=== PATIENT | male | born 1935 | race Caucasian/White ===

== ENCOUNTER 2016-04-14 21:35 | Emergency (ER) | payer OTHER ==
[~2016-04-14 21:35] MED LIST: /TIOT18INH; ACET65TA; ALBU17IN INH; ALFU10TA2 PO; ASPI1TAB PO; ASPI81TA45; B-12; COLA100C2; DOCU100C PO; FLUC10TA; FURO40TA2; FURO40TA2 PO; GAS80CHW PO; HYDR-3713 PO; INCR1INH INH; LASI40TA; LEVA1.25 INH; METO-209 PO; MIRA3350 PO; MULTIVIT; NITR4TASL SL; OMEP20CA3 PO; PRIL40CA; SIMV40TA2 PO; SLOWTAB; STOOL SOFTENER; SYMB80AE; TIZA2TA PO; TOPR100T; UROXATROL; VENTAER; VITA10002 PO; VITA200015 PO; VITMTA PO; VYTO10TA5; XOPE1.252; ZETI10TA2 PO
[2016-04-14] MEDS ORDERED: dexameTHASONE 20 MG/5 ML VIAL (J1100) As Ordered ONE (22:24)
[2016-04-14] MEDS ORDERED: KETOROLAC 30 MG/ML VIAL (J1885) As Ordered ONE (23:15)
[2016-04-15] MEDS ORDERED: guaiFENesin DM LIQ 10ML UD As Ordered ONE (00:32)
--- NOTE | 2016-04-15 00:43 | EDDOCDS ---
Nurse's Notes [facility] Name: Yemi Clark Age: 80 yrs Sex: Male : 1935 Arrival Date: 04/14/2016 Time: 21:35 Bed 10 Private MD: Jason Garcia Diagnosis: Chronic obstructive pulmonary disease with (acute) exacerbation;Acute upper respiratory infection, unspecified-viral Presentation: 04/14 21:41 Presenting complaint: Patient states: cough, cold and difficulty breathing for 3 days. rs3 not improved with neb treatment and inhalers. Adult Sepsis Screening: The patient does not have new or worsening altered mentation. Patient has a respiratory rate of greater than or equal to 22 (1 point). Systolic blood pressure is greater than 100. Patient has a qSOFA score of 0- Negative Sepsis Screen. Suicide/Homicide risk assessment- the patient denies having any suicidal and/or homicidal ideations and does not present with any other emotional, behavioral or mental health complaints. Status: Patient is not a diesel service apprentice or dependent. Transition of care: patient was not received from another setting of care. 21:41 Acuity: LYNN Level 3 rs3 21:41 Method Of Arrival: Wheelchair rs3 Triage Assessment: 21:45 General: Appears in no apparent distress. Pain: Location: chest. Respiratory: Onset: rs3 The symptoms/episode began/occurred gradually. Historical: - Allergies: no known allergies; - Home Meds: 1. alfuzosin 10 mg oral Tb24 once daily 2. docq lace 100 mg daily 3. furosemide Oral 40 mg daily 4. incruse ellipta 62.5 mcg 5. metoprolol succinate oral 100 mg daily 6. Miralax 17 gram/dose Oral powd once daily 7. Nitrostat 0.4 mg SL subl as needed 8. [place] 5-325 mg Oral tab as needed 9. omeprazole 40 mg Oral cpDR once daily 10. proair hfa 90 mcg inhaler as needed 11. simvastatin 40 mg Oral tab once daily 12. tizanidine 2 mg oral tab as needed 13. Vitamin B-12 1,000 mcg/mL Oral drop daily 14. Vitamin D Oral 2000 unit daily 15. Zetia 10 mg Oral tab once daily - PMHx: Hypercholesterolemia; Hypertension; COPD; - PSHx: Hernia repair; - Social history: Smoking status: Patient states former smoker of tobacco. No barriers to communication noted, The patient speaks fluent Arabic. - Family history: Not pertinent. - : The pt / caregiver states he / she is not on anticoagulants. Home medication list is obtained from the patient. - Exposure Risk Screening:: None identified. Screenin/21 00:41 Screening information is obtained from the patient. Fall risk: No risks identified. ko2 Assistance ADL's: requires no assistance with activities of daily living. Abuse/DV Screen: The patient / caregiver reports he/she is: not in a situation that causes fear, pain or injury. Nutritional screening: No deficits noted. Advance Directives: Currently, there is no health care proxy. home support is adequate. Assessment: 04/14 21:40 General: Appears distressed, Behavior is appropriate for age, cooperative. ko2 Neurological: Level of Consciousness is awake, alert. Cardiovascular: Heart tones S1 S2 present. Respiratory: Airway is patent Respiratory effort is even, labored, Breath sounds are clear bilaterally. 22:30 General: Appears in no apparent distress, comfortable, Behavior is appropriate for age, ko2 cooperative. Neurological: Level of Consciousness is awake, alert. Respiratory: Airway is patent Respiratory effort is even, unlabored. Derm: Skin is normal. 23:41 General: Appears in no apparent distress, comfortable, Behavior is appropriate for age, ko2 cooperative. Neurological: Level of Consciousness is awake, alert. Respiratory: Airway is patent Respiratory effort is even, unlabored. Derm: Skin is normal. 04/15 00:40 General: Appears in no apparent distress, comfortable, Behavior is appropriate for age, ko2 cooperative. Pain: Denies pain. Neurological: Level of Consciousness is awake, alert. Respiratory: Airway is patent Respiratory effort is even, unlabored. Derm: Skin is normal. Vital Signs: 04/14 21:37 BP 163 / 71; Pulse 92; Resp 26 S; Temp 99.4(T); Pulse Ox 95% on R/A; Weight 66.22 kg dd6 (R); Height 4 ft. 10 in. (147.32 cm) (R); 04/15 00:28 BP 132 / 62 LA Sitting (auto/reg); Pulse 82 MON; Resp 20 S; Temp 97.8(O); Pulse Ox 94% cln on R/A; Pain 0/10; 04/14 21:37 Body Mass Index 30.51 (66.22 kg, 147.32 cm) dd6 Vitals: 04/14 21:37 Log In Time: April 14, 2016 at 21:35. RN notified that patient meets Red Flag dd6 criteria. ED Course: 21:36 Patient visited by Gentry Vaughan PCA. dd6 21:36 Patient moved to Waiting dd6 21:37 Jason Garcia MD is Private Physician. dd6 21:38 Maddie Barrios RN is Primary Nurse. dd6 21:38 Ashanti Dennis RN is Primary Nurse. dd6 21:38 Patient moved to 10 dd6 21:42 Eb Franklin DO is Attending Physician. cs11 21:42 Patient visited by Eb Franklin DO. cs11 21:42 Triage Initiated rs3 21:46 Pt greeted and oriented to ED. Patient advised of names of staff involved in care, cln location of call betancur, wait times and NPO status. Patient has correct armband on for positive identification. Placed in gown. Bed in low position. Call light in reach. Side rails up X 1. 22:21 Inserted saline lock: 20 gauge in left antecubital area. ko2 22:30 Patient visited by Bozena Payne RN. mar 23:13 Primary Nurse role handed off by Maddie Barrios RN cz 23:20 Patient visited by Ashanti Dennis RN. ko2 04/15 00:15 Patient visited by Ashanti Dennis RN. ko2 00:20 Jason Garcia MD is Referral Physician. cs11 00:28 Patient visited by Heavenly Yung PCA. cln 00:41 The patient / caregiver is instructed regarding the plan of care and ED course. ko2 00:41 Discontinued lock intact, bleeding controlled, pressure dressing applied, No ko2 redness/swelling at site. No procedures done that require assistance. Administered Medications: 04/14 22:23 Drug: Albuterol-Ipratropium 3 ml [ipratropium-albuterol 0.5 mg-3 mg(2.5 mg base)/3 mL rs5 nebulization soln (3 mL)] Route: Inhalation; 22:40 Follow up: clear in anterior upper lobes, RLL rales. Pt has strong NPC during neb tx. bb3 Denies SOB past baseline at rest at this time. 22:30 Drug: Dexamethasone 12 mg [dexamethasone 4 mg/mL injection solution] Route: IV; Rate: aleksandar bolus; Site: left antecubital; 23:20 Drug: ketorolac 15 mg [ketorolac 30 mg/mL (1 mL) injection solution (0.5 mL)] Route: ko2 IVP; Site: left antecubital; 04/15 00:40 Drug: Dextromethorphan-Guaifenesin 5 ml [dextromethorphan-guaifenesin 10 mg-100 mg/5 mL ko2 oral liquid (5 mL)] Route: PO; Intake: RT: 04/14 22:23 Initial Med Neb Given as ordered Patient was instructed and evaluated on procedure rs5 Patient tolerated procedure well without adverse effect. 22:39 Respiratory: clear in anterior upper lobes, RLL rales. Pt has strong NPC during neb tx. bb3 Denies SOB past baseline at rest at this time. Order Results: There are currently no results for this order. Outcome: 04/15 00:20 Discharge ordered by Provider. cs11 00:41 Discharge Assessment: Patient awake, alert and oriented x 3. No cognitive and/or ko2 functional deficits noted. Patient verbalized understanding of disposition instructions. patient administered narcotics - no. The following High Risk Discharge criteria are identified: None. Discharged to home ambulatory, with significant other. Condition: stable. Discharge instructions given to patient, Instructed on discharge instructions, follow up and referral plans. medication usage, Demonstrated understanding of instructions, medications, Pt was receptive of discharge instructions/ teaching. Prescriptions given X 1. No special radiology studies were completed. Property sent home with patient. 00:42 Patient left the ED. ko2 Signatures: Bozena Payne RN RN jan Zecher, Calvin, RN RN cz Desormeau, Daniell, DIRECTOR OF LOSS PREVENTION DIRECTOR OF LOSS PREVENTION dd6 Maddie Barrios RN RN rs3 Elieser Olmedo bb3 Matt Villavicencio,RT RT rs5 Eb Franklin, DO cs11 Ashanti Dennis RN RN ko2 Heavenly Yung, DIRECTOR OF LOSS PREVENTION DIRECTOR OF LOSS PREVENTION cln MTDD
--- NOTE | 2016-04-15 00:43 | EDDOCDS ---
Physician Documentation [facility] Name: Yemi Clark Age: 80 yrs Sex: Male : 1935 Arrival Date: 04/14/2016 Time: 21:35 Bed 10 Private MD: Jason Garcia Disposition: 04/15/16 00:20 Discharged to Home/Self Care. Impression: Chronic obstructive pulmonary disease with (acute) exacerbation, Acute upper respiratory infection, unspecified - viral. - Condition is Stable. - Prescriptions for Prednisone 20 mg Oral Tablet - take 3 tablets by ORAL route once daily for 4 days; 12 tablet. - Medication Reconciliation, Local Pharmacy Hours form. - Follow up: Jason Garcia MD; When: Call to arrange an appointment; Reason: Recheck today's complaints. - Problem is an ongoing problem. - Symptoms have improved. Historical: - Allergies: no known allergies; - Home Meds: 1. alfuzosin 10 mg oral Tb24 once daily 2. docq lace 100 mg daily 3. furosemide Oral 40 mg daily 4. incruse ellipta 62.5 mcg 5. metoprolol succinate oral 100 mg daily 6. Miralax 17 gram/dose Oral powd once daily 7. Nitrostat 0.4 mg SL subl as needed 8. [place] 5-325 mg Oral tab as needed 9. omeprazole 40 mg Oral cpDR once daily 10. proair hfa 90 mcg inhaler as needed 11. simvastatin 40 mg Oral tab once daily 12. tizanidine 2 mg oral tab as needed 13. Vitamin B-12 1,000 mcg/mL Oral drop daily 14. Vitamin D Oral 2000 unit daily 15. Zetia 10 mg Oral tab once daily - PMHx: Hypercholesterolemia; Hypertension; COPD; - PSHx: Hernia repair; - Social history: Smoking status: Patient states former smoker of tobacco. No barriers to communication noted, The patient speaks fluent Rwandan. - Family history: Not pertinent. - : The pt / caregiver states he / she is not on anticoagulants. Home medication list is obtained from the patient. - Exposure Risk Screening:: None identified. Vital Signs: 04/14 21:37 BP 163 / 71; Pulse 92; Resp 26 S; Temp 99.4(T); Pulse Ox 95% on R/A; Weight 66.22 kg / dd6 145.99 lbs (R); Height 4 ft. 10 in. (147.32 cm) (R); 04/15 00:28 BP 132 / 62 LA Sitting (auto/reg); Pulse 82 MON; Resp 20 S; Temp 97.8(O); Pulse Ox 94% cln on R/A; Pain 0/10; 04/14 21:37 Body Mass Index 30.51 (66.22 kg, 147.32 cm) dd6 MDM: 04/14 21:48 Chest, 2 View (pa\E\lat) Ordered. EDMS 22:12 IV Saline Lock ordered. cs11 22:12 Dexamethasone 12 mg IV at bolus once ordered. cs11 22:12 Albuterol-Ipratropium 3 ml Inhalation once ordered. cs11 22:12 Call Respiratory ordered. cs11 22:15 Call Respiratory complete. cln 23:07 ketorolac 15 mg IVP once ordered. cs11 23:08 Chest, 1 View Ordered. EDMS 23:41 Financial registration complete. [facility] 04/15 00:18 Dextromethorphan-Guaifenesin Liquid 10 mg-100 mg/5 mL 5 ml PO once ordered. cs11 Administered Medications: 04/14 22:23 Drug: Albuterol-Ipratropium 3 ml [ipratropium-albuterol 0.5 mg-3 mg(2.5 mg base)/3 mL rs5 nebulization soln (3 mL)] Route: Inhalation; 22:40 Follow up: clear in anterior upper lobes, RLL rales. Pt has strong NPC during neb tx. bb3 Denies SOB past baseline at rest at this time. 22:30 Drug: Dexamethasone 12 mg [dexamethasone 4 mg/mL injection solution] Route: IV; Rate: aleksandar bolus; Site: left antecubital; 23:20 Drug: ketorolac 15 mg [ketorolac 30 mg/mL (1 mL) injection solution (0.5 mL)] Route: ko2 IVP; Site: left antecubital; 04/15 00:40 Drug: Dextromethorphan-Guaifenesin 5 ml [dextromethorphan-guaifenesin 10 mg-100 mg/5 mL ko2 oral liquid (5 mL)] Route: PO; Signatures: Dispatcher [employer] EDMS Maddie Barrios RN RN rs3 Eb Franklin, DO cs11 Ashanti Dennis,RN RN jazmin2 Maria A Wallace, Heavenly, WEIGH AND CHARGE WORKER WEIGH AND CHARGE WORKER cln Elmer, Elieser Malin RN bb3 Matt Villavicencio RT rs5 MTDD
--- NOTE | 2016-04-15 10:47 | REP ---
Chest x-ray: Two views. History: Cough. Comparison chest x-ray January 06, 2016. Findings: There are patchy areas of calcific pleural plaquing again noted bilaterally, unchanged. The patient is status post prior median sternotomy. The heart is mildly enlarged, unchanged. Pleural angles are sharp. No acute infiltrate is seen. Pulmonary vasculature appears to be slightly cephalized, but unchanged. Impression: Mild cardiomegaly, prior sternotomy. Calcific pleural plaquing. No acute abnormality. Signed by Franklyn Dutton MD 04/15/2016 11:06 A
--- NOTE | 2016-04-15 11:01 | REP ---
Chest x-ray: Portable exam. Single view. History: Right-sided chest pain. Comparison study is from 1 hour and 20 minutes earlier on this same date. Findings: Mild cardiomegaly, prior sternotomy wires, multifocal calcific pleural plaquing again seen, unchanged. No new infiltrate. There is no evidence of pneumothorax or hydrothorax. Impression: No change from the study done earlier this evening. Signed by Franklyn Dutton MD 04/15/2016 11:06 A
--- NOTE | 2016-04-17 01:42 | EDDOCDS ---
Nurse's Notes [facility] Name: Ymei Clark Age: 80 yrs Sex: Male : 1935 Arrival Date: 04/14/2016 Time: 21:35 Bed 10 Private MD: Jason Garcia Diagnosis: Chronic obstructive pulmonary disease with (acute) exacerbation;Acute upper respiratory infection, unspecified-viral Presentation: 04/14 21:41 Presenting complaint: Patient states: cough, cold and difficulty breathing for 3 days. rs3 not improved with neb treatment and inhalers. Adult Sepsis Screening: The patient does not have new or worsening altered mentation. Patient has a respiratory rate of greater than or equal to 22 (1 point). Systolic blood pressure is greater than 100. Patient has a qSOFA score of 0- Negative Sepsis Screen. Suicide/Homicide risk assessment- the patient denies having any suicidal and/or homicidal ideations and does not present with any other emotional, behavioral or mental health complaints. Status: Patient is not a auto specialty services manager or dependent. Transition of care: patient was not received from another setting of care. 21:41 Acuity: LYNN Level 3 rs3 21:41 Method Of Arrival: Wheelchair rs3 Triage Assessment: 21:45 General: Appears in no apparent distress. Pain: Location: chest. Respiratory: Onset: rs3 The symptoms/episode began/occurred gradually. Historical: - Allergies: no known allergies; - Home Meds: 1. alfuzosin 10 mg oral Tb24 once daily 2. docq lace 100 mg daily 3. furosemide Oral 40 mg daily 4. incruse ellipta 62.5 mcg 5. metoprolol succinate oral 100 mg daily 6. Miralax 17 gram/dose Oral powd once daily 7. Nitrostat 0.4 mg SL subl as needed 8. [place] 5-325 mg Oral tab as needed 9. omeprazole 40 mg Oral cpDR once daily 10. proair hfa 90 mcg inhaler as needed 11. simvastatin 40 mg Oral tab once daily 12. tizanidine 2 mg oral tab as needed 13. Vitamin B-12 1,000 mcg/mL Oral drop daily 14. Vitamin D Oral 2000 unit daily 15. Zetia 10 mg Oral tab once daily - PMHx: Hypercholesterolemia; Hypertension; COPD; - PSHx: Hernia repair; - Social history: Smoking status: Patient states former smoker of tobacco. No barriers to communication noted, The patient speaks fluent Mohawk. - Family history: Not pertinent. - : The pt / caregiver states he / she is not on anticoagulants. Home medication list is obtained from the patient. - Exposure Risk Screening:: None identified. Screenin/21 00:41 Screening information is obtained from the patient. Fall risk: No risks identified. ko2 Assistance ADL's: requires no assistance with activities of daily living. Abuse/DV Screen: The patient / caregiver reports he/she is: not in a situation that causes fear, pain or injury. Nutritional screening: No deficits noted. Advance Directives: Currently, there is no health care proxy. home support is adequate. Assessment: 04/14 21:40 General: Appears distressed, Behavior is appropriate for age, cooperative. ko2 Neurological: Level of Consciousness is awake, alert. Cardiovascular: Heart tones S1 S2 present. Respiratory: Airway is patent Respiratory effort is even, labored, Breath sounds are clear bilaterally. 22:30 General: Appears in no apparent distress, comfortable, Behavior is appropriate for age, ko2 cooperative. Neurological: Level of Consciousness is awake, alert. Respiratory: Airway is patent Respiratory effort is even, unlabored. Derm: Skin is normal. 23:41 General: Appears in no apparent distress, comfortable, Behavior is appropriate for age, ko2 cooperative. Neurological: Level of Consciousness is awake, alert. Respiratory: Airway is patent Respiratory effort is even, unlabored. Derm: Skin is normal. 04/15 00:40 General: Appears in no apparent distress, comfortable, Behavior is appropriate for age, ko2 cooperative. Pain: Denies pain. Neurological: Level of Consciousness is awake, alert. Respiratory: Airway is patent Respiratory effort is even, unlabored. Derm: Skin is normal. Vital Signs: 04/14 21:37 BP 163 / 71; Pulse 92; Resp 26 S; Temp 99.4(T); Pulse Ox 95% on R/A; Weight 66.22 kg dd6 (R); Height 4 ft. 10 in. (147.32 cm) (R); 04/15 00:28 BP 132 / 62 LA Sitting (auto/reg); Pulse 82 MON; Resp 20 S; Temp 97.8(O); Pulse Ox 94% cln on R/A; Pain 0/10; 04/14 21:37 Body Mass Index 30.51 (66.22 kg, 147.32 cm) dd6 Vitals: 04/14 21:37 Log In Time: April 14, 2016 at 21:35. RN notified that patient meets Red Flag dd6 criteria. ED Course: 21:36 Patient visited by Gentry Vaughan PCA. dd6 21:36 Patient moved to Waiting dd6 21:37 Jason Garcia MD is Private Physician. dd6 21:38 Maddie Barrios RN is Primary Nurse. dd6 21:38 Ashanti Dennis RN is Primary Nurse. dd6 21:38 Patient moved to 10 dd6 21:42 Eb Franklin DO is Attending Physician. cs11 21:42 Patient visited by Eb Franklin DO. cs11 21:42 Triage Initiated rs3 21:46 Pt greeted and oriented to ED. Patient advised of names of staff involved in care, cln location of call betancur, wait times and NPO status. Patient has correct armband on for positive identification. Placed in gown. Bed in low position. Call light in reach. Side rails up X 1. 22:21 Inserted saline lock: 20 gauge in left antecubital area. ko2 22:30 Patient visited by Bozena Payne RN. mar 23:13 Primary Nurse role handed off by Maddie Barrios RN cz 23:20 Patient visited by Ashanti Dennis RN. ko2 04/15 00:15 Patient visited by Ashanti Dennis RN. ko2 00:20 Jason Garcia MD is Referral Physician. cs11 00:28 Patient visited by Heavenly Yung PCA. cln 00:41 The patient / caregiver is instructed regarding the plan of care and ED course. ko2 00:41 Discontinued lock intact, bleeding controlled, pressure dressing applied, No ko2 redness/swelling at site. No procedures done that require assistance. 01:04 [facility] Payment Agreement was scanned into [employer] - Parking Tickets and attached to record. h 10:51 Chest, 2 View (pa\E\lat) Returned. EDMS 11:06 T-Sheet-- Draft Copy was scanned into [employer] - Parking Tickets and attached to record. gb 11:34 Chest, 1 View Returned. EDMS Administered Medications: 01/20 22:23 Drug: Albuterol-Ipratropium 3 ml [ipratropium-albuterol 0.5 mg-3 mg(2.5 mg base)/3 mL rs5 nebulization soln (3 mL)] Route: Inhalation; 22:40 Follow up: clear in anterior upper lobes, RLL rales. Pt has strong NPC during neb tx. bb3 Denies SOB past baseline at rest at this time. 22:30 Drug: Dexamethasone 12 mg [dexamethasone 4 mg/mL injection solution] Route: IV; Rate: aleksandar bolus; Site: left antecubital; 23:20 Drug: ketorolac 15 mg [ketorolac 30 mg/mL (1 mL) injection solution (0.5 mL)] Route: ko2 IVP; Site: left antecubital; 04/15 00:40 Drug: Dextromethorphan-Guaifenesin 5 ml [dextromethorphan-guaifenesin 10 mg-100 mg/5 mL ko2 oral liquid (5 mL)] Route: PO; Intake: RT: 04/14 22:23 Initial Med Neb Given as ordered Patient was instructed and evaluated on procedure rs5 Patient tolerated procedure well without adverse effect. 22:39 Respiratory: clear in anterior upper lobes, RLL rales. Pt has strong NPC during neb tx. bb3 Denies SOB past baseline at rest at this time. Order Results: Radiology Order: Chest, 2 View (pa\E\lat) Test: Chest, 2 View (pa\E\lat) REASON FOR EXAMINATION: Cough; Chest x-ray: Two views.; ; History: Cough.; ; Comparison chest x-ray January 06, 2016.; ; Findings: There are patchy areas of calcific pleural plaquing again noted; bilaterally, unchanged. The patient is status post prior median sternotomy. The; heart is mildly enlarged, unchanged. Pleural angles are sharp. No acute; infiltrate is seen. Pulmonary vasculature appears to be slightly cephalized, but; unchanged.; ; Impression:; ; Mild cardiomegaly, prior sternotomy. Calcific pleural plaquing. No acute; abnormality.; ; ; Signed by; Franklyn Dutton MD 04/15/2016 11:06 A; Radiology Order: Chest, 1 View Test: Chest, 1 View REASON FOR EXAMINATION: R chest pain; Chest x-ray: Portable exam. Single view.; ; History: Right-sided chest pain.; ; Comparison study is from 1 hour and 20 minutes earlier on this same date.; ; Findings: Mild cardiomegaly, prior sternotomy wires, multifocal calcific pleural; plaquing again seen, unchanged. No new infiltrate. There is no evidence of; pneumothorax or hydrothorax.; ; Impression:; ; No change from the study done earlier this evening.; ; ; Signed by; Franklyn Dutton MD 04/15/2016 11:06 A; Outcome: 04/15 00:20 Discharge ordered by Provider. cs11 00:41 Discharge Assessment: Patient awake, alert and oriented x 3. No cognitive and/or ko2 functional deficits noted. Patient verbalized understanding of disposition instructions. patient administered narcotics - no. The following High Risk Discharge criteria are identified: None. Discharged to home ambulatory, with significant other. Condition: stable. Discharge instructions given to patient, Instructed on discharge instructions, follow up and referral plans. medication usage, Demonstrated understanding of instructions, medications, Pt was receptive of discharge instructions/ teaching. Prescriptions given X 1. No special radiology studies were completed. Property sent home with patient. 00:42 Patient left the ED. ko2 Signatures: Dispatcher [employer] EDMS Bozena Payne RN RN jan Zecher, Calvin, RN RN Helga Virk, Reg Reg gb Gentry Vaughan, MANAGER SOCIAL MANAGER SOCIAL dd6 Maddie Barrios,RN RN rs3 Elieser Olmedo bb3 Matt Villavicencio,RT RT rs5 Eb Franklin, DO cs11 Ashanti Dennis RN RN ko2 Maria A Wallace Crystal, MANAGER SOCIAL MANAGER SOCIAL cln Chart Complete MTDD
--- NOTE | 2016-04-17 01:42 | EDDOCDS ---
Physician Documentation [facility] Name: Yemi Clark Age: 80 yrs Sex: Male : 1935 Arrival Date: 04/14/2016 Time: 21:35 Bed 10 Private MD: Jason Garcia Disposition: 04/15/16 00:20 Discharged to Home/Self Care. Impression: Chronic obstructive pulmonary disease with (acute) exacerbation, Acute upper respiratory infection, unspecified - viral. - Condition is Stable. - Prescriptions for Prednisone 20 mg Oral Tablet - take 3 tablets by ORAL route once daily for 4 days; 12 tablet. - Medication Reconciliation, Local Pharmacy Hours form. - Follow up: Jason Garcia MD; When: Call to arrange an appointment; Reason: Recheck today's complaints. - Problem is an ongoing problem. - Symptoms have improved. Historical: - Allergies: no known allergies; - Home Meds: 1. alfuzosin 10 mg oral Tb24 once daily 2. docq lace 100 mg daily 3. furosemide Oral 40 mg daily 4. incruse ellipta 62.5 mcg 5. metoprolol succinate oral 100 mg daily 6. Miralax 17 gram/dose Oral powd once daily 7. Nitrostat 0.4 mg SL subl as needed 8. [place] 5-325 mg Oral tab as needed 9. omeprazole 40 mg Oral cpDR once daily 10. proair hfa 90 mcg inhaler as needed 11. simvastatin 40 mg Oral tab once daily 12. tizanidine 2 mg oral tab as needed 13. Vitamin B-12 1,000 mcg/mL Oral drop daily 14. Vitamin D Oral 2000 unit daily 15. Zetia 10 mg Oral tab once daily - PMHx: Hypercholesterolemia; Hypertension; COPD; - PSHx: Hernia repair; - Social history: Smoking status: Patient states former smoker of tobacco. No barriers to communication noted, The patient speaks fluent Irish. - Family history: Not pertinent. - : The pt / caregiver states he / she is not on anticoagulants. Home medication list is obtained from the patient. - Exposure Risk Screening:: None identified. Vital Signs: 04/14 21:37 BP 163 / 71; Pulse 92; Resp 26 S; Temp 99.4(T); Pulse Ox 95% on R/A; Weight 66.22 kg / dd6 145.99 lbs (R); Height 4 ft. 10 in. (147.32 cm) (R); 04/15 00:28 BP 132 / 62 LA Sitting (auto/reg); Pulse 82 MON; Resp 20 S; Temp 97.8(O); Pulse Ox 94% cln on R/A; Pain 0/10; 04/14 21:37 Body Mass Index 30.51 (66.22 kg, 147.32 cm) dd6 MDM: 04/14 21:48 Chest, 2 View (pa\E\lat) Ordered. EDMS 22:12 IV Saline Lock ordered. cs11 22:12 Dexamethasone 12 mg IV at bolus once ordered. cs11 22:12 Albuterol-Ipratropium 3 ml Inhalation once ordered. cs11 22:12 Call Respiratory ordered. cs11 22:15 Call Respiratory complete. cln 23:07 ketorolac 15 mg IVP once ordered. cs11 23:08 Chest, 1 View Ordered. EDMS 23:41 Financial registration complete. [facility] 04/15 00:18 Dextromethorphan-Guaifenesin Liquid 10 mg-100 mg/5 mL 5 ml PO once ordered. [facility] 01:04 [facility] Payment Agreement was scanned into [employer] and attached to record. [facility] 11:06 T-Sheet-- Draft Copy was scanned into [employer] and attached to record. gb Administered Medications: 04/14 22:23 Drug: Albuterol-Ipratropium 3 ml [ipratropium-albuterol 0.5 mg-3 mg(2.5 mg base)/3 mL rs5 nebulization soln (3 mL)] Route: Inhalation; 22:40 Follow up: clear in anterior upper lobes, RLL rales. Pt has strong NPC during neb tx. bb3 Denies SOB past baseline at rest at this time. 22:30 Drug: Dexamethasone 12 mg [dexamethasone 4 mg/mL injection solution] Route: IV; Rate: aleksandar bolus; Site: left antecubital; 23:20 Drug: ketorolac 15 mg [ketorolac 30 mg/mL (1 mL) injection solution (0.5 mL)] Route: ko2 IVP; Site: left antecubital; 04/15 00:40 Drug: Dextromethorphan-Guaifenesin 5 ml [dextromethorphan-guaifenesin 10 mg-100 mg/5 mL ko2 oral liquid (5 mL)] Route: PO; Signatures: Dispatcher [employer] EDHelga Zamarripa, Reg Reg gb Maddie Barrios,RN RN rs3 Eb Franklin, DO cs11 Ashanti Dennis RN RN ko2 Maria A Wallace sl Aga, Heavenly, DIMPLING MACHINE OPERATOR DIMPLING MACHINE OPERATOR cln Bozena Payne RN, Brad bb3 Matt Villavicencio RT rs5 The chart was reviewed and I authenticate all verbal orders and agree with the evaluation and treatment provided.Attachments: 01:04 [facility] Payment Agreement [facility] 11:06 T-Sheet-- Draft Copy gb Chart Complete MTDD
--- NOTE | 2016-04-17 01:42 | EDDOCDS ---
Physician Documentation [facility] Name: Yemi Clark Age: 80 yrs Sex: Male : 1935 Arrival Date: 04/14/2016 Time: 21:35 Bed 10 Private MD: Jason Garcia Disposition: 04/15/16 00:20 Discharged to Home/Self Care. Impression: Chronic obstructive pulmonary disease with (acute) exacerbation, Acute upper respiratory infection, unspecified - viral. - Condition is Stable. - Prescriptions for Prednisone 20 mg Oral Tablet - take 3 tablets by ORAL route once daily for 4 days; 12 tablet. - Medication Reconciliation, Local Pharmacy Hours form. - Follow up: Jason Garcia MD; When: Call to arrange an appointment; Reason: Recheck today's complaints. - Problem is an ongoing problem. - Symptoms have improved. Historical: - Allergies: no known allergies; - Home Meds: 1. alfuzosin 10 mg oral Tb24 once daily 2. docq lace 100 mg daily 3. furosemide Oral 40 mg daily 4. incruse ellipta 62.5 mcg 5. metoprolol succinate oral 100 mg daily 6. Miralax 17 gram/dose Oral powd once daily 7. Nitrostat 0.4 mg SL subl as needed 8. [place] 5-325 mg Oral tab as needed 9. omeprazole 40 mg Oral cpDR once daily 10. proair hfa 90 mcg inhaler as needed 11. simvastatin 40 mg Oral tab once daily 12. tizanidine 2 mg oral tab as needed 13. Vitamin B-12 1,000 mcg/mL Oral drop daily 14. Vitamin D Oral 2000 unit daily 15. Zetia 10 mg Oral tab once daily - PMHx: Hypercholesterolemia; Hypertension; COPD; - PSHx: Hernia repair; - Social history: Smoking status: Patient states former smoker of tobacco. No barriers to communication noted, The patient speaks fluent Chinese. - Family history: Not pertinent. - : The pt / caregiver states he / she is not on anticoagulants. Home medication list is obtained from the patient. - Exposure Risk Screening:: None identified. Vital Signs: 04/14 21:37 BP 163 / 71; Pulse 92; Resp 26 S; Temp 99.4(T); Pulse Ox 95% on R/A; Weight 66.22 kg / dd6 145.99 lbs (R); Height 4 ft. 10 in. (147.32 cm) (R); 04/15 00:28 BP 132 / 62 LA Sitting (auto/reg); Pulse 82 MON; Resp 20 S; Temp 97.8(O); Pulse Ox 94% cln on R/A; Pain 0/10; 04/14 21:37 Body Mass Index 30.51 (66.22 kg, 147.32 cm) dd6 MDM: 04/14 21:48 Chest, 2 View (pa\E\lat) Ordered. EDMS 22:12 IV Saline Lock ordered. cs11 22:12 Dexamethasone 12 mg IV at bolus once ordered. cs11 22:12 Albuterol-Ipratropium 3 ml Inhalation once ordered. cs11 22:12 Call Respiratory ordered. cs11 22:15 Call Respiratory complete. cln 23:07 ketorolac 15 mg IVP once ordered. cs11 23:08 Chest, 1 View Ordered. EDMS 23:41 Financial registration complete. [facility] 04/15 00:18 Dextromethorphan-Guaifenesin Liquid 10 mg-100 mg/5 mL 5 ml PO once ordered. [facility] 01:04 [facility] Payment Agreement was scanned into [employer] and attached to record. [facility] 11:06 T-Sheet-- Draft Copy was scanned into [employer] and attached to record. gb Administered Medications: 04/14 22:23 Drug: Albuterol-Ipratropium 3 ml [ipratropium-albuterol 0.5 mg-3 mg(2.5 mg base)/3 mL rs5 nebulization soln (3 mL)] Route: Inhalation; 22:40 Follow up: clear in anterior upper lobes, RLL rales. Pt has strong NPC during neb tx. bb3 Denies SOB past baseline at rest at this time. 22:30 Drug: Dexamethasone 12 mg [dexamethasone 4 mg/mL injection solution] Route: IV; Rate: aleksandar bolus; Site: left antecubital; 23:20 Drug: ketorolac 15 mg [ketorolac 30 mg/mL (1 mL) injection solution (0.5 mL)] Route: ko2 IVP; Site: left antecubital; 04/15 00:40 Drug: Dextromethorphan-Guaifenesin 5 ml [dextromethorphan-guaifenesin 10 mg-100 mg/5 mL ko2 oral liquid (5 mL)] Route: PO; Signatures: Dispatcher [employer] EDHelga Zamarripa, Reg Reg gb Maddie Barrios,RN RN rs3 Eb Franklin, DO cs11 Ashanti Dennis RN RN ko2 Maria A Wallace sl Aga, Heavenly, SENIOR PRIVATE CLIENT ADVISOR SENIOR PRIVATE CLIENT ADVISOR cln Bozena Payne RN, Brad bb3 Matt Villavicencio RT rs5 The chart was reviewed and I authenticate all verbal orders and agree with the evaluation and treatment provided.Attachments: 01:04 [facility] Payment Agreement [facility] 11:06 T-Sheet-- Draft Copy gb Chart Complete MTDD
== END 2016-04-15 00:42 | disposition home or self-care (01) ==
LOC: M ED 21:35
DX: J44.1 Chronic obstructive pulmonary disease with (acute) exacerbation (principal); N39.0 Urinary tract infection, site not specified; I10 Essential (primary) hypertension; E78.00 Pure hypercholesterolemia, unspecified; K21.9 Gastro-esophageal reflux disease without esophagitis; E78.5 Hyperlipidemia, unspecified; Z87.891 Personal history of nicotine dependence; Z79.899 Other long term (current) drug therapy
CPT/HCPCS: 71010; 71020; 94640; 96374; 96375; 99284; J1100; J1885

== ENCOUNTER → 2016-05-09 | Outpatient (REF) | payer OTHER ==
[2016-05-09 12:10] LABS: BASO % 0.4 % (0.0-1.0); EOS # 0.3 K/mm3 (0.0-0.50); EOS % 3.5 % (0.0-3.0); LARGE UNSTAINED CELL # 0.1 K/mm3 (0.0-0.4); LARGE UNSTAINED CELL % 1.4 % (0.0-4.0); LYMPH # 2.4 K/mm3 (1.5-4.5); LYMPH % 24.9 % (24.0-44.0); MEAN CORPUSCULAR HEMOGLOBIN 29.7 pg (27.0-33.0); MEAN CORPUSCULAR HGB CONC 32.2 g/dl (32.0-36.5); MEAN CORPUSCULAR VOLUME 92.1 fl (80.0-96.0); MONO # 0.5 K/mm3 (0.0-0.8); MONO % 5.5 % (0.0-5.0); NEUTROPHILS # 5.8 K/mm3 (1.8-7.7); NEUTROPHILS % 64.3 % (36.0-66.0); PLATELET COUNT, AUTOMATED 330 k/mm3 (150-450); RED CELL DISTRIBUTION WIDTH 12.8 % (11.5-14.5)
[2016-05-09 13:04] LABS: ALBUMIN 3.5 GM/DL (3.2-5.2); ALBUMIN/GLOBULIN RATIO 0.92 (1.00-1.93); ALKALINE PHOSPHATASE 110 U/L (45-117); ALT/SGPT 27 U/L (12-78); ANION GAP 11 MEQ/L (8-16); AST/SGOT 18 U/L (15-37); BILIRUBIN,TOTAL 0.4 MG/DL (0.2-1.0); BLOOD UREA NITROGEN 18 MG/DL (7-18); CALCIUM LEVEL 8.8 MG/DL (8.8-10.2); CARBON DIOXIDE LEVEL 26 MEQ/L (21-32); CHLORIDE LEVEL 105 MEQ/L (98-107); CHOLESTEROL LEVEL 149 MG/DL (<200); CREATININE FOR GFR 1.23 MG/DL (0.70-1.30); FERRITIN 137 NG/ML (26-388); GLOMERULAR FILTRATION RATE > 60.0 (>35); GLUCOSE, FASTING 96 MG/DL (83-110); PERCENT SATURATION 12.5 % (19.7-37.4); POTASSIUM SERUM 4.3 MEQ/L (3.5-5.1); SODIUM LEVEL 142 MEQ/L (136-145); TOTAL IRON BINDING CAPACITY 311 UG/DL (250-450); TOTAL PROTEIN 7.3 GM/DL (6.4-8.2); TRIGLYCERIDES LEVEL 84 MG/DL (<150)
== END ==
LOC: M SFHCPLAZ 09:10
PROVIDERS: ATTEND Family Medicine
DX: D50.9 Iron deficiency anemia, unspecified (principal); E78.5 Hyperlipidemia, unspecified; N40.1 Benign prostatic hyperplasia with lower urinary tract symptoms; Z79.82 Long term (current) use of aspirin; Z79.891 Long term (current) use of opiate analgesic; Z79.899 Other long term (current) drug therapy
CPT/HCPCS: 36415; 80053; 80061; 82728; 83036; 83550; 85025; G0103; G0463

== ENCOUNTER → 2016-10-02 | Outpatient (REF) | payer OTHER ==
[~2016-10-02] MED LIST changes: -DOCU100C PO; +DOCU100C16 PO; +GAS1CHW PO; -GAS80CHW PO; -METO-209 PO; +METO1TAB33 PO; -ZETI10TA2 PO; +ZETI10TA30 PO
[2016-10-02 11:55] LABS: BASO % 0.5 % (0.0-1.0); EOS # 0.2 K/mm3 (0.0-0.50); EOS % 2.4 % (0.0-3.0); LARGE UNSTAINED CELL # 0.1 K/mm3 (0.0-0.4); LARGE UNSTAINED CELL % 1.6 % (0.0-4.0); LYMPH # 2.5 K/mm3 (1.5-4.5); LYMPH % 26.5 % (24.0-44.0); MEAN CORPUSCULAR HEMOGLOBIN 30.3 pg (27.0-33.0); MEAN CORPUSCULAR VOLUME 89.3 fl (80.0-96.0); MONO # 0.6 K/mm3 (0.0-0.8); MONO % 6.5 % (0.0-5.0); NEUTROPHILS # 5.7 K/mm3 (1.8-7.7); NEUTROPHILS % 62.5 % (36.0-66.0); PLATELET COUNT, AUTOMATED 308 k/mm3 (150-450); RED CELL DISTRIBUTION WIDTH 13.1 % (11.5-14.5); RETIC HEMOGLOBIN CONTENT CHr 30.1 PG (24-36); RETICULOCYTE ABSOLUTE ADVIA212 86 x10(9)/L (17-77); WHITE BLOOD COUNT 9.1 K/mm3 (4.0-10.0)
[2016-10-02 12:44] LABS: ALBUMIN 3.7 GM/DL (3.2-5.2); ALBUMIN/GLOBULIN RATIO 0.88 (1.00-1.93); ALKALINE PHOSPHATASE 115 U/L (45-117); ALT/SGPT 32 U/L (12-78); ANION GAP 8 MEQ/L (8-16); AST/SGOT 25 U/L (15-37); BILIRUBIN,TOTAL 0.5 MG/DL (0.2-1.0); BLOOD UREA NITROGEN 18 MG/DL (7-18); CALCIUM LEVEL 9.2 MG/DL (8.8-10.2); CARBON DIOXIDE LEVEL 29 MEQ/L (21-32); CHLORIDE LEVEL 105 MEQ/L (98-107); CREATININE FOR GFR 1.18 MG/DL (0.70-1.30); FERRITIN 76 NG/ML (26-388); FREE T4 1.03 NG/DL (0.76-1.46); GLOMERULAR FILTRATION RATE > 60.0 (>35); GLUCOSE, FASTING 101 MG/DL (83-110); PERCENT SATURATION 13.6 % (19.7-37.4); POTASSIUM SERUM 4.3 MEQ/L (3.5-5.1); SODIUM LEVEL 142 MEQ/L (136-145); TOTAL IRON BINDING CAPACITY 368 UG/DL (250-450); TOTAL PROTEIN 7.9 GM/DL (6.4-8.2)
== END ==
LOC: M SFHCPLAZ 09:04
PROVIDERS: ATTEND Family Medicine
DX: D50.9 Iron deficiency anemia, unspecified (principal); N18.3 Chronic kidney disease, stage 3 (moderate); E78.5 Hyperlipidemia, unspecified; R73.01 Impaired fasting glucose
CPT/HCPCS: 36415; 80053; 82728; 83036; 83550; 84439; 84443; 85025; 85046; G0463

== ENCOUNTER → 2017-02-02 | Outpatient (REF) | payer OTHER ==
[2017-02-02 17:39] LABS: BASO % 0.5 % (0.0-1.0); EOS % 2.7 % (0.0-3.0); IMMATURE GRANULOCYTE % 0.5 % (0-0); LYMPH # 3.2 10^3/uL (1.5-4.5); LYMPH % 33.1 % (24.0-44.0); MEAN CORPUSCULAR HGB CONC 32.5 g/dl (32.0-36.5); MEAN CORPUSCULAR VOLUME 89.2 fl (80.0-96.0); MONO # 0.8 10^3/uL (0.0-0.8); MONO % 8.6 % (0.0-5.0); NEUTROPHILS # 5.3 10^3/uL (1.8-7.7); NEUTROPHILS % 54.6 % (36.0-66.0); PLATELET COUNT, AUTOMATED 315 10^3/uL (150-450); RED CELL DISTRIBUTION WIDTH 12.8 % (11.5-14.5); WHITE BLOOD COUNT 9.7 10^3/uL (4.0-10.0)
[2017-02-02 17:40] LABS: BASO # 0.1 10^3/uL (0.0-0.2); EOS # 0.3 10^3/uL (0.0-0.50)
[2017-02-02 18:33] LABS: ALKALINE PHOSPHATASE 109 U/L (45-117); ALT/SGPT 36 U/L (12-78); ANION GAP 10 MEQ/L (8-16); AST/SGOT 25 U/L (7-37); BILIRUBIN,TOTAL 0.5 MG/DL (0.2-1.0); BLOOD UREA NITROGEN 18 MG/DL (7-18); CALCIUM LEVEL 9.5 MG/DL (8.8-10.2); CARBON DIOXIDE LEVEL 30 MEQ/L (21-32); CHLORIDE LEVEL 101 MEQ/L (98-107); CREATININE FOR GFR 1.21 MG/DL (0.70-1.30); GLOMERULAR FILTRATION RATE > 60.0 (>35); GLUCOSE, FASTING 93 MG/DL (83-110); MAGNESIUM LEVEL 2.1 MG/DL (1.8-2.4); POTASSIUM SERUM 4.5 MEQ/L (3.5-5.1); SODIUM LEVEL 141 MEQ/L (136-145)
== END ==
LOC: M SFHCPLAZ 14:43
PROVIDERS: ATTEND Family Medicine
DX: N18.3 Chronic kidney disease, stage 3 (moderate) (principal); R73.01 Impaired fasting glucose
CPT/HCPCS: 36415; 80053; 83036; 83735; 85025; G0463

== ENCOUNTER → 2017-05-31 | Outpatient (CLI) | payer OTHER | LOC: M SMT 10:37 | DX: J61 Pneumoconiosis due to asbestos and other mineral fibers (principal) | CPT/HCPCS: 71046 ==

== ENCOUNTER → 2017-10-01 | Outpatient (REF) | payer OTHER ==
[2017-10-01 12:28] LABS: RETIC HEMOGLOBIN EQUIVALENT 32.9 pg (24-36); RETICULOCYTE # 95.8 10^9/L (17-77); RETICULOCYTE % 2.1 % (0.5-1.5)
[2017-10-01 12:50] LABS: VITAMIN B12 LEVEL 1628 PG/ML (247-911)
[2017-10-01 12:56] LABS: ALBUMIN/GLOBULIN RATIO 0.95 (1.00-1.93); ALKALINE PHOSPHATASE 111 U/L (45-117); ALT/SGPT 30 U/L (12-78); ANION GAP 8 MEQ/L (8-16); AST/SGOT 25 U/L (7-37); BILIRUBIN,TOTAL 0.5 MG/DL (0.2-1.0); BLOOD UREA NITROGEN 17 MG/DL (7-18); CALCIUM LEVEL 9.3 MG/DL (8.8-10.2); CARBON DIOXIDE LEVEL 30 MEQ/L (21-32); CHLORIDE LEVEL 104 MEQ/L (98-107); CHOLESTEROL LEVEL 153 MG/DL (<200); CHOLESTEROL RISK RATIO 3.731 (<5); CREATININE FOR GFR 1.18 MG/DL (0.70-1.30); FREE T4 0.97 NG/DL (0.76-1.46); GLOMERULAR FILTRATION RATE > 60.0 (>35); GLUCOSE, FASTING 113 MG/DL (70-100); HDL CHOLESTEROL 41 MG/DL (>40); LDL CHOLESTEROL 88.2 MG/DL (<100); NON-HDL-C 112 MG/DL; POTASSIUM SERUM 4.6 MEQ/L (3.5-5.1); SODIUM LEVEL 142 MEQ/L (136-145); TOTAL PROTEIN 8.2 GM/DL (6.4-8.2); TRIGLYCERIDES LEVEL 119 MG/DL (<150)
[2017-10-01 13:13] LABS: ESTIMATED AVERAGE GLUCOSE 134 MG/DL (60-110); HEMOGLOBIN A1c 6.3 %
== END ==
LOC: M SFHCPLAZ 09:06
DX: E53.8 Deficiency of other specified B group vitamins (principal); R73.01 Impaired fasting glucose; E78.5 Hyperlipidemia, unspecified; I50.30 Unspecified diastolic (congestive) heart failure
CPT/HCPCS: 84443

== ENCOUNTER 2018-01-16 16:08 | Emergency (ER) | payer OTHER ==
[2018-01-16] MEDS: PERCOCET 5MG/325MG TAB PO (20:00)
== END 2018-01-16 20:44 | disposition home or self-care (01) ==
LOC: M ED 16:08
DX: S40.011A Contusion of right shoulder, initial encounter (principal); W19.XXXA Unspecified fall, initial encounter; Y92.099 Unspecified place in other non-institutional residence as the place of occurrence of the external cause; Y93.9 Activity, unspecified; Y99.9 Unspecified external cause status; I10 Essential (primary) hypertension; Z95.1 Presence of aortocoronary bypass graft; Z87.891 Personal history of nicotine dependence; Z79.82 Long term (current) use of aspirin; Z79.899 Other long term (current) drug therapy
CPT/HCPCS: 73030

== ENCOUNTER → 2018-03-01 | Outpatient (REF) | payer OTHER ==
[~2018-03-01] MED LIST changes: +NAPR-49 PO
[2018-03-01 13:19] LABS: BASO # 0.1 10^3/uL (0.0-0.2); BASO % 0.6 % (0.0-1.0); EOS # 0.2 10^3/uL (0.0-0.50); EOS % 1.7 % (0.0-3.0); HEMOGLOBIN 13.8 g/dl (13.5-17.5); LYMPH # 2.9 10^3/uL (1.5-4.5); LYMPH % 32.8 % (24.0-44.0); MEAN CORPUSCULAR HEMOGLOBIN 29.1 pg (27.0-33.0); MEAN CORPUSCULAR HGB CONC 33.7 g/dl (32.0-36.5); MEAN CORPUSCULAR VOLUME 86.5 fl (80.0-96.0); MONO # 0.8 10^3/uL (0.0-0.8); MONO % 8.6 % (0.0-5.0); NEUTROPHILS # 4.9 10^3/uL (1.8-7.7); NEUTROPHILS % 55.5 % (36.0-66.0); PLATELET COUNT, AUTOMATED 279 10^3/uL (150-450); RED BLOOD COUNT 4.74 10^6/uL (4.30-6.10); WHITE BLOOD COUNT 8.8 10^3/uL (4.0-10.0)
[2018-03-01 14:02] LABS: ALBUMIN 4.1 GM/DL (3.2-5.2); BILIRUBIN,TOTAL 0.6 MG/DL (0.2-1.0); CALCIUM LEVEL 9.4 MG/DL (8.8-10.2); CREATININE FOR GFR 1.35 MG/DL (0.70-1.30); FREE T4 0.96 NG/DL (0.76-1.46); GLOMERULAR FILTRATION RATE 53.7 (>35); POTASSIUM SERUM 4.3 MEQ/L (3.5-5.1); THYROID STIMULATING HORMONE 3.47 uIU/ML (0.358-3.740); TOTAL PROTEIN 7.9 GM/DL (6.4-8.2)
== END ==
LOC: M SFHCPLAZ 11:37
PROVIDERS: ATTEND Family Medicine
DX: E78.5 Hyperlipidemia, unspecified (principal); I50.30 Unspecified diastolic (congestive) heart failure; D50.9 Iron deficiency anemia, unspecified
CPT/HCPCS: 36415; 80053; 83735; 83880; 84439; 84443; 85025; 85046; 90682; G0008; G0463

== ENCOUNTER → 2018-08-13 | Outpatient (REF) | payer MEDICARE ==
[~2018-08-13] MED LIST changes: -/TIOT18INH; -ASPI1TAB PO; +ASPI81TA26 PO; +METO-745; -NAPR-49 PO; +NAPR-837 PO; +SPIR1CAP; -TOPR100T
[2018-08-13 16:13] LABS: ALBUMIN 4.2 GM/DL (3.2-5.2); BILIRUBIN,TOTAL 0.7 MG/DL (0.2-1.0); C REACTIVE PROTEIN QUANTITATIV 1.12 MG/DL (0.00-0.30); CALCIUM LEVEL 9.4 MG/DL (8.8-10.2); CHOLESTEROL RISK RATIO 3.636 (<5); CREATININE FOR GFR 1.24 MG/DL (0.70-1.30); GLOMERULAR FILTRATION RATE 59.3 (>35); MAGNESIUM LEVEL 2.1 MG/DL (1.8-2.4); POTASSIUM SERUM 4.3 MEQ/L (3.5-5.1); TOTAL PROTEIN 7.8 GM/DL (6.4-8.2)
[2018-08-13 16:20] LABS: TOTAL 25(OH) VITAMIN D 50.3 NG/ML (30.0-100.0)
== END ==
LOC: M SFHCPLAZ 12:04
PROVIDERS: ATTEND Family Medicine
DX: E78.5 Hyperlipidemia, unspecified (principal); I50.30 Unspecified diastolic (congestive) heart failure; N18.3 Chronic kidney disease, stage 3 (moderate)
CPT/HCPCS: 80053; 80061; 82306; 82550; 83735; 83880; 83970; 86140; G0463

== ENCOUNTER → 2019-01-16 | Outpatient (REF) | payer MEDICARE ==
[~2019-01-16] MED LIST changes: +CYAN100049 PO; -GAS1CHW PO; -OMEP20CA3 PO; +OMEP20CA4 PO; +SIME80TA5 PO; -VITA10002 PO; +ZETI10TA16 PO; -ZETI10TA30 PO
[2019-01-16 18:10] LABS: BASO # 0.1 10^3/uL (0.0-0.2); BASO % 0.5 % (0.0-1.0); EOS # 0.2 10^3/uL (0.0-0.5); HEMATOCRIT 42.3 % (42.0-52.0); HEMOGLOBIN 13.6 g/dl (13.5-17.5); LYMPH # 3.2 10^3/uL (1.5-5.0); LYMPH % 31.9 % (24.0-44.0); MEAN CORPUSCULAR HGB CONC 32.2 g/dl (32.0-36.5); MEAN CORPUSCULAR VOLUME 90.2 fl (80.0-96.0); MONO # 0.8 10^3/uL (0.0-0.8); MONO % 8.2 % (0.0-5.0); NEUTROPHILS # 5.7 10^3/uL (1.5-8.5); NEUTROPHILS % 57.1 % (36.0-66.0); PLATELET COUNT, AUTOMATED 339 10^3/uL (150-450); RED BLOOD COUNT 4.69 10^6/uL (4.30-6.10)
[2019-01-16 18:41] LABS: ALBUMIN 4.1 GM/DL (3.2-5.2); BILIRUBIN,TOTAL 0.7 MG/DL (0.2-1.0); C REACTIVE PROTEIN QUANTITATIV 0.42 MG/DL (0.00-0.30); CALCIUM LEVEL 9.3 MG/DL (8.8-10.2); CREATININE FOR GFR 1.27 MG/DL (0.70-1.30); FREE T4 0.95 NG/DL (0.76-1.46); GLOMERULAR FILTRATION RATE 57.5 (>35); POTASSIUM SERUM 4.3 MEQ/L (3.5-5.1); PROSTATIC SPECIFIC AG MONITOR 2.77 NG/ML (< 4.00); THYROID STIMULATING HORMONE 4.14 uIU/ML (0.358-3.740)
== END ==
LOC: M SFHCPLAZ 15:05
PROVIDERS: ATTEND Family Medicine
DX: I50.30 Unspecified diastolic (congestive) heart failure (principal); N18.3 Chronic kidney disease, stage 3 (moderate); N40.1 Benign prostatic hyperplasia with lower urinary tract symptoms; D50.9 Iron deficiency anemia, unspecified; E78.5 Hyperlipidemia, unspecified; Z23 Encounter for immunization
CPT/HCPCS: 36415; 80053; 82607; 83880; 84153; 84439; 84443; 85025; 85046; 86140; 90682; G0008; G0463

== ENCOUNTER → 2019-06-17 | Outpatient (REF) | payer MEDICARE ==
[~2019-06-17] MED LIST changes: -ALFU10TA2 PO; +ALFU10TA3 PO; +OMEP1CAP73 PO; -OMEP20CA4 PO; -SIMV40TA2 PO; +SIMV40TA20 PO
[2019-06-17 13:35] LABS: HEMATOCRIT 40.7 % (42.0-52.0)
[2019-06-17 13:44] LABS: BASO # 0.1 10^3/uL (0.0-0.2); BASO % 0.6 % (0.0-1.0); EOS # 0.1 10^3/uL (0.0-0.5); EOS % 1.4 % (0.0-3.0); HEMATOCRIT 40.7 % (42.0-52.0); HEMOGLOBIN 13.3 g/dl (13.5-17.5); LYMPH # 2.7 10^3/uL (1.5-5.0); LYMPH % 30.1 % (24.0-44.0); MEAN CORPUSCULAR HEMOGLOBIN 29.3 pg (27.0-33.0); MEAN CORPUSCULAR HGB CONC 32.7 g/dl (32.0-36.5); MEAN CORPUSCULAR VOLUME 89.6 fl (80.0-96.0); MONO # 0.6 10^3/uL (0.0-0.8); NEUTROPHILS # 5.5 10^3/uL (1.5-8.5); NEUTROPHILS % 60.6 % (36.0-66.0); PLATELET COUNT, AUTOMATED 307 10^3/uL (150-450); RED BLOOD COUNT 4.54 10^6/uL (4.30-6.10); WHITE BLOOD COUNT 9.1 10^3/uL (4.0-10.0)
[2019-06-17 14:17] LABS: ALBUMIN 4.1 GM/DL (3.2-5.2); BILIRUBIN,TOTAL 0.6 MG/DL (0.2-1.0); CALCIUM LEVEL 9.6 MG/DL (8.8-10.2); CHOLESTEROL RISK RATIO 3.437 (<5); CREATININE FOR GFR 1.43 MG/DL (0.70-1.30); FREE T4 0.98 NG/DL (0.76-1.46); GLOMERULAR FILTRATION RATE 50.2 (>35); MAGNESIUM LEVEL 2.2 MG/DL (1.8-2.4); POTASSIUM SERUM 4.1 MEQ/L (3.5-5.1); THYROID STIMULATING HORMONE 3.17 uIU/ML (0.358-3.740)
[2019-06-17 15:26] LABS: HEMOGLOBIN A1c 6.7 %
[2019-06-21 10:06] LABS: INSULIN LEVEL 11.6 uIU/mL (2.6-24.9); VITAMIN B1 LEVEL WHOLE BLOOD 171.3 nmol/L (66.5-200.0)
== END ==
LOC: M SFHCPLAZ 12:07
PROVIDERS: ATTEND Family Medicine
DX: R73.01 Impaired fasting glucose (principal); I50.30 Unspecified diastolic (congestive) heart failure; M50.30 Other cervical disc degeneration, unspecified cervical region; Z79.899 Other long term (current) drug therapy
CPT/HCPCS: 36415; 80053; 80061; 80307; 82747; 83036; 83525; 83735; 83880; 84425; 84439; 84443; 85025; 85046; G0463

== ENCOUNTER 2020-05-02 10:50 | Emergency (ER) | payer MEDICARE ==
[~2020-05-02] VITALS: Ht 132.1 cm; Wt 62.3 kg
[~2020-05-02 10:50] MED LIST changes: +SIME80TA12 PO; -SIME80TA5 PO
[2020-05-02] MEDS ORDERED: ONDANSETRON 4MG/2ML VIAL IV ONE (11:30)
[2020-05-02] MEDS: fentaNYL 100 MCG/2 ML INJECTION (J3010) IV PRN ×2 (11:32→12:08)
--- NOTE | 2020-05-02 12:08 | REP ---
INDICATION: fall. COMPARISON: 05/31/2017. TECHNIQUE: SINGLE PORTABLE AP VIEW OF THE CHEST WAS PERFORMED. FINDINGS: Diffuse bilateral interstitial fibrotic changes are stable. Calcified pleural plaques bilaterally are compatible with prior asbestos exposure and are unchanged. There is cardiomegaly. The mediastinal silhouette is unchanged. There are multiple sternal wires present as well as scattered surgical clips. There is anterior dislocation of the right humeral head. IMPRESSION: NO ACUTE PULMONARY DISEASE.Stable chronic changes. Cardiomegaly. Dislocation right humeral head. <Electronically signed by Berhane Blake > 05/02/20 [id number]
--- NOTE | 2020-05-02 12:09 | REP ---
INDICATION: fall COMPARISON: 01/16/2018. TECHNIQUE: Three views right shoulder. FINDINGS: There is anterior dislocation of the humeral head from the glenoid fossa. No fracture is visualized. IMPRESSION: Anterior dislocation of humeral head. <Electronically signed by Berhane Blake > 05/02/20 [id number]
--- NOTE | 2020-05-02 12:11 | REP ---
INDICATION: FALL INJURY COMPARISON: 01/16/2018. TECHNIQUE: Two views right humerus. FINDINGS: There is anterior dislocation of the humeral head from the glenoid fossa. No fracture is seen of the visualized osseous structures. IMPRESSION: Anterior dislocation of right humeral head. <Electronically signed by Berhane Blake > 05/02/20 [id number]
--- NOTE | 2020-05-02 12:13 | REP ---
INDICATION: fall COMPARISON: None. TECHNIQUE: Two views right forearm. FINDINGS: There is no evidence of acute fracture, dislocation, or intrinsic bone disease.There is moderate spurring of the olecranon, with calcification of the distal triceps tendon. IMPRESSION: No fracture or dislocation. <Electronically signed by Berhane Blake > 05/02/20 [id number]
[2020-05-02] MEDS ORDERED: NS 1,000 ML IV SCH (12:15)
[2020-05-02] MEDS ORDERED: fentaNYL 100 MCG/2 ML INJECTION (J3010) IV ONE (12:15)
[2020-05-02] MEDS ORDERED: propofoL 200 MG/20 ML VIAL As Ordered ONE (12:16)
--- NOTE | 2020-05-02 12:16 | REP ---
INDICATION: fall COMPARISON: None. TECHNIQUE: Four views right knee. FINDINGS: There is no evidence of acute fracture, dislocation, or intrinsic bone disease.There is diffuse chondrocalcinosis. There is mild medial joint space narrowing with subchondral sclerosis. Vascular calcifications are seen in the posterior soft tissues. There is no radiographic evidence of a joint effusion. IMPRESSION: No fracture or dislocation. Arthritic changes as above. <Electronically signed by Berhane Blake > 05/02/20 [id number]
[2020-05-02] MEDS ORDERED: fentaNYL 100 MCG/2 ML INJECTION (J3010) As Ordered ONE (12:17)
[2020-05-02] MEDS: propofoL 200 MG/20 ML VIAL IV PRN ×2 (12:33→12:35)
--- NOTE | 2020-05-02 13:28 | REP ---
INDICATION: fall. COMPARISON: 06/08/2011. TECHNIQUE: CT BRAIN PERFORMED IN THE AXIAL PLANE. CORONAL RECONSTRUCTION IMAGES ARE PERFORMED. FINDINGS: There is moderate atrophy. Once again there are patchy ill-defined hypodensities in the periventricular white matter bilaterally compatible with chronic small vessel ischemic changes. Basal ganglia calcifications are again noted bilaterally. There is no acute intracranial hemorrhage or extra-axial fluid collection. There are vascular calcifications in the carotid siphons. The visualized mastoid air cells and paranasal sinuses are clear. IMPRESSION: Stable chronic findings. No acute intracranial hemorrhage, midline shift or mass effect. <Electronically signed by Berhane Blake > 05/02/20 [id number]
--- NOTE | 2020-05-02 13:33 | REP ---
INDICATION: right shoulder relocation COMPARISON: 05/02/2020, 11:39 a.m.. TECHNIQUE: Two views right shoulder. FINDINGS: The right humeral head has been relocated within the glenoid fossa, with successful reduction of the previously noted anterior dislocation. No fracture is visualized. IMPRESSION: Successful reduction of right humeral head. <Electronically signed by Berhane Blake > 05/02/20 [id number]
[2020-05-02 14:21] VITALS: BP 148/84
== END 2020-05-02 14:55 | disposition home or self-care (01) ==
LOC: M ED 10:50
DX: S09.90XA Unspecified injury of head, initial encounter (principal); S43.004A Unspecified dislocation of right shoulder joint, initial encounter; S80.01XA Contusion of right knee, initial encounter; W00.9XXA Unspecified fall due to ice and snow, initial encounter; Y92.099 Unspecified place in other non-institutional residence as the place of occurrence of the external cause; Y93.H1 Activity, digging, shoveling and raking; Y99.9 Unspecified external cause status; I51.7 Cardiomegaly; M17.11 Unilateral primary osteoarthritis, right knee; I10 Essential (primary) hypertension; K21.9 Gastro-esophageal reflux disease without esophagitis; Z79.82 Long term (current) use of aspirin; Z79.899 Other long term (current) drug therapy
CPT/HCPCS: 70450; 71045; 73030; 73060; 73090; 73564; 93041; 94760; 96374; 99152; 99153; 99285; J2405; J3010

== ENCOUNTER 2020-05-18 10:45 | Inpatient (IN) | payer MEDICARE ==
[~2020-05-18] VITALS: Ht 144.8 cm; Wt 53.3 kg
--- OUTSIDE RECORDS SUMMARY | 2020-05-18 10:56 | CCD ---
Author Author [facility] Organization [facility] Address Unknown Phone Unavailable Care Team Providers Care Rattlesnake Farmer Name Role Phone DRAZEK, I ELZBIETA PA Unavailable Unavailable DRAZEK, I ELZBIETA PA Unavailable Unavailable DRAZEK, I ELZBIETA PA Unavailable Unavailable DRAZEK, I ELZBIETA PA Unavailable Unavailable DRAZEK, I ELZBIETA PA Unavailable Unavailable DRAZEK, I ELZBIETA PA Unavailable Unavailable DRAZEK, I ELZBIETA PA Unavailable Unavailable DRAZEK, I ELZBIETA PA Unavailable Unavailable DRAZEK, I ELZBIETA PA Unavailable Unavailable DRAZEK, I ELZBIETA PA Unavailable Unavailable DRAZEK, I ELZBIETA PA Unavailable Unavailable DRAZEK, I ELZBIETA PA Unavailable Unavailable DRAZEK, I ELZBIETA PA Unavailable Unavailable DRAZEK, I ELZBIETA PA Unavailable Unavailable DRAZEK, I ELZBIETA PA Unavailable Unavailable DRAZEK, I ELZBIETA PA Unavailable Unavailable DRAZEK, I ELZBIETA PA Unavailable Unavailable DRAZEK, I ELZBIETA PA Unavailable Unavailable DRAZEK, I ELZBIETA PA Unavailable Unavailable DRAZEK, I ELZBIETA PA Unavailable Unavailable DRAZEK, I ELZBIETA PA Unavailable Unavailable DRAZEK, I ELZBIETA PA Unavailable Unavailable DRAZEK, I ELZBIETA PA Unavailable Unavailable DRAZEK, I ELZBIETA PA Unavailable Unavailable DRAZEK, I ELZBIETA PA Unavailable Unavailable DRAZEK, I ELZBIETA PA Unavailable Unavailable DRAZEK, I ELZBIETA PA Unavailable Unavailable DRAZEK, I ELZBIETA PA Unavailable Unavailable DRAZEK, I ELZBIETA PA Unavailable Unavailable DRAZEK, I ELZBIETA PA Unavailable Unavailable Re-disclosure Warning The records that you are about to access may contain information from federally-assisted alcohol or drug abuse programs. If such information is present, then the following federally mandated warning applies: This information has been disclosed to you from records protected by federal confidentiality rules (42 CFR part 2). The federal rules prohibit you from making any further disclosure of this information unless further disclosure is expressly permitted by the written consent of the person to whom it pertains or as otherwise permitted by 42 CFR part 2. A general authorization for the release of medical or other information is NOT sufficient for this purpose. The Federal rules restrict any use of the information to criminally investigate or prosecute any alcohol or drug abuse patient.The records that you are about to access may contain highly sensitive health information, the redisclosure of which is protected by Article 27-F of the [facility] Public Health law. If you continue you may have access to information: Regarding HIV / AIDS; Provided by facilities licensed or operated by the [facility] Office of Mental Health; or Provided by the [facility] Office for People With Developmental Disabilities. If such information is present, then the following [facility] mandated warning applies: This information has been disclosed to you from confidential records which are protected by state law. State law prohibits you from making any further disclosure of this information without the specific written consent of the person to whom it pertains, or as otherwise permitted by law. Any unauthorized further disclosure in violation of state law may result in a fine or retirement sentence or both. A general authorization for the release of medical or other information is NOT sufficient authorization for further disc losure. Family History Family Member Name Family Member Gender Family Member Status Date o f Status Description Data Source(s) Unknown Male Problem [facility] ([facility] () Unknown Female Problem [facility]ENT ([facility]) Encounters Encounter Providers Location Date Indications Data Source(s ) Outpatient Attender: ELZBIETA MAHAN Physical Therapy 05/05/2020 1 0:15:00 AM EST MEDENT ([facility]) Unknown [address] [facility] [place] [address] 04/29/2020 12:00:00 AM EST eCW1 (On license of [facility]) Unknown [address] [facility] [place] [address] 03/16/2020 12:00:00 AM EST eCW1 (On license of [facility]) [facility] [address] [place] [address] [place] [address] 06/17/2019 12:00:00 AM EDT eCW1 (On license of [facility]) [facility] [address] [place] [address] Y [address] 06/10/2019 12:00:00 AM EDT eCW1 (On license of [facility]) [address] [place] [address] 06/09/2019 12:00:00 AM EDT eCW1 (On license of [facility]) [facility] [address] [place] [address] Y [address] 05/20/2019 12:00:00 AM EST eCW1 (On license of [facility]) [address] [place] [address] 05/20/2019 12:00:00 AM EST eCW1 (On license of [facility]) Medications Medication Brand Name Start Date Product Form Dose Route Admi nistrative Instructions Pharmacy Instructions Status Indications Reaction Description Data Source(s) tramadol hydrochloride 50 MG Oral Tablet Tramadol HCL 05/05/2020 12:00:00 AM EST active [facility] ([facility] ) Acetaminophen 325 MG / Hydrocodone Devendra trate 5 MG Oral Tablet Hydrocodone- Acetaminophen 5-325 MG Hydrocodone-Acetaminophen 5-325 MG 03/16/2020 12:00:00 AM EST 1.0 {tablet} active Hydrocodone -Acetaminophen 5-325 MG [facility] Acetaminophen 325 MG / Hydrocodone Devendra trate 5 MG Oral Tablet Hydrocodone- Acetaminophen 5-325 MG Hydrocodone-Acetaminophen 5-325 MG 03/16/2020 12:00:00 AM EST 1.0 {tablet} active Hydrocodone -Acetaminophen 5-325 MG eCW1 [facility]) Insurance Providers Payer name Policy type / Coverage type Policy ID Covered republican ID Covered republican's relationship to sahu Policy Sahu Plan Information [facility] [id number] SP [id number] WELLCARE O [id number] S [id number] ANSI-Medicare Part B [id number] ANSI-Health Maintenance Organization ( O) [id number] ANSI-Medicare Part B [id number] ANSI-Medicare Part B [id number] TODAYS OPTIONS [id number] SP [id number] ANSI-Medicare Part B [id number] ANSI-Medicare Part B [id number] ANSI-Medicare Part B [id number] ANSI-Medicare Part B [id number] ANSI-Medicare Part B [id number] [place] Options Of [place] Commercial [id number] Self [id number] Advantra Simon Commercial [id number] Self [id number] TODAYS OPTIONS/[place] O [id number] S [id number] MEDICARE [id number] SP [id number] A TODAYS OPTIONS [id number] SP [id number] TODAYS OPTIONS [id number] SP [id number] Todays Options Medigap Part B Self Blue Shield MCR Advantage Medigap Part B Self Cigna Medigap Part B Self Todays Options/[employer] Progress Medigap Part B Self Advantra Simon Medigap Part B Self Secure [employer] Commercial Self TODAYS OPTIONS/[place] O [id number] S [id number] MEDICAID M [id number] S [id number] A MEDICARE [id number] SP [id number] TODAYS OPTIONS [id number] SP [id number] MEDICARE BLUE PPO 306 [id number] SP [id number] EXCELLUS BCBS P [id number] S [id number] SECURE HORIZONS P [id number] S [id number] MEDICARE BLUE PPO 306 [id number] SP [id number] Surgeries/Procedures Procedure Description Date Indications Data Source(s) Office Visit, Est Pt., Level 4 PC 06/17/2019 12:00:00 AM EDT [facility] Office Visit, Est Pt., Level 3 FC 06/17/2019 12:00:00 AM EDT eCW1 ([facility]) Results ID Date Data Source MAGNESIUM LEVEL 06/17/2019 12:00:00 AM EDT eCW1 (Counts include 234 beds at the [facility]) Name Value Range Interpretation Code Description Data Tonya rce(s) Supporting Document(s) 2.2 1.8-2.4 MAGNESIUM LEVEL eCW1 ([facility]) ID Date Data Source RBC FOLATE PROFILE 06/17/2019 12:00:00 AM EDT eCW1 (Counts include 234 beds at the [facility]) Name Value Range Interpretation Code Description Data Tonya rce(s) Supporting Document(s) 40.7 42.0-52.0 HEMATOCRIT eCW1 ([facility]) ID Date Data Source LIPID PANEL (CARDIAC RISK) 06/17/2019 12:00:00 AM EDT eCW1 ( [facility]) Name Value Range Interpretation Code Description Data Tonya rce(s) Supporting Document(s) Cholesterol [Moles/volume] in Serum or Plasma 165 <200 CHOLESTEROL LEVEL eCW1 ([facility]) CHOLESTEROL LEVEL Triglyceride [Mass/volume] in Serum or Plasma by calculation 117 <150 TRIGLYCERIDES LEVEL eCW1 ([facility]) TRIGLYCERIDES LEVEL 3.437 <5 CHOLESTEROL RISK RATIO eCW1 ([facility]) CHOLESTEROL RISK RATIO Cholesterol in LDL [Mass/volume] in Serum or Plasma by calculation 94 <100 LDL CHOLESTEROL eCW1 ([facility]) LDL CHOLESTEROL 117 NON-HDL-C eCW1 (On license of [facility]) NON-HDL-C Cholesterol in HDL [Moles/volume] in Serum or Plasma 48 >40 HDL CHOLESTEROL eCW1 ([facility]) HDL CHOLESTEROL ID Date Data Source [id number] 06/17/2019 12:00:00 AM EDT eCW1 (Counts include 234 beds at the [facility]) Name Value Range Interpretation Code Description Data Tonya rce(s) Supporting Document(s) Hemoglobin A1c/Hemoglobin.total in Blood 6.7 HEMOGLOBIN A1c eCW1 ([facility]) HEMOGLOBIN A1c ID Date Data Source Reticulocyte Count Sysmex 06/17/2019 12:00:00 AM EDT eCW1 ([facility]) Name Value Range Interpretation Code Description Data Tonya rce(s) Supporting Document(s) 1.6 0.5-1.5 RETICULOCYTE % eCW1 ([facility]) ID Date Data Source FREE T4 & TSH PANEL 06/17/2019 12:00:00 AM EDT eCW1 (Counts include 234 beds at the [facility]) Name Value Range Interpretation Code Description Data Tonya rce(s) Supporting Document(s) 3.170 0.358-3.740 THYROID STIMULATING HORM ONE eCW1 ([facility]) 0.98 0.76-1.46 FREE T4 eCW1 (On license of [facility]) ID Date Data Source Comprehensive Metabolic Profile (CMP) 06/17/2019 12:00:00 AM EDT eCW1 ([facility]) Name Value Range Interpretation Code Description Data Toyna rce(s) Supporting Document(s) 1.43 0.70-1.30 CREATININE FOR GFR eCW1 ([facility]) 106 70-100 GLUCOSE, FASTING eCW1 (Counts include 234 beds at the [facility]) 16 7-18 BLOOD UREA NITROGEN eCW1 ([facility]) 103 98-107 CHLORIDE LEVEL eCW1 ([facility]) 4.1 3.5-5.1 POTASSIUM SERUM eCW1 ([facility]) 140 136-145 SODIUM LEVEL eCW1 ([facility]) 50.2 >35 GLOMERULAR FILTRATION RATE eCW 1 ([facility]) 20 7-37 AST/SGOT eCW1 (On license of [facility]) 23 12-78 ALT/SGPT eCW1 (On license of [facility]) 9.6 8.8-10.2 CALCIUM LEVEL eCW1 ([facility]) 31 21-32 CARBON DIOXIDE LEVEL eCW1 ([facility]) 4.1 3.2-5.2 ALBUMIN eCW1 (On license of [facility]) 84 45-117 ALKALINE PHOSPHATASE eCW1 ([facility]) 0.6 0.2-1.0 BILIRUBIN,TOTAL eCW1 ([facility]) 8.0 6.4-8.2 TOTAL PROTEIN eCW1 ([facility]) 1.05 1.00-1.93 ALBUMIN/GLOBULIN RATIO eCW1 ([facility]) ID Date Data Source CBC with Differential 06/17/2019 12:00:00 AM EDT eCW1 ([facility]) Name Value Range Interpretation Code Description Data Tonya rce(s) Supporting Document(s) 13.3 13.5-17.5 HEMOGLOBIN eCW1 ([facility]) 40.7 42.0-52.0 HEMATOCRIT eCW1 ([facility]) 4.54 4.30-6.10 RED BLOOD COUNT eCW1 ([facility]) 9.1 4.0-10.0 WHITE BLOOD COUNT eCW1 ([facility]) 32.7 32.0-36.5 MEAN CORPUSCULAR HGB CONC eCW1 ([facility]) 29.3 27.0-33.0 MEAN CORPUSCULAR HEMOGLOB IN eCW1 ([facility]) 89.6 80.0-96.0 MEAN CORPUSCULAR VOLUME e CW1 ([facility]) 13.2 11.5-14.5 RED CELL DISTRIBUTION WID TH eCW1 ([facility]) 307 150-450 PLATELET COUNT, AUTOMATED eCW1 ([facility]) 30.1 24.0-44.0 LYMPH % eCW1 (On [facility] of [facility]) 7.0 0.0-5.0 MONO % eCW1 (On license of [facility]) 60.6 36.0-66.0 NEUTROPHILS % eCW1 ([facility]) 1.4 0.0-3.0 EOS % eCW1 (On [facility] of [facility]) 5.5 1.5-8.5 NEUTROPHILS # eCW1 ([facility]) 0.6 0.0-1.0 BASO % eCW1 (On [facility] of [facility]) 0.6 0.0-0.8 MONO # eCW1 (On license of [facility]) 2.7 1.5-5.0 LYMPH # eCW1 (On [facility] of [facility]) 0.1 0.0-0.5 EOS # eCW1 (On license of [facility]) 0.1 0.0-0.2 BASO # eCW1 (On license of [facility]) ID Date Data Source NT-PRO BNP 06/17/2019 12:00:00 AM EDT eCW1 (Counts include 234 beds at the [facility]) Name Value Range Interpretation Code Description Data Tonya rce(s) Supporting Document(s) 1342 <450 NT-PRO BNP eCW1 ([facility]) Procedure Social History Code Duration Value Status Description Data Source(s ) Smoking 06/17/2019 12:00:00 AM EDT Never Smoker completed Never S moker eCW1 ([facility]) Smoking 06/17/2019 12:00:00 AM EDT Never Smoker completed Never S moker eCW1 ([facility]) Vital Signs ID Date Data Source UNK Name Value Range Interpretation Code Description Data Source(s) Body mass index (BMI) [Ratio] 28.4 kg/m2 28.4 k g/m2 MEDENT ([facility] ) Body weight 131.12 [lb_av] 131.12 [lb_av] MEDEN T ([facility] ) Body height 57 [in_i] 57 [in_i] MEDENT ([facility]) 4'9" Body temperature 97.8 [degF] 97.8 [degF] MEDENT ([facility]) Diastolic blood pressure 62 mm[Hg] 62 mm[Hg] eCW1 [facility]) Systolic blood pressure 130 mm[Hg] 130 mm[Hg] e CW1 ([facility]) Body temperature 98.3 [degF] 98.3 [degF] eCW1 ( [facility]) Respiratory rate 20 /min 20 /min eCW1 ([facility]) Heart rate 63 /min 63 /min eCW1 ([facility]) Body mass index (BMI) [Ratio] 27.51 kg/m2 27.51 kg/m2 eCW1 ([facility]) Body height 59 [in_us] 59 [in_us] eCW1 (Counts include 234 beds at the [facility]) Body weight Measured 136.2 [lb_av] 136.2 [lb_av ] eCW1 [facility] Patient Treatment Plan of Care Planned Activity Planned Date Details Description Data Source (s) Acetaminophen 325 MG / Hydrocodone Bitartrate 5 MG Ora l Tablet 03/16/2020 12:00:00 AM EST eCW1 (On license of [facility])
--- OUTSIDE RECORDS SUMMARY | 2020-05-18 10:56 | CCD ---
Author Author [facility] Organization [facility] Address Unknown Phone Unavailable Care Team Providers Care Railroad Switchman Name Role Phone Jason Garcia Unavailable PROBLEMS Type Condition ICD9-CM Code [id number] Code Onset Dates Condition S tatus SNOMED Code Notes Problem Constipation K59.00 Active 92331200 Problem DJD (degenerative joint disease), cervical M50.30 Active 77515403 Problem GERD (gastroesophageal reflux disease) K21.9 A ctive 122437918 Problem Chronic obstructive pulmonary disease, unspecified J44.9 Active 03116689 Problem Hyperlipidemia E78.5 Active 44265960 Problem Diastolic CHF I50.30 Active 939480115 Problem CAD (coronary artery disease) I25.10 Active 53 880844 Problem Benign prostatic hypertrophy with lower urinary tract symptoms (LUTS) N40.1 Active 603629588 Problem Colonic polyp K63.5 Active 85548845 Problem B12 deficiency E53.8 Active 978579253 Problem Iron deficiency anemia, unspecified iron deficiency an emia type D50.9 Active 52510851 Problem Alcohol abuse F10.10 Active 43802102 Problem CKD (chronic kidney disease) stage 3, GFR 30-59 ml/min N18.3 Active 816118789 Problem Vitamin D deficiency E55.9 Active 70329945 Problem IFG (impaired fasting glucose) R73.01 Active 3 15747629 Problem Impingement syndrome, shoulder, right M75.41 Ac tive 421917366 Problem Asbestosis J61 Active 67603401 Problem Essential 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 I10 Active 24112740 Problem First degree atrioventricular block I44.0 Acti ve 671030820 ALLERGIES No Known Allergies ENCOUNTERS from 1935 to 2020-03-17 Encounter Location Date Provider Diagnosis [facility] Leandra [facility] [place] [address] Feb, 020 Jason Garcia JEANIED (degenerative joint disease), cervical M50.30 IMMUNIZATIONS Vaccine Route Administration Date Status Influenza (High Dose 65 & up) IM Intramuscular Jan 02, 2017 A dministered Pneumococcal 0.5mL (Prevnar 13) IM Intramuscular May 15, 2016 Administered Influenza (High Dose 65 & up) IM Intramuscular Dec 20, 2015 A dministered Influenza (High Dose 65 & up) IM Intramuscular Feb 05, 2015 A dministered Influenza (6mo & up) Fluzone IM Intramuscular Jan 26, 2014 Ad ministered Influenza (6mo & up) Fluzone IM Intramuscular Jan 03, 2013 Ad ministered Influenza (18 yrs & older) Flublok IM Intramuscular Mar 01, 2018 Administered Influenza (6mo & up) Fluzone IM Intramuscular Jan 15, 2012 Ad ministered Influenza (18 yrs & older) Flublok IM Intramuscular Jan 16, 2019 Administered Influenza (6mo & up) Fluzone IM Intramuscular Feb 02, 2011 Ad ministered Influenza (6mo & up) Fluzone IM Intramuscular Jan 24, 2010 Ad ministered SOCIAL HISTORY Tobacco Use: Social History Observation Description Date Details (start date - stop date) Never Smoker Sex Assigned At : Social History Observation Description Sex Assigned At Unknown Language: Question Answer Notes Languages spoken: Romansh Anabaptism: Question Answer Notes Anabaptism 21 [employer] Sexual Hx: Question Answer Notes Had sex in the last 12 months (vaginal, oral, or anal)? No Have you ever had an STD? No Alcohol Screening: Question Answer Notes Did you have a drink containing alcohol in the past year? Ye s Points 1 Interpretation Negative How often did you have six or more drinks on one occas ion in the past year? Never (0 points) How many drinks did you have on a typica l day when you were drinking in the past year? 1 or 2 (0 points) How often did you have a drink containing alcohol in t he past year? Monthly or less (1 point) Tobacco Use: Question Answer Notes Are you a: never smoker REASON FOR REFERRAL No Information VITAL SIGNS No information MEDICATIONS Medication SIG (Take, Route, Frequency, Duration) Notes Start Da te End Date Status Incruse Ellipta 62.5 MCG/INH 1 puff Inhalation Once a day for 90 Active MiraLax . 17 grams with 8oz of water Orally Once a day for 90 day(s) Active Breo Ellipta 200-25 MCG/INH 1 puff Inhalation Once a day for 90 Active Simvastatin 40 MG TAKE 1 TABLET BY MOUTH EVERY DAY for 90 Active Metoprolol Succinate 100 mg 1 tablet Orally Once a day for 90 day(s) Active Vitamin D (Cholecalciferol) 2000 UNIT 1 tablet Orally Once a day Active Nitroglycerin 0.4 MG as directed Sublingual every 5 minutes x 3 prn chest pain for 30 day(s) Active Gas-X 80 mg 1 tablet after meals and at bedtime as needed Orally Twice a day for 90 day(s) Active Tizanidine HCl 2 TAKE 1 TABLET BY MOUTH EVERY 8 HOURS NEEDED FOR CERVICAL SPASMS for 30 Days Active Albuterol Sulfate (5 MG/ML) 0.5% 0.5 ml Inhalation Thr ee times a day for 90 day(s) Active Alfuzosin HCl ER 10 MG 1 tablet immediately after t he same meal Orally Once a day for 90 day(s) Active Tizanidine HCl 2 MG TAKE ONE TABLET BY MOUTH BERNIE RY 8 HOURS NEEDED FOR CERVICAL SPASMS for 30 Active Ventolin HFA 120 MCG/ACT 2 puffs as needed Inhalation every 4 hrs as needed for shortness of breath for 90 day(s) Active Omeprazole 40 1 capsule Orally BID for 90 day(s) Active Zetia 10 MG 1 tablet Orally Once a day for 90 day(s) Active Simvastatin 40 MG 1 tablet Orally Once a day for 90 day(s) Active Cyanocobalamin 500 MCG 1 tablet Orally bid for 90 day(s) Active Furosemide 40 MG 1.5 tablets orally Twice a day for 90 day(s) Active Mucinex 600 MG 1 tablet as needed Orally every 12 hrs for 90 day(s) Active Aspir-81 81 MG 1 tablet Orally Once a day for 90 day(s) Active Voltaren 1 % as directed Transdermal four times daily to R shoulder for 90 day(s) Active Metoprolol Succinate ER 100 mg TAKE 1 TABLET BY MOUTH EVERY DAY for 9 0 Active Breo Ellipta 200-25 MCG/INH 1 puff Inhalation Once a day for 90 Active Hydrocodone-Acetaminophen 5-325 MG 1 tablet Orally Bernie ry 6 hours as needed MDD: 4 for 7 day(s) Feb, Active Incruse Ellipta 62.5 MCG/INH 1 puff Inhalation Once a day for 90 day( s) Active Colace 100 mg 1 capsule as needed Orally Once a day for 90 day(s) Active PROCEDURES No Information RESULTS No Results REASON FOR VISIT Hydrocodone-Acetaminophen 5-325 MG Tablet MEDICAL (GENERAL) HISTORY Type Description Date Medical History CAD status post CABG times 26 Jul 2004, August 2006 RCA SEA otherwise by catheterization other stents patent/January [address] Tomlin showing inferior lateral ischemia-February 04, 2010 cardiac c atheterization with Dr. Hagan showing no real change compared with 2006-he felt abnormal stress test related to an occluded distal marginal branch supplied by RCA collateral Medical History 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/hypertensive he art disease/CHF secondary to diastolic dysfunction Medical History COPD/asthma mild persistent/ asbestosis-on oxygen 2 L nasal cannula when necessary-07/2016 FEV1 1.2L (59%)/ratio 94% PFTs mild restrictive, very favorable bronchodilator response, significant diffusion impairment Medical History obesity Medical History anemia secondary to B12 deficiency and c hronic disease Medical History hyperlipidemia 2B Medical History impaired fasting glucose Medical History allergic rhinitis Medical History chronic constipation Medical History GERD Medical History probable obstructive sleep apnea-patient refuses NPSG Medical History BPH with LUTS Medical History adenomatous polyp, diverticu losis, hemorrhoids by 05/2010 colonoscopy-[facility] Medical History cervical DJD, multilevel May CT with 4 mm C4-C5 subluxation and 3 mm on C5/C6 and C6/C7 Medical History history of positive H. pylori treated Ju 2010 with Prevpac Medical History 1 AVB Medical History lumbar spondylosis Surgical History repair of incarcerated incisional hernia s-[facility] September 2009 Surgical History AD cateract repair-[facility] 07/2013 Surgical History Left cataract repair-[facility] 01/17/17 Hospitalization History as above Hospitalization History [facility]-admitted by bradley [facility] NPO/NGT, CT c blockage at mid illeal loop 07/22/15-07/26/15 Goals Section No Information Health Concerns No Information MEDICAL EQUIPMENT No Information MENTAL STATUS No Information FUNCTIONAL STATUS No Information ASSESSMENTS Encounter Date Diagnosis Assessment Notes Treatment Notes Treatm ent Clinical Notes Feb, DJD (degenerative joint disease), cervical (ICD- 10 - M50.30) PLAN OF TREATMENT Medication Medication Name Sig Start Date Stop Date Incruse Ellipta 62.5 MCG/INH 1 puff Inhalation Once a day for 90 day(s) Colace 100 mg 1 capsule as needed Orally Once a day for 90 day (s) Hydrocodone-Acetaminophen 5-325 MG 1 tablet Orally Bernie ry 6 hours as needed MDD: 4 for 7 day(s) Feb, Breo Ellipta 200-25 MCG/INH 1 puff Inhalation Once a day for 90 Alfuzosin HCl ER 10 MG 1 tablet immediately after t he same meal Orally Once a day for 90 day(s) Cyanocobalamin 500 MCG 1 tablet Orally bid for 90 day(s) Voltaren 1 % as directed Transdermal four times daily to R shoulder for 90 day(s) Metoprolol Succinate 100 mg 1 tablet Orally Once a day for 90 da y(s) Furosemide 40 MG 1.5 tablets orally Twice a day for 90 day(s) Omeprazole 40 1 capsule Orally BID for 90 day(s) Tizanidine HCl 2 MG TAKE ONE TABLET BY MOUTH BERNIE RY 8 HOURS NEEDED FOR CERVICAL SPASMS for 30 Metoprolol Succinate ER 100 mg TAKE 1 TABLET BY MOUTH EVERY DAY for 90 Simvastatin 40 MG TAKE 1 TABLET BY MOUTH EVERY DAY for 90 Zetia 10 MG 1 tablet Orally Once a day for 90 day(s) Mucinex 600 MG 1 tablet as needed Orally every 12 hrs for 90 da y(s) Albuterol Sulfate (5 MG/ML) 0.5% 0.5 ml Inhalation Thr ee times a day for 90 day(s) Gas-X 80 mg 1 tablet after meals and at bedtime as needed Orally Twice a day for 90 day(s) MiraLax . 17 grams with 8oz of water Orally Once a day for 90 day(s) Ventolin HFA 120 MCG/ACT 2 puffs as needed Inhalation every 4 hrs as needed for shortness of breath for 90 day(s) Simvastatin 40 MG 1 tablet Orally Once a day for 90 day(s) Vitamin D (Cholecalciferol) 2000 UNIT 1 tablet Orally Once a day Nitroglycerin 0.4 MG as directed Sublingual every 5 minutes x 3 prn chest pain for 30 day(s) Aspir-81 81 MG 1 tablet Orally Once a day for 90 day(s) Next Appt Details Provider Name:Jason Garcia, 2020-04-29 0 2:45:00 PM, [address] [place], [address], Insurance Providers Payer Name Payer Address Payer Phone Insured Name Patient Relati onship to Insured Coverage Start Date Coverage End Date [facility] [address] [address] [facility] [address] PATRICIA BALLARD self
--- OUTSIDE RECORDS SUMMARY | 2020-05-18 10:56 | CCD ---
Author Author [facility] Organization [facility] Address Unknown Phone Unavailable Care Team Providers Care Apparatus Lineman Name Role Phone Jason Garcia Unavailable PROBLEMS Type Condition ICD9-CM Code [id number] Code Onset Dates Condition S tatus W/U Status Risk SNOMED Code Notes Problem Constipation K59.00 Active confirmed 7671295 8 Problem DJD (degenerative joint disease), cervical M50.30 Active confirmed 56507910 Problem GERD (gastroesophageal reflux disease) K21.9 A ctive confirmed 705182791 Problem Chronic obstructive pulmonary disease, unspecified J44.9 Active confirmed 07431834 Problem Hyperlipidemia E78.5 Active confirmed 23120 004 Problem Diastolic CHF I50.30 Active confirmed 816616 008 Problem CAD (coronary artery disease) I25.10 Active confirm ed 04863755 Problem Benign prostatic hypertrophy with lower urinary tract symptoms (LUTS) N40.1 Active confirmed 960632735 Problem Colonic polyp K63.5 Active confirmed 319003 03 Problem B12 deficiency E53.8 Active confirmed 08139 4004 Problem Iron deficiency anemia, unspecified iron deficiency an emia type D50.9 Active confirmed 07406779 Problem Alcohol abuse F10.10 Active confirmed 618542 05 Problem CKD (chronic kidney disease) stage 3, GFR 30-59 ml/min N18.3 Active confirmed 771393688 Problem Vitamin D deficiency E55.9 Active confirmed 15410476 Problem IFG (impaired fasting glucose) R73.01 Active confir med 150695191 Problem Impingement syndrome, shoulder, right M75.41 Ac tive confirmed 068251760 Problem Asbestosis J61 Active confirmed 12224606 Problem Essential 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 I10 Active confirmed 56790122 Problem First degree atrioventricular block I44.0 Acti ve confirmed 338040938 ALLERGIES No Known Allergies ENCOUNTERS from 1935 to 2020-05-06 Encounter Location Date Provider Diagnosis [facility] Leandra [facility] [place] [address] Apr, 021 Jason Garcia IMMUNIZATIONS Vaccine Route Administration Date Status Influenza (High Dose 65 & up) IM Intramuscular Jan 02, 2017 A dministered Influenza (High Dose 65 & up) IM Intramuscular Dec 20, 2015 A dministered Influenza (High Dose 65 & up) IM Intramuscular Feb 05, 2015 A dministered Pneumococcal 0.5mL (Prevnar 13) IM Intramuscular May 15, 2016 Administered Influenza (6mo & up) Fluzone IM [...] Unknown Language: Question Answer Notes Languages spoken: Ugandan Advent: Question Answer Notes [employer] 21 [employer] Sexual Hx: Question Answer Notes Had sex [...] Notes Start Da te End Date Status Cyanocobalamin 500 MCG 1 tablet Orally bid for 90 day(s) Active Metoprolol Succinate ER 100 mg TAKE 1 TABLET BY MOUTH EVERY DAY for 9 0 Active Zetia 10 MG 1 tablet Orally Once a day for 90 day(s) Active Colace 100 mg 1 capsule as needed Orally Once a day for 90 day(s) Active Metoprolol Succinate 100 mg 1 tablet Orally Once a day for 90 day(s) Active Simvastatin 40 MG TAKE 1 TABLET BY MOUTH EVERY DAY for 90 Active Ventolin HFA 120 MCG/ACT 2 puffs as needed Inhalation every 4 hrs as needed for shortness of breath for 90 day(s) Active Gas-X 80 mg 1 tablet after meals and at bedtime as needed Orally Twice a day for 90 day(s) Active Aspir-81 81 MG 1 tablet Orally Once a day for 90 day(s) Active Simvastatin 40 MG 1 tablet Orally Once a day for 90 day(s) Active Tizanidine HCl 2 TAKE 1 TABLET BY MOUTH EVERY 8 HOURS NEEDED FOR CERVICAL SPASMS for 30 Days Active Furosemide 40 MG 1.5 tablets orally Twice a day for 90 day(s) Active Hydrocodone-Acetaminophen 5-325 MG 1 tablet Orally Bernie ry 6 hours as needed MDD: 4 for 7 day(s) Feb, Active Tizanidine HCl 2 MG TAKE ONE TABLET BY MOUTH BERNIE RY 8 HOURS NEEDED FOR CERVICAL SPASMS for 30 Active Breo Ellipta 200-25 MCG/INH 1 puff Inhalation Once a day for 90 Active Alfuzosin HCl ER 10 MG 1 tablet immediately after t he same meal Orally Once a day for 90 day(s) Active MiraLax . 17 grams with 8oz of water Orally Once a day for 90 day(s) Active Nitroglycerin 0.4 MG as directed Sublingual every 5 minutes x 3 prn chest pain for 30 day(s) Active Incruse Ellipta 62.5 MCG/INH 1 puff Inhalation Once a day for 90 Active Voltaren 1 % as directed Transdermal four times daily to R shoulder for 90 day(s) Active Omeprazole 40 1 capsule Orally BID for 90 day(s) Active Vitamin D (Cholecalciferol) 2000 UNIT 1 tablet Orally Once a day Active Albuterol Sulfate (5 MG/ML) 0.5% 0.5 ml Inhalation Thr ee times a day for 90 day(s) Active Mucinex 600 MG 1 tablet as needed Orally every 12 hrs for 90 day(s) Active Incruse Ellipta 62.5 MCG/INH 1 puff Inhalation Once a day for 90 day( s) Active Breo Ellipta 200-25 MCG/INH 1 puff Inhalation Once a day for 90 Active PROCEDURES No Information RESULTS No Results REASON FOR VISIT No Information MEDICAL (GENERAL) HISTORY Type Description Date Medical [...] nasal cannula when necessary-07/2016 FEV1 1.2L (59%)/ratio 94%/ PFTs mild restrictive, very favorable bronchodilator response, [...] adenomatous polyp, diverticu losis, hemorrhoids by 05/2010 colonoscopy-[facility] Medical History cervical DJD, multilevel May CT with 4 mm C4-C5 subluxation and 3 mm on C5/C6 and C6/C7 Medical History history of positive H. pylori treated Ju 2010 with Prevpac Medical History 1 AVB Medical History lumbar spondylosis Surgical History repair of incarcerated incisional hernia s-[facility] September 2009 Surgical History AD cateract repair-[facility] 07/2013 Surgical History Left cataract repair-[facility] 01/17/17 Hospitalization History as above Hospitalization History [facility]-admitted by bradley [facility] NPO/NGT, CT c blockage at mid illeal loop 07/22/15-07/26/15 Goals Section No Information Health Concerns No Information MEDICAL EQUIPMENT No Information MENTAL STATUS No Information FUNCTIONAL STATUS No Information ASSESSMENTS No Information PLAN OF TREATMENT No Information Insurance Providers Payer Name Payer Address Payer Phone Insured Name Patient Relati onship to Insured Coverage Start Date Coverage End Date [employer] [facility] [address] [address] [facility] [phone] PATRICIA BALLARD self
--- OUTSIDE RECORDS SUMMARY | 2020-05-18 10:56 | CCD | Continuity of Care Document ---
Author Author Yemi GALVIN Organization Unknown Address [address] [place] [address], [facility] [address] [place] [address] Phone [phone] Care Team Providers Care Preparation Supervisor Name Role Phone Leroy Garcia MD AUTM Problems Description No Information Available Social History Type Date Description Comments Sex Unknown Allergies, Adverse Reactions, Alerts Description No Information Available Medications Active Medications SIG Qnty Indications Ordering Provide r Date Tramadol HCL 50mg Tablets 1 every 6 hours as needed pain 30tabs S43.004A Nolan Stallings MD 05/05/2020 Immunizations Description No Information Available Vital Signs Date Vital Result Comment 05/05/2020 11:38am Body Temperature 97.8 F Height 57 inches 4'9" Weight 131.12 lb BMI (Body Mass Index) 28.4 kg/m2 Results Description No Information Available Procedures Description No Information Available Medical Devices Description No Information Available Encounters Type Date Location Provider Dx Diagnosis Office Visit 05/05/2020 11:15a [facility] KALLI Brooke S43.004A Unspecified dislocation of right shoulder joint, init encntr Assessments Date Code Description Provider 05/05/2020 S43.004A Unspecified dislocat ion of right shoulder joint, initial encounter KALLI Brooke Plan of Treatment Future Appointment(s):* 05/19/2020 6:30 pm - KALLI Brooke at [facility] 05/05/2020 - KALLI Brooke* S43.004A Unspecified dislocation of right shoulder joint, initial encounter* New Medication:* Tramadol HCL 50 mg - 1 every 6 hours as needed pain * New Orders:* Shure Shoulder Immobilizer - Right, Ordered: 05/05/20 * Follow up:* 2 weeks rt shoulder antonella with xrays with IID Functional Status Description No Information Available Mental Status Description No Information Available Referrals Refer to Reason for Referral Status Appt Date Mike Galvin I, Pac DME NO AUTH REQUIRED FOR CALLY ULDER IMMOBILIZER([id number]) TO [facility] NT Created [address] [place] [address] [address] [place] [address] [phone]
[2020-05-18] MEDS ORDERED: NS 1,000 ML IV SCH (11:05)
[2020-05-18] MEDS ORDERED: ONDANSETRON 4MG/2ML VIAL IV ONE (11:15)
--- NOTE | 2020-05-18 11:27 | REP ---
INDICATION: CHEST PAIN. COMPARISON: Comparison chest x-ray May 02, 2020. TECHNIQUE: Portable upright AP chest radiograph. FINDINGS: There is calcific pleural plaquing of the diaphragms bilaterally and along the left chest as before. Median sternotomy wires are again noted. Cardiomegaly is observed unchanged. There is fissural thickening in the minor fissure today. Pulmonary vasculature is cephalized. There is slight blunting of the right lateral pleural angle. No definite infiltrate.. No acute bony abnormality. The IMPRESSION: Mild cardiomegaly. Small amount of right pleural fluid. Vascular cephalization. Mild CHF pattern. Calcific pleural plaquing consistent with previous asbestos exposure.. <Electronically signed by Matias Dutton > 05/18/20 1120
[2020-05-18] MEDS: MORPHINE 2 MG/ML 1ML VIAL (J2270) IV PRN ×2 (11:33→20:26)
[2020-05-18 11:44] LABS: BASO % 0.5 % (0.0-1.0); EOS # 0.1 10^3/uL (0.0-0.5); EOS % 0.7 % (0.0-3.0); HEMATOCRIT 35.8 % (42.0-52.0); HEMOGLOBIN 11.6 g/dl (13.5-17.5); LYMPH # 1.3 10^3/uL (1.5-5.0); LYMPH % 15.9 % (24.0-44.0); MEAN CORPUSCULAR HEMOGLOBIN 28.6 pg (27.0-33.0); MEAN CORPUSCULAR HGB CONC 32.4 g/dl (32.0-36.5); MEAN CORPUSCULAR VOLUME 88.4 fl (80.0-96.0); MONO # 0.7 10^3/uL (0.0-0.8); MONO % 7.9 % (2.0-8.0); NEUTROPHILS # 6.3 10^3/uL (1.5-8.5); NEUTROPHILS % 74.6 % (36.0-66.0); PLATELET COUNT, AUTOMATED 427 10^3/uL (150-450); RED BLOOD COUNT 4.05 10^6/uL (4.30-6.10); WHITE BLOOD COUNT 8.4 10^3/uL (4.0-10.0)
--- OUTSIDE RECORDS SUMMARY | 2020-05-18 12:12 | CCD ---
Author Author [facility] Organization [facility] Address Unknown Phone Unavailable Care Team Providers Care Electrostatic Painter Name Role Phone DRAZEK, I ELZBIETA PA [...] is protected by Article 27-F of the [facility] Public Health law. If you continue you may have access to information: Regarding HIV / AIDS; Provided by facilities licensed or operated by the [facility] Office of Mental Health; or Provided by the [facility] Office for People With Developmental Disabilities. If such information is present, then the following [facility] mandated warning applies: This information has [...] law may result in a fine or fdc sentence or both. A general authorization for the release of medical or other information is NOT sufficient authorization for further disc losure. Family History Family Member Name Family Member Gender Family Member Status Date o f Status Description Data Source(s) Unknown Male Problem [facility] ([facility] () Unknown Female Problem [facility] ([facility]) Encounters Encounter Providers Location Date Indications Data Source(s ) Outpatient Attender: ELZBIETA MAHAN Physical Therapy 05/05/2020 1 0:15:00 AM EST MED[facility] ([facility]) [place] [address] [facility] [address] 04/29/2020 12:00:00 AM EST eCW1 ([facility] hospital[facility] [place] [address] [facility] [address] 03/16/2020 12:00:00 AM EST eCW1 [facility] hospital[facility] [address] [place] [address] [place] [phone] 06/17/2019 12:00:00 AM EDT eCW1 (Psychiatric hospital[facility] [address] [place] [address] [place] [address] 06/10/2019 12:00:00 AM EDT eCW1 (Psychiatric hospital) [address] [place] [address] 06/09/2019 12:00:00 AM EDT eCW1 ([facility] hospital[facility] [address] [place] [address] Y [address] 05/20/2019 12:00:00 AM EST eCW1 (Psychiatric hospital) [address] [place] [address] 05/20/2019 12:00:00 AM EST eCW1 (Psychiatric hospital) Medications Medication Brand Name Start Date Product [...] {tablet} active Hydrocodone -Acetaminophen 5-325 MG eCW1 ([facility]) Acetaminophen 325 MG / Hydrocodone Devendra trate 5 MG Oral Tablet Hydrocodone- Acetaminophen 5-325 MG Hydrocodone-Acetaminophen 5-325 MG 03/16/2020 12:00:00 AM EST 1.0 {tablet} active Hydrocodone -Acetaminophen 5-325 MG eCW1 ([facility]) Insurance Providers Payer name Policy type / Coverage type Policy ID Covered green party ID Covered green party's relationship to sahu Policy Sahu Plan Information [facility] [id number] SP [id number] WELLCARE O [id number] S [id number] ANSI-Medicare Part B [id number] ANSI-Health Maintenance Organization ( O) [id number] ANSI-Medicare Part B [id number] ANSI-Medicare Part B [id number] TODAYS OPTIONS [id number] [place] [id number] ANSI-Medicare Part B [id number] ANSI-Medicare Part B [id number] ANSI-Medicare Part B [id number] ANSI-Medicare Part B [id number] ANSI-Medicare Part B [id number] [place] Options Of [place] Commercial [id number] Self [id number] Advantra Drum[employer] Commercial [id number] Self [id number] TODAYS OPTIONS/GABONESE O [id number] S [id number] MEDICARE [id number] SP [id number] A TODAYS OPTIONS [id number] SP [id number] TODAYS OPTIONS [id number] [place] [id number] Todays Options Medigap Part B Self Blue Shield MCR Advantage Medigap Part B Self Cigna Medigap Part B Self Todays Options/A[employer] Progress Medigap Part B Self Advantra Drumright Medigap Part B Self Secure [employer] Commercial Self TODAYS OPTIONS/GABONESE O [id number] S [id number] MEDICAID M [id number] S [id number] A MEDICARE [id number] SP [id number] TOD[place] [id number] [place] [id number] MEDICARE BLUE PPO 306 [id number] SP [id number] EXCELLUS BCBS P [id number] S [id number] SECURE HORIZONS P [id number] S [id number] MEDICARE BLUE PPO 306 [id number] SP [id number] Surgeries/Procedures Procedure Description Date Indications Data Source(s) Office Visit, Est Pt., Level 4 PC 06/17/2019 12:00:00 AM EDT eCW1 ([facility]) Office Visit, Est Pt., Level 3 FC 06/17/2019 12:00:00 AM EDT eCW1 ([facility]) Results ID Date Data Source MAGNESIUM LEVEL 06/17/2019 12:00:00 AM EDT eCW1 ([facility]) Name Value Range Interpretation Code Description Data Tonya rce(s) Supporting Document(s) 2.2 1.8-2.4 MAGNESIUM LEVEL eCW1 (Formerly [facility]) ID Date Data Source RBC FOLATE PROFILE 06/17/2019 12:00:00 AM EDT eCW1 ([facility]) Name Value Range Interpretation Code Description Data Tonya rce(s) Supporting Document(s) 40.7 42.0-52.0 HEMATOCRIT eCW1 (formerly [facility]) ID Date Data Source LIPID PANEL (CARDIAC RISK) 06/17/2019 12:00:00 AM EDT eCW1 ( [facility]) Name Value Range Interpretation Code Description Data Tonya rce(s) Supporting Document(s) Cholesterol [Moles/volume] in Serum or Plasma 165 <200 CHOLESTEROL LEVEL eCW1 ([facility]) CHOLESTEROL LEVEL Triglyceride [Mass/volume] in Serum or Plasma by calculation 117 <150 TRIGLYCERIDES LEVEL eCW1 ([facility]) TRIGLYCERIDES LEVEL 3.437 <5 CHOLESTEROL RISK RATIO eCW1 ([facility]) CHOLESTEROL RISK RATIO Cholesterol in LDL [Mass/volume] in Serum or Plasma by calculation 94 <100 LDL CHOLESTEROL eCW1 ([facility]) LDL CHOLESTEROL 117 NON-HDL-C eCW1 ([facility]) NON-HDL-C Cholesterol in HDL [Moles/volume] in Serum or Plasma 48 >40 HDL CHOLESTEROL eCW1 ([facility]) HDL CHOLESTEROL ID Date Data Source [id number] 06/17/2019 12:00:00 AM EDT eCW1 ([facility]) Name Value Range Interpretation Code Description Data Tonya rce(s) Supporting Document(s) Hemoglobin A1c/Hemoglobin.total in Blood 6.7 HEMOGLOBIN A1c eCW1 ([facility]) HEMOGLOBIN A1c ID Date Data Source Reticulocyte Count Sysmex 06/17/2019 12:00:00 AM EDT eCW1 ([facility]) Name Value Range Interpretation Code Description Data Tonya rce(s) Supporting Document(s) 1.6 0.5-1.5 RETICULOCYTE % eCW1 ([facility]) ID Date Data Source FREE T4 & TSH PANEL 06/17/2019 12:00:00 AM EDT eCW1 ([facility]) Name Value Range Interpretation Code Description Data Tonya rce(s) Supporting Document(s) 3.170 0.358-3.740 THYROID STIMULATING HORM ONE eCW1 ([facility]) 0.98 0.76-1.46 FREE T4 eCW1 ([facility]) ID Date Data Source Comprehensive Metabolic Profile (CMP) 06/17/2019 12:00:00 AM EDT eCW1 ([facility]) Name Value Range Interpretation Code Description Data Tonya rce(s) Supporting Document(s) 1.43 0.70-1.30 CREATININE FOR GFR eCW1 ([facility]) 106 70-100 GLUCOSE, FASTING eCW1 ([facility]) 16 7-18 BLOOD UREA NITROGEN eCW1 (Counts include 234 beds at the [facility]) 103 98-107 CHLORIDE LEVEL eCW1 ([facility]) 4.1 3.5-5.1 POTASSIUM SERUM eCW1 ([facility]ly [facility]) 140 136-145 SODIUM LEVEL eCW1 ([facility]) 50.2 >35 GLOMERULAR FILTRATION RATE eCW 1 ([facility]) 20 7-37 AST/SGOT eCW1 ([facility]) 23 12-78 ALT/SGPT eCW1 ([facility]) 9.6 8.8-10.2 CALCIUM LEVEL eCW1 ([facility]) 31 21-32 CARBON DIOXIDE LEVEL eCW1 ([facility]) 4.1 3.2-5.2 ALBUMIN eCW1 ([facility]) 84 45-117 ALKALINE PHOSPHATASE eCW1 ([facility]) 0.6 0.2-1.0 BILIRUBIN,TOTAL eCW1 ([facility]) 8.0 6.4-8.2 TOTAL PROTEIN eCW1 ([facility]) 1.05 1.00-1.93 ALBUMIN/GLOBULIN RATIO eCW1 ([facility]) ID Date Data Source CBC with Differential 06/17/2019 12:00:00 AM EDT eCW1 ([facility]) Name Value Range Interpretation Code Description Data Tonya rce(s) Supporting Document(s) 13.3 13.5-17.5 HEMOGLOBIN eCW1 (formerly [facility]) 40.7 42.0-52.0 HEMATOCRIT eCW1 (formerly [facility]) 4.54 4.30-6.10 RED BLOOD COUNT eCW1 ([facility]) 9.1 4.0-10.0 WHITE BLOOD COUNT eCW1 ([facility]) 32.7 32.0-36.5 MEAN CORPUSCULAR HGB CONC eCW1 ([facility]) 29.3 27.0-33.0 MEAN CORPUSCULAR HEMOGLOB IN eCW1 ([facility]) 89.6 80.0-96.0 MEAN CORPUSCULAR VOLUME e CW1 ([facility]) 13.2 11.5-14.5 RED CELL DISTRIBUTION WID TH eCW1 ([facility]) 307 150-450 PLATELET COUNT, AUTOMATED eCW1 ([facility]) 30.1 24.0-44.0 LYMPH % eCW1 ([facility]) 7.0 0.0-5.0 MONO % eCW1 ([facility]) 60.6 36.0-66.0 NEUTROPHILS % eCW1 ([facility]) 1.4 0.0-3.0 EOS % eCW1 ([facility]) 5.5 1.5-8.5 NEUTROPHILS # eCW1 ([facility]) 0.6 0.0-1.0 BASO % eCW1 ([facility]) 0.6 0.0-0.8 MONO # eCW1 ([facility]) 2.7 1.5-5.0 LYMPH # eCW1 ([facility]) 0.1 0.0-0.5 EOS # eCW1 ([facility]) 0.1 0.0-0.2 BASO # eCW1 ([facility]) ID Date Data Source NT-PRO BNP 06/17/2019 12:00:00 AM EDT eCW1 ([facility]) Name Value Range Interpretation Code Description Data Tonya rce(s) Supporting Document(s) 1342 <450 NT-PRO BNP eCW1 (formerly [facility]) Procedure Social History Code Duration Value Status Description Data Source(s ) Smoking 06/17/2019 12:00:00 AM EDT Never Smoker completed Never S moker eCW1 ([facility]) Smoking 06/17/2019 12:00:00 AM EDT Never Smoker completed Never S moker eCW1 ([facility]) Vital Signs ID Date Data Source UNK Name Value Range Interpretation Code Description Data Source(s) Body mass index (BMI) [Ratio] 28.4 kg/m2 28.4 k g/m2 MED[facility] ([facility] ) Body weight 131.12 [lb_av] 131.12 [lb_av] MEDEN T ([facility] ) Body height 57 [in_i] 57 [in_i] MEDENT ([facility]) 4'9" Body temperature 97.8 [degF] 97.8 [degF] MEDENT ([facility]) Diastolic blood pressure 62 mm[Hg] 62 mm[Hg] eCW1 ([facility]) Systolic blood pressure 130 mm[Hg] 130 mm[Hg] e CW1 ([facility]) Body temperature 98.3 [degF] 98.3 [degF] eCW1 ( [facility]) Respiratory rate 20 /min 20 /min eCW1 ([facility]) Heart rate 63 /min 63 /min eCW1 ([facility]ly [facility]) Body mass index (BMI) [Ratio] 27.51 kg/m2 27.51 kg/m2 eCW1 ([facility]) Body height 59 [in_us] 59 [in_us] eCW1 ([facility]) Body weight Measured 136.2 [lb_av] 136.2 [lb_av ] eCW1 ([facility]) Patient Treatment Plan of Care Planned Activity Planned Date Details Description Data Source (s) Acetaminophen 325 MG / Hydrocodone Bitartrate 5 MG Ora l Tablet 03/16/2020 12:00:00 AM EST eCW1 ([facility])
[2020-05-18 12:15] LABS: ALBUMIN 3.4 GM/DL (3.2-5.2); BILIRUBIN,DIRECT 0.2 MG/DL (0.0-0.2); BILIRUBIN,TOTAL 0.5 MG/DL (0.2-1.0); FREE T4 1.01 NG/DL (0.76-1.46); THYROID STIMULATING HORMONE 3.28 uIU/ML (0.358-3.740); TOTAL PROTEIN 7.2 GM/DL (6.4-8.2)
[2020-05-18] MEDS ORDERED: FUROSEMIDE 40MG/4ML VIAL (J1940) IV ONE (12:45)
[2020-05-18 13:12] LABS: RSV AMPLIFICATION NEGATIVE (NEGATIVE)
[2020-05-18] MEDS ORDERED: ISOVUE-370 76% 100ML VIAL As Ordered ONE (13:25)
[2020-05-18] MEDS ORDERED: ASPIRIN 81 MG CHEW TABLET PO STA (13:55)
[2020-05-18] MEDS ORDERED: ASPIRIN 81 MG CHEW TABLET As Ordered ONE (13:55)
--- NOTE | 2020-05-18 13:57 | REP ---
INDICATION: SOB / Hypoxia. COMPARISON: Comparison contrast enhanced chest CT study 20 January 2016.. TECHNIQUE: Contrast dose: 75 ML of Isovue [address] technique: Helical scanning is acquired and overlapping 1.5 mm and contiguous 3 mm axial images are reformatted. In addition, maximum intensity projection and multiplanar re-formation images are generated in sagittal and coronal imaging projections. FINDINGS: There is good opacification in the pulmonary arterial tree. There is no evidence of vessel cut off or filling defect to suggest pulmonary embolus. Homogeneous opacity is seen in the thoracic aorta. There is no evidence of aneurysm or dissection. Lung window settings demonstrate small bilateral pleural effusions. There is bilateral calcific pleural plaquing consistent with previous asbestos exposure as previously noted. No infiltrate is seen in the lung holland. There is mild mediastinal lymphadenopathy. Lymph nodes are a little more numerous and several are larger than the lymph nodes seen in the mediastinum on January 20, 2016. There is a right paratracheal lymph node in the superior mediastinum which measures 16 mm in short axis dimension today, previously 10 mm. The largest lymph node in the AP window region of the mediastinum on today's scan measures 13 mm in short axis dimension, previously 9 mm. In the upper abdomen, normal adrenal glands are seen. There is capsular calcification along the border of the spleen unchanged. Today's study shows reflux of contrast opacified blood into the hepatic veins which may be a manifestation of right heart failure. IMPRESSION: No CT evidence of pulmonary embolus. CHF pattern with small bilateral pleural effusions, four-chamber cardiomegaly, and reflux of contrast opacified blood into the hepatic veins which can be a manifestation of right heart failure. <Electronically signed by Matias Dutton > 05/18/20 [id number]
--- NOTE | 2020-05-18 14:11 | REP ---
INDICATION: Epigastric pain. COMPARISON: 07/22/2015 TECHNIQUE: Bolus of 75 mL Isovue 370 scanning through the abdomen and pelvis with coronal and sagittal reconstructions. FINDINGS: CT abdomen: Please see comments on the lung bases in the CT angio chest the same date. There are heavy calcified pleural plaques on the diaphragmatic surfaces and small pleural effusions. No hiatal hernia stomach without gross mass. The liver is without hepatomegaly, focal hepatic mass or biliary dilatation. Gallbladder has a transverse mucosal fold but no calcified stone or mass. No adjacent ascites. There is subcapsular calcification along the superior and lateral aspect of the spleen unchanged from the previous study. No focal splenic mass this may reflect a prior splenic hematoma in the subcapsular region. Pancreas shows no mass, ductal dilatation or inflammatory change. There is fatty replacement in the pancreatic head region but this is unchanged. The aorta has atherosclerotic calcification without aneurysm or dissection. No periaortic, retroperitoneal or mesenteric pathologic sized lymphadenopathy. No adrenal masses are seen. The kidneys show some lobation peripheral scar at the interpolar lower pole junction laterally on the right. No gross hepatic solid mass or definite cyst. There are some vascular calcifications the renal arteries but no nephrolithiasis. Small bowel loops grossly unremarkable. Lung window review of all CT slices abdomen pelvis shows no perforation or free air. Abdominal portions of the colon grossly intact. No appendix is visible. No ventral abdominal wall hernia. There are degenerative changes of multiple endplates in the lumbar and lower thoracic spine without compression fracture. There is no spondylolysis or spondylolisthesis. Visualized ribs were grossly intact. CT pelvis: The bony sacrum, SI joints, pelvis and hips show some degenerative changes but no destructive lesion or fracture no hydronephrosis or hydroureter on the right. No left-sided hydronephrosis but there is mild hydroureter mid to distal ureter and the previously noted distal ureteral nonobstructing stone is moved to the UVJ. It measures about 10 mm. It is partly within the bladder. There is indentation of bladder base by enlarged prostate. Prostate calcifications from prior inflammatory process noted. No bladder wall mass. No layered debris. In the deep pelvis there is diverticulosis distal left colon and sigmoid without diverticulitis or colitis. Small bowel loops grossly unremarkable. Appendix absent. There is no ventral or inguinal hernia in the pelvis and no inguinal or pelvic pathologic sized adenopathy. IMPRESSION: 1. 10 mm stone at the left UVJ which is moved from its previous location on the 07/12/2015 CT study in the distal ureter into the UVJ at the left bladder wall. Previous stone location just above the left UVJ was nonobstructing. There is mild hydroureter mid to distal left ureter but no left hydronephrosis or nephrolithiasis. The right kidney and ureter were unremarkable. 2. No ventral or inguinal hernia. Anastomotic suture line periumbilical region unchanged there is diverticulosis distal left colon and sigmoid in the pelvis without diverticulitis. 3. Solid organs, gallbladder adrenal glands spleen intact in the upper abdomen pancreas shows some fatty at atrophy of its head region. No adenopathy. No other significant finding. <Electronically signed by Patrice Horn > 05/18/20 [id number]
[2020-05-18] MEDS ORDERED: METOPROLOL 5 MG/5 ML VIAL IV STA (14:52)
--- OUTSIDE RECORDS SUMMARY | 2020-05-18 15:04 | CCD ---
Author Author [facility] Organization [facility] Address Unknown Phone Unavailable Care Team Providers Care Coal Hiker Name Role Phone DRAZEK, I ELZBIETA PA [...] is protected by Article 27-F of the [facility] Public Health law. If you continue you may have access to information: Regarding HIV / AIDS; Provided by facilities licensed or operated by the [facility] Office of Mental Health; or Provided by the [facility] Office for People With Developmental Disabilities. If such information is present, then the following [facility] mandated warning applies: This information has been [...] law may result in a fine or group home sentence or both. A general authorization for the release of medical or other information is NOT sufficient authorization for further disc losure. Family History Family Member Name Family Member Gender Family Member Status Date o f Status Description Data Source(s) Unknown Male Problem [facility] ([facility] () Unknown Female Problem MEDENT ([facility]) Encounters Encounter Providers Location Date Indications Data Source(s ) Outpatient Attender: ELZBIETA MAHAN Physical Therapy 05/05/2020 1 0:15:00 AM EST MEDENT ([facility]) [place] [address] [address] 04/29/2020 12:00:00 AM EST eCW1 ([facility]) [place] [address] [place] [address] 03/16/2020 12:00:00 AM EST eCW1 ([facility]) [facility] [address] [place] [address] [place] [address] 06/17/2019 12:00:00 AM EDT eCW1 ([facility]) [facility] [address] [place] [address] [place] [address] 06/10/2019 12:00:00 AM EDT eCW1 ([facility]) [address] [place] [address] 06/09/2019 12:00:00 AM EDT eCW1 ([facility]) [facility] [address] [place] [address] Y [address] 05/20/2019 12:00:00 AM EST eCW1 ([facility]) [address] [place] [address] 05/20/2019 12:00:00 AM EST eCW1 ([facility]) Medications Medication Brand Name Start Date Product [...] {tablet} active Hydrocodone -Acetaminophen 5-325 MG eCW1 ([facility]) Acetaminophen 325 MG / Hydrocodone Devendra trate 5 MG Oral Tablet Hydrocodone- Acetaminophen 5-325 MG Hydrocodone-Acetaminophen 5-325 MG 03/16/2020 12:00:00 AM EST 1.0 {tablet} active Hydrocodone -Acetaminophen 5-325 MG eCW1 ([facility]) Insurance Providers Payer name Policy type / Coverage type Policy ID Covered green party ID Covered green party's relationship to sahu Policy Sahu Plan Information [facility] [id number] SP [id number] WELLCARE O [id number] S [id number] ANSI-Medicare Part B [id number] ANSI-Health Maintenance Organization ( O) [id number] ANSI-Medicare Part B [id number] ANSI-Medicare Part B [id number] TODAYS OPTIONS [id number] SP [id number] ANSI-Medicare Part B [id number] ANSI-Medicare Part B [id number] ANSI-Medicare Part B [id number] ANSI-Medicare Part B [id number] ANSI-Medicare Part B [id number] [employer] Options Of [place] Commercial [id number] Self [id number] Advantra Bearden Commercial [id number] Self [id number] TODAYS OPTIONS/LIBERIAN O [id number] S [id number] MEDICARE [id number] SP [id number] A TODAYS OPTIONS [id number] SP [id number] TODAYS OPTIONS [id number] [place] [id number] Todays Options Medigap Part B Self Blue Shield MCR Advantage Medigap Part B Self Cigna Medigap Part B Self Todays Options/Amer Progress Medigap Part B Self Advantra Bearden Medigap Part B Self Secure [employer] Commercial Self TODAYS OPTIONS/LIBERIAN O [id number] S [id number] MEDICAID M [id number] S [id number] MEDICARE [id number] SP [id number] TODAYS OPTIONS [id number] SP [id number] MEDICARE BLUE PPO 306 [id number] SP [id number] EXCELLUS BCBS P [id number] S [id number] SECURE HORIZONS P [id number] S [id number] MEDICARE BLUE PPO 306 [id number] SP [id number] Surgeries/Procedures Procedure Description Date Indications Data Source(s) Office Visit, Est Pt., Level 4 PC 06/17/2019 12:00:00 AM EDT eCW1 ([facility]) Office Visit, Est Pt., Level 3 FC 06/17/2019 12:00:00 AM EDT eCW1 ([facility]) Results ID Date Data Source MAGNESIUM LEVEL 06/17/2019 12:00:00 AM EDT [facility] Name Value Range Interpretation Code Description Data Tonya rce(s) Supporting Document(s) 2.2 1.8-2.4 MAGNESIUM LEVEL eCW1 ([facility]) ID Date Data Source RBC FOLATE PROFILE 06/17/2019 12:00:00 AM EDT eCW1 ([facility]) Name Value Range Interpretation Code Description Data Tonya rce(s) Supporting Document(s) 40.7 42.0-52.0 HEMATOCRIT eCW1 ([facility]) ID Date Data Source LIPID PANEL (CARDIAC RISK) 06/17/2019 12:00:00 AM EDT eCW1 ( [facility]) Name Value Range Interpretation Code Description Data Tonya rce(s) Supporting Document(s) Cholesterol [Moles/volume] in Serum or Plasma 165 <200 CHOLESTEROL LEVEL eCW1 ([facility]) CHOLESTEROL LEVEL Triglyceride [Mass/volume] in Serum or Plasma by calculation 117 <150 TRIGLYCERIDES LEVEL eCW1 ([facility]) TRIGLYCERIDES LEVEL 3.437 <5 CHOLESTEROL RISK RATIO eCW1 ([facility]) CHOLESTEROL RISK RATIO Cholesterol in LDL [Mass/volume] in Serum or Plasma by calculation 94 <100 LDL CHOLESTEROL eCW1 ([facility]) LDL CHOLESTEROL 117 NON-HDL-C eCW1 ([facility]) NON-HDL-C Cholesterol in HDL [Moles/volume] in Serum or Plasma 48 >40 HDL CHOLESTEROL eCW1 ([facility]) HDL CHOLESTEROL ID Date Data Source [id number] 06/17/2019 12:00:00 AM EDT eCW1 [facility]) Name Value Range Interpretation Code Description Data Tonya rce(s) Supporting Document(s) Hemoglobin A1c/Hemoglobin.total in Blood 6.7 HEMOGLOBIN A1c eCW1 ([facility]) HEMOGLOBIN A1c ID Date Data Source Reticulocyte Count Sysmex 06/17/2019 12:00:00 AM EDT eCW1 ([facility]) Name Value Range Interpretation Code Description Data Tonya rce(s) Supporting Document(s) 1.6 0.5-1.5 RETICULOCYTE % eCW1 ([facility]) ID Date Data Source FREE T4 & TSH PANEL 06/17/2019 12:00:00 AM EDT eCW1 [facility]) Name Value Range Interpretation Code Description Data Tonya rce(s) Supporting Document(s) 3.170 0.358-3.740 THYROID STIMULATING HORM ONE eCW1 ([facility]) 0.98 0.76-1.46 FREE T4 eCW1 ([facility]) ID Date Data Source Comprehensive Metabolic Profile (CMP) 06/17/2019 12:00:00 AM EDT eCW1 ([facility]) Name Value Range Interpretation Code Description Data Tonya rce(s) Supporting Document(s) 1.43 0.70-1.30 CREATININE FOR GFR eCW1 ([facility]) 106 70-100 GLUCOSE, FASTING eCW1 ([facility]) 16 7-18 BLOOD UREA NITROGEN eCW1 ([facility]) 103 98-107 CHLORIDE LEVEL eCW1 ([facility]) 4.1 3.5-5.1 POTASSIUM SERUM eCW1 ([facility]) 140 136-145 SODIUM LEVEL eCW1 ([facility]) 50.2 >35 GLOMERULAR FILTRATION RATE eCW 1 ([facility]) 20 7-37 AST/SGOT eCW1 ([facility]) 23 12-78 ALT/SGPT eCW1 ([facility]) 9.6 8.8-10.2 CALCIUM LEVEL eCW1 ([facility]) 31 21-32 CARBON DIOXIDE LEVEL eCW1 ([facility]) 4.1 3.2-5.2 ALBUMIN eCW1 ([facility]) 84 45-117 ALKALINE PHOSPHATASE eCW1 ([facility]) 0.6 0.2-1.0 BILIRUBIN,TOTAL eCW1 ([facility]) 8.0 6.4-8.2 TOTAL PROTEIN eCW1 ([facility]) 1.05 1.00-1.93 ALBUMIN/GLOBULIN RATIO eCW1 ([facility]) ID Date Data Source CBC with Differential 06/17/2019 12:00:00 AM EDT eCW1 ([facility]) Name Value Range Interpretation Code Description Data Tonya rce(s) Supporting Document(s) 13.3 13.5-17.5 HEMOGLOBIN eCW1 ([facility]) 40.7 42.0-52.0 HEMATOCRIT eCW1 ([facility]) 4.54 4.30-6.10 RED BLOOD COUNT eCW1 ([facility]) 9.1 4.0-10.0 WHITE BLOOD COUNT eCW1 ([facility]) 32.7 32.0-36.5 MEAN CORPUSCULAR HGB CONC eCW1 ([facility]) 29.3 27.0-33.0 MEAN CORPUSCULAR HEMOGLOB IN eCW1 ([facility]) 89.6 80.0-96.0 MEAN CORPUSCULAR VOLUME e CW1 ([facility]) 13.2 11.5-14.5 RED CELL DISTRIBUTION WID TH eCW1 ([facility]) 307 150-450 PLATELET COUNT, AUTOMATED eCW1 ([facility]) 30.1 24.0-44.0 LYMPH % eCW1 ([facility]) 7.0 0.0-5.0 MONO % eCW1 ([facility]) 60.6 36.0-66.0 NEUTROPHILS % eCW1 ([facility]) 1.4 0.0-3.0 EOS % eCW1 ([facility]) 5.5 1.5-8.5 NEUTROPHILS # eCW1 ([facility]) 0.6 0.0-1.0 BASO % eCW1 ([facility]) 0.6 0.0-0.8 MONO # eCW1 ([facility]) 2.7 1.5-5.0 LYMPH # eCW1 ([facility]) 0.1 0.0-0.5 EOS # eCW1 ([facility]) 0.1 0.0-0.2 BASO # eCW1 ([facility]) ID Date Data Source NT-PRO BNP 06/17/2019 12:00:00 AM EDT eCW1 [facility] Name Value Range Interpretation Code Description Data Tonya rce(s) Supporting Document(s) 1342 <450 NT-PRO BNP eCW1 ([facility]) Procedure Social History Code Duration Value Status Description Data Source(s ) Smoking 06/17/2019 12:00:00 AM EDT Never Smoker completed Never S moker eCW1 ([facility]) Smoking 06/17/2019 12:00:00 AM EDT Never Smoker completed Never S moker eCW1 ([facility]) Vital Signs ID Date Data Source UNK Name Value Range Interpretation Code Description Data Source(s) Body mass index (BMI) [Ratio] 28.4 kg/m2 28.4 k g/m2 MEDENT ([facility] ) Body weight 131.12 [lb_av] 131.12 [lb_av] MEDEN T ([facility] ) Body height 57 [in_i] 57 [in_i] MEDENT ([facility]) 4'9" Body temperature 97.8 [degF] 97.8 [degF] MEDENT ([facility]) Diastolic blood pressure 62 mm[Hg] 62 mm[Hg] eCW1 ([facility]) Systolic blood pressure 130 mm[Hg] 130 mm[Hg] e CW1 ([facility]) Body temperature 98.3 [degF] 98.3 [degF] eCW1 ( [facility]) Respiratory rate 20 /min 20 /min eCW1 ([facility]) Heart rate 63 /min 63 /min eCW1 ([facility]) Body mass index (BMI) [Ratio] 27.51 kg/m2 27.51 kg/m2 eCW1 ([facility]) Body height 59 [in_us] 59 [in_us] eCW1 ([facility]) Body weight Measured 136.2 [lb_av] 136.2 [lb_av ] eCW1 ([facility]) Patient Treatment Plan of Care Planned Activity Planned Date Details Description Data Source (s) Acetaminophen 325 MG / Hydrocodone Bitartrate 5 MG Ora l Tablet 03/16/2020 12:00:00 AM EST eCW1 ([facility])
[2020-05-18 15:06] LABS: CK-MB VALUE MASS 2.6 NG/ML (<3.6); MB/CK RELATIVE INDEX 2.52 (< OR =4); TROPONIN I 0.03 NG/ML (< 0.10)
[2020-05-18] MEDS ORDERED: HEPARIN DRIP 25,000 UNITS in IV 1 EA IV SCH (15:08)
[2020-05-18] MEDS ORDERED: HEPARIN SOD (PORCINE) 5000UNITS/ML 1ML VIAL/SYRINGE IV PRN (15:15)
[2020-05-18] MEDS ORDERED: HEPARIN SOD (PORCINE) 5000UNITS/ML 1ML VIAL/SYRINGE IV ONE ×2 (15:15→17:00)
[2020-05-18] MEDS ORDERED: VENTAER INH (15:18)
[2020-05-18] MEDS ORDERED: TRAM50TA2 PO (15:18)
[2020-05-18] MEDS ORDERED: ASPI-161 PO (15:18)
[2020-05-18 15:57] LABS: HEMATOCRIT 36.9 % (42.0-52.0); HEMOGLOBIN 11.7 g/dl (13.5-17.5); MEAN CORPUSCULAR HEMOGLOBIN 28.7 pg (27.0-33.0); MEAN CORPUSCULAR HGB CONC 31.7 g/dl (32.0-36.5); MEAN CORPUSCULAR VOLUME 90.7 fl (80.0-96.0); PLATELET COUNT, AUTOMATED 429 10^3/uL (150-450); RED BLOOD COUNT 4.07 10^6/uL (4.30-6.10); WHITE BLOOD COUNT 8.3 10^3/uL (4.0-10.0)
[2020-05-18] MEDS ORDERED: MOM 30ML SUSPENSION UDC PO PRN (16:00)
[2020-05-18] MEDS ORDERED: ACETAMINOPHEN TAB 650MG DOSE (2X325MG) PO PRN (16:15)
[2020-05-18] MEDS ORDERED: NITROGLYCERIN 0.4 MG SUBL TABLET SL PRN (16:30)
[2020-05-18] MEDS ORDERED: LEVALBUTEROL 1.25 MG/0.5 ML CONCENTRATE NEB INH PRN (16:30)
[2020-05-18] MEDS: HEPARIN DRIP 25,000 UNITS in IV 1 EA IV SCH (16:38)
--- NOTE | 2020-05-18 16:51 | ECGEPIP ---
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
[2020-05-18] MEDS ORDERED: FUROSEMIDE 40MG/4ML VIAL (J1940) IV SCH (17:00)
[2020-05-18 17:03] LABS: AMPHETAMINES LEVEL URINE NEGATIVE (NEGATIVE); BARBITURATES URINE NEGATIVE (NEGATIVE); BENZODIAZEPINES URINE NEGATIVE (NEGATIVE); CANNABINOIDS URINE NEGATIVE (NEGATIVE); COCAINE METABOLITE URINE NEGATIVE (NEGATIVE); METHADONE URINE NEGATIVE (NEGATIVE); OPIATES URINE POSITIVE (NEGATIVE); PHENCYCLIDINE URINE NEGATIVE (NEGATIVE)
[2020-05-18] MEDS ORDERED: LORazepam 2 MG TAB PO PRN (17:15)
[2020-05-18 17:30] VITALS: BP 145/78
--- NOTE | 2020-05-18 17:33 | REP ---
INDICATION: right shoulder pain, h/o trauma. COMPARISON: Comparison radiographs of the right shoulder are from May 02, 2020.. TECHNIQUE: Three views. FINDINGS: The right glenohumeral and acromioclavicular joints are normally aligned. There is mild narrowing of the subacromial space suggesting degeneration of the rotator cuff. 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 Subcortical cyst formation is seen in the humeral head unchanged from a prior study January 16, 2018. IMPRESSION: No acute bony abnormality is seen. Degenerative changes and diffuse osteopenia. Subcortical cyst formation in the humeral head unchanged. <Electronically signed by Matias Dutton > 05/18/20 1745
[2020-05-18] MEDS: METOPROLOL TART 25 MG TABLET PO SCH (17:40)
[2020-05-18] MEDS: THIAMINE 100 MG TAB PO SCH (17:44)
--- NOTE | 2020-05-18 18:17 | HPEPDOC ---
General Date of Admission May 18, 2020 at 14:53 Date of Service: May 18, 2020 Primary Care Physician: Jason Garcia M.D. Attending Physician: JOSE THEODORE MD Chief Complaint The patient is a 84-year-old male who presented with SOB Source: Patient, Family, Old records Exam Limitations: Mild cognitive slowing, Garbled speech Timing/Duration: Day(s) Severity: Moderate Associated Symptoms: Chest Pain, Cough History of Present Illness Mr. Clark is a 84YO male with a history of CABG, diastolic CHF (without echo readings available), CKD stage 3, asbestosis, COPD (elicited from eCW, primary care physician notes since pt was not able to supply complete history) presents with chest pain, cough, and shortness of breath. This history was pieced together from pt's daughter, and PCP, Dr. Jason Garcia. Pt's daughter states that he has had a productive cough for the past 2-3 days with yellow sputum. She also reports that he woke up at 2 AM due to chest pain and couldn't breathe, but didn't tell the daughter until 8 AM at which point she presented to the ER at [address] Garcia was also contacted and he states that the patient has not seen him for the past year. Pt was scheduled to see Dr. Garcia a couple weeks ago but did not want to come into the office. Dr. Garcia suspects the beginning of a cognitive disorder due to patient's history of heavy alcohol use. He states that the patient drinks 25-50 ounces of natty daddy every night. Dr. Garcia also reports that the patient had a stress test done 10 years ago that did not require any intervention. He also reports that the patient's baseline BNP is around 200. Dr. Garcia. He states that the patient is on triple therapy for COPD, however, does not require chronic steroid use at this time. He also reports that the patient requires O2 with ambulation. The patient's daughter reports that the patient has not been taking any medication except for tramadol, aspirin 81 mg and an albuterol inhaler. The patient's daughter reports that the patient has not had a bowel movement for the last couple days. He says that he has been eating well, although the patient reports poor appetite and states that he has not been eating well for the last couple days. The patient denies fevers, chills, night sweats, nausea, or vomiting confirmed by the patient's daughter. The patient also complains of right shoulder pain. He is not able to give the entire history, but reports that he fell on it 1-2 weeks ago. The daughter verifies that the patient was shoveling snow and slipped and fell on his right shoulder. Home Medications Scheduled Aspirin (Aspirin EC) 81 Mg Tablet.dr, 81 MG PO DAILY, (Reported) Scheduled PRN Albuterol Sulfate (Ventolin Hfa) 18 Gm Hfa.aer.ad, 2 PUFFS INH QID PRN for SHORTNESS OF BREATH, (Reported) Tramadol HCl (Tramadol HCl) 50 Mg Tablet, 50 MG PO Q6H PRN for PAIN, (Reported) Allergies Coded Allergies: No Known Allergies (Verified , 05/18/20) Past Medical History Medical History Diastolic heart failure. COPD Asbestosis Coronary artery disease Hyperlipidemia Alcohol use disorder Hypertension (?) Surgical History CABG, 2003. Abdominal surgery, unspecified Family History Significant Family History: Unable to assess Reviewed and noncontributory Social History * Smoker: former Smoker (quit 10 years ago) Alcohol: heavy (Patient denies alcohol history. Reports that he rarely drinks alcohol, however, PCP states that he drinks 25-50 ounces of beer every night.) Recent Travel/Sick Contacts: Denies: Recent travel (per daughter), Recent sick contacts (Per daughter) A-FIB/CHADSVASC A-FIB History Current/History of A-Fib/PAF?: No Current PO Anticoag Therapy: No Age/Risk Factor Scoring CHADSVASC: CHADSVASC Response (Comments) Value Age Risk Factor Age >/= 75 years old 2 Gender Risk Factor Male 0 Hx of CHF Yes 1 Hx of HTN Yes 1 Hx of Stroke/TIA/or VTE No 0 Hx of Diabetes No 0 Hx of Vascular Disease Yes 1 Total 5 Treatment Treatment ordered: Heparin IV bridge Therapy Review of Systems Constitutional: Denies: Chills, Fever, Night Sweats Pulmonary: Reports: Dyspnea, Cough, Pleuritic Chest Pain Cardiovascular: Reports: Chest Pain, Palpitations, Orthopnea Gastrointestinal: Denies: Nausea, Vomiting, Abdominal Pain, Diarrhea, Melena, Hematochezia Genitourinary: Denies: Dysuria, Frequency Physical Examination General Exam: Positive: Alert, Cooperative (patient is cooperative, however, his mentation seems to elicit some form of mild cognitive impairment, baseline is unknown), Moderate Distress (shallow respirations) Eye Exam: Positive: Conjunctiva & lids normal; Negative: Sclera icteric Chest Exam: Positive: Other (tachypneic, bibasalar crackles); Negative: Wheezing Heart Exam: Positive: Tachycardic Telemetry: Positive: Atrial fibrillation (with RVR, heart rate in 150s) Abdomen Exam: Positive: Normal bowel sounds, Soft, Tenderness (epigastric tenderness appreciated, all other quadrants elicited no tenderness on palpation) Extremity Exam: Positive: Edema (Bilateral lower extremities +2 pitting edema feet to the knees) Psych Exam: Positive: Other (patient's mentation is difficult to appreciate at this time, he is cooperative during exam and does answer some questions appropriately, however, at times his answers start to digress from the topic.) Vital Signs Vital Signs Date Time Temp Pulse Resp B/P (MAP) Pulse Ox O2 Delivery O2 Flow Rate FiO2 05/18/20 15:54 96.6 103 22 170/75 (106) 99 Nasal Cannula 2.0 Laboratory Data Labs 24H Laboratory Tests 2 05/18/20 11:09: Immature Granulocyte % (Auto) 0.4, Neutrophils (%) (Auto) 74.6H, Lymphocytes (%) (Auto) 15.9L, Monocytes (%) (Auto) 7.9, Eosinophils (%) (Auto) 0.7, Basophils (%) (Auto) 0.5, Neutrophils # (Auto) 6.3, Lymphocytes # (Auto) 1.3L, Monocytes # (Auto) 0.7, Eosinophils # (Auto) 0.1, Basophils # (Auto) 0.0, Nucleated Red Blood Cells % (auto) 0.0, Total Bilirubin 0.5, Direct Bilirubin 0.2, Aspartate Amino Transf (AST/SGOT) 14, Alanine Aminotransferase (ALT/SGPT) 20, Alkaline Phosphatase 113, HH-Mql-G-Type Natriuretic Peptide 6917H, Total Protein 7.2, Albumin 3.4, Albumin/Globulin Ratio 0.9, Lipase 93, Thyroid Stimulating Hormone (TSH) 3.280, Free Thyroxine 1.01 05/18/20 11:14: POC Glucose (Misc Panel) 128H, POC Sodium (Misc Panel) 140, POC Potassium (Misc Panel) 3.7, POC Chloride (Misc Panel) 105, POC Total CO2 (Misc Panel) 26.0, POC Blood Urea Nitrogen (Misc Panel 13, POC Ionized Calcium (Misc Panel) 5.0, POC Creatinine (Misc Panel) 1.0, POC Hematocrit (Misc Panel) 37.0L 05/18/20 11:16: POC Troponin I (Misc) 0.03 05/18/20 12:16: Coronavirus (COVID-19)(PCR) NEGATIVE, Influenza Type A (RT-PCR) NEGATIVE, Influenza Type B (RT-PCR) NEGATIVE, Respiratory Syncytial Virus (PCR) NEGATIVE 05/18/20 14:11: Nucleated Red Blood Cells % (auto) 0.0 05/18/20 14:12: POC Troponin I (Misc) 0.04, Magnesium Level 2.0, Total Creatine Kinase 103, Creatine Kinase MB 2.6, Creatine Kinase MB Relative Index 2.52, Troponin I 0.03, Methicillin-Resist S.aureus DNA PCR NOT DETECTED 05/18/20 15:26: Activated Partial Thromboplast Time 26.9 CBC/BMP Laboratory Tests 05/18/20 11:09 05/18/20 14:11 Microbiology Microbiology 05/18/20 Blood Culture, Received Pending Assessment/Plan #Shortness of breath with chest pain likely 2/2 to CHF exacerbation Chest x-ray shows signs of fluid overload. CT angiogram of the chest rules out PE and Pneumonia at this time. CT abdomen with contrast does not show any acute process at this time BNP is 6917. CBC does not show leukocytosis at this time. Procalcitonin ordered, pending at this time. Infectious etiology not probable, like pneumonia EKG, unchanged from prior History of COPD and asbestosis. Nursing order placed to maintain oxygen saturation between 88-92% due to patient's history of COPD. Administer Levalbuterol as ordered. Nitroglycerin ordered when necessary per chest pain. Started furosemide 40 mg twice a day IV, with holding parameters SBP less than 110. - Will check ECHO / continue strict ins and outs / fluid restriction of 1700cc #Atrial fibrillation with RVR Transferred patient to PCU with telemetry. - Thyroid function noted Resume metoprolol, metoprolol tartrate 25 mg every 6 hours by mouth, with holding parameters, HR < 60, SBP < 110 Started heparin drip Echocardiogram ordered, pending report. #Right shoulder pain with history of trauma Right shoulder x-ray ordered, pending results. #Alcohol use disorder - started thiamine / folate / MVI CIWA protocol placed Chronic COPD / Asbestosis - Does not appear to have any evidence of exacerbation - Continue with inhaled therapy as ordered HTN - BP mildly elevated in ER - Will start Furosemide / Metoprolol Coronary artery disease - c/w ASA and Simvastatin Hyperlipidemia - c/w Simvastatin GI prophylaxis: - Patient states that he has not had a bowel movement in the past 2-3 days. Therefore, Colace has been scheduled 100 mg by mouth daily. milk of magnesium has also been ordered, 30 mg by mouth when necessary daily. DVT prophylaxis: - Patient is on heparin drip for atrial fibrillation. Plan / VTE VTE Prophylaxis Ordered?: Yes (heparin drip for atrial fibrillation already) GME ATTESTATION My faculty preceptor for this patient encounter was physically present during the encounter and was fully available. All aspects of the patient interview, examination, medical decision making process, and medical care plan development were reviewed and approved by the faculty preceptor. The faculty preceptor is aware and concurs with the plan as stated in the body of this note and will attest to such by his/her cosignature. Jovani Lewis DO May 18, 2020 18:16 JOSE THEODORE MD May 18, 2020 18:46
[2020-05-18 19:46] LABS: MB/CK RELATIVE INDEX 2.06 (< OR =4); TROPONIN I 0.03 NG/ML (< 0.10)
[2020-05-18 20:00] VITALS: BP 113/52
[2020-05-18] MEDS ORDERED: LEVALBUTEROL 1.25 MG/0.5 ML CONCENTRATE NEB INH SCH (20:00)
[2020-05-18] MEDS: LEVALBUTEROL 1.25 MG/0.5 ML CONCENTRATE NEB INH SCH (20:07)
[2020-05-18] MEDS: SIMVASTATIN 40 MG TAB PO SCH (20:25)
[2020-05-19] VITALS (7 sets, daily range): BP systolic 112–148; BP diastolic 54–83
[2020-05-19 05:21] LABS: BILIRUBIN,TOTAL 0.3 MG/DL (0.2-1.0); CREATININE FOR GFR 1.36 MG/DL (0.70-1.30); POTASSIUM SERUM 4.1 MEQ/L (3.5-5.1); TOTAL PROTEIN 6.8 GM/DL (6.4-8.2)
[2020-05-19] MEDS: METOPROLOL TART 25 MG TABLET PO SCH ×4 (06:35→17:41)
[2020-05-19] MEDS: LEVALBUTEROL 1.25 MG/0.5 ML CONCENTRATE NEB INH SCH ×4 (08:00→20:31)
[2020-05-19] MEDS ORDERED: ALBUTEROL 90 MCG/ACT 8GM HFA INHALER INH PRN (08:30)
[2020-05-19] MEDS ORDERED: MIRALAX *UNIT DOSE* 17GM PACKET PO PRN (08:30)
[2020-05-19] MEDS: DOCUSATE SODIUM 100MG CAPSULE PO SCH ×2 (08:51→22:27)
[2020-05-19] MEDS: FUROSEMIDE 100MG/10ML VIAL (J1940) IV SCH (08:51)
[2020-05-19] MEDS: ASPIRIN 81 MG ENTERIC TAB PO SCH (08:51)
[2020-05-19] MEDS: traMADol 50 MG TAB PO PRN ×2 (08:52→15:56)
[2020-05-19] MEDS: FOLIC ACID 1 MG TAB PO SCH (08:52)
[2020-05-19] MEDS: MULTIVITAMINS/MINERALS THERAP 1 TAB PO SCH (08:52)
[2020-05-19] MEDS: THIAMINE 100 MG TAB PO SCH ×2 (08:52→22:28)
[2020-05-19] MEDS ORDERED: DOCUSATE SODIUM 100MG CAPSULE PO SCH (09:00)
--- NOTE | 2020-05-19 12:31 | REP ---
INDICATION: PAIN RIGHT FOREARM S/P FALL, R/O FX COMPARISON: None. TECHNIQUE: Two views right humerus. FINDINGS: There is no evidence of acute fracture, dislocation, or intrinsic bone disease.Tendinous calcification is seen along the lateral humeral epicondyle. IMPRESSION: No fracture or dislocation. <Electronically signed by Berhane Blake > 05/19/20 [id number]
--- NOTE | 2020-05-19 12:32 | REP ---
INDICATION: PAIN RIGHT UPPER ARM S/P FALL, R/O FX COMPARISON: None. TECHNIQUE: Two views right forearm. FINDINGS: There is no evidence of acute fracture, dislocation, or intrinsic bone disease. IMPRESSION: No fracture or dislocation. <Electronically signed by Berhane Blake > 05/19/20 [id number]
--- NOTE | 2020-05-19 12:34 | REP ---
INDICATION: PAIN RIGHT HAND S/P FALL, R/O FX COMPARISON: None. TECHNIQUE: Four views right hand. FINDINGS: There is no evidence of acute fracture, dislocation, or intrinsic bone disease. IMPRESSION: No fracture or dislocation. <Electronically signed by Berhane Blake > 05/19/20 [id number]
[2020-05-19] MEDS: methylPREDNISolone 40MG 1ML VIAL IV SCH (13:29)
[2020-05-19] MEDS: HEPARIN DRIP 25,000 UNITS in IV 1 EA IV SCH (14:36)
--- NOTE | 2020-05-19 16:11 | IPNPDOC ---
Date Seen The patient was seen on 05/19/20. Progress Note SUBJECTIVE: Neg 1.1 L/24H, Cr bumped slightly. Remains on RA. Incr wheezing, added methylprednisolone with history of smoking. On heparin gtt for atrial fib, switched to eliquis BID, no prior history. Echo pending to be done. Complained of RUE pain from hand to shoulder s/p fall several weeks ago, XR ordered to r/o fx. Denies chest pain, shortness of breath that has worsened, lightheadedness. OBJECTIVE: PHYSICAL EXAMINATION: VS: Please see below CONSTITUTIONAL: No acute distress, resting comfortably, AAO x 3 but very hard of hearing. EYES: PERRLA, EOM intact HENT, MOUTH: Normocephalic, atraumatic, moist mucous membranes NECK: SUPPLE, no JVD, no lymphadenopathy, no carotid bruit CV: irregularly irregular rhythm, S1S2 normal, no murmurs/rubs/gallops RESPIRATORY: crackles in b/l post lung holland. no rales/rhonchi/wheezes GI: BS positive in 4 quadrants, soft, nontender, nondistended, no rebound or guarding, no organomegaly : Deferred MUSCULOSKELETAL: Normal ROM. No cyanosis, clubbing, swelling, joint deformity, extremity edema INTEGUMENTARY: Intact, no rashes, no lesions, no erythema NEUROLOGIC: Cranial Nerves II-XII are intact, no focal deficits PSYCHIATRIC: Mood and affect are normal CURRENT MEDICATIONS: Please see below LABORATORY DATA: Please see below IMAGING: R hand XR: No fx or dislocation R ulnar/radius XR: No fx or dislocation R humerus XR: No fx or dislocation CTA chest: No CT evidence of pulmonary embolus. CHF pattern with small bilateral pleural effusions, four-chamber cardiomegaly, and reflux of contrast opacified blood into the hepatic veins which can be a manifestation of right heart failure. ASSESSMENT: 84 y/o M with PMH of CAD s/p CABG, HLD, HTN admitted for increased SOB likely 2/2 to HFpEF with exacerbation and COPD exacerbation, bilateral pleural effusions. PLAN: #Shortness of breath likely multifactorial 2/2 to HFpEF with exacerbation, COPD with exacerbation, bilateral pleural effusions. -Currently saturating 91-98% on RA -CTA chest above -Please see treatment of individual issues below HFpEF with exacerbation poss 2/2 to afib with RVR -Cardiac catheterization 2006 showed EF 45-50% -Neg fluid balance with incr in Cr -F/u new echocardiogram -BNP 6917, chronically elevated but only in 8547-4207 when trended -Trop neg -C/w decreased dose lasix, BB, tele COPD with exacerbation -Incr wheezing, Hx of COPD/asbestosis -Added methylprednisolone to levalbuterol ATC and PRN Atrial fibrillation with resolved RVR -TSH wnl, no noted infection, r/o valvular cause on echo -Currently rate controlled -Stopped heparin gtt, started on eliquis BID -used to follow with Dr. Murillo, discussed history with him today- this was not listed in history. -Requesting PCP notes -Tele Right shoulder pain with history of trauma Shoulder XR and all other XR above, neg for dislocation or fracture. Only showed degenerative changes and subcortical cyst formation in the humeral head unchanged from 2018. -Heating pad, tylenol PRN Alcohol use disorder -No s/s of withdrawl -C/w thiamine / folate / MVI, CIWA protocol placed Unsteadiness on feet, recent fall -PT: "Pt on RA t/o session spo2 de-sat to 89% during ambulation however recovers to 91%, ambulating with RW and CGA no LOB noted t/o session; will assess stairs next visit. Pt will benefit from skilled PT intervention during acute hospitalization to improve funtional mobility tolerance and independence. " HTN -Stable -C/w current meds Coronary artery disease s/p CABG 2004 -Trop neg -c/w ASA and Simvastatin, BB Hyperlipidemia -c/w Simvastatin Constipation -C/w colace BID, sennokot HS and PRN med DVT prophylaxis: -D/c heparin gtt, started on eliquis BID DISPOSITION: PT/OT, inpatient status. Plan is to return home at discharge. VS, I&O, 24H, Fishbone Vital Signs/I&O Vital Signs Date Time Temp Pulse Resp B/P (MAP) Pulse Ox O2 Delivery O2 Flow Rate FiO2 05/19/20 11:57 97.0 85 18 141/64 (89) 90 05/19/20 07:32 Room Air 05/19/20 04:00 2.0 I&O- Last 24 Hours up to 6 AM 05/19/20 06:00 Intake Total 934 ml Output Total 2150 ml Balance -1216 ml Laboratory Data 24H LABS Laboratory Tests 2 05/18/20 19:11: Total Creatine Kinase 97, Creatine Kinase MB 2.0, Creatine Kinase MB Relative Index 2.06, Troponin I 0.03 05/18/20 21:10: Activated Partial Thromboplast Time 112.0H 05/19/20 04:44: Activated Partial Thromboplast Time 129.7*H, Anion Gap 5L, Glomerular Filtration Rate 53.0, Calcium Level 9.0, Total Bilirubin 0.3, Aspartate Amino Transf (AST/SGOT) 18, Alanine Aminotransferase (ALT/SGPT) 19, Alkaline Phosphatase 94, Total Protein 6.8, Albumin 3.0L, Albumin/Globulin Ratio 0.8 05/19/20 12:56: Activated Partial Thromboplast Time 51.7H CBC/BMP Laboratory Tests 05/19/20 04:44 Microbiology Microbiology 05/18/20 Blood Culture - Preliminary, Resulted No growth after 24 hours . All specim... Current Medications Current Medications Medications (Trade) Dose Ordered Sig/Glenny Route PRN Reason Start Time Stop Time Status Last Admin Dose Admin Acetaminophen (Tylenol Tab) 650 mg Q4H PRN PO PAIN OR FEVER 05/18/20 16:15 Albuterol Sulfate (Proventil, Ventolin Hfa) 2 puff QID PRN INH SHORTNESS OF BREATH 05/19/20 08:30 Aspirin (Aspirin Chewable) 324 mg STAT STAT PO 05/18/20 13:55 05/18/20 13:57 DC 05/18/20 14:03 Aspirin (Ecotrin) 81 mg DAILY PO 05/19/20 09:00 05/19/20 08:51 Docusate Sodium (Colace) 100 mg BID PO 05/19/20 09:00 05/19/20 08:51 Docusate Sodium (Colace) 100 mg DAILY PO 05/19/20 09:00 05/19/20 08:23 DC Folic Acid (Folic Acid) 1 mg DAILY PO 05/19/20 09:00 05/19/20 08:52 Furosemide (LASIX injection) 40 mg BID@09,17 IV 05/18/20 17:00 05/19/20 08:23 DC 05/18/20 17:42 Furosemide (LASIX injection) 60 mg DAILY IV 05/19/20 09:00 05/19/20 08:51 Heparin Sodium (Porcine) (Heparin) ASDIRECTED PRN IV SEE LABEL COMMENTS 05/18/20 15:15 05/19/20 14:37 Heparin Sodium (Porcine) 09921 units/IV Miscellaneous Supplies 250 ml @ 0 mls/hr Q0M IV 05/18/20 15:08 05/18/20 16:07 DC Heparin Sodium (Porcine) 84014 units/IV Miscellaneous Supplies 250 ml @ 0 mls/hr Q0M IV 05/18/20 16:15 05/19/20 14:36 Home Med (Med Rec Complete!) ASDIRECTED XX 05/18/20 15:30 05/18/20 15:26 DC Levalbuterol HCl (Xopenex Neb) 0.63 mg Q2HP PRN INH SOB/WHEEZING 05/18/20 16:30 Levalbuterol HCl (Xopenex Neb) 0.63 mg RQ6H INH 05/18/20 20:00 Cancel Levalbuterol HCl (Xopenex Neb) 0.63 mg RQID INH 05/18/20 20:00 05/19/20 15:23 Lorazepam (Ativan) 2 mg ASDIRECTED PRN PO SEE PROTOCOL 05/18/20 17:15 05/19/20 07:47 DC Magnesium Hydroxide (Milk Of Magnesia) 30 ml DAILYPRN PRN PO CONSTIPATION 05/18/20 16:00 Methylprednisolone (SOLU medrol) 40 mg Q12H IV 05/19/20 12:00 05/19/20 13:29 Metoprolol Tartrate (Lopressor) 5 mg STAT STAT IV 05/18/20 14:52 05/18/20 14:53 Cancel Metoprolol Tartrate (Lopressor) 25 mg Q6H PO 05/18/20 18:00 05/19/20 13:29 Morphine Sulfate (Morphine Sulfate Inj) 2 mg Q30M PRN IV MODERATE PAIN (PS 5-7) 05/18/20 11:15 05/18/20 20:26 DC 05/18/20 20:26 Multivitamins (Theragram-M) 1 tab DAILY PO 05/19/20 09:00 05/19/20 08:52 Nitroglycerin (Nitrostat (1/ 150)) 0.4 mg Q5MP PRN SL CHEST PAIN 05/18/20 16:30 Non-Formulary Medication (Heparin Iv Rate Change Documentation ml/ Hr) ASDIRECTED XX 05/18/20 15:15 05/23/20 15:14 05/19/20 14:37 Polyethylene Glycol (Miralax) 1 pkt DAILYPRN PRN PO CONSTIPATION 05/19/20 08:30 05/19/20 08:53 Senna (Senokot) 2 tab QHS PO 05/19/20 21:00 Simvastatin (Zocor) 40 mg DAILY@2100 PO 05/18/20 21:00 05/18/20 20:25 Sodium Chloride 1,000 ml @ 100 mls/hr Q10H IV 05/18/20 11:05 05/18/20 16:28 DC 05/18/20 11:32 Thiamine HCl (Thiamine HCl) 100 mg BID PO 05/18/20 17:00 05/21/20 09:01 05/19/20 08:52 Tramadol HCl (Ultram) 50 mg Q6H PRN PO PAIN 05/19/20 08:30 05/19/20 08:52 Allergies Coded Allergies: No Known Allergies (Verified , 05/18/20) Yuni Cunningham MD May 19, 2020 16:11
[2020-05-19] MEDS: APIXABAN 5 MG TAB (ELIQUIS) PO SCH (22:28)
[2020-05-19] MEDS: SENNA 8.6 MG TAB (SENOKOT) PO SCH (22:28)
[2020-05-19] MEDS: SIMVASTATIN 40 MG TAB PO SCH (22:28)
[2020-05-20] VITALS (8 sets, daily range): BP systolic 128–178; BP diastolic 58–81
[2020-05-20] MEDS: METOPROLOL TART 25 MG TABLET PO SCH ×2 (01:22→05:40)
[2020-05-20] MEDS: methylPREDNISolone 40MG 1ML VIAL IV SCH ×2 (01:22→13:16)
[2020-05-20 06:25] LABS: ALBUMIN 3.2 GM/DL (3.2-5.2); BILIRUBIN,TOTAL 0.6 MG/DL (0.2-1.0); CALCIUM LEVEL 9.4 MG/DL (8.8-10.2); CREATININE FOR GFR 1.47 MG/DL (0.70-1.30); GLOMERULAR FILTRATION RATE 48.5 (>35); POTASSIUM SERUM 4.4 MEQ/L (3.5-5.1); TOTAL PROTEIN 7.4 GM/DL (6.4-8.2)
[2020-05-20] MEDS: LEVALBUTEROL 1.25 MG/0.5 ML CONCENTRATE NEB INH SCH ×4 (07:09→20:16)
[2020-05-20] MEDS: APIXABAN 5 MG TAB (ELIQUIS) PO SCH ×2 (09:28→20:07)
[2020-05-20] MEDS: DOCUSATE SODIUM 100MG CAPSULE PO SCH ×2 (09:28→20:07)
[2020-05-20] MEDS: THIAMINE 100 MG TAB PO SCH ×2 (09:28→20:07)
[2020-05-20] MEDS: ASPIRIN 81 MG ENTERIC TAB PO SCH (09:29)
[2020-05-20] MEDS: FOLIC ACID 1 MG TAB PO SCH (09:29)
[2020-05-20] MEDS: MULTIVITAMINS/MINERALS THERAP 1 TAB PO SCH (09:29)
[2020-05-20] MEDS: METOPROLOL TART 50 MG TAB PO SCH ×2 (09:30→20:08)
[2020-05-20] MEDS: FUROSEMIDE 100MG/10ML VIAL (J1940) IV SCH (09:33)
--- NOTE | 2020-05-20 14:26 | ECHO ---
DATE OF PROCEDURE: 05/19/2020 Age: 84 Gender: Male REFERRING PHYSICIAN: Moody Lewis DO PATIENT LOCATION: Room 3215 INDICATION: Cardiac dysrhythmia. MEASUREMENTS: IVS 1.8 cm LV 3.3 cm LVPW 1.4 cm LA 3.1 cm Aorta 3.0 cm IVC 1.8 cm DOPPLER MEASUREMENT Peak velocity across the aortic valve 2.4 m/s Peak velocity across the LVOT 0.77 m/s Peak gradient across the aortic valve 24 mmHg Mean gradient across the aortic valve 13 mmHg Mitral E 1.7 Maximum tricuspid valve velocity 3.1 m/s 2D COMMENTS: 1. Normal left ventricular size with mildly to moderately increased left ventricular wall thickness and a normal global left ventricular systolic function. The estimated left ventricular systolic ejection fraction is 60% to 65%. 2. Normal left atrium. Normal right atrium and right ventricle. 3. The atrial septum appeared to be normal without evidence of defect or shunt. 4. Normal aortic root. No pericardial effusion. 5. Mildly calcified aortic valve with normal leaflet excursion. Mildly calcified mitral annulus with normal anterior mitral valve leaflet motion. Normal tricuspid valve and pulmonic valve. The proximal pulmonary artery branches were not well visualized. 6. The inferior vena cava was normal in size, central venous pressure is most likely normal. Doppler detects mild aortic regurgitation, mild mitral regurgitation, and moderate tricuspid regurgitation. Trace pulmonic regurgitation also noted. The calculated pulmonary artery systolic pressure varies between 40 to 50 mmHg. Assessment of the left ventricular diastolic function was limited. IMPRESSION: 1. Normal global left ventricular systolic function with mild to moderate concentric left ventricular hypertrophy. Assessment of the left ventricular diastolic function was limited. 2. Aortic valve sclerosis with mild aortic regurgitation and mild aortic stenosis. 3. Mitral annular calcification with mild mitral regurgitation. 4. Moderate tricuspid regurgitation with moderate pulmonary 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. MTDD
--- NOTE | 2020-05-20 16:18 | IPNPDOC ---
Date Seen The patient was seen on 05/20/20. Progress Note SUBJECTIVE: Improved wheezing, decreased steroids today. Tolerating eliquis BID. Participating with PT. Discussed case with Dr. Murillo who recommended offering transfer for cardiac catheterization with new onset atrial fib, CHF and CAD s/p CABG hx. Patient did not wish to be transferred and would like to only continue medical management of cardiac issues at this time. Denies chest pain, shortness of breath that has worsened, lightheadedness. OBJECTIVE: PHYSICAL EXAMINATION: VS: Please see below CONSTITUTIONAL: No acute distress, resting comfortably, AAO x 3 but very hard of hearing. EYES: PERRLA, EOM intact HENT, MOUTH: Normocephalic, atraumatic, moist mucous membranes NECK: SUPPLE, no JVD, no lymphadenopathy, no carotid bruit CV: irregularly irregular rhythm, S1S2 normal, no murmurs/rubs/gallops RESPIRATORY: very mild- improving crackles in b/l post lung [place]. No wheezing today on exam, no rales/rhonchi GI: BS positive in 4 quadrants, soft, nontender, nondistended, no rebound or guarding, no organomegaly : Deferred MUSCULOSKELETAL: Normal ROM. No cyanosis, clubbing, swelling, joint deformity, extremity edema INTEGUMENTARY: Intact, no rashes, no lesions, no erythema NEUROLOGIC: Cranial Nerves II-XII are intact, no focal deficits PSYCHIATRIC: Mood and affect are normal CURRENT MEDICATIONS: Please see below LABORATORY DATA: Please see below IMAGING: Echocardiogram: EF 60-65% Normal global left ventricular systolic function with mild to moderate marcos ntric left ventricular hypertrophy. Assessment of the left ventricular diastolic function was limited. Aortic valve sclerosis with mild aortic regurgitation and mild aortic stenosis. Mitral annular calcification with mild mitral regurgitation. Moderate tricuspid regurgitation with moderate pulmonary 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. R hand XR: No fx or dislocation R ulnar/radius XR: No fx or dislocation R humerus XR: No fx or dislocation CTA chest: No CT evidence of pulmonary embolus. CHF pattern with small bilateral pleural effusions, four-chamber cardiomegaly, and reflux of contrast opacified blood i nto the hepatic veins which can be a manifestation of right heart failure. ASSESSMENT: 84 y/o M with PMH of CAD s/p CABG, HLD, HTN admitted for increased SOB likely 2/2 to HFpEF with exacerbation and COPD exacerbation, bilateral pleural effusions. PLAN: #Shortness of breath likely multifactorial 2/2 to HFpEF with exacerbation, COPD with exacerbation, bilateral pleural effusions. -Currently saturating 91-98% on RA -No wheezing, decreased crackles on exam -CTA chest above -Please see treatment of individual issues below HFpEF with exacerbation poss 2/2 to afib with (new resolved) RVR -Cardiac catheterization 2006 showed EF 45-50% -Pos fluid balance -Echo above -BNP 6917, chronically elevated but only in 6786-2111 when trended -Trop neg -Discussed with Dr. Murillo (cardiology) again today. With history of patient, transfer was offered for cardiac catheterization. He refused and did not wish to be transferred. He would like to continue only with medical management and further discuss o/p options for further evaluation. -C/w decreased dose lasix, BB, tele COPD with exacerbation -Incr wheezing, Hx of COPD/asbestosis -Deescalated to PO prednisone today, c/w levalbuterol ATC and PRN Atrial fibrillation with resolved RVR -TSH wnl, no noted infection, echo above -Currently rate controlled -Started on metoprolol BID, c/w eliquis BID CKD Stage 2-3 -Cr slightly increased today at 1.47; however, in 05/2019 Cr was 1.4 -Decreased dose of lasix further -F/u Am labs, avoid additional nephrotoxic medications Right shoulder pain with history of trauma, possible muscle strain -Improving pain today, possible Shoulder XR and all other XR above, neg for dislocation or fracture. Only showed degenerative changes and subcortical cyst formation in the humeral head unchanged from 2018. -Heating pad, tylenol PRN Alcohol use disorder -No s/s of withdrawl -C/w thiamine / folate / MVI, CIWA protocol Unsteadiness on feet, recent fall -PT: Pt is safe to return home when medically appropriate HTN -Stable -C/w current meds Coronary artery disease s/p CABG 2004 -Trop neg -c/w ASA, Simvastatin, BB Hyperlipidemia -c/w Simvastatin Constipation -C/w colace BID, sennokot HS and PRN med DVT prophylaxis: -eliquis BID DISPOSITION: Plan is to return home at discharge, likely on 05/21/20 . VS, I&O, 24H, Fishbone Vital Signs/I&O Vital Signs Date Time Temp Pulse Resp B/P (MAP) Pulse Ox O2 Delivery O2 Flow Rate FiO2 05/20/20 11:14 97.0 64 18 132/63 (86) 99 Room Air 05/19/20 04:00 2.0 l I&O- Last 24 Hours up to 6 AM 05/20/20 06:00 Intake Total 1750 ml Output Total 1225 ml Balance 525 ml Laboratory Data 24H LABS Laboratory Tests 2 05/20/20 05:16: Anion Gap 7L, Glomerular Filtration Rate 48.5, Calcium Level 9.4, Total Bilirubin 0.6#, Aspartate Amino Transf (AST/SGOT) 19, Alanine Aminotransferase (ALT/SGPT) 22, Alkaline Phosphatase 105, Total Protein 7.4, Albumin 3.2, Albumin/Globulin Ratio 0.8 CBC/BMP Laboratory Tests 05/20/20 05:16 Microbiology Microbiology 05/18/20 Blood Culture - Preliminary, Resulted No Growth after 48 hours. All Specime... Current Medications Current Medications Medications (Trade) Dose Ordered Sig/Glenny Route PRN Reason Start Time Stop Time Status Last Admin Dose Admin Acetaminophen (Tylenol Tab) 650 mg Q4H PRN PO PAIN OR FEVER 05/18/20 16:15 Albuterol Sulfate (Proventil, Ventolin Hfa) 2 puff QID PRN INH SHORTNESS OF BREATH 05/19/20 08:30 Apixaban (Eliquis) 5 mg BID PO 05/19/20 21:00 05/20/20 09:28 Aspirin (Aspirin Chewable) 324 mg STAT STAT PO 05/18/20 13:55 05/18/20 13:57 DC 05/18/20 14:03 Aspirin (Ecotrin) 81 mg DAILY PO 05/19/20 09:00 05/20/20 09:29 Docusate Sodium (Colace) 100 mg BID PO 05/19/20 09:00 05/20/20 09:28 Docusate Sodium (Colace) 100 mg DAILY PO 05/19/20 09:00 05/19/20 08:23 DC Folic Acid (Folic Acid) 1 mg DAILY PO 05/19/20 09:00 05/20/20 09:29 Furosemide (LASIX injection) 40 mg BID@09,17 IV 05/18/20 17:00 05/19/20 08:23 DC 05/18/20 17:42 Furosemide (LASIX injection) 60 mg DAILY IV 05/19/20 09:00 05/20/20 09:33 Heparin Sodium (Porcine) (Heparin) ASDIRECTED PRN IV SEE LABEL COMMENTS 05/18/20 15:15 05/19/20 15:57 DC 05/19/20 14:37 Heparin Sodium (Porcine) 16950 units/IV Miscellaneous Supplies 250 ml @ 0 mls/hr Q0M IV 05/18/20 15:08 05/18/20 16:07 DC Heparin Sodium (Porcine) 75470 units/IV Miscellaneous Supplies 250 ml @ 0 mls/hr Q0M IV 05/18/20 16:15 05/19/20 15:57 DC 05/19/20 14:36 Home Med (Med Rec Complete!) ASDIRECTED XX 05/18/20 15:30 05/18/20 15:26 DC Levalbuterol HCl (Xopenex Neb) 0.63 mg Q2HP PRN INH SOB/WHEEZING 05/18/20 16:30 Levalbuterol HCl (Xopenex Neb) 0.63 mg RQ6H INH 05/18/20 20:00 Cancel Levalbuterol HCl (Xopenex Neb) 0.63 mg RQID INH 05/18/20 20:00 05/20/20 15:49 Lorazepam (Ativan) 2 mg ASDIRECTED PRN PO SEE PROTOCOL 05/18/20 17:15 05/19/20 07:47 DC Magnesium Hydroxide (Milk Of Magnesia) 30 ml DAILYPRN PRN PO CONSTIPATION 05/18/20 16:00 05/19/20 15:56 Methylprednisolone (SOLU medrol) 40 mg Q12H IV 05/19/20 12:00 05/20/20 13:16 Metoprolol Tartrate (Lopressor) 5 mg STAT STAT IV 05/18/20 14:52 05/18/20 14:53 Cancel Metoprolol Tartrate (Lopressor) 25 mg Q6H PO 05/18/20 18:00 05/20/20 08:57 DC 05/20/20 01:22 Metoprolol Tartrate (Lopressor) 50 mg BID PO 05/20/20 09:00 05/20/20 09:30 Morphine Sulfate (Morphine Sulfate Inj) 2 mg Q30M PRN IV MODERATE PAIN (PS 5-7) 05/18/20 11:15 05/18/20 20:26 DC 05/18/20 20:26 Multivitamins (Theragram-M) 1 tab DAILY PO 05/19/20 09:00 05/20/20 09:29 Nitroglycerin (Nitrostat (1/ 150)) 0.4 mg Q5MP PRN SL CHEST PAIN 05/18/20 16:30 Non-Formulary Medication (Heparin Iv Rate Change Documentation ml/ Hr) ASDIRECTED XX 05/18/20 15:15 05/19/20 15:57 DC 05/19/20 14:37 Polyethylene Glycol (Miralax) 1 pkt DAILYPRN PRN PO CONSTIPATION 05/19/20 08:30 05/19/20 08:53 Senna (Senokot) 2 tab QHS PO 05/19/20 21:00 05/19/20 22:28 Simvastatin (Zocor) 40 mg DAILY@2100 PO 05/18/20 21:00 05/19/20 22:28 Sodium Chloride 1,000 ml @ 100 mls/hr Q10H IV 05/18/20 11:05 05/18/20 16:28 DC 05/18/20 11:32 Thiamine HCl (Thiamine HCl) 100 mg BID PO 05/18/20 17:00 05/21/20 09:01 05/20/20 09:28 Tramadol HCl (Ultram) 50 mg Q6H PRN PO PAIN 05/19/20 08:30 05/19/20 15:56 Allergies Coded Allergies: No Known Allergies (Verified , 05/18/20) Yuni Cunningham MD May 20, 2020 16:18
[2020-05-20] MEDS: SIMVASTATIN 40 MG TAB PO SCH (20:07)
[2020-05-20] MEDS: SENNA 8.6 MG TAB (SENOKOT) PO SCH (20:07)
[2020-05-21 04:00] VITALS: BP 138/75
[2020-05-21] MEDS: LEVALBUTEROL 1.25 MG/0.5 ML CONCENTRATE NEB INH SCH ×4 (07:13→19:53)
[2020-05-21 08:00] VITALS: BP 152/62
[2020-05-21] MEDS ORDERED: ELIQ5TAB PO (08:05)
[2020-05-21] MEDS ORDERED: LOPR1TAB6 PO (08:05)
[2020-05-21] MEDS ORDERED: PRED20TA PO (08:05)
[2020-05-21] MEDS ORDERED: DOK1CAP7 PO (08:05)
[2020-05-21] MEDS: DOCUSATE SODIUM 100MG CAPSULE PO SCH ×2 (08:09→21:52)
[2020-05-21] MEDS: METOPROLOL TART 50 MG TAB PO SCH ×2 (08:11→21:52)
[2020-05-21] MEDS: APIXABAN 5 MG TAB (ELIQUIS) PO SCH ×2 (08:11→21:52)
[2020-05-21] MEDS: ASPIRIN 81 MG ENTERIC TAB PO SCH (08:11)
[2020-05-21] MEDS: THIAMINE 100 MG TAB PO SCH (08:11)
[2020-05-21] MEDS: predniSONE 20 MG TAB PO SCH (08:12)
[2020-05-21] MEDS: FOLIC ACID 1 MG TAB PO SCH (08:12)
[2020-05-21] MEDS: MULTIVITAMINS/MINERALS THERAP 1 TAB PO SCH (08:12)
[2020-05-21 08:39] LABS: HEMATOCRIT 38.8 % (42.0-52.0); HEMOGLOBIN 12.2 g/dl (13.5-17.5); MEAN CORPUSCULAR HEMOGLOBIN 28.2 pg (27.0-33.0); MEAN CORPUSCULAR HGB CONC 31.4 g/dl (32.0-36.5); MEAN CORPUSCULAR VOLUME 89.8 fl (80.0-96.0); PLATELET COUNT, AUTOMATED 529 10^3/uL (150-450); RED BLOOD COUNT 4.32 10^6/uL (4.30-6.10); WHITE BLOOD COUNT 17.4 10^3/uL (4.0-10.0)
[2020-05-21] MEDS ORDERED: FUROSEMIDE 40MG/4ML VIAL (J1940) IV SCH (09:00)
[2020-05-21 09:06] LABS: ALBUMIN 3.6 GM/DL (3.2-5.2); BILIRUBIN,TOTAL 0.6 MG/DL (0.2-1.0); CALCIUM LEVEL 9.5 MG/DL (8.8-10.2); CREATININE FOR GFR 1.49 MG/DL (0.70-1.30); GLOMERULAR FILTRATION RATE 47.7 (>35)
[2020-05-21] MEDS: TORSEMIDE 20 MG TAB PO SCH (11:18)
[2020-05-21 12:00] VITALS: BP 129/76
--- NOTE | 2020-05-21 13:23 | IPNPDOC ---
Date Seen The patient was seen on 05/21/20. Progress Note SUBJECTIVE: Improved wheezing but increasingly SOB today. Worsened BNP, started on torsemide daily, repeating CXR. Did walking test and held O2 saturation the entire time. Aside from feeling SOB, he denies chest pain, lightheadedness. OBJECTIVE: PHYSICAL EXAMINATION: VS: Please see below CONSTITUTIONAL: appears more SOB today, AAO x 3 but very hard of hearing. EYES: PERRLA, EOM intact HENT, MOUTH: Normocephalic, atraumatic, moist mucous membranes NECK: SUPPLE, no JVD, no lymphadenopathy, no carotid bruit CV: irregularly irregular rhythm, S1S2 normal, no murmurs/rubs/gallops RESPIRATORY: very mild- improving crackles in b/l post lung holland. No wheezing today on exam, no rales/rhonchi GI: BS positive in 4 quadrants, soft, nontender, nondistended, no rebound or guarding, no organomegaly : Deferred MUSCULOSKELETAL: Normal ROM. No cyanosis, clubbing, swelling, joint deformity, +1 extremity edema INTEGUMENTARY: Intact, no rashes, no lesions, no erythema NEUROLOGIC: Cranial Nerves II-XII are intact, no focal deficits PSYCHIATRIC: Mood and affect are normal CURRENT MEDICATIONS: Please see below LABORATORY DATA: Please see below IMAGING: CXR 05/21/20 : pending to be done Echocardiogram: EF 60-65% Normal global left ventricular systolic function with mild to moderate concentric left ventricular hypertrophy. Assessment of the left ventricular diastolic function was limited. Aortic valve sclerosis with mild aortic regurgitation and mild aortic stenosis. Mitral annular calcification with mild mitral regurgitation. Moderate tricuspid regurgitation with moderate pulmonary 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. R hand XR: No fx or dislocation R ulnar/radius XR: No fx or dislocation R humerus XR: No fx or dislocation CTA chest: No CT evidence of pulmonary embolus. CHF pattern with small bilateral pleural effusions, four-chamber cardiomegaly, and reflux of contrast opacified blood into the hepatic veins which can be a manifestation of right heart failure. ASSESSMENT: 84 y/o M with PMH of CAD s/p CABG, HLD, HTN admitted for increased SOB likely 2/2 to HFpEF with exacerbation and COPD exacerbation, bilateral pleural effusions. PLAN: #Shortness of breath likely multifactorial 2/2 to HFpEF with exacerbation, COPD with exacerbation, bilateral pleural effusions. -Increased SOB; however, did well with walking test, on RA. Wheezing improved but BNP increased -Currently saturating 91-98% on RA -No wheezing, decreased crackles on exam -F/u repeat CXR -Please see treatment of individual issues below HFpEF with exacerbation poss 2/2 to afib with (new resolved) RVR -Cardiac catheterization 2006 showed EF 45-50% -Pos fluid balance -Echo above -BNP 6917--> >12K, chronically elevated but only in 7759-2576 when trended -Trop neg -Discussed with Dr. Murillo (cardiology) again today. With history of patient, transfer was offered for cardiac catheterization. He refused and did not wish to be transferred. He would like to continue only with medical management and further discuss o/p options for further evaluation. -Starting torsemide daily, fluid restriction, BB, tele COPD with exacerbation- improving -No wheezing, Hx of COPD/asbestosis -C/w PO prednisone, levalbuterol ATC and PRN Atrial fibrillation with resolved RVR -TSH wnl, no noted infection, echo above -Currently rate controlled -C/W metoprolol BID, eliquis BID CKD Stage 2-3 -Cr slightly increased today at 1.49; however, in 05/2019 Cr was 1.4 -On torsemide daily -F/u Am labs, avoid additional nephrotoxic medications -If labs should worsen, consider nephrology consult Right shoulder pain with history of trauma, possible muscle strain -Improving pain today, possible Shoulder XR and all other XR above, neg for dislocation or fracture. Only showed degenerative changes and subcortical cyst formation in the humeral head unchanged from 2018. -Heating pad, tylenol PRN Alcohol use disorder -No s/s of withdrawl -C/w thiamine / folate / MVI, CIWA protocol Unsteadiness on feet, recent fall -PT: Pt is safe to return home when medically appropriate HTN -Stable -C/w current meds Coronary artery disease s/p CABG 2004 -Trop neg -c/w ASA, Simvastatin, BB Hyperlipidemia -c/w Simvastatin Constipation -C/w colace BID, sennokot HS and PRN med DVT prophylaxis: -eliquis BID DISPOSITION: Plan is to return home at discharge VS, I&O, 24H, Fishbone Vital Signs/I&O Vital Signs Date Time Temp Pulse Resp B/P (MAP) Pulse Ox O2 Delivery O2 Flow Rate FiO2 05/21/20 12:00 97.6 87 28 129/76 (93) 93 Room Air 05/19/20 04:00 2.0 I&O- Last 24 Hours up to 6 AM 05/21/20 06:00 Intake Total 960 ml Output Total 300 ml Balance 660 ml Laboratory Data 24H LABS Laboratory Tests 2 05/20/20 18:45: Troponin I < 0.02# 05/21/20 08:18: Nucleated Red Blood Cells % (auto) 0.0, Anion Gap 5L, Glomerular Filtration Rate 47.7, Calcium Level 9.5, Total Bilirubin 0.6, Aspartate Amino Transf (AST/SGOT) 18, Alanine Aminotransferase (ALT/SGPT) 30, Alkaline Phosphatase 113, CZ-Snz-[id number]-Type Natriuretic Peptide 53790O, Total Protein 8.0, Albumin 3.6, Albumin/Globulin Ratio 0.8 CBC/BMP Laboratory Tests 05/21/20 08:18 Microbiology Microbiology 05/18/20 Blood Culture - Preliminary, Resulted No Growth after 48 hours. All Specime... Current Medications Current Medications Medications (Trade) Dose Ordered Sig/Glenny Route PRN Reason Start Time Stop Time Status Last Admin Dose Admin Acetaminophen (Tylenol Tab) 650 mg Q4H PRN PO PAIN OR FEVER 05/18/20 16:15 05/21/20 08:13 Albuterol Sulfate (Proventil, Ventolin Hfa) 2 puff QID PRN INH SHORTNESS OF BREATH 05/19/20 08:30 Apixaban (Eliquis) 5 mg BID PO 05/19/20 21:00 05/21/20 08:11 Aspirin (Aspirin Chewable) 324 mg STAT STAT PO 05/18/20 13:55 05/18/20 13:57 DC 05/18/20 14:03 Aspirin (Ecotrin) 81 mg DAILY PO 05/19/20 09:00 05/21/20 08:11 Docusate Sodium (Colace) 100 mg BID PO 05/19/20 09:00 05/20/20 20:07 Docusate Sodium (Colace) 100 mg DAILY PO 05/19/20 09:00 05/19/20 08:23 DC Folic Acid (Folic Acid) 1 mg DAILY PO 05/19/20 09:00 05/21/20 08:12 Furosemide (LASIX injection) 40 mg BID@09,17 IV 05/18/20 17:00 05/19/20 08:23 DC 05/18/20 17:42 Furosemide (LASIX injection) 40 mg DAILY IV 05/21/20 09:00 05/21/20 10:40 DC 05/21/20 08:11 Furosemide (LASIX injection) 60 mg DAILY IV 05/19/20 09:00 05/20/20 16:08 DC 05/20/20 09:33 Heparin Sodium (Porcine) (Heparin) ASDIRECTED PRN IV SEE LABEL COMMENTS 05/18/20 15:15 05/19/20 15:57 DC 05/19/20 14:37 Heparin Sodium (Porcine) 21199 units/IV Miscellaneous Supplies 250 ml @ 0 mls/hr Q0M IV 05/18/20 15:08 05/18/20 16:07 DC Heparin Sodium (Porcine) 22058 units/IV Miscellaneous Supplies 250 ml @ 0 mls/hr Q0M IV 05/18/20 16:15 05/19/20 15:57 DC 05/19/20 14:36 Home Med (Med Rec Complete!) ASDIRECTED XX 05/18/20 15:30 05/18/20 15:26 DC Levalbuterol HCl (Xopenex Neb) 0.63 mg Q2HP PRN INH SOB/WHEEZING 05/18/20 16:30 Levalbuterol HCl (Xopenex Neb) 0.63 mg RQ6H INH 05/18/20 20:00 Cancel Levalbuterol HCl (Xopenex Neb) 0.63 mg RQID INH 05/18/20 20:00 05/21/20 11:21 Lorazepam (Ativan) 2 mg ASDIRECTED PRN PO SEE PROTOCOL 05/18/20 17:15 05/19/20 07:47 DC Magnesium Hydroxide (Milk Of Magnesia) 30 ml DAILYPRN PRN PO CONSTIPATION 05/18/20 16:00 05/19/20 15:56 Methylprednisolone (SOLU medrol) 40 mg Q12H IV 05/19/20 12:00 05/20/20 16:11 DC 05/20/20 13:16 Metoprolol Tartrate (Lopressor) 5 mg STAT STAT IV 05/18/20 14:52 05/18/20 14:53 Cancel Metoprolol Tartrate (Lopressor) 25 mg Q6H PO 05/18/20 18:00 05/20/20 08:57 DC 05/20/20 01:22 Metoprolol Tartrate (Lopressor) 50 mg BID PO 05/20/20 09:00 05/21/20 08:11 Morphine Sulfate (Morphine Sulfate Inj) 2 mg Q30M PRN IV MODERATE PAIN (PS 5-7) 05/18/20 11:15 05/18/20 20:26 DC 05/18/20 20:26 Multivitamins (Theragram-M) 1 tab DAILY PO 05/19/20 09:00 05/21/20 08:12 Nitroglycerin (Nitrostat (1/ 150)) 0.4 mg Q5MP PRN SL CHEST PAIN 05/18/20 16:30 Non-Formulary Medication (Heparin Iv Rate Change Documentation ml/ Hr) ASDIRECTED XX 05/18/20 15:15 05/19/20 15:57 DC 05/19/20 14:37 Polyethylene Glycol (Miralax) 1 pkt DAILYPRN PRN PO CONSTIPATION 05/19/20 08:30 05/19/20 08:53 Prednisone (Deltasone) 60 mg DAILY PO 05/21/20 09:00 05/21/20 08:12 Senna (Senokot) 2 tab QHS PO 05/19/20 21:00 05/20/20 20:07 Simvastatin (Zocor) 40 mg DAILY@2100 PO 05/18/20 21:00 05/20/20 20:07 Sodium Chloride 1,000 ml @ 100 mls/hr Q10H IV 05/18/20 11:05 05/18/20 16:28 DC 05/18/20 11:32 Thiamine HCl (Thiamine HCl) 100 mg BID PO 05/18/20 17:00 05/21/20 09:01 DC 05/21/20 08:11 Torsemide (Demadex) 20 mg DAILY PO 05/21/20 10:40 05/21/20 11:18 Tramadol HCl (Ultram) 50 mg Q6H PRN PO PAIN 05/19/20 08:30 05/19/20 15:56 Allergies Coded Allergies: No Known Allergies (Verified , 05/18/20) Yuni Cunningham MD May 21, 2020 13:23
--- NOTE | 2020-05-21 14:01 | REP ---
INDICATION: incr SOB, CHF, COPD. COMPARISON: Comparison chest x-ray May 18, 2020. TECHNIQUE: Two views.. FINDINGS: Calcific pleural plaquing is again noted bilaterally in the diaphragms and along the left lateral chest wall unchanged. Median sternotomy wires are noted. Monitoring electrodes are visible. The lungs are symmetrically aerated and no definite focal infiltrate is seen. Heart is enlarged unchanged. Pulmonary vasculature cc is not increased. No tiago pulmonary edema is seen. IMPRESSION: Cardiomegaly post sternotomy. Chronic pleuroparenchymal changes. No acute infiltrate seen.. <Electronically signed by Matias Dutton > 05/21/20 [id number]
[2020-05-21 14:57] LABS: HEMATOCRIT 38.3 % (42.0-52.0); HEMOGLOBIN 12.2 g/dl (13.5-17.5); MEAN CORPUSCULAR HEMOGLOBIN 28.2 pg (27.0-33.0); MEAN CORPUSCULAR HGB CONC 31.9 g/dl (32.0-36.5); MEAN CORPUSCULAR VOLUME 88.5 fl (80.0-96.0); PLATELET COUNT, AUTOMATED 478 10^3/uL (150-450); RED BLOOD COUNT 4.33 10^6/uL (4.30-6.10); WHITE BLOOD COUNT 12.9 10^3/uL (4.0-10.0)
[2020-05-21 16:00] VITALS: BP 122/67
[2020-05-21 20:00] VITALS: BP 149/68
[2020-05-21 21:52] VITALS: BP 149/68
[2020-05-21] MEDS: SENNA 8.6 MG TAB (SENOKOT) PO SCH (21:52)
[2020-05-21] MEDS: SIMVASTATIN 40 MG TAB PO SCH (21:52)
[2020-05-22] VITALS: BP 147/65
[2020-05-22 04:00] VITALS: BP 147/65
[2020-05-22 05:06] LABS: ALBUMIN 3.2 GM/DL (3.2-5.2); BILIRUBIN,TOTAL 0.6 MG/DL (0.2-1.0); CALCIUM LEVEL 9.4 MG/DL (8.8-10.2); CREATININE FOR GFR 1.34 MG/DL (0.70-1.30); GLOMERULAR FILTRATION RATE 53.9 (>35); POTASSIUM SERUM 3.5 MEQ/L (3.5-5.1); TOTAL PROTEIN 6.8 GM/DL (6.4-8.2)
[2020-05-22 08:00] VITALS: BP 142/83
[2020-05-22] MEDS: LEVALBUTEROL 1.25 MG/0.5 ML CONCENTRATE NEB INH SCH ×2 (08:18→12:00)
[2020-05-22] MEDS: DOCUSATE SODIUM 100MG CAPSULE PO SCH (09:26)
[2020-05-22] MEDS: ASPIRIN 81 MG ENTERIC TAB PO SCH (09:26)
[2020-05-22] MEDS: predniSONE 20 MG TAB PO SCH (09:26)
[2020-05-22] MEDS: MULTIVITAMINS/MINERALS THERAP 1 TAB PO SCH (09:26)
[2020-05-22] MEDS: METOPROLOL TART 50 MG TAB PO SCH (09:27)
[2020-05-22] MEDS: FOLIC ACID 1 MG TAB PO SCH (09:27)
[2020-05-22] MEDS: APIXABAN 5 MG TAB (ELIQUIS) PO SCH (09:27)
[2020-05-22] MEDS: TORSEMIDE 20 MG TAB PO SCH (09:27)
[2020-05-22] MEDS ORDERED: TORS20TA2 PO (09:58)
[2020-05-22 12:00] VITALS: BP 139/64
--- NOTE | 2020-05-22 14:16 | DS.PDOC ---
Discharge Summary General Date of Admission May 18, 2020 at 14:53 Date of Discharge 05/22/20 Attending Physician: Yuni Cunningham MD Discharge Summary HPI: Mr. Clark is a 84YO male with a history of CABG, diastolic CHF (without echo readings available), CKD stage 3, asbestosis, COPD (elicited from [facility], primary care physician notes since pt was not able to supply complete history) presents with chest pain, cough, and shortness of breath. This history was pieced together from pt's daughter, and PCP, Dr. Jason Garcia. Pt's daughter states that he has had a productive cough for the past 2-3 days with yellow sputum. She also reports that he woke up at 2 AM due to chest pain and couldn't breathe, but didn't tell the daughter until 8 AM at which point she presented to the ER at [address] Garcia was also contacted and he states that the patient has not seen him for the past year. Pt was scheduled to see Dr. Garcia a couple weeks ago but did not want to come into the office. Dr. Garcia suspects the beginning of a cognitive disorder due to patient's history of heavy alcohol use. He states that the patient drinks 25-50 ounces of natty daddy every night. Dr. Garcia also reports that the patient had a stress test done 10 years ago that did not require any intervention. He also reports that the patient's baseline BNP is around 200. Dr. Garcia. He states that the patient is on triple therapy for COPD, however, does not require chronic steroid use at this time. He also reports that the patient requires O2 with ambulation. The patient's daughter reports that the patient has not been taking any medication except for tramadol, aspirin 81 mg and an albuterol inhaler. The patient's daughter reports that the patient has not had a bowel movement for the last couple days. He says that he has been eating well, although the patient reports poor appetite and states that he has not been eating well for the last couple days. The patient denies fevers, chills, night sweats, nausea, or vomiting confirmed by the patient's daughter. The patient also complains of right shoulder pain. He is not able to give the entire history, but reports that he fell on it 1-2 weeks ago. The daughter verifies that the patient was shoveling snow and slipped and fell on his right shoulder. HOSPITAL COURSE: Patient was treated for shortness of breath likely multifactorial 2/2 to HFpEF with exacerbation, COPD with exacerbation, bilateral pleural effusions during hospitalization. His HFpEF with exacerbation was likely 2/2 to afib with (now resolved) RVR. He has had prior cardiac catheterization 2007 showed EF 45-50%, new Echo showed EF 60%. He has been in a neg fluid balance, tolerating diuretic, not grossly fluid overloaded and on RA. BNP incr during hospitalization; however, on exam he did not seem to clinically worsen. Troponins were neg. Case was discussed with Dr. Murillo (cardiology). With history of patient, transfer was offered for cardiac catheterization. He refused and did not wish to be transferred. He would like to continue only with medical management and further discuss o/p options for further evaluation. I discussed with patient about getting referral for cardiology as o/p, previously saw Dr. Murillo' practice and he has no objective to go again. He has tolerated BB and torsemide well this hospitalization. He was treated with IV and later PO steroids for COPD with exacerbation and its now resolved. For new atrial fibrillation with resolved RVR, he was started on BB BID and eliquis BID. TSH wnl, no noted infection. He is currently rate controlled. If CKD should worsen, he may require nephrology referral o/p- our dye house vat worker (Dr. Lewis) was not officially consulted but was curbsided about case- he would be happy to see in clinic if the patient could be referred by PCP. Right shoulder pain s/p fall trauma was likely/possible muscle strain. This improved, all shoulder XR and all other XR above, neg for dislocation or fracture. Only showed degenerative changes and subcortical cyst formation in the humeral head unchanged from 2018. C/w heating pad, tylenol PRN. His use of alcohol was address, counselling given. PT assesed and cleared patient home with walker. On 05/22, patient was discharged home to f/u with PCP after weekend. Past Medical History: Diastolic heart failure. COPD Asbestosis Coronary artery disease Hyperlipidemia Alcohol use disorder Hypertension (?) SURGICAL HISTORY: CABG, 2004. Abdominal surgery, unspecified FAMILY HISTORY: Reviewed and noncontributory SOCIAL HISTORY: Smoker: former Smoker (quit 10 years ago) Alcohol: heavy (Patient denies alcohol history. Reports that he rarely drinks alcohol, however, PCP states that he drinks 25-50 ounces of beer every night.) Recent Travel/Sick Contacts: Denies: Recent travel (per daughter), Recent sick contacts (Per daughter) PHYSICAL EXAMINATION: VS: Please see below CONSTITUTIONAL: appears more SOB today, AAO x 3 but very hard of hearing. EYES: PERRLA, EOM intact HENT, MOUTH: Normocephalic, atraumatic, moist mucous membranes NECK: SUPPLE, no JVD, no lymphadenopathy, no carotid bruit CV: irregularly irregular rhythm, S1S2 normal, no murmurs/rubs/gallops RESPIRATORY: CTAB,. No wheezing today on exam, no rales/rhonchi GI: BS positive in 4 quadrants, soft, nontender, nondistended, no rebound or guarding, no organomegaly : Deferred MUSCULOSKELETAL: Normal ROM. No cyanosis, clubbing, swelling, joint deformity, +1 extremity edema INTEGUMENTARY: Intact, no rashes, no lesions, no erythema NEUROLOGIC: Cranial Nerves II-XII are intact, no focal deficits PSYCHIATRIC: Mood and affect are normal CURRENT MEDICATIONS: Please see below LABORATORY DATA: Please see below IMAGING: CXR 05/21/20: Cardiomegaly post sternotomy. Chronic pleuroparenchymal changes. No acute infiltrate seen. Echocardiogram: EF 60-65% Normal global left ventricular systolic function with mild to moderate concentric left ventricular hypertrophy. Assessment of the left ventricular diastolic function was limited. Aortic valve sclerosis with mild aortic regurgitation and mild aortic stenosis. Mitral annular calcification with mild mitral regurgitation. Moderate tricuspid regurgitation with moderate pulmonary 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. R hand XR: No fx or dislocation R ulnar/radius XR: No fx or dislocation R humerus XR: No fx or dislocation CTA chest: No CT evidence of pulmonary embolus. CHF pattern with small bilateral pleural effusions, four-chamber cardiomegaly, and reflux of contrast opacified blood into the hepatic veins which can be a manifestation of right heart failure. ASSESSMENT: 84 y/o M with PMH of CAD s/p CABG, HLD, HTN admitted for increased SOB likely 2/2 to HFpEF with exacerbation and COPD exacerbation, bilateral pleural effusions. PLAN: #Shortness of breath likely multifactorial 2/2 to HFpEF with exacerbation, COPD with exacerbation, bilateral pleural effusions. -Resting comfortably on RA, no increased SOB; did well with walking test, on RA. -Currently saturating 91-98% on RA -CXR above -Please see treatment of individual issues below HFpEF with exacerbation poss 2/2 to afib with (new resolved) RVR -Cardiac catheterization 2006 showed EF 45-50% -Neg fluid balance, tolerating diuretic, not grossly fluid overloaded -Echo above -BNP 12K, chronically elevated but only in 4084-7794 when trended -Trop neg -Discussed with Dr. Murillo (cardiology) again today. With history of patient, transfer was offered for cardiac catheterization. He refused and did not wish to be transferred. He would like to continue only with medical management and further discuss o/p options for further evaluation. -Discussed with patient about getting referral for cardiology as o/p, previously saw Dr. Murillo' practice and he is no objective to go again -At discharge, c/w torsemide daily, BB COPD with exacerbation- resolved -No wheezing, Hx of COPD/asbestosis -C/w PO prednisone taper as o/p, rescue inhaler Atrial fibrillation with resolved RVR -TSH wnl, no noted infection, echo above -Currently rate controlled -C/W metoprolol BID, eliquis BID at discharge CKD Stage 2-3 -Cr slightly increased today at 1.34; however, in 05/2019 Cr was 1.4 -C/w torsemide daily -F/u with Dr. Jason Garcia, PCP to monitor labs. Right shoulder pain s/p fall trauma, possible muscle strain -Improved Shoulder XR and all other XR above, neg for dislocation or fracture. Only showed degenerative changes and subcortical cyst formation in the humeral head u nchanged from 2018. -Heating pad, tylenol PRN Alcohol use disorder -No s/s of withdrawl -Alcohol cessation discussed with patient Unsteadiness on feet, recent fall -PT: Pt is safe to return home when medically appropriate HTN -Stable -C/w current meds Coronary artery disease s/p CABG 2004 -Trop neg -c/w ASA, Simvastatin, BB Hyperlipidemia -c/w Simvastatin Constipation -C/w colace BID DVT prophylaxis: -eliquis BID DISPOSITION: Plan is to return home today. Advised to f/u with PCP Dr. Jason Garcia after weekend. If patient should wish to see sports physiologist, he will need referral by PCP. TIME SPENT ON DISCHARGE: 35 minutes. Vital Signs/I&Os Vital Signs Date Time Temp Pulse Resp B/P (MAP) Pulse Ox O2 Delivery O2 Flow Rate FiO2 05/22/20 08:00 98.1 89 18 142/83 (102) 94 Room Air 05/19/20 04:00 2.0 I&O- Last 24 Hours up to 6 AM 05/22/20 06:00 Intake Total 720 ml Output Total 1200 ml Balance -480 ml Laboratory Data Labs 24H Laboratory Tests 2 05/21/20 14:48: Nucleated Red Blood Cells % (auto) 0.0 05/22/20 04:18: Anion Gap 3L, Glomerular Filtration Rate 53.9, Calcium Level 9.4, Total Bilirubin 0.6, Aspartate Amino Transf (AST/SGOT) 12, Alanine Aminotransferase (ALT/SGPT) 26, Alkaline Phosphatase 98, Total Protein 6.8, Albumin 3.2, Albumin/Globulin Ratio 0.9 CBC/BMP Laboratory Tests 05/21/20 14:48 05/22/20 04:18 Microbiology Microbiology 05/18/20 Blood Culture - Preliminary, Resulted No Growth after 72 hours. All specime... Discharge Medications Scheduled Apixaban (Eliquis) 5 Mg Tablet, 5 MG PO BID Aspirin (Aspirin EC) 81 Mg Tablet.dr, 81 MG PO DAILY, (Reported) Docusate Sodium (Dok) 100 Mg Capsule, 100 MG PO BID Metoprolol Tartrate (Lopressor) 50 Mg Tablet, 50 MG PO BID Prednisone (Prednisone) 20 Mg Tablet, 60 MG PO DAILY Prednisone taper over 7 days: 60 mg PO x 3 days, 40 mg PO x 3 days, 20 mg PO x 1 day Torsemide (Torsemide) 20 Mg Tablet, 20 MG PO DAILY Scheduled PRN Albuterol Sulfate (Ventolin Hfa) 18 Gm Hfa.aer.ad, 2 PUFFS INH QID PRN for SHORTNESS OF BREATH, (Reported) Tramadol HCl (Tramadol HCl) 50 Mg Tablet, 50 MG PO Q6H PRN for PAIN, (Reported) Allergies Coded Allergies: No Known Allergies (Verified , 05/18/20) Yuni Cunningham MD May 22, 2020 14:16
== END 2020-05-22 16:40 | disposition home health service (06) | DRG 291 ==
LOC: M ED 10:45 → M ED INP 14:53 → M PCU 17:06
PROVIDERS: ADMIT Internal Medicine; ATTEND Internal Medicine
DX: I13.0 Hypertensive heart and chronic kidney disease with heart failure and stage 1 through stage 4 chronic kidney disease, or unspecified chronic kidney disease (principal); I50.33 Acute on chronic diastolic (congestive) heart failure; J44.1 Chronic obstructive pulmonary disease with (acute) exacerbation; I48.91 Unspecified atrial fibrillation; J61 Pneumoconiosis due to asbestos and other mineral fibers; N18.30 Chronic kidney disease, stage 3 unspecified; E78.5 Hyperlipidemia, unspecified; I25.10 Atherosclerotic heart disease of native coronary artery without angina pectoris; F10.10 Alcohol abuse, uncomplicated; K59.00 Constipation, unspecified; Z79.82 Long term (current) use of aspirin; Z79.899 Other long term (current) drug therapy

== ENCOUNTER 2020-05-28 11:33 | Emergency (ER) | payer MEDICARE ==
[~2020-05-28] VITALS: Ht 149.9 cm; Wt 63.6 kg
[~2020-05-28 11:33] MED LIST changes: +ASPI-161 PO; +DOK1CAP7 PO; +ELIQ5TAB PO; +LOPR1TAB6 PO; +PRED20TA PO; +TORS20TA2 PO; +TRAM50TA2 PO; +VENTAER INH
--- NOTE | 2020-05-28 11:59 | REP ---
INDICATION: CHEST PAIN COMPARISON: 05/21/2020 TECHNIQUE: Portable AP view of the chest FINDINGS: The mediastinum and cardiac silhouette are stable. Cardiomegaly with evidence for prior sternotomy and CABG again noted. The lung holland demonstrate diffuse chronic changes and partially calcified pleural plaques without acute consolidation, effusion, or pneumothorax. Skeletal structures are intact. IMPRESSION: Chronic changes. No acute consolidation or effusion. <Electronically signed by Jaciel Weldon > 05/28/20 [id number]
[2020-05-28 12:04] LABS: BASO % 0.1 % (0.0-1.0); EOS % 0.1 % (0.0-3.0); HEMATOCRIT 43.2 % (42.0-52.0); HEMOGLOBIN 13.7 g/dl (13.5-17.5); LYMPH # 1.6 10^3/uL (1.5-5.0); LYMPH % 11.5 % (24.0-44.0); MEAN CORPUSCULAR HEMOGLOBIN 27.9 pg (27.0-33.0); MEAN CORPUSCULAR HGB CONC 31.7 g/dl (32.0-36.5); MONO # 0.9 10^3/uL (0.0-0.8); MONO % 6.2 % (2.0-8.0); NEUTROPHILS # 11.6 10^3/uL (1.5-8.5); NEUTROPHILS % 81.4 % (36.0-66.0); PLATELET COUNT, AUTOMATED 533 10^3/uL (150-450); RED BLOOD COUNT 4.91 10^6/uL (4.30-6.10); WHITE BLOOD COUNT 14.2 10^3/uL (4.0-10.0)
[2020-05-28 12:26] LABS: ALBUMIN 3.4 GM/DL (3.2-5.2); BILIRUBIN,DIRECT 0.3 MG/DL (0.0-0.2); BILIRUBIN,TOTAL 0.7 MG/DL (0.2-1.0); TOTAL PROTEIN 7.3 GM/DL (6.4-8.2)
[2020-05-28] MEDS ORDERED: ISOVUE-370 76% 100ML VIAL As Ordered ONE (12:40)
--- NOTE | 2020-05-28 13:21 | REP ---
INDICATION: pleuritic CP COMPARISON: None. TECHNIQUE: Axial contrast enhanced images from the thoracic inlet to the upper abdomen using pulmonary embolus technique with multiplanar re-formations. 75 ml Isovue 370 intravenous contrast material administered without complication. This CT examination was performed using the following dose reduction techniques: Automated exposure control, adjustment of mA and/or kv according to the patient's size, and use of iterative reconstruction technique. FINDINGS: Satisfactory enhancement of the pulmonary vasculature is achieved and no filling defects are identified to suggest pulmonary embolus. Further evaluation of the mediastinum demonstrates atherosclerotic changes to the thoracic aorta and coronary arteries without aortic aneurysm or cardiomegaly. No pericardial effusion. The lung holland demonstrate scattered age-related chronic interstitial changes along with diffuse bilateral calcified pleural plaques suggesting sequelae of prior asbestosis. No acute consolidation, obvious nodule or mass lesion. Evidence for prior sternotomy. No acute osseous abnormality. IMPRESSION: No evidence for pulmonary embolus. No acute mediastinal or pleural parenchymal process. Sequelae of asbestosis. <Electronically signed by Jaciel Weldon > 05/28/20 [id number]
[2020-05-28] MEDS ORDERED: TESS100C PO (18:25)
[2020-05-28 18:30] VITALS: BP 154/63
== END 2020-05-28 18:48 | disposition home or self-care (01) ==
LOC: M ED 11:33 → EDBD 11:33 → M ED 18:48
DX: R05 Cough (principal); R07.9 Chest pain, unspecified; I48.91 Unspecified atrial fibrillation; I25.10 Atherosclerotic heart disease of native coronary artery without angina pectoris; I50.9 Heart failure, unspecified; Z77.090 Contact with and (suspected) exposure to asbestos; Z95.1 Presence of aortocoronary bypass graft; F17.200 Nicotine dependence, unspecified, uncomplicated; Z79.01 Long term (current) use of anticoagulants; Z79.899 Other long term (current) drug therapy
CPT/HCPCS: 71045; 71275; 80047; 80076; 83690; 83880; 84484; 85025; 93041; 94760; 99285; Q9967

== ENCOUNTER 2020-06-02 15:28 | Inpatient (IN) | payer MEDICARE ==
[~2020-06-02] VITALS: Ht 147.3 cm; Wt 51.7 kg
[~2020-06-02 15:28] MED LIST changes: +TESS100C PO
--- NOTE | 2020-06-02 16:30 | REP ---
INDICATION: fall on eliquis COMPARISON: 05/02/2020 TECHNIQUE: Axial noncontrast images from the skull base to the thoracic inlet with coronal reformations. This CT examination was performed using the following dose reduction techniques: Automated exposure control, adjustment of mA and/or kv according to the patient's size, and use of iterative reconstruction technique. FINDINGS: Age-related atrophy with periventricular leukomalacia and microvascular ischemic changes are appreciated. The ventricles and sulci are symmetric. Blake-white differentiation is maintained. There is no evidence for acute intracranial hemorrhage, mass/mass effect, pathology or infarction. No extra-axial fluid collection. Calvarium is intact. Paranasal sinuses and mastoid air cells are clear. IMPRESSION: Age related atrophy and microvascular ischemic changes. No acute intracranial hemorrhage, infarction, or mass/mass effect. <Electronically signed by Jaciel Weldon > 06/02/20 [id number]
--- NOTE | 2020-06-02 16:32 | REP ---
INDICATION: fall on eliquis. COMPARISON: None. TECHNIQUE: Axial noncontrast images of the lumbosacral spine from mid T12 through mid sacrum with coronal and sagittal reformations. This CT examination was performed using the following dose reduction techniques: Automated exposure control, adjustment of mA and/or kv according to the patient's size, and use of iterative reconstruction technique. FINDINGS: Age-related osteopenia and moderate/advanced multilevel degenerative changes include a bridging osteophytosis and facet hypertrophy. Disc space narrowing at multiple levels as well as L5-S1 with vacuum phenomenon is also appreciated. Alignment and lordosis maintained. There is no evidence for acute fracture/compression injury or subluxation. The paravertebral soft tissues are normal. IMPRESSION: Normal lumbosacral spine CT. No evidence for acute fracture/compression injury or subluxation. <Electronically signed by Jaciel Weldon > 06/02/20 [id number]
--- NOTE | 2020-06-02 16:34 | REP ---
INDICATION: fall on eliquis. COMPARISON: Comparison CT study of the cervical spine is from June 08, 2011.. TECHNIQUE: Helical scanning is acquired and overlapping 2 mm high resolution axial images were generated and reviewed at bone and soft tissue window settings. Coronal and sagittal multiplanar re-formations images are generated. FINDINGS: Cervical vertebral body heights are preserved. There is no evidence of cervical spine element fracture. There is degenerative spondylosis again noted. The right facet joint at C5-6 is fused and there is partial fusion of the C3-4 disc. There is bilateral facet joint fusion at C2-3. There is degenerative change at C1-2 and degenerative disc disease is present at C4-5, C5-6, and C6-7.. No fracture or subluxation is seen. There is fairly extensive vascular calcification. There is no evidence of intraspinal or paraspinal hematoma. IMPRESSION: Fairly advanced degenerative disc and osteoarthritic facet changes. Facet joint fusion bilaterally at C2-3 and on the right at C5-6. No traumatic abnormality noted.. <Electronically signed by Matias Dutton > 06/02/20 [id number]
[2020-06-02 17:12] LABS: HEMATOCRIT 37.9 % (42.0-52.0); HEMOGLOBIN 12.4 g/dl (13.5-17.5); MEAN CORPUSCULAR HEMOGLOBIN 28.8 pg (27.0-33.0); MEAN CORPUSCULAR HGB CONC 32.7 g/dl (32.0-36.5); MEAN CORPUSCULAR VOLUME 88.1 fl (80.0-96.0); PLATELET COUNT, AUTOMATED 354 10^3/uL (150-450); WHITE BLOOD COUNT 20.4 10^3/uL (4.0-10.0)
--- NOTE | 2020-06-02 17:16 | REP ---
INDICATION: fall. COMPARISON: Comparison radiographs of the right humerus are from May 19, 2020 and right shoulder radiographs are reviewed from May 18, 2020.. TECHNIQUE: Three views. FINDINGS: There is diffuse osteopenia. The right glenohumeral and acromioclavicular joints are normally aligned. No fracture or subluxation is seen. Subcortical cyst formation is seen in the humeral head unchanged. There is calcific pleural plaquing in the right hemithorax and there are surgical clips in the right paratracheal region. IMPRESSION: Diffuse osteopenia. No traumatic abnormality noted. <Electronically signed by Matias Dutton > 06/02/20 [id number]
--- NOTE | 2020-06-02 17:18 | REP ---
INDICATION: fall. COMPARISON: Comparison KUB study July 24, 2015.. TECHNIQUE: AP view of the pelvis as well as AP and frogleg views of the right hip are provided. FINDINGS: The bony pelvic ring is intact. No pelvic or hip fracture is seen. No sacral fracture is noted. Femoral heads are smooth and rounded. There is bilateral mild acetabular spurring, right more advanced than left. IMPRESSION: Bilateral hip osteoarthritis, right greater than left. No traumatic abnormality noted. <Electronically signed by Matias Dutton > 06/02/20 [id number]
[2020-06-02 17:31] LABS: INR 1.13; PROTHROMBIN TIME 14.8 SECONDS (12.5-14.3)
[2020-06-02 17:38] LABS: BLOOD UREA NITROGEN 42 MG/DL (7-18); CALCIUM LEVEL 8.7 MG/DL (8.8-10.2); CARBON DIOXIDE LEVEL 32 MEQ/L (21-32); CHLORIDE LEVEL 97 MEQ/L (98-107); CK-MB VALUE MASS < 1.0 NG/ML (<3.6); CPK CREATINE PHOSPHOKINASE 44 U/L (39-308); GLUCOSE, FASTING 102 MG/DL (70-100); MB/CK RELATIVE INDEX 2.27 (< OR =4); POTASSIUM SERUM 4.3 MEQ/L (3.5-5.1); SODIUM LEVEL 134 MEQ/L (136-145); TROPONIN I < 0.02 NG/ML (< 0.10)
[2020-06-02 17:40] LABS: RSV AMPLIFICATION NEGATIVE (NEGATIVE)
[2020-06-02] MEDS ORDERED: ZETI10TA16 PO (17:48)
--- NOTE | 2020-06-02 17:49 | REP ---
INDICATION: fever. COMPARISON: Comparison radiograph May 28, 2020.. TECHNIQUE: Semi-erect AP portable chest radiograph. Single-view. FINDINGS: Monitoring electrodes are noted. Patient is status post prior median sternotomy. There is bilateral calcific pleural plaquing consistent with previous asbestos exposure. These findings are unchanged. No acute infiltrate is seen. The pleural angles are sharp. Heart is not felt to be enlarged. No acute bony abnormality. IMPRESSION: No acute infiltrates seen. Old calcific pleural plaquing. Prior sternotomy. <Electronically signed by Matias Dutton > 06/02/20 [id number]
[2020-06-02] MEDS ORDERED: METO50TA7 PO (19:19)
[2020-06-02] MEDS ORDERED: TORS20TA2 PO (19:19)
[2020-06-02] MEDS ORDERED: DOCU100C17 PO (19:19)
[2020-06-02] MEDS ORDERED: EZET10TA21 PO (19:19)
[2020-06-02] MEDS ORDERED: BENZ-18 PO (19:19)
[2020-06-02] MEDS ORDERED: ELIQ5TAB PO (19:19)
[2020-06-02] MEDS ORDERED: MOM 30ML SUSPENSION UDC PO PRN (21:00)
[2020-06-02] MEDS ORDERED: MAALOX 30 ML SUSP *UDC PO PRN (21:00)
[2020-06-02] MEDS ORDERED: NS 1,000 ML IV SCH (21:05)
[2020-06-02] MEDS ORDERED: ALBUTEROL 90 MCG/ACT 8GM HFA INHALER INH PRN (21:05)
[2020-06-02] MEDS ORDERED: BENZONATATE 100 MG CAP PO PRN (21:05)
[2020-06-02] MEDS ORDERED: traMADol 50 MG TAB PO PRN (21:05)
--- NOTE | 2020-06-02 21:21 | HPEPDOC ---
[facility] Medical History & Physical Date of Admission Jun 02, 2020 Date of Service: Jun 02, 2020 History and Physical CHIEF COMPLAINT: Frequent falls HISTORY OF PRESENT ILLNESS: 84-year-old male history of CHF, COPD, CAD, CABG, atrial fibrillation who lives at home with his daughter comes in due to frequent falls at home. Daughter can no longer care for him at home and may need placement. Patient tells me that Roughly 4 weeks ago he was shoveling snow and slipped on ice and fell on his right side ever since then he has been feeling weak and has been in pain he uses a cane to ambulate at home he's been falling more frequently. He also tells me he hasn't been drinking much fluids or eating and drinks lots of coffee which is a diuretic unsurprisingly patient was found to be dehydrated and appears to develop an ABRAHAM. Patient will be admitted for further medical management. At this time patient denies any chest pain or shortness of breath denies abdominal pain but endorses right thigh and hip and back and shoulder pain persistent over the past 4 weeks from his fall but slowly improving. PAST MEDICAL/SURGICAL HISTORY: HFrEF COPD CAD, CABG 2003 Alcohol use disorder Hyperlipidemia Asbestosis Atrial fibrillation SOCIAL HISTORY: Denies alcohol use however chart review reveals he does have a history of alcohol abuse Denies tobacco use quit 10 yrs ago Denies illicit drug use Lives at home with his daughter Nell FAMILY HISTORY: Reviewed and none contributory to this admission ALLERGIES: Please see below. REVIEW OF SYSTEMS: 10 point review of systems complete all negative otherwise stated in HPI HOME MEDICATIONS: Please see below. PHYSICAL EXAMINATION: Constitutional: Awake and alert, in no apparent distress, hard of hearing can hear better from his left ear ENT: Sclera are clear. Mucosa is dry Respiratory: Lungs diminished breath sounds bilaterally. No respiratory distress. No use of accessory muscles. Cardiovascular: Irregular heart rate ~ 95 on mointor. no appreciable murmurs. NO JVD Gastrointestinal: Abdomen is soft, non distended, non tender, BS present. Musculoskeletal: No lower extremity edema. Neurologic: No focal neurological deficit. Mental Status: A&O x3, normal affect Skin: Warm, dry LABORATORY DATA: See below. IMAGING: See chart MICROBIOLOGY: Please see below. ASSESSMENT/PLAN 84-year-old male presents to the hospital with weakness and multiple falls at home his daughter Nell can no longer take care of her at home found to be dehydrated with an ABRAHAM, he is admitted for medical evaluation and management # Weakness and frequent falls: Patient is having multiple falls at home and family cannot care for him anymore. Evaluation by PT/OT. May need placement. # ABRAHAM: Clinically dehydrated. Fu FeUrea. 1L NS trial. # Leukocytosis: Isolated leukocytosis without overt evidence of infection. I will hold off on antibiotics for now patient is afebrile. Urinalysis and chest x-ray are okay. Fu procalcitonin. Fu BCx. # HFrEF: Compensated. Appears clinically dry. Hold off on torsemide for 1-2 days. # A. fib: Rate controlled on metoprolol Hr 94 at bedside. Anticoagulated with eliquis. # COPD: Not in exacerbation. Continue home inhalers. # Hyperlipidemia: Continue ezetemibe # ? Alcohol use disorder: [facility] protocol. Thiamine folate MVN. # CAD/CABG 2004: Should be on ASA and statin, but home medication reconciliation list. This should be confirmed in the morning and resumed as appropriate. # [facility] Vital Signs Vital Signs Date Time Temp Pulse Resp B/P (MAP) Pulse Ox O2 Delivery O2 Flow Rate FiO2 06/02/20 20:34 156/94 (114) 06/02/20 20:30 104 20 96 Room Air 06/02/20 15:40 98.7 Laboratory Data Labs 24H Laboratory Tests 2 06/02/20 15:45: Nucleated Red Blood Cells % (auto) 0.0, Prothrombin Time 14.8H, Prothromb Time International Ratio 1.13, Anion Gap 5L, Glomerular Filtration Rate 44.0, Calcium Level 8.7L, Total Creatine Kinase 44, Creatine Kinase MB < 1.0, Creatine Kinase MB Relative Index 2.27, Troponin I < 0.02 06/02/20 16:00: Coronavirus (COVID-19)(PCR) NEGATIVE, Influenza Type A (RT-PCR) NEGATIVE, Influenza Type B (RT-PCR) NEGATIVE, Respiratory Syncytial Virus (PCR) NEGATIVE 06/02/20 17:54: Urine Color YELLOW, Urine Appearance CLEAR, Urine pH 6.0, Urine Specific [place] 1.008, Urine Protein NEGATIVE, Urine Glucose (UA) NEGATIVE, Urine Ketones NEGATIVE, Urine Blood NEGATIVE, Urine Nitrite NEGATIVE, Urine Bilirubin NEGATIV E, Urine Urobilinogen 0.2, Urine Leukocyte Esterase NEGATIVE, Urine WBC (Auto) 0, Urine RBC (Auto) 0, Urine Hyaline Casts (Auto) 0, Urine Bacteria (Auto) NEGATIVE, Urine Squamous Epithelial Cells 1, Urine Sperm (Auto) CBC/BMP Laboratory Tests 06/02/20 15:45 Home Medications Scheduled Apixaban (Eliquis) 5 Mg Tablet, 5 MG PO BID Docusate Sodium (Docusate Sodium) 100 Mg Capsule, 100 MG PO BID Ezetimibe (Ezetimibe) 10 Mg Tablet, 10 MG PO DAILY Metoprolol Tartrate (Metoprolol Tartrate) 50 Mg Tablet, 50 MG PO BID Torsemide (Torsemide) 20 Mg Tablet, 20 MG PO DAILY Scheduled PRN Albuterol Sulfate (Ventolin Hfa) 18 Gm Hfa.aer.ad, 2 PUFFS INH QID PRN for SHORTNESS OF BREATH Benzonatate (Benzonatate) 100 Mg Capsule, 100 MG PO TID PRN for COUGH Tramadol HCl (Tramadol HCl) 50 Mg Tablet, 50 MG PO Q6H PRN for PAIN Allergies Coded Allergies: No Known Allergies (Verified , 05/18/20) A-FIB/CHADSVASC A-FIB History Current/History of A-Fib/PAF?: Yes Current PO Anticoag Therapy: Yes TE GALAVIZ MD Jun 02, 2020 21:21
[2020-06-02] MEDS ORDERED: LORazepam 2 MG TAB PO PRN (21:30)
[2020-06-02 22:42] VITALS: BP 160/73
[2020-06-02 22:45] VITALS: BP 160/73
[2020-06-02] MEDS: THIAMINE 100 MG TAB PO SCH (23:36)
[2020-06-02] MEDS: APIXABAN 5 MG TAB (ELIQUIS) PO SCH (23:36)
[2020-06-02] MEDS: DOCUSATE SODIUM 100MG CAPSULE PO SCH (23:36)
[2020-06-02] MEDS: METOPROLOL TART 50 MG TAB PO SCH (23:36)
[2020-06-02] MEDS: ACETAMINOPHEN TAB 650MG DOSE (2X325MG) PO PRN (23:37)
--- NOTE | 2020-06-03 03:30 | ECGEPIP ---
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
[2020-06-03 05:57] LABS: HEMATOCRIT 34.5 % (42.0-52.0); HEMOGLOBIN 11.2 g/dl (13.5-17.5); MEAN CORPUSCULAR HEMOGLOBIN 28.7 pg (27.0-33.0); MEAN CORPUSCULAR HGB CONC 32.5 g/dl (32.0-36.5); MEAN CORPUSCULAR VOLUME 88.5 fl (80.0-96.0); PLATELET COUNT, AUTOMATED 319 10^3/uL (150-450); WHITE BLOOD COUNT 14.7 10^3/uL (4.0-10.0)
[2020-06-03 06:00] VITALS: BP 150/75
[2020-06-03 06:29] LABS: ALBUMIN 2.8 GM/DL (3.2-5.2); ALT/SGPT 56 U/L (12-78); BILIRUBIN,TOTAL 0.8 MG/DL (0.2-1.0); BLOOD UREA NITROGEN 29 MG/DL (7-18); CALCIUM LEVEL 8.3 MG/DL (8.8-10.2); CARBON DIOXIDE LEVEL 30 MEQ/L (21-32); CHLORIDE LEVEL 102 MEQ/L (98-107); CREATININE FOR GFR 1.18 MG/DL (0.70-1.30); GLOMERULAR FILTRATION RATE > 60.0 (>35); GLUCOSE, FASTING 108 MG/DL (70-100); MAGNESIUM LEVEL 2.5 MG/DL (1.8-2.4); SODIUM LEVEL 138 MEQ/L (136-145); TOTAL PROTEIN 5.7 GM/DL (6.4-8.2)
[2020-06-03 06:45] VITALS: BP 150/75
[2020-06-03 06:48] LABS: SODIUM,RANDOM URINE 35 MEQ/L; UREA NITROGEN RANDOM URINE 712 MG/DL
[2020-06-03] MEDS: METOPROLOL TART 50 MG TAB PO SCH ×2 (09:00→20:44)
[2020-06-03] MEDS: FOLIC ACID 1 MG TAB PO SCH (09:14)
[2020-06-03] MEDS: APIXABAN 5 MG TAB (ELIQUIS) PO SCH ×2 (09:14→20:47)
[2020-06-03] MEDS: MULTIVITAMINS/MINERALS THERAP 1 TAB PO SCH (09:14)
[2020-06-03] MEDS: THIAMINE 100 MG TAB PO SCH ×2 (09:14→20:47)
[2020-06-03] MEDS: EZETIMIBE 10 MG TAB (ZETIA) PO SCH (09:14)
[2020-06-03] MEDS: DOCUSATE SODIUM 100MG CAPSULE PO SCH ×2 (09:14→20:47)
[2020-06-03 09:15] VITALS: BP 117/50
[2020-06-03 14:00] VITALS: BP 118/55
--- NOTE | 2020-06-03 16:23 | IPNPDOC ---
Date Seen The patient was seen on 06/03/20. Progress Note SUBJECTIVE: No events overnight. PT: meeting rehab needs, ordering speech for cognitive evaluation. Denies chest pain, shortness of breath, n/v/d. OBJECTIVE: PHYSICAL EXAMINATION: VS: Please see below Constitutional: Awake and alert, in no apparent distress, hard of hearing ENT: Sclera are clear. Mucosa is dry Respiratory: Lungs diminished breath sounds bilaterally. No respiratory dist ress. No use of accessory muscles. No crackles Cardiovascular: Irregular heart rate. no appreciable murmurs. NO JVD Gastrointestinal: Abdomen is soft, non distended, non tender, BS present. Musculoskeletal: No lower extremity edema. Neurologic: No focal neurological deficit. INTEG: lumbar spine bruising, tender to touch Pysch: MOOD AND AFFECT APPROPRIATE LABORATORY DATA: See below. IMAGING: See chart MICROBIOLOGY: Please see below. ASSESSMENT: 84-year-old male presents to the hospital with weakness and multiple falls at home his daughter Nell can no longer take care of her at home found to be dehydrated with an ABRAHAM, he is admitted for medical evaluation and management PLAN: Weakness and frequent falls -PT: "Based on pt. presentation and concerns of pt. daughter, anticipate pt. would benefit and require continued rehab following acute care hospitalization". -C/w PT/OT, nutritional assessment Lower back, lumbar pain with hematoma s/p fall -CT lumbar spine neg for acute fx -Pain control, PT/OT ABRAHAM likely prerenal cause, dehydration -Cr wnl, stopped IVFs -Avoid nephrotoxic medications, holding home torsemide another day- can likely restart on 06/04/20 . Encourage Po intake -Daily labs Leukocytosis: Isolated leukocytosis without overt evidence of infection. Poss reactive to fall? -WBC improved 14.7, afebrile -Procalcitonin low -UA neg, CXR neg, all imaging neg for acute infectious process -Continue to encourage hydration -Daily CBC, f/u BCx HFrEF: Compensated. -Recent admission for HF exacerbation but denies shortness of breath, chest pain -C/w home meds except torsemide for now -Monitor for s/s of fluid overload -Low salt diet. A. fib, chronic and rate controlled -C/w BB, eliquis COPD, not in exacerbation -C/w home medications Hyperlipidemia -C/w ezetemibe Alcohol use disorder -No s/s of withdrawl -[facility] protocol. Thiamine folate MVN. CAD/CABG 2003 -C/w home medications -Refused transfer for cardiac cath last admission. -F/u with o/p physicians DVT prophylaxis: Eliquis DISPOSITION: PT: c/w rehab. Speech to see. VS, I&O, 24H, Fishbone Vital Signs/I&O Vital Signs Date Time Temp Pulse Resp B/P (MAP) Pulse Ox O2 Delivery O2 Flow Rate FiO2 06/03/20 14:00 97.4 74 20 118/55 (76) 97 Room Air I&O- Last 24 Hours up to 6 AM 06/03/20 05:59 Intake Total 190 ml Output Total 150 ml Balance 40 ml Laboratory Data 24H LABS Laboratory Tests 2 06/02/20 17:54: Urine Color YELLOW, Urine Appearance CLEAR, Urine pH 6.0, Urine Specific [place] 1.008, Urine Protein NEGATIVE, Urine Glucose (UA) NEGATIVE, Urine Ketones NEGATIVE, Urine Blood NEGATIVE, Urine Nitrite NEGATIVE, Urine Bilirubin NEGATIVE, Urine Urobilinogen 0.2, Urine Leukocyte Esterase NEGATIVE, Urine WBC (Auto) 0, Urine RBC (Auto) 0, Urine Hyaline Casts (Auto) 0, Urine Bacteria (Auto) NEGATIVE, Urine Squamous Epithelial Cells 1, Urine Sperm (Auto) 06/03/20 05:32: Nucleated Red Blood Cells % (auto) 0.0, Anion Gap 6L, Glomerular Filtration Rate > 60.0, Calcium Level 8.3L, Magnesium Level 2.5H, Total Bilirubin 0.8, Aspartate Amino Transf (AST/SGOT) 21, Alanine Aminotransferase (ALT/SGPT) 56, Alkaline Phosphatase 103, Total Protein 5.7L, Albumin 2.8L, Albumin/Globulin Ratio 1.0 06/03/20 06:20: Urine Random Sodium 35, Urine Random Urea Nitrogen 712 CBC/BMP Laboratory Tests 06/03/20 05:32 Microbiology Microbiology 06/02/20 Blood Culture, Received Pending 06/02/20 Blood Culture, Received Pending Current Medications Current Medications Medications (Trade) Dose Ordered Sig/Glenny Route PRN Reason Start Time Stop Time Status Last Admin Dose Admin Acetaminophen (Tylenol Tab) 650 mg Q4H PRN PO MILD PAIN OR FEVER 06/02/20 21:00 06/02/20 23:37 Al Hydrox/Mg Hydrox/Simethicone (Mylanta) 30 ml DAILY PRN PO DYSPEPSIA 06/02/20 21:00 Albuterol Sulfate (Proventil, Ventolin Hfa) 2 puff QID PRN INH SHORTNESS OF BREATH 06/02/20 21:05 Apixaban (Eliquis) 5 mg BID PO 06/02/20 21:00 06/03/20 09:14 Benzonatate (Tessalon Perles) 100 mg TID PRN PO COUGH 06/02/20 21:05 Docusate Sodium (Colace) 100 mg BID PO 06/02/20 21:00 06/03/20 09:14 EZETIMIBE (Zetia) 10 mg DAILY PO 06/03/20 09:00 06/03/20 09:14 Folic Acid (Folic Acid) 1 mg DAILY PO 06/03/20 09:00 06/03/20 09:14 Home Med (Med Rec Complete!) ASDIRECTED XX 06/02/20 19:25 06/02/20 19:25 DC Lorazepam (Ativan) 2 mg ASDIRECTED PRN PO SEE PROTOCOL 06/02/20 21:30 Magnesium Hydroxide (Milk Of Magnesia) 30 ml DAILY PRN PO CONSTIPATION 06/02/20 21:00 Metoprolol Tartrate (Lopressor) 50 mg BID PO 06/02/20 21:00 06/02/20 23:36 Multivitamins (Theragram-M) 1 tab DAILY PO 06/03/20 09:00 06/03/20 09:14 Sodium Chloride 1,000 ml @ 80 mls/hr [id number] IV 06/02/20 21:05 06/03/20 08:31 DC 06/02/20 23:37 Thiamine HCl (Thiamine HCl) 100 mg BID PO 06/02/20 21:00 06/05/20 09:01 06/03/20 09:14 Tramadol HCl (Ultram) 50 mg Q6H PRN PO MODERATE/SEVERE PAIN (PS 5-10) 06/02/20 21:05 Allergies Coded Allergies: No Known Allergies (Verified , 05/18/20) Yuni Cunningham MD Jun 03, 2020 16:23
[2020-06-03 22:00] VITALS: BP 105/53
[2020-06-04 06:00] VITALS: BP 125/75
[2020-06-04 06:19] LABS: HEMATOCRIT 35.3 % (42.0-52.0); HEMOGLOBIN 11.1 g/dl (13.5-17.5); MEAN CORPUSCULAR HEMOGLOBIN 28.5 pg (27.0-33.0); MEAN CORPUSCULAR HGB CONC 31.4 g/dl (32.0-36.5); MEAN CORPUSCULAR VOLUME 90.7 fl (80.0-96.0); PLATELET COUNT, AUTOMATED 311 10^3/uL (150-450); RED BLOOD COUNT 3.89 10^6/uL (4.30-6.10)
[2020-06-04 06:40] LABS: BLOOD UREA NITROGEN 18 MG/DL (7-18); CALCIUM LEVEL 8.8 MG/DL (8.8-10.2); CARBON DIOXIDE LEVEL 29 MEQ/L (21-32); CHLORIDE LEVEL 105 MEQ/L (98-107); CREATININE FOR GFR 1.05 MG/DL (0.70-1.30); GLOMERULAR FILTRATION RATE > 60.0 (>35); GLUCOSE, FASTING 116 MG/DL (70-100); SODIUM LEVEL 138 MEQ/L (136-145)
[2020-06-04] MEDS: APIXABAN 5 MG TAB (ELIQUIS) PO SCH ×2 (08:10→20:29)
[2020-06-04] MEDS: FOLIC ACID 1 MG TAB PO SCH (08:10)
[2020-06-04] MEDS: DOCUSATE SODIUM 100MG CAPSULE PO SCH ×2 (08:10→20:29)
[2020-06-04] MEDS: EZETIMIBE 10 MG TAB (ZETIA) PO SCH (08:10)
[2020-06-04] MEDS: MULTIVITAMINS/MINERALS THERAP 1 TAB PO SCH (08:10)
[2020-06-04] MEDS: METOPROLOL TART 50 MG TAB PO SCH ×2 (08:11→20:29)
[2020-06-04] MEDS: THIAMINE 100 MG TAB PO SCH ×2 (08:11→20:29)
[2020-06-04 14:00] VITALS: BP 129/60
--- NOTE | 2020-06-04 15:54 | IPNPDOC ---
Date Seen The patient was seen on 06/04/20. Progress Note SUBJECTIVE: No events overnight. PT: meeting rehab needs. Making ALC status today. Denies chest pain, shortness of breath, n/v/d. OBJECTIVE: PHYSICAL EXAMINATION: VS: Please see below Constitutional: Awake and alert, in no apparent distress, hard of hearing ENT: Sclera are clear. Mucosa is dry Respiratory: CTAB. No respiratory distress. No use of accessory muscles. No crackles or wheezing Cardiovascular: Irregular heart rate. no appreciable murmurs. NO JVD Gastrointestinal: Abdomen is soft, non distended, non tender, BS present. Musculoskeletal: No lower extremity edema. Neurologic: No focal neurological deficit. INTEG: lumbar spine bruising, large hematoma present- not worsened , tender to touch Pysch: mood and affect appropriate LABORATORY DATA: See below. IMAGING: See chart MICROBIOLOGY: BCx ng ASSESSMENT: 84-year-old male presents to the hospital with weakness and multiple falls at home his daughter Nell can no longer take care of her at home found to be dehydrated with an ABRAHAM, he is admitted for medical evaluation and management PLAN: Weakness and frequent falls -PT: "Based on pt. presentation and concerns of pt. daughter, anticipate pt. would benefit and require continued rehab following acute care hospitalization". -Making ALC status today, plan on rehab here or another facility -Optimize nutritionally Lower back, lumbar pain with hematoma s/p fall -CT lumbar spine neg for acute fx -Pain control, PT/OT Leukocytosis likely reactive to fall?, hematoma -WBC improved 12, afebrile -Procalcitonin low -UA neg, CXR neg, all imaging neg for acute infectious process -Continue to encourage hydration -Regular labs HFrEF: Compensated. -Recent admission for HF exacerbation but denies shortness of breath, chest pain -Monitor for s/s of fluid overload -Resumed torsemide, other home meds -Low salt diet. A. fib, chronic and rate controlled -C/w BB, eliquis COPD, not in exacerbation -C/w home medications Hyperlipidemia -C/w ezetemibe Alcohol use disorder -No s/s of withdrawl -[facility] protocol. Thiamine folate MVN. CAD/CABG 2003 -C/w home medications -Refused transfer for cardiac cath last admission. -F/u with o/p physicians DVT prophylaxis: Eliquis Resolved issues: ABRAHAM likely prerenal cause, dehydration DISPOSITION: PT: c/w rehab either here or facility. Daughter aware, patient in agreement. VS, I&O, 24H, Fishbone Vital Signs/I&O Vital Signs Date Time Temp Pulse Resp B/P (MAP) Pulse Ox O2 Delivery O2 Flow Rate FiO2 06/04/20 08:11 101 140/60 06/04/20 06:00 98.0 18 98 Room Air I&O- Last 24 Hours up to 6 AM 06/04/20 06:00 Intake Total 1400 ml Output Total 850 ml Balance 550 ml Laboratory Data 24H LABS Laboratory Tests 2 06/04/20 05:48: Nucleated Red Blood Cells % (auto) 0.0, Anion Gap 4L, Glomerular Filtration Rate > 60.0, Calcium Level 8.8 CBC/BMP Laboratory Tests 06/04/20 05:48 Microbiology Microbiology 06/02/20 Blood Culture - Preliminary, Resulted No growth after 24 hours . All specim... 06/02/20 Blood Culture - Preliminary, Resulted No growth after 24 hours . All specim... Current Medications Current Medications Medications (Trade) Dose Ordered Sig/Glenny Route PRN Reason Start Time Stop Time Status Last Admin Dose Admin Acetaminophen (Tylenol Tab) 650 mg Q4H PRN PO MILD PAIN OR FEVER 06/02/20 21:00 06/02/20 23:37 Al Hydrox/Mg Hydrox/Simethicone (Mylanta) 30 ml DAILY PRN PO DYSPEPSIA 06/02/20 21:00 Albuterol Sulfate (Proventil, Ventolin Hfa) 2 puff QID PRN INH SHORTNESS OF BREATH 06/02/20 21:05 Apixaban (Eliquis) 5 mg BID PO 06/02/20 21:00 06/04/20 08:10 Benzonatate (Tessalon Perles) 100 mg TID PRN PO COUGH 06/02/20 21:05 Docusate Sodium (Colace) 100 mg BID PO 06/02/20 21:00 06/04/20 08:10 EZETIMIBE (Zetia) 10 mg DAILY PO 06/03/20 09:00 06/04/20 08:10 Folic Acid (Folic Acid) 1 mg DAILY PO 06/03/20 09:00 06/04/20 08:10 Home Med (Med Rec Complete!) ASDIRECTED XX 06/02/20 19:25 06/02/20 19:25 DC Lorazepam (Ativan) 2 mg ASDIRECTED PRN PO SEE PROTOCOL 06/02/20 21:30 Magnesium Hydroxide (Milk Of Magnesia) 30 ml DAILY PRN PO CONSTIPATION 06/02/20 21:00 Metoprolol Tartrate (Lopressor) 50 mg BID PO 06/02/20 21:00 06/04/20 08:11 Multivitamins (Theragram-M) 1 tab DAILY PO 06/03/20 09:00 06/04/20 08:10 Sodium Chloride 1,000 ml @ 80 mls/hr [id number] IV 06/02/20 21:05 06/03/20 08:31 DC 06/02/20 23:37 Thiamine HCl (Thiamine HCl) 100 mg BID PO 06/02/20 21:00 06/05/20 09:01 06/04/20 08:11 Tramadol HCl (Ultram) 50 mg Q6H PRN PO MODERATE/SEVERE PAIN (PS 5-10) 06/02/20 21:05 Allergies Coded Allergies: No Known Allergies (Verified , 05/18/20) Yuni Cunningham MD Jun 04, 2020 15:54
[2020-06-04] MEDS: ACETAMINOPHEN TAB 650MG DOSE (2X325MG) PO PRN (18:39)
[2020-06-04 22:00] VITALS: BP 125/56
[2020-06-05 06:00] VITALS: BP 138/63
[2020-06-05 06:47] LABS: HEMATOCRIT 35.5 % (42.0-52.0); HEMOGLOBIN 11.1 g/dl (13.5-17.5); MEAN CORPUSCULAR HEMOGLOBIN 28.8 pg (27.0-33.0); MEAN CORPUSCULAR HGB CONC 31.3 g/dl (32.0-36.5); PLATELET COUNT, AUTOMATED 321 10^3/uL (150-450); RED BLOOD COUNT 3.86 10^6/uL (4.30-6.10); WHITE BLOOD COUNT 10.8 10^3/uL (4.0-10.0)
[2020-06-05 07:08] LABS: BLOOD UREA NITROGEN 14 MG/DL (7-18); CALCIUM LEVEL 8.8 MG/DL (8.8-10.2); CARBON DIOXIDE LEVEL 31 MEQ/L (21-32); CHLORIDE LEVEL 107 MEQ/L (98-107); CREATININE FOR GFR 1.08 MG/DL (0.70-1.30); GLOMERULAR FILTRATION RATE > 60.0 (>35); GLUCOSE, FASTING 101 MG/DL (70-100); POTASSIUM SERUM 5.2 MEQ/L (3.5-5.1); SODIUM LEVEL 141 MEQ/L (136-145)
[2020-06-05 07:30] VITALS: BP 110/59
[2020-06-05] MEDS: TORSEMIDE 20 MG TAB PO SCH (09:22)
[2020-06-05] MEDS: FOLIC ACID 1 MG TAB PO SCH (09:22)
[2020-06-05] MEDS: DOCUSATE SODIUM 100MG CAPSULE PO SCH ×2 (09:22→20:14)
[2020-06-05] MEDS: MULTIVITAMINS/MINERALS THERAP 1 TAB PO SCH (09:23)
[2020-06-05] MEDS: APIXABAN 5 MG TAB (ELIQUIS) PO SCH ×2 (09:23→20:14)
[2020-06-05] MEDS: EZETIMIBE 10 MG TAB (ZETIA) PO SCH (09:23)
[2020-06-05] MEDS: THIAMINE 100 MG TAB PO SCH (09:23)
[2020-06-05] MEDS: METOPROLOL TART 50 MG TAB PO SCH ×2 (09:23→20:14)
[2020-06-05] MEDS: ACETAMINOPHEN TAB 650MG DOSE (2X325MG) PO PRN (09:25)
[2020-06-05 14:16] VITALS: BP 104/54
[2020-06-05 16:47] LABS: BLOOD UREA NITROGEN 16 MG/DL (7-18); CALCIUM LEVEL 8.9 MG/DL (8.8-10.2); CARBON DIOXIDE LEVEL 29 MEQ/L (21-32); CHLORIDE LEVEL 103 MEQ/L (98-107); GLOMERULAR FILTRATION RATE > 60.0 (>35); GLUCOSE, FASTING 121 MG/DL (70-100); POTASSIUM SERUM 3.8 MEQ/L (3.5-5.1); SODIUM LEVEL 138 MEQ/L (136-145)
[2020-06-05 22:00] VITALS: BP 137/64
[2020-06-06 06:00] VITALS: BP 126/58
[2020-06-06 06:43] LABS: HEMATOCRIT 35.3 % (42.0-52.0); HEMOGLOBIN 11.1 g/dl (13.5-17.5); MEAN CORPUSCULAR HEMOGLOBIN 28.6 pg (27.0-33.0); MEAN CORPUSCULAR HGB CONC 31.4 g/dl (32.0-36.5); PLATELET COUNT, AUTOMATED 307 10^3/uL (150-450); RED BLOOD COUNT 3.88 10^6/uL (4.30-6.10); WHITE BLOOD COUNT 10.7 10^3/uL (4.0-10.0)
[2020-06-06 07:15] LABS: CREATININE FOR GFR 1.29 MG/DL (0.70-1.30); GLOMERULAR FILTRATION RATE 56.4 (>35); POTASSIUM SERUM 4.5 MEQ/L (3.5-5.1)
[2020-06-06] MEDS: APIXABAN 5 MG TAB (ELIQUIS) PO SCH ×2 (10:13→20:01)
[2020-06-06] MEDS: DOCUSATE SODIUM 100MG CAPSULE PO SCH ×2 (10:13→20:01)
[2020-06-06] MEDS: TORSEMIDE 20 MG TAB PO SCH (10:13)
[2020-06-06] MEDS: MULTIVITAMINS/MINERALS THERAP 1 TAB PO SCH (10:13)
[2020-06-06] MEDS: FOLIC ACID 1 MG TAB PO SCH (10:13)
[2020-06-06] MEDS: EZETIMIBE 10 MG TAB (ZETIA) PO SCH (10:16)
[2020-06-06] MEDS: METOPROLOL TART 50 MG TAB PO SCH ×2 (10:17→20:01)
[2020-06-06] MEDS: ACETAMINOPHEN TAB 650MG DOSE (2X325MG) PO PRN (20:01)
[2020-06-07] MEDS: ACETAMINOPHEN TAB 650MG DOSE (2X325MG) PO PRN ×2 (04:23→20:14)
[2020-06-07 06:00] VITALS: BP 131/60
[2020-06-07] MEDS: DOCUSATE SODIUM 100MG CAPSULE PO SCH ×2 (08:01→20:14)
[2020-06-07] MEDS: MULTIVITAMINS/MINERALS THERAP 1 TAB PO SCH (08:01)
[2020-06-07] MEDS: FOLIC ACID 1 MG TAB PO SCH (08:01)
[2020-06-07] MEDS: EZETIMIBE 10 MG TAB (ZETIA) PO SCH (08:01)
[2020-06-07] MEDS: TORSEMIDE 20 MG TAB PO SCH (08:01)
[2020-06-07] MEDS: APIXABAN 5 MG TAB (ELIQUIS) PO SCH ×2 (08:02→20:14)
[2020-06-07] MEDS: METOPROLOL TART 50 MG TAB PO SCH ×2 (08:03→20:15)
[2020-06-08 06:00] VITALS: BP 132/64
[2020-06-08 06:53] LABS: HEMOGLOBIN 10.8 g/dl (13.5-17.5); MEAN CORPUSCULAR HGB CONC 31.8 g/dl (32.0-36.5); MEAN CORPUSCULAR VOLUME 91.2 fl (80.0-96.0); PLATELET COUNT, AUTOMATED 307 10^3/uL (150-450); RED BLOOD COUNT 3.73 10^6/uL (4.30-6.10); WHITE BLOOD COUNT 8.9 10^3/uL (4.0-10.0)
[2020-06-08 07:18] LABS: ALBUMIN 2.8 GM/DL (3.2-5.2); ALT/SGPT 77 U/L (12-78); BILIRUBIN,TOTAL 0.3 MG/DL (0.2-1.0); BLOOD UREA NITROGEN 20 MG/DL (7-18); CALCIUM LEVEL 8.8 MG/DL (8.8-10.2); CARBON DIOXIDE LEVEL 30 MEQ/L (21-32); CHLORIDE LEVEL 104 MEQ/L (98-107); CREATININE FOR GFR 1.12 MG/DL (0.70-1.30); GLOMERULAR FILTRATION RATE > 60.0 (>35); GLUCOSE, FASTING 104 MG/DL (70-100); POTASSIUM SERUM 3.8 MEQ/L (3.5-5.1); SODIUM LEVEL 140 MEQ/L (136-145); TOTAL PROTEIN 5.9 GM/DL (6.4-8.2)
[2020-06-08 08:14] VITALS: BP 149/59
[2020-06-08] MEDS: METOPROLOL TART 50 MG TAB PO SCH (08:14)
[2020-06-08] MEDS: MULTIVITAMINS/MINERALS THERAP 1 TAB PO SCH (08:14)
[2020-06-08] MEDS: DOCUSATE SODIUM 100MG CAPSULE PO SCH (08:14)
[2020-06-08] MEDS: TORSEMIDE 20 MG TAB PO SCH (08:14)
[2020-06-08] MEDS: EZETIMIBE 10 MG TAB (ZETIA) PO SCH (08:15)
[2020-06-08] MEDS: FOLIC ACID 1 MG TAB PO SCH (08:15)
[2020-06-08] MEDS: APIXABAN 5 MG TAB (ELIQUIS) PO SCH (08:15)
[2020-06-08] MEDS ORDERED: VITMTA PO (10:54)
[2020-06-08] MEDS ORDERED: FOLI1TAB11 PO (10:54)
[2020-06-08] MEDS ORDERED: DOK1CAP7 PO (10:54)
--- NOTE | 2020-06-08 11:05 | DS.PDOC ---
Discharge Summary General Date of Admission Jun 02, 2020 at 21:00 Date of Discharge 06/08/2020 Attending Physician: JANET VELASQUEZ MD Discharge Summary PROCEDURES PERFORMED DURING STAY: None ADMITTING DIAGNOSES: ABRAHAM Fall DISCHARGE DIAGNOSES: ABRAHAM Fall with back pain and debility chronic HFrEF COPD CAD, s/p CABG in 2003 Alcohol use disorder Hyperlipidemia Chronic asbestosis Chronic atrial fibrillation COMPLICATIONS/CHIEF COMPLAINT: Fall/Renal Failure. HISTORY OF PRESENT ILLNESS: 84-year-old M with a history of CHF, COPD, CAD, CABG, atrial fibrillation who lives at home with his daughter who presented due to frequent falls at home. Daughter expressed that she can no longer care for him at home and may need placement. He reported that approximately 4 weeks prior to presentation he was shoveling snow and slipped on ice and fell on his right side and ever since then he has been feeling weak and has been in pain. He used a cane to ambulate at home but had been falling more frequently. HOSPITAL COURSE: On admission imaging showed no acute fractures and he was admitted for a prerenal ABRAHAM i/s/o dehydration. He was given some gentle fluids with resolution of the ABRAHAM and worked with PT/OT that recommended STR where he is now being discharged. DISCHARGE MEDICATIONS: Please see below. ALLERGIES: Please see below. PHYSICAL EXAMINATION ON DISCHARGE: VITAL SIGNS: Please see below. VS: Please see below Constitutional: Awake and alert, in no apparent distress, hard of hearing ENT: Sclera are clear. Mucosa is dry Respiratory: CTAB. No respiratory distress. No use of accessory muscles. No crackles or wheezing Cardiovascular: Irregular heart rate. no appreciable murmurs. NO JVD Gastrointestinal: Abdomen is soft, non distended, non tender, BS present. Musculoskeletal: No lower extremity edema. Neurologic: No focal neurological deficit. SKIN: lumbar spine bruising, large hematoma present Pysch: mood and affect appropriate LABORATORY DATA: Please see below. IMAGING: R shoulder complete XR: There is diffuse osteopenia. The right glenohumeral and acromioclavicular joints are normally aligned. No fracture or subluxation is seen. Subcortical cyst formation is seen in the humeral head unchanged. There is calcific pleural plaquing in the right hemithorax and there are surgical clips in the right paratracheal region. IMPRESSION: Diffuse osteopenia. No traumatic abnormality noted. CT of lumbar spine: Age-related osteopenia and moderate/advanced multilevel degenerative changes include a bridging osteophytosis and facet hypertrophy. Disc space narrowing at multiple levels as well as L5-S1 with vacuum phenomenon is also appreciated. Alignment and lordosis maintained. There is no evidence for acute fracture/compression injury or subluxation. The paravertebral soft tissues are normal. IMPRESSION: Normal lumbosacral spine CT. No evidence for acute fracture/compression injury or subluxation. R hip/ pelvic XR: The bony pelvic ring is intact. No pelvic or hip fracture is seen. No sacral fracture is noted. Femoral heads are smooth and rounded. There is bilateral mild acetabular spurring, right more advanced than left. IMPRESSION: Bilateral hip osteoarthritis, right greater than left. No traumatic abnormality noted. Head CT: Age-related atrophy with periventricular leukomalacia and microvascular ischemic changes are appreciated. The ventricles and sulci are symmetric. Blake-white differentiation is maintained. There is no evidence for acute intracranial hemorrhage, mass/mass effect, pathology or infarction. No extra-axial fluid collection. Calvarium is intact. Paranasal sinuses and mastoid air cells are clear. IMPRESSION: Age related atrophy and microvascular ischemic changes. No acute intracranial hemorrhage, infarction, or mass/mass effect. C-spine noncontrast CT: Cervical vertebral body heights are preserved. There is no evidence of cervical spine element fracture. There is degenerative spondylosis again noted. The right facet joint at C5-6 is fused and there is partial fusion of the C3-4 disc. There is bilateral facet joint fusion at C2-3. There is degenerative change at C1-2 and degenerative disc disease is present at C4-5, C5-6, and C6-7.. No fracture or subluxation is seen. There is fairly extensive vascular calcification. There is no evidence of intraspinal or paraspinal hematoma. IMPRESSION: Fairly advanced degenerative disc and osteoarthritic facet changes. Facet joint fusion bilaterally at C2-3 and on the right at C5-6. No traumatic abnormality noted.. CXR: Monitoring electrodes are noted. Patient is status post prior median sternotomy. There is bilateral calcific pleural plaquing consistent with previous asbestos exposure. These findings are unchanged. No acute infiltrate is seen. The pleural angles are sharp. Heart is not felt to be enlarged. No acute bony abnormality. IMPRESSION: No acute infiltrates seen. Old calcific pleural plaquing. Prior sternotomy. PROGNOSIS: Good ACTIVITY: As tolerated DIET: 2g sodium DISCHARGE PLAN: STR DISPOSITION: STR DISCHARGE INSTRUCTIONS: PCP or general practitioner within 1 week of discharge. ITEMS TO FOLLOWUP ON ON OUTPATIENT: Deconditioning and frequent falls DISCHARGE CONDITION: Stable TIME SPENT ON DISCHARGE: 40 minutes. Vital Signs/I&Os Vital Signs Date Time Temp Pulse Resp B/P (MAP) Pulse Ox O2 Delivery O2 Flow Rate FiO2 06/08/20 08:14 74 149/59 06/08/20 06:00 97.5 18 95 Room Air I&O- Last 24 Hours up to 6 AM 06/08/20 06:00 Intake Total 2400 ml Output Total 250 ml Balance 2150 ml Laboratory Data Labs 24H Laboratory Tests 2 06/08/20 06:02: Nucleated Red Blood Cells % (auto) 0.0, Anion Gap 6L, Glomerular Filtration Rate > 60.0, Calcium Level 8.8, Total Bilirubin 0.3, Aspartate Amino Transf (AST/SGOT) 47H, Alanine Aminotransferase (ALT/SGPT) 77, Alkaline Phosphatase 118H, Total Protein 5.9L, Albumin 2.8L, Albumin/Globulin Ratio 0.9 06/08/20 09:54: Coronavirus (COVID-19)(PCR) NEGATIVE CBC/BMP Laboratory Tests 06/08/20 06:02 Microbiology Microbiology 06/02/20 Blood Culture - Final, Complete NO GROWTH AFTER 5 DAYS 06/02/20 Blood Culture - Final, Complete NO GROWTH AFTER 5 DAYS Discharge Medications Scheduled Apixaban (Eliquis) 5 Mg Tablet, 5 MG PO BID, (Reported) Docusate Sodium (Docusate Sodium) 100 Mg Capsule, 100 MG PO BID, (Reported) Docusate Sodium (Dok) 100 Mg Capsule, 100 MG PO BID Ezetimibe (Ezetimibe) 10 Mg Tablet, 10 MG PO DAILY, (Reported) Folic Acid (Folic Acid) 1 Mg Tablet, 1 MG PO DAILY Metoprolol Tartrate (Metoprolol Tartrate) 50 Mg Tablet, 50 MG PO BID, (Reported) Multivitamins (Thera M Plus Tablet) 1 Each Tablet, 1 TAB PO DAILY Torsemide (Torsemide) 20 Mg Tablet, 20 MG PO DAILY, (Reported) Scheduled PRN Albuterol Sulfate (Ventolin Hfa) 18 Gm Hfa.aer.ad, 2 PUFFS INH QID PRN for SHORTNESS OF BREATH, (Reported) Benzonatate (Benzonatate) 100 Mg Capsule, 100 MG PO TID PRN for COUGH, (Reported) Tramadol HCl (Tramadol HCl) 50 Mg Tablet, 50 MG PO Q6H PRN for PAIN, (Reported) Allergies Coded Allergies: No Known Allergies (Verified , 05/18/20) JANET VELASQUEZ MD Jun 08, 2020 11:04
== END 2020-06-08 11:48 | DRG 92 ==
LOC: M ED 15:28 → EDBD 15:28 → M ED INP 21:00 → ENRESERV 21:28 → M MSPAV 22:42
PROVIDERS: ADMIT Family Medicine; ATTEND Internal Medicine
DX: R29.6 Repeated falls (principal); N17.9 Acute kidney failure, unspecified; I50.22 Chronic systolic (congestive) heart failure; I48.20 Chronic atrial fibrillation, unspecified; R53.1 Weakness; J44.9 Chronic obstructive pulmonary disease, unspecified; F10.10 Alcohol abuse, uncomplicated; S30.0XXA Contusion of lower back and pelvis, initial encounter; M54.9 Dorsalgia, unspecified; W18.30XA Fall on same level, unspecified, initial encounter

== ENCOUNTER → 2020-07-27 | Outpatient (REF) | payer MEDICARE ==
[~2020-07-27] MED LIST changes: +BENZ-18 PO; +DOCU100C17 PO; +EZET10TA21 PO; +FOLI1TAB11 PO; +METO50TA7 PO
[2020-07-27 14:31] LABS: CALCIUM LEVEL 10.1 MG/DL (8.8-10.2); CREATININE FOR GFR 1.69 MG/DL (0.70-1.30); GLOMERULAR FILTRATION RATE 41.3 (>35); POTASSIUM SERUM 4.5 MEQ/L (3.5-5.1)
[2020-07-27 14:32] LABS: ALBUMIN 3.8 GM/DL (3.2-5.2); BILIRUBIN,TOTAL 0.6 MG/DL (0.2-1.0); FREE T4 0.99 NG/DL (0.76-1.46); THYROID STIMULATING HORMONE 3.91 uIU/ML (0.358-3.740); TOTAL PROTEIN 8.2 GM/DL (6.4-8.2)
== END ==
LOC: M SFHCPLAZ 10:55
PROVIDERS: ATTEND Physician Assistant Medical
DX: E03.9 Hypothyroidism, unspecified (principal); E53.8 Deficiency of other specified B group vitamins; E55.9 Vitamin D deficiency, unspecified; N17.9 Acute kidney failure, unspecified
CPT/HCPCS: 36415; 80053; 82306; 82607; 84439; 84443; G0463

== ENCOUNTER → 2020-08-12 | Outpatient (REF) | payer MEDICARE, MEDICAID ==
[2020-08-12 17:47] LABS: BASO # 0.1 10^3/uL (0.0-0.2); BASO % 0.5 % (0.0-1.0); EOS # 0.3 10^3/uL (0.0-0.5); EOS % 3.3 % (0.0-3.0); HEMOGLOBIN 13.4 g/dl (13.5-17.5); LYMPH # 3.5 10^3/uL (1.5-5.0); LYMPH % 37.5 % (24.0-44.0); MEAN CORPUSCULAR HEMOGLOBIN 27.9 pg (27.0-33.0); MEAN CORPUSCULAR HGB CONC 31.2 g/dl (32.0-36.5); MEAN CORPUSCULAR VOLUME 89.4 fl (80.0-96.0); MONO # 0.9 10^3/uL (0.0-0.8); MONO % 9.5 % (2.0-8.0); NEUTROPHILS # 4.6 10^3/uL (1.5-8.5); PLATELET COUNT, AUTOMATED 341 10^3/uL (150-450); RED BLOOD COUNT 4.81 10^6/uL (4.30-6.10); WHITE BLOOD COUNT 9.3 10^3/uL (4.0-10.0)
[2020-08-12 18:22] LABS: ALBUMIN 3.7 GM/DL (3.2-5.2); BILIRUBIN,TOTAL 0.4 MG/DL (0.2-1.0); C REACTIVE PROTEIN QUANTITATIV 1.99 MG/DL (0.00-0.30); CALCIUM LEVEL 9.5 MG/DL (8.8-10.2); CREATININE FOR GFR 1.52 MG/DL (0.70-1.30); FREE T4 0.96 NG/DL (0.76-1.46); GLOMERULAR FILTRATION RATE 46.6 (>35); POTASSIUM SERUM 4.8 MEQ/L (3.5-5.1); THYROID STIMULATING HORMONE 2.39 uIU/ML (0.358-3.740); TOTAL PROTEIN 7.7 GM/DL (6.4-8.2)
== END ==
LOC: M SFHCPLAZ 15:46
PROVIDERS: ATTEND Physician Assistant Medical
DX: N18.9 Chronic kidney disease, unspecified (principal); I50.30 Unspecified diastolic (congestive) heart failure; E03.9 Hypothyroidism, unspecified; J01.10 Acute frontal sinusitis, unspecified

== ENCOUNTER → 2020-08-12 | Outpatient (CLI) | payer MEDICARE, MEDICAID ==
--- NOTE | 2020-08-12 16:31 | REPPI ---
INDICATION: J01.10 ACUTE NON RECURRENT FRONTAL SINUSITIS COMPARISON: 06/02/2020, 05/21/2020. TECHNIQUE: PA/Lateral FINDINGS: Lungs: There is no acute infiltrate, with mild scattered interstitial fibrosis inferiorly. Heart: Normal in size. Mediastinum: Mediastinal silhouette unremarkable. Pleural angles: Bilateral calcified pleural plaques are again noted.. Bones and soft tissues: There are mild degenerative changes of the spine without compression deformity. There are multiple sternal wires and mediastinal clips present. IMPRESSION: No acute pulmonary disease. Stable chronic findings. <Electronically signed by Berhane Blake > 08/12/20 [id number]
== END ==
LOC: M PLAIMG 15:46
PROVIDERS: ATTEND Physician Assistant Medical
DX: J01.10 Acute frontal sinusitis, unspecified (principal); N18.9 Chronic kidney disease, unspecified; I50.30 Unspecified diastolic (congestive) heart failure; E03.9 Hypothyroidism, unspecified
CPT/HCPCS: 36415; 71046; 80053; 83880; 84439; 84443; 85025; 86140; G0463

== ENCOUNTER → 2020-09-07 | Outpatient (REF) | payer MEDICAID ==
[2020-09-07 12:14] LABS: HEMATOCRIT 37.6 % (42.0-52.0)
[2020-09-07 12:48] LABS: ALBUMIN 3.4 GM/DL (3.2-5.2); BILIRUBIN,TOTAL 0.4 MG/DL (0.2-1.0); CALCIUM LEVEL 9.6 MG/DL (8.8-10.2); CHOLESTEROL RISK RATIO 3.472 (<5); CREATININE FOR GFR 1.58 MG/DL (0.70-1.30); GLOMERULAR FILTRATION RATE 44.6 (>35); MAGNESIUM LEVEL 2.4 MG/DL (1.8-2.4); POTASSIUM SERUM 4.3 MEQ/L (3.5-5.1); TOTAL PROTEIN 6.8 GM/DL (6.4-8.2)
[2020-09-07 12:55] LABS: PTH INTACT 34.6 PG/ML (18.5-88.0); TOTAL 25(OH) VITAMIN D 44.1 NG/ML (30.0-100.0)
[2020-09-07 18:34] LABS: HEMOGLOBIN A1c 6.3 %
== END ==
LOC: M SFHCPLAZ 08:55
PROVIDERS: ATTEND Family Medicine
DX: N18.30 Chronic kidney disease, stage 3 unspecified (principal); I50.30 Unspecified diastolic (congestive) heart failure; R73.01 Impaired fasting glucose; E78.5 Hyperlipidemia, unspecified; D50.9 Iron deficiency anemia, unspecified

== ENCOUNTER → 2020-09-09 | Outpatient (CLI) | payer MEDICARE, MEDICAID ==
--- NOTE | 2020-09-09 13:13 | REPPI ---
INDICATION: R05 COUGH COMPARISON: 08/12/2020. TECHNIQUE: PA/Lateral FINDINGS: There is stable parenchymal fibrotic changes and diffuse calcified pleural plaques, unchanged. No superimposed acute infiltrate is seen. The heart is not felt to be significantly enlarged. The mediastinal silhouette is unchanged. Multiple sternal wires and mediastinal clips are present. There are mild degenerative changes of the spine without compression deformity. IMPRESSION: No acute pulmonary disease. Stable chronic changes. <Electronically signed by Berhane Blake > 09/09/20 [id number]
== END ==
LOC: M PLAIMG 10:25
PROVIDERS: ATTEND Physician Assistant
DX: R05 Cough (principal); J84.10 Pulmonary fibrosis, unspecified

== ENCOUNTER → 2020-09-09 | Outpatient (REF) | payer MEDICARE, MEDICAID ==
[2020-09-09 13:11] LABS: BASO % 0.3 % (0.0-1.0); EOS # 0.2 10^3/uL (0.0-0.5); EOS % 2.1 % (0.0-3.0); HEMATOCRIT 42.4 % (42.0-52.0); HEMOGLOBIN 13.2 g/dl (13.5-17.5); LYMPH # 2.9 10^3/uL (1.5-5.0); LYMPH % 27.4 % (24.0-44.0); MEAN CORPUSCULAR HEMOGLOBIN 27.9 pg (27.0-33.0); MEAN CORPUSCULAR HGB CONC 31.1 g/dl (32.0-36.5); MEAN CORPUSCULAR VOLUME 89.6 fl (80.0-96.0); MONO # 0.9 10^3/uL (0.0-0.8); MONO % 8.5 % (2.0-8.0); NEUTROPHILS # 6.6 10^3/uL (1.5-8.5); NEUTROPHILS % 61.3 % (36.0-66.0); PLATELET COUNT, AUTOMATED 307 10^3/uL (150-450); RED BLOOD COUNT 4.73 10^6/uL (4.30-6.10); WHITE BLOOD COUNT 10.7 10^3/uL (4.0-10.0)
[2020-09-09 13:31] LABS: ALBUMIN 3.7 GM/DL (3.2-5.2); CALCIUM LEVEL 9.3 MG/DL (8.8-10.2); CREATININE FOR GFR 1.89 MG/DL (0.70-1.30); GLOMERULAR FILTRATION RATE 36.3 (>35); PHOSPHORUS LEVEL 3.8 MG/DL (2.5-4.9); POTASSIUM SERUM 4.2 MEQ/L (3.5-5.1)
== END ==
LOC: M SFHCPLAZ 10:25
PROVIDERS: ATTEND Physician Assistant
DX: R05 Cough (principal)

== ENCOUNTER 2020-09-14 14:48 | Emergency (ER) | payer MEDICARE, MEDICAID ==
[~2020-09-14] VITALS: Ht 149.9 cm; Wt 57.3 kg
[2020-09-14 14:49] VITALS: BP 160/65
[2020-09-14] MEDS ORDERED: ACETAMINOPHEN 500 MG TAB PO ONE (19:55)
[2020-09-14] MEDS ORDERED: LIDOCAINE 4% CREAM 5GM (LMX4) TOP ONE (19:55)
[2020-09-14 20:45] LABS: BASO % 0.2 % (0.0-1.0); EOS # 0.3 10^3/uL (0.0-0.5); EOS % 2.4 % (0.0-3.0); HEMATOCRIT 39.8 % (42.0-52.0); HEMOGLOBIN 12.4 g/dl (13.5-17.5); LYMPH # 3.6 10^3/uL (1.5-5.0); LYMPH % 29.8 % (24.0-44.0); MEAN CORPUSCULAR HEMOGLOBIN 27.6 pg (27.0-33.0); MEAN CORPUSCULAR HGB CONC 31.2 g/dl (32.0-36.5); MEAN CORPUSCULAR VOLUME 88.6 fl (80.0-96.0); MONO # 1.2 10^3/uL (0.0-0.8); MONO % 9.8 % (2.0-8.0); NEUTROPHILS # 6.9 10^3/uL (1.5-8.5); NEUTROPHILS % 57.4 % (36.0-66.0); PLATELET COUNT, AUTOMATED 244 10^3/uL (150-450); RED BLOOD COUNT 4.49 10^6/uL (4.30-6.10); WHITE BLOOD COUNT 12.1 10^3/uL (4.0-10.0)
[2020-09-14 21:06] LABS: ERYTHROCYTE SEDIMENTATION RATE 54 mm/hr (0-20)
[2020-09-14 21:10] LABS: C REACTIVE PROTEIN QUANTITATIV 12.5 MG/DL (0.00-0.30); URIC ACID 8.8 MG/DL (3.5-7.2)
--- NOTE | 2020-09-14 22:31 | REPVR ---
PROCEDURE INFORMATION: Exam: US Duplex Right Lower Extremity Veins, Limited Exam date and time: 09/14/2020 9:19 PM Age: 84 years old Clinical indication: Pain; Leg, lower; Right; Prior surgery; Surgery date: 6+ months; Surgery type: Vein stripping in 1965; Additional info: Calf into knee pain TECHNIQUE: Imaging protocol: Real-time Duplex ultrasound of the Right Lower Extremity with 2-D xavier scale, color Doppler flow and spectral waveform analysis with image documentation. Limited exam was focused on the right lower extremity veins. COMPARISON: 1. CR Knee, complete RIGHT 09/14/2020 8:[address] ABD PELVIS WITH CONTRAST 05/18/2020 1:32 PM FINDINGS: Right deep veins: Unremarkable. The right common femoral, femoral, popliteal, posterior tibial, and peroneal veins are patent without thrombus. Normal compressibility, augmentation response, and Doppler waveforms. Right superficial veins: The right greater saphenous vein is not visualized and may have been harvested. Soft tissues: There is soft tissue edema in the right calf. IMPRESSION: No deep vein thrombosis in the veins imaged in the right lower extremity. Electronically signed by: Elmer Hartmann On 09/14/2020 22:30:27 PM
--- NOTE | 2020-09-14 22:37 | REPVR ---
PROCEDURE INFORMATION: Exam: XR Right Knee Exam date and time: 09/14/2020 9:31 PM Age: 84 years old Clinical indication: Pain; Knee; Right; Additional info: Knee pain, can't wb TECHNIQUE: Imaging protocol: XR Right knee. Views: 4 or more views. COMPARISON: CR Knee, complete RIGHT 05/02/2020 11:43 AM FINDINGS: Bones/joints: There is no fracture dislocation of the right knee. There is chondrocalcinosis involving the medial and lateral compartments of the right knee, which is similar appearance compared to the prior right knee x-rays on 05/02/2020. A right knee joint effusion is present. Soft tissues: Unremarkable. Vasculature: There are atherosclerotic calcifications. IMPRESSION: 1. No fracture or dislocation of right knee. 2. Right knee joint effusion. Electronically signed by: Elmer Hartmann On 09/14/2020 22:36:54 PM
[2020-09-14] MEDS ORDERED: COLCHICINE 0.6 MG TABLET PO ONE ×2 (23:20→23:25)
[2020-09-14] MEDS ORDERED: traMADol 50 MG TAB PO ONE (23:20)
[2020-09-14] MEDS ORDERED: CAPS0.022 TOP (23:23)
[2020-09-14] MEDS ORDERED: TRAM50TA2 PO (23:23)
== END 2020-09-14 23:51 | disposition home or self-care (01) ==
LOC: M ED 14:48
DX: E79.0 Hyperuricemia without signs of inflammatory arthritis and tophaceous disease (principal); M25.461 Effusion, right knee; R06.02 Shortness of breath; R26.2 Difficulty in walking, not elsewhere classified; I50.9 Heart failure, unspecified; I10 Essential (primary) hypertension; J45.909 Unspecified asthma, uncomplicated; K21.9 Gastro-esophageal reflux disease without esophagitis; Z79.01 Long term (current) use of anticoagulants; Z79.899 Other long term (current) drug therapy

== ENCOUNTER → 2020-09-17 | Outpatient (REF) | payer MEDICARE, MEDICAID ==
[~2020-09-17] MED LIST changes: +CAPS0.022 TOP
[2020-09-17 10:54] LABS: BASO % 0.5 % (0.0-1.0); EOS # 0.4 10^3/uL (0.0-0.5); EOS % 4.8 % (0.0-3.0); HEMATOCRIT 37.5 % (42.0-52.0); HEMOGLOBIN 11.8 g/dl (13.5-17.5); LYMPH % 39.2 % (24.0-44.0); MEAN CORPUSCULAR HEMOGLOBIN 27.8 pg (27.0-33.0); MEAN CORPUSCULAR HGB CONC 31.5 g/dl (32.0-36.5); MEAN CORPUSCULAR VOLUME 88.2 fl (80.0-96.0); MONO # 0.7 10^3/uL (0.0-0.8); NEUTROPHILS # 3.5 10^3/uL (1.5-8.5); NEUTROPHILS % 46.2 % (36.0-66.0); PLATELET COUNT, AUTOMATED 281 10^3/uL (150-450); RED BLOOD COUNT 4.25 10^6/uL (4.30-6.10); WHITE BLOOD COUNT 7.6 10^3/uL (4.0-10.0)
[2020-09-17 11:16] LABS: ALBUMIN 3.2 GM/DL (3.2-5.2); BILIRUBIN,TOTAL 0.3 MG/DL (0.2-1.0); CALCIUM LEVEL 9.1 MG/DL (8.8-10.2); CREATININE FOR GFR 1.54 MG/DL (0.70-1.30); GLOMERULAR FILTRATION RATE 45.9 (>35); MAGNESIUM LEVEL 2.4 MG/DL (1.8-2.4); POTASSIUM SERUM 4.1 MEQ/L (3.5-5.1); TOTAL PROTEIN 6.9 GM/DL (6.4-8.2)
== END ==
LOC: M SFHCPLAZ 09:08
PROVIDERS: ATTEND Physician Assistant
DX: I50.32 Chronic diastolic (congestive) heart failure (principal); D50.9 Iron deficiency anemia, unspecified

== ENCOUNTER → 2020-10-20 | Outpatient (CLI) | payer MEDICARE, MEDICAID ==
--- NOTE | 2020-10-20 13:35 | REP ---
INDICATION: RIGHT LOWER LEG PAIN. COMPARISON: None. FINDINGS: No acute fracture or destructive osseous lesion. IMPRESSION: Within normal limits <Electronically signed by Nehemias Gonsalez > 10/20/20 [id number]
[2020-10-20 15:43] LABS: BASO # 0.1 10^3/uL (0.0-0.2); BASO % 0.5 % (0.0-1.0); EOS # 0.4 10^3/uL (0.0-0.5); EOS % 3.7 % (0.0-3.0); HEMATOCRIT 41.1 % (42.0-52.0); HEMOGLOBIN 12.7 g/dl (13.5-17.5); LYMPH # 3.3 10^3/uL (1.5-5.0); LYMPH % 31.5 % (24.0-44.0); MEAN CORPUSCULAR HEMOGLOBIN 27.4 pg (27.0-33.0); MEAN CORPUSCULAR HGB CONC 30.9 g/dl (32.0-36.5); MEAN CORPUSCULAR VOLUME 88.6 fl (80.0-96.0); MONO # 0.8 10^3/uL (0.0-0.8); NEUTROPHILS # 5.8 10^3/uL (1.5-8.5); NEUTROPHILS % 55.5 % (36.0-66.0); PLATELET COUNT, AUTOMATED 354 10^3/uL (150-450); RED BLOOD COUNT 4.64 10^6/uL (4.30-6.10); WHITE BLOOD COUNT 10.4 10^3/uL (4.0-10.0)
[2020-10-20 16:16] LABS: ALBUMIN 3.4 GM/DL (3.2-5.2); BILIRUBIN,TOTAL 0.5 MG/DL (0.2-1.0); CALCIUM LEVEL 9.2 MG/DL (8.8-10.2); CREATININE FOR GFR 1.51 MG/DL (0.70-1.30); MAGNESIUM LEVEL 2.3 MG/DL (1.8-2.4); POTASSIUM SERUM 4.1 MEQ/L (3.5-5.1); TOTAL PROTEIN 7.5 GM/DL (6.4-8.2)
== END ==
LOC: M PLAIMG 12:33
PROVIDERS: ATTEND Physician Assistant
DX: M79.661 Pain in right lower leg (principal); W19.XXXD Unspecified fall, subsequent encounter; J44.9 Chronic obstructive pulmonary disease, unspecified; D50.9 Iron deficiency anemia, unspecified; I25.10 Atherosclerotic heart disease of native coronary artery without angina pectoris; I50.22 Chronic systolic (congestive) heart failure

== ENCOUNTER 2020-10-26 16:29 | Emergency (ER) | payer MEDICARE, MEDICAID ==
[~2020-10-26] VITALS: Ht 134.6 cm; Wt 100.5 kg
[2020-10-26] MEDS ORDERED: ACETAMINOPHEN 325 MG TAB PO ONE (20:35)
[2020-10-26] MEDS ORDERED: tiZANidine 4 MG TAB PO ONE (20:35)
[2020-10-26] MEDS ORDERED: ISOVUE-370 76% 100ML VIAL As Ordered ONE (20:45)
--- NOTE | 2020-10-26 21:58 | REPVR ---
PROCEDURE INFORMATION: Exam: CT Chest With Contrast; Diagnostic Exam date and time: 10/26/2020 8:49 PM Age: 84 years old Clinical indication: Injury or trauma; Fall; Blunt trauma (contusions or hematomas); Additional info: Right posterior rib swelling/pain; Trauma TECHNIQUE: Imaging protocol: Diagnostic computed tomography of the chest with contrast. 3D rendering (Not supervised by radiologist): MIP and/or 3D reconstructed images were created by the technologist. Radiation optimization: All CT scans at this facility use at least one of these dose optimization techniques: automated exposure control; mA and/or kV adjustment per patient size (includes targeted exams where dose is matched to clinical indication); or iterative reconstruction. Contrast material: ISOVUE 370; Contrast volume: 75 ml; Contrast route: INTRAVENOUS (IV); COMPARISON: CT ANGIO CHEST 05/28/2020 1:05 PM FINDINGS: Lungs: Bilateral interstitial infiltrates most pronounced in the right upper, right middle and right lower lobes as well as left lower lobe. Infiltrates demonstrated adjacent to the airways which may indicate they related to chronic airway disease. An early multifocal pneumonitis can present in this fashion as well. Finally, sarcoidosis to be considered. Of note, the findings appear to have progressed in comparison to 05/28/2020. Pleural spaces: Bilateral pleural calcifications most consistent with prior asbestos exposure. No pleural effusion or pleural mass demonstrated. Heart: Status post CABG. Cardiomegaly. Aorta: There is mild atherosclerosis in the thoracic aorta. Lymph nodes: Multiple mediastinal lymph nodes. Differential includes postinflammatory lymph nodes. The presence of a prominent right paratracheal lymph node may indicate the presence of sarcoidosis. Bones/joints: Osteoporosis. The spine demonstrates mild degenerative changes. There has been a sternotomy. Soft tissues: Stable splenic capsular calcification. Otherwise unremarkable. IMPRESSION: 1. Bilateral interstitial infiltrates most pronounced in the right upper, right middle and right lower lobes as well as left lower lobe. Infiltrates demonstrated adjacent to the airways which may indicate they related to chronic airway disease. An early multifocal pneumonitis can present in this fashion as well. Finally, sarcoidosis to be considered. Of note, the findings appear to have progressed in comparison to 05/28/2020. 2. Bilateral pleural calcifications most consistent with prior asbestos exposure. No pleural effusion or pleural mass demonstrated. 3. Multiple mediastinal lymph nodes. Differential includes postinflammatory lymph nodes. The presence of a prominent right paratracheal lymph node may indicate the presence of sarcoidosis. 4. Status post CABG. Cardiomegaly. Electronically signed by: Bello Young On 10/26/2020 21:57:38 PM
[2020-10-26 23:30] VITALS: BP 113/62
--- NOTE | 2020-10-26 23:38 | REPVR ---
PROCEDURE INFORMATION: Exam: XR Right Humerus Exam date and time: 10/26/2020 10:56 PM Age: 84 years old Clinical indication: Pain; Upper arm; Right; Additional info: Right upper arm pain; S/P fall TECHNIQUE: Imaging protocol: XR Right humerus. Views: 2 or more views. COMPARISON: CR Humerus RIGHT 05/02/2020 11:40 AM FINDINGS: Bones/joints: Osteopenia. No fracture or dislocation. Degenerative changes of the glenohumeral joint. Soft tissues: Normal. Calcification extending from the medial epicondyle and may reflect calcific tendinitis. IMPRESSION: 1. Osteopenia. 2. Degenerative change of the shoulder. 3. Otherwise negative right humerus. No fracture. Electronically signed by: Matt Stacy On 10/26/2020 23:37:57 PM
--- NOTE | 2020-10-27 06:34 | ED PDOC ---
Post-Departure Follow-Up ct chest faxed to dr archer for fu Frank Alex MD Oct 27, 2020 06:34
== END 2020-10-27 00:04 | disposition home or self-care (01) ==
LOC: M ED 16:29
DX: S30.0XXA Contusion of lower back and pelvis, initial encounter (principal); S40.011A Contusion of right shoulder, initial encounter; W19.XXXA Unspecified fall, initial encounter; Y92.9 Unspecified place or not applicable; Y93.9 Activity, unspecified; Y99.9 Unspecified external cause status; M85.811 Other specified disorders of bone density and structure, right shoulder; M19.011 Primary osteoarthritis, right shoulder; R91.8 Other nonspecific abnormal finding of lung field; I51.7 Cardiomegaly; I50.9 Heart failure, unspecified; J45.909 Unspecified asthma, uncomplicated; J44.9 Chronic obstructive pulmonary disease, unspecified; N40.0 Benign prostatic hyperplasia without lower urinary tract symptoms; F10.10 Alcohol abuse, uncomplicated; Z87.891 Personal history of nicotine dependence; Z98.61 Coronary angioplasty status; Z95.1 Presence of aortocoronary bypass graft; Z79.01 Long term (current) use of anticoagulants; Z79.899 Other long term (current) drug therapy
CPT/HCPCS: 71260; 73060; 80047; 99284; Q9967

== ENCOUNTER 2020-12-02 11:21 | Emergency (ER) | payer MEDICARE, MEDICAID ==
[~2020-12-02 11:21] MED LIST changes: +DOK1CAP4 PO; -DOK1CAP7 PO
--- NOTE | 2020-12-02 11:54 | REP ---
INDICATION: headache. COMPARISON: Comparison head CT study June 02, 2020. TECHNIQUE: Helical scanning is acquired. 5 mm axial images were reformatted. Coronal MPR images were generated. FINDINGS: Bone window settings demonstrate an intact bony calvarium. There is no evidence of skull fracture or incidental bony calvarial lesion. The visualized paranasal sinuses appear clear. No intraorbital abnormality is seen. On soft tissue window setting images; the lateral, third, and fourth ventricles are normal in size and position. Blake-white differentiation pattern is normal above and below the tentorium. There are is no evidence of intracranial hemorrhage. No mass, edema, infarction, or midline shift is seen. No extra-axial fluid collection is appreciated. There is moderate generalized volume loss. Punctate physiologic calcification is again seen in the basal ganglia bilaterally. There is bilateral and extensive vascular calcification involving the distal internal carotid and distal vertebral arteries. Small-vessel atherosclerotic changes are again noted. IMPRESSION: Vascular calcification, generalized volume loss, an small-vessel micro ischemic changes again noted. No acute intracranial abnormality. <Electronically signed by Matias Dutton > 12/02/20 [id number]
--- NOTE | 2020-12-02 12:11 | REP ---
INDICATION: CHEST PAIN. COMPARISON: 09/09/2020. TECHNIQUE: Single portable AP view of the chest was performed. FINDINGS: There are stable bilateral calcified pleural plaques. I see no evidence of superimposed acute infiltrate. Cardiac silhouette is upper limits of normal. Mediastinal silhouette is unchanged. Multiple sternal wires and mediastinal clips are present. IMPRESSION: No acute pulmonary disease.Stable chronic findings as above. <Electronically signed by Berhane Blake > 12/02/20 [id number]
[2020-12-02 12:26] LABS: BASO # 0.1 10^3/uL (0.0-0.2); BASO % 0.5 % (0.0-1.0); EOS # 0.4 10^3/uL (0.0-0.5); EOS % 3.9 % (0.0-3.0); HEMATOCRIT 36.2 % (42.0-52.0); HEMOGLOBIN 11.6 g/dl (13.5-17.5); LYMPH # 3.6 10^3/uL (1.5-5.0); LYMPH % 38.1 % (24.0-44.0); MEAN CORPUSCULAR HEMOGLOBIN 28.8 pg (27.0-33.0); MEAN CORPUSCULAR VOLUME 89.8 fl (80.0-96.0); MONO # 0.8 10^3/uL (0.0-0.8); MONO % 8.6 % (2.0-8.0); NEUTROPHILS # 4.6 10^3/uL (1.5-8.5); NEUTROPHILS % 48.6 % (36.0-66.0); PLATELET COUNT, AUTOMATED 326 10^3/uL (150-450); RED BLOOD COUNT 4.03 10^6/uL (4.30-6.10); WHITE BLOOD COUNT 9.5 10^3/uL (4.0-10.0)
[2020-12-02] MEDS ORDERED: ACETAMINOPHEN 325 MG TAB PO ONE (13:45)
[2020-12-02 13:58] LABS: ALBUMIN 3.2 GM/DL (3.2-5.2); ALT/SGPT 17 U/L (12-78); BILIRUBIN,DIRECT < 0.1 MG/DL (0.0-0.2); BILIRUBIN,TOTAL 0.3 MG/DL (0.2-1.0); BLOOD UREA NITROGEN 17 MG/DL (7-18); CALCIUM LEVEL 8.9 MG/DL (8.8-10.2); CARBON DIOXIDE LEVEL 27 MEQ/L (21-32); CHLORIDE LEVEL 105 MEQ/L (98-107); CREATININE FOR GFR 1.67 MG/DL (0.70-1.30); GLOMERULAR FILTRATION RATE 41.8 (>35); GLUCOSE, FASTING 95 MG/DL (70-100); LIPASE 112 U/L (73-393); NT-PRO BNP 4193 PG/ML (<450); POTASSIUM SERUM 4.8 MEQ/L (3.5-5.1); SODIUM LEVEL 139 MEQ/L (136-145); TOTAL PROTEIN 7.2 GM/DL (6.4-8.2)
[2020-12-02 17:21] LABS: RSV AMPLIFICATION NEGATIVE (NEGATIVE)
[2020-12-02 17:28] VITALS: BP 187/78
[2020-12-02 17:42] LABS: CALCIUM LEVEL 9.4 MG/DL (8.8-10.2); CREATININE FOR GFR 1.6 MG/DL (0.70-1.30); POTASSIUM SERUM 4.6 MEQ/L (3.5-5.1)
--- NOTE | 2020-12-02 19:00 | ECGEPIP ---
[facility] - ED Test Date: 2020-12-02 Pat Name: PATRICIA BALLARD Department: Room: - Gender: Male [employer]: DAISY : 1935 Requested By: Esha Cazares Order Number: [id number] Reading MD: Amador Gifford Measurements Intervals [place] Rate: 67 P: PA: QRS: 20 QRSD: 78 T: 26 QT: 446 QTc: 471 Interpretive Statements Atrial fibrillation SIMILAR TO 06/02/20 Electronically Signed on 12-02-2020 18:59:57 EDT by Amador Gifford
== END 2020-12-02 17:29 | disposition home or self-care (01) ==
LOC: EDBD 11:21 → M ED 11:21
DX: R51.9 Headache, unspecified (principal); I48.91 Unspecified atrial fibrillation; I50.9 Heart failure, unspecified; G47.30 Sleep apnea, unspecified; J45.909 Unspecified asthma, uncomplicated; J44.9 Chronic obstructive pulmonary disease, unspecified; Z90.49 Acquired absence of other specified parts of digestive tract; Z79.01 Long term (current) use of anticoagulants; Z79.899 Other long term (current) drug therapy

== ENCOUNTER → 2020-12-22 | Outpatient (CLI) | payer MEDICARE, MEDICAID ==
--- NOTE | 2020-12-22 15:00 | REP ---
INDICATION: OTHER SPONDYLOSIS WITH RADICULOPATHY, LUMBAR REGION. COMPARISON: None. TECHNIQUE: Five views FINDINGS: There is bilateral marginal osteophytosis. There is mild to moderate posterior disc space narrowing at all levels. Vertebral body height and alignment is within normal limits. There is hypertrophic degenerative facet joint change seen bilaterally at every level particularly L4-5 and L5-S1. IMPRESSION: Chronic changes as described above. <Electronically signed by Nehemias Gonsalez > 12/22/20 [id number]
== END ==
LOC: M PLAIMG 14:22 → M PLALAB 14:22
PROVIDERS: ATTEND Physician Assistant Medical
DX: M47.26 Other spondylosis with radiculopathy, lumbar region (principal); M25.78 Osteophyte, vertebrae; M48.07 Spinal stenosis, lumbosacral region
CPT/HCPCS: 72110; G0463

== ENCOUNTER 2021-01-24 23:55 | Emergency (ER) | payer MEDICARE, MEDICAID ==
[~2021-01-24] VITALS: Ht 149.9 cm; Wt 55.9 kg
--- OUTSIDE RECORDS SUMMARY | 2021-01-25 00:01 | CCD | Continuity of Care Document ---
Author Author Yemi GALVIN PA Organization Unknown Address [address] [place] [address] Phone [phone] Care Team Providers Care Talent Assistant Name Role Phone Leroy Garcai MD AUTM [phone] Problems Description No Information Available Social History Type Date Description Comments Sex Unknown Tobacco Use Start: Unknown End: Unknown Patient is a former smoker Allergies, Adverse Reactions, Alerts Description No Known Drug Allergies Medications Active Medications SIG Qnty Indications Ordering Provide r Date Tramadol HCL 50mg Tablets 1 every 6 hours as needed pain 30tabs S43.004A D. Rosalino Castillo MD 021 Tylenol 325mg Tablets 2 tabs every 4 hours as needed pain or fever Unknown 00 Albuterol Sulfate HFA 108(90Base) mcg/Act Aerosol Unknown Immunizations Description No Information Available Vital Signs Date Vital Result Comment 09/16/2020 2:22pm Body Temperature 96.9 F Height 56 inches 4'8" Weight 124.00 lb BMI (Body Mass Index) 27.8 kg/m2 05/05/2020 11:38am Body Temperature 97.8 F Height 57 inches 4'9" Weight 131.12 lb BMI (Body Mass Index) 28.4 kg/m2 Results Description No Information Available Procedures Date Code Description Status 12/14/2020 78287 Office/Outpatient Established Lo w MDM 20-29 Min Completed 09/29/2020 04342 Office/Outpatient Established Lo w MDM 20-29 Min Completed 09/17/2020 66528 Therapeutic Procedure, Each 15 M inutes Completed 09/16/2020 77937 Office/Outpatient Established Mo d MDM 30-39 Min Completed 09/16/2020 93461 X-Ray Knee Complete W/Obliques & Tunnel And/Or Standing Views Completed 09/15/2020 24326 Therapeutic Procedure, Each 15 M inutes Completed 09/09/2020 22487 Therapeutic Procedure, Each 15 M inutes Completed 09/06/2020 91091 Therapeutic Procedure, Each 15 M inutes Completed 09/01/2020 23826 Therapeutic Procedure, Each 15 M inutes Completed 08/30/2020 97056 Therapeutic Procedure, Each 15 M inutes Completed 08/27/2020 72276 Therapeutic Procedure, Each 15 M inutes Completed 08/18/2020 05224 Therapeutic Procedure, Each 15 M inutes Completed 08/16/2020 78096 Therapeutic Procedure, Each 15 M inutes Completed 08/11/2020 27746 Therapeutic Procedure, Each 15 M inutes Completed 08/09/2020 93003 Physical Therapy Eval - Low Comp lexity Completed 08/02/2020 32501 Office/Outpatient Established Lo w MDM 20-29 Min Completed Medical Devices Description No Information Available Encounters Type Date Location Provider Dx Diagnosis Office Visit 12/14/2020 11:00a [place] KALLI Brooke S43.004D Unspecified dislocation of right shoulder joint, subs encntr Office Visit 09/29/2020 9:15a [place] KALLI Brooke S43.004D Unspecified dislocation of right shoulder joint, subs encntr Office Visit 09/16/2020 2:00p [place] KALLI Brooke M17.11 Unilateral primary osteoarthritis, right knee M11.261 Other chondrocalcinosis, rig ht knee Office Visit 08/02/2020 8:30a [place] KALLI Brooke S43.004D Unspecified dislocation of right shoulder joint, subs encntr M25.531 Pain in right wrist Assessments Date Code Description Provider 12/14/2020 S43.004D Unspecified dislocat ion of right shoulder joint, subsequent encounter KALLI Brooke 09/29/2020 S43.004D Unspecified dislocat ion of right shoulder joint, subsequent encounter KALLI Brooke 09/17/2020 S43.004D Unspecified dislocat ion of right shoulder joint, subsequent encounter Goldie Gaming, STAFFING COORDINATOR 09/16/2020 M17.11 Unilateral primary osteoarthriti s, right knee Mike Galvin, KALLI 09/16/2020 M11.261 Other chondrocalcinosis, right k nee Mike Galvin, KALLI 09/15/2020 S43.004D Unspecified dislocat ion of right shoulder joint, subsequent encounter [facility] 09/09/2020 S43.004D Unspecified dislocat ion of right shoulder joint, subsequent encounter Olvin Ortolanigor, STAFFING COORDINATOR 09/06/2020 S43.004D Unspecified dislocat ion of right shoulder joint, subsequent encounter Olvin Avilalanigor, STAFFING COORDINATOR 09/01/2020 S43.004D Unspecified dislocat ion of right shoulder joint, subsequent encounter Goldie Gaming, STAFFING COORDINATOR 08/30/2020 S43.004D Unspecified dislocat ion of right shoulder joint, subsequent encounter Olvin Hernandez, STAFFING COORDINATOR 08/27/2020 S43.004D Unspecified dislocat ion of right shoulder joint, subsequent encounter Goldie Gaming, STAFFING COORDINATOR 08/18/2020 S43.004D Unspecified dislocat ion of right shoulder joint, subsequent encounter [facility], [facility] 08/16/2020 S43.004D Unspecified dislocat ion of right shoulder joint, subsequent encounter Goldie Gaming, STAFFING COORDINATOR 08/11/2020 S43.004D Unspecified dislocat ion of right shoulder joint, subsequent encounter Goldie Gaming, STAFFING COORDINATOR 08/09/2020 S43.004D Unspecified dislocat ion of right shoulder joint, subsequent encounter [facility], [facility] 08/02/2020 M25.531 Pain in right wrist KALLI Massey 08/02/2020 S43.004D Unspecified dislocat ion of right shoulder joint, subsequent encounter KALLI Brooke 08/02/2020 M25.531 Pain in right wrist KALLI Massey Plan of Treatment 12/14/2020 - KALLI Brooke* S43.004D Unspecified dislocation of right shoulder joint, subsequent encounter* Follow up:* f/u 8 weeks for shoulder recheck with IID Functional Status Description No Information Available Mental Status Description No Information Available Referrals Refer to Reason for Referral Status Appt Date Mike Galvin I, Pac 09/21/20 Gel One Rt Knee,per ins no auth req based on medical necessity,passed to nellie to order sw. Created [address] [place] [address] [address] [place] [address] [phone]
--- OUTSIDE RECORDS SUMMARY | 2021-01-25 00:01 | CCD ---
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 Name Role Phone Jason Garcia Unavailable PROBLEMS Type Condition ICD9-CM Code [id number] Code Onset Dates Condition S tatus W/U Status Risk SNOMED Code Notes Problem Constipation K59.00 Active confirmed 0963610 8 Problem DJD (degenerative joint disease), cervical M50.30 Active confirmed 47139573 Problem Chronic obstructive pulmonary disease, unspecified J44.9 Active confirmed 13413169 Problem Diastolic CHF I50.30 Active confirmed 214979 008 Problem GERD (gastroesophageal reflux disease) K21.9 A ctive confirmed 688210045 Problem CAD (coronary artery disease) I25.10 Active confirm ed 97133703 Problem Hyperlipidemia E78.5 Active confirmed 93984 004 Problem Paroxysmal atrial fibrillation I48.0 Active confir med 468484728 Problem Vitamin D deficiency E55.9 Active confirmed 30935707 Problem B12 deficiency E53.8 Active confirmed 61803 4004 Problem CKD (chronic kidney disease) stage 3, GFR 30-59 ml/min N18.3 Active confirmed 232489206 Problem Impingement syndrome, shoulder, right M75.41 Ac tive confirmed 661130898 Problem Iron deficiency anemia, unspecified iron deficiency an emia type D50.9 Active confirmed 15182512 Problem Essential 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 I10 Active confirmed 23240853 Problem Asbestosis J61 Active confirmed 04136613 Problem Alcohol abuse F10.10 Active confirmed 150061 05 Problem First degree atrioventricular block I44.0 Acti ve confirmed 945468949 Problem Acquired hypothyroidism E03.9 Active confirmed 025417388 Problem Chronic systolic congestive heart failure I50.22 Active confirmed 806023189 Problem Balance problem R26.89 Active confirmed 3876 84035 Problem Obstructive sleep apnea (adult) (pediatric) G47.33 Active confirmed 89660229 Problem Colonic polyp K63.5 Active confirmed 208479 03 Problem Migraine without aura and without status migrain osus, not intractable G43.009 Active confirmed 719164824 Problem Benign prostatic hypertrophy with lower urinary tract symptoms (LUTS) N40.1 Active confirmed 984762703 Problem IFG (impaired fasting glucose) R73.01 Active confir med 860276379 Problem Anemia of chronic disease D63.8 Active confirmed 248747393 Problem Chronic diastolic (congestive) heart failure I50.3 2 Active confirmed 901208140 Problem Iron deficiency anemia, unspecified D50.9 Acti ve confirmed 45786551 Problem Difficulty in walking R26.2 Active confirmed 047468280 ALLERGIES No Known Allergies ENCOUNTERS from 1935 to 2020-12-07 Encounter Location Date Provider Diagnosis [address] [phone] [place] [address] 13 Nov, 2020 Jason Garcia Chronic obstructive pulmonar y disease, unspecified J44.9 ; Migraine without aura and without status migrainosus, not intractable G43.009 ; Diastolic CHF I50.30 ; Paroxysmal atrial fibrillation I48.0 ; Acquired hypothyroidism E03.9 ; DJD (degenerative joint disease), cervical M50.30 ; Alcohol abuse F10.10 ; Vitamin D deficiency E55.9 ; CKD (chronic kidney disease) stage 3, GFR 30-59 ml/min N18.3 ; Essential 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 I10 ; GERD (gastroesophageal reflux disease) K21.9 ; Colonic polyp K63.5 ; Impingement syndrome, shoulder, right M75.41 ; Asbestosis J61 ; B12 deficiency E53.8 ; Iron deficiency anemia, unspecified iron deficiency anemia type D50.9 ; IFG (impaired fasting glucose) R73.01 ; Constipation K59.00 ; CAD (coronary artery disease) I25.10 ; Hyperlipidemia E78.5 ; Benign prostatic hypertrophy with lower urinary tract symptoms (LUTS) N40.1 and First degree atrioventricular block I44.0 IMMUNIZATIONS Vaccine Route Administration Date Status Influenza (High Dose 65 & up) IM Intramuscular Jan 02, 2017 A dministered Influenza (High Dose 65 & up) IM Intramuscular Dec 20, 2015 A dministered Influenza (High Dose 65 & up) IM Intramuscular Feb 05, 2015 A dministered Pneumococcal 0.5mL Prevnar 13 IM Intramuscular May 15, 2016 A dministered Influenza 6mo & up Fluzone IM Intramuscular Jan 26, 2014 Admi nistered Influenza 6mo & up Fluzone IM Intramuscular Jan 03, 2013 Admi nistered Influenza 18 yrs & older Flublok IM Intramuscular Mar 01, 2018 Administered Influenza 6mo & up Fluzone IM Intramuscular Jan 15, 2012 Admi nistered Influenza 18 yrs & older Flublok IM Intramuscular Jan 16, 2019 Administered Influenza 6mo & up Fluzone IM Intramuscular Feb 02, 2011 Admi nistered Influenza 6mo & up Fluzone IM Intramuscular Jan 24, 2010 Admi nistered SOCIAL HISTORY Tobacco Use: Social History Observation Description Date Details (start date - stop date) Never Smoker Sex Assigned At : Social History Observation Description Sex Assigned At Unknown Education: Question Answer Notes Level of Education: Finished High School Language: Question Answer Notes Languages spoken: Turkish Hoahaoism: Question Answer Notes Hoahaoism 21 Mormonism Sexual Hx: Question Answer Notes Had sex [...] REASON FOR REFERRAL No Information VITAL SIGNS Weight 126.6 lbs Nov, Weight-kg 57.43 kg Nov, Height 59 in Nov, BMI 25.57 kg/m2 Nov, Heart Rate 82 /min Nov, Respiratory Rate 18 /min Nov, Temperature 98.9 degrees Fahrenheit Nov, Oximetry 96% Nov, Blood pressure systolic 112 mm Hg Nov, Blood pressure diastolic 62 mm Hg Nov, MEDICATIONS Medication SIG (Take, Route, Frequency, Duration) Notes Start Da te End Date Status Simvastatin 40 MG 1 tablet Orally before bedtime for 90 Active Torsemide 20 MG 2 tabs Orally Daily Active Hospital bed as directed Sep, Active Breo Ellipta 200-25 MCG/INH 1 puff Inhalation Once a day Active Diclofenac Sodium 3 % 1 application Externally Twice a day Active Albuterol Sulfate (2.5 MG/3ML) 0.083% 3 ml as needed I nhalation Q4-6 hours (disp # 3 boxes) for 30 days Oct, Active Polyethylene Glycol - 17 mg orally in 8 oz liquid daily for 30 Days Active Metoprolol Succinate ER 50 MG take 1 tablet by mouth every day Orally bid Active Ezetimibe 10 MG 1 tablet Orally Once a day for 90 day(s) Active Cyanocobalamin 500 MCG 1 tablet Orally Once a day for 90 day(s) Active Apixaban 5 MG 1 tab Orally bid for 90 day(s) Active Ventolin HFA 120 MCG/ACT 2 puffs as needed Inhalation every 4 hrs as needed for shortness of breath Active Simvastatin 40 MG 1 tablet Orally Once a day for 90 day(s) Active Levothyroxine Sodium 25 MCG 1 tablet in the morning on an empty stomach Orally Once a day Active Vitamin D (Cholecalciferol) 2000 UNIT 1 tablet Orally Once a day Active Acapella Vibratory PEP Device 3 ml 23G x 1 (0.6 mm x 2 5 mm) as directed green every 2 hours for 999 days Activ e Nitroglycerin 0.4 MG as directed Sublingual every 5 minutes x 3 prn chest pain for 30 Days Active tiZANidine HCl 2 MG 1 tablet as needed Orally ev uriel 8 hrs pnr cervical spasm for 30 day(s) Active Docusate Sodium 100 MG 1 cap Orally bid for 30 day(s) Active Albuterol Sulfate (5 MG/ML) 0.5% 0.5 ml Inhalation tid prn Active PROCEDURES No Information RESULTS No Results REASON FOR VISIT [facility] follow-up headache MEDICAL (GENERAL) HISTORY Type Description Date Medical [...] branch supplied by [facility] collateral Medical History 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 pylori treated Ju 2010 with Prevpac Medical History 1 AVB Medical History lumbar spondylosis Surgical History repair of incarcerated incisional hernia s-Sidra September 2009 Surgical History AD cateract repair-[facility] 07/2013 Surgical History Left cataract repair-[facility] 01/17/17 Hospitalization History as above Hospitalization History [facility]-admitted by bradley Trent NPO/NGT, CT c blockage at mid illeal loop 07/22/15-07/26/15 Goals Section No Information Health Concerns No Information MEDICAL EQUIPMENT No Information MENTAL STATUS No Information FUNCTIONAL STATUS No Information ASSESSMENTS Encounter Date Diagnosis Assessment Notes Treatment Notes Treatm ent Clinical Notes Nov, Chronic obstructive pulmonar y disease, unspecified (ICD-10 - J44.9) on BE 200, alb MDI/neb s O2 (09/02/20 c ambulation Kane SaO2 lowest 97% on RA) 09/02/20 + Acapella green and rx c levo RD 10D for mild exacerbation c 7D recheck 10/26/20 CT chest c: mild progression of B ILD 05/28/20 CTA chest -PE, stable diffuse B interstitial fibrosis/calcified pleural plaques Nov, Migraine without aura and wi thout status migrainosus, not intractable (ICD-10 - G43.009) No recurrence since 12/02/20, will c/b if recurs 12/02/20 SMCER for 3D severe frontal throbbing BIRCH s N/V nor focal neuro deficits/sx, improved in ED c APAP 975 po x 1; CT head s: NAD, stable CBCD, BMP, BNP Nov, Diastolic CHF (ICD-10 - I50.30) on torse 40 qAM 05/20/20 moderate concentric LVH, PASP 45 mmHg, mild AR//MR/mod TR/mod [id number] 12/04/20 17/1.6, 4.6, 4252 on torse 40 qAM 08/12/20 23/1.5, 4.8, 4638; ergo, SS torse 20 qAM to alt qAM (1 day 20, next day 40...) 05/21/20 BNP 71408 c acute decomp Nov, Paroxysmal atrial fibrillation (ICD-10 - I48.0) Patient remains asx met suc 50 BID for RC apix for AC Nov, Acquired hypothyroidism (ICD-10 - E03.9) 08/12/20 2.4, 1.0 on LT4 25 Nov, DJD (degenerative joint disease), cervical (ICD- 10 - M50.30) Stable pain using ~ HC 5 2x daily, tiz 2 TID prn 01/2015 Flexeril 10 TID prn (using mainly qhs) changed to tizanidine 2 TID by i Continue home PT as per PH prn given patient and are homebound Contigency: TENS, epidural injections Nov, Alcohol abuse (ICD-10 - F10.10) Encouraged to dc and strongly advised NOT to use EthOH c narcotic 05/2017 confesses that patient drinks 25 oz Natty Daddy (8%) QHS Nov, Vitamin D deficiency (ICD-10 - E55.9) 07/2018 50, 9.4, 45 on D3 2K Nov, CKD (chronic kidney disease) stage 3, GFR 30-59 ml/min (ICD-10 - N18.3) BUN/cr as per CHF hgb as per Fe Nov, Essential 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 (ICD-10 - I10) Good control on metoprolol as per CAD and fur as per CHF K/Mg as per CHF 01/02/17 NSR 67 c 1 AVB (IA 237 ms), diffuse RA similar to 01/24/2010 x increased IA interval (188 to 237) Nov, GERD (gastroesophageal reflux disease) (ICD-10 - K21.9) Stable off omep 40 BID 09/2017 increased omepr 40 qAM 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 QHS Nov, Colonic polyp (ICD-10 - K63.5) 09/2016 agrees to Cologuard; but then refused repeat due 05/2015 c Sidra-referred back-12/2015 Sidra scheduled colon, but patient refused Nov, Impingement syndrome, shoulder, right (ICD-10 - M75.41) R chronic frozen shoulder Contingency: injection 04/2016 defers formal PT, therefore, started Voltaren QID c home PT-gave HO Nov, Asbestosis (ICD-10 - J61) rx as per COPD Nov, B12 deficiency (ICD-10 - E53.8) 07/27/20 765 on 500 11/2015 RBC folate 1042 s sup Nov, Iron deficiency anemia, unsp ecified iron deficiency anemia type (ICD-10 - D50.9) 08/12/20 13.4, 89 s sup 12/2018 13.6, 90, CHr 34/1.5 02/2018 13.8, 87, r34/1.6 01/2017 hgb stable at 14.8, 89 s supplement 11/2015 SPEP s M spike Nov, IFG (impaired fasting glucose) (ICD-10 - R73.01) Continue ADA diet 09/2017 6.3 01/2017 6.8 04/2016 6.5 07/2015 A1C 5.9 Nov, Constipation (ICD-10 - K59.00) Good control on PG 17, doc 100 BID Nov, CAD (coronary artery disease) (ICD-10 - I25.10) Patient remains asymptomatic BB as per 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 Nov, Hyperlipidemia (ICD-10 - E78.5) 07/2018 91/44/125, 158, 1.1 09/2017 88/41/119 on simva 40/ezet 10 04/2016 85/47/84 12/2018 normal LFTs 12/2018 4.1, 1.0 02/2018 3.5, 1.0 09/2017 3.3, 1.0 09/2016 2.8, FT4 1.0 07/2015 2.5 03/2012 4.24 June 2008 TSH 2.8. 13 Nov, 2020 Benign prostatic hypertrophy with lower urinary tract symptoms (LUTS) (ICD-10 - N40.1) Stable symptoms on current regimen 12/2017 2.8 04/2016 2.2 07/2015 PSA 1.9 13 Nov, 2020 First degree atrioventricular block (ICD-10 - I4 4.0) Patient remains asymptomatic caution on high dose BB 2 CAD PLAN OF TREATMENT Medication Medication Name Sig Start Date Stop Date Cyanocobalamin 500 MCG 1 tablet Orally Once a day for 90 day(s) tiZANidine HCl 2 MG 1 tablet as needed Orally ev uriel 8 hrs pnr cervical spasm for 30 day(s) Ezetimibe 10 MG 1 tablet Orally Once a day for 90 day(s) Metoprolol Succinate ER 50 MG take 1 tablet by mouth every day O rally bid Apixaban 5 MG 1 tab Orally bid for 90 day(s) Ventolin HFA 120 MCG/ACT 2 puffs as needed Inhalation every 4 hrs as needed for shortness of breath Docusate Sodium 100 MG 1 cap Orally bid for 30 day(s) Simvastatin 40 MG 1 tablet Orally Once a day for 90 day(s) Breo Ellipta 200-25 MCG/INH 1 puff Inhalation Once a day Vitamin D (Cholecalciferol) 2000 UNIT 1 tablet Orally Once a day Acapella Vibratory PEP Device 3 ml 23G x 1 (0.6 mm x 2 5 mm) as directed green every 2 hours for 999 days Albuterol Sulfate (5 MG/ML) 0.5% 0.5 ml Inhalation tid prn Levothyroxine Sodium 25 MCG 1 tablet in the morning on an empty stomach Orally Once a day Polyethylene Glycol - 17 mg orally in 8 oz liquid daily for 30 D ays Torsemide 20 MG 2 tabs Orally Daily Treatment Notes Assessment Notes Clinical Notes Asbestosis rx as per COPD Chronic obstructive pulmonary disease, unspecified on BE 200, alb MDI/neb s O2 (09/02/20 c ambulation Kane SaO2 lowest 97% on RA)09/02/20 + Acapella green and rx c levo RD 10D for mild exacerbation c 7D recheck10/26/20 CT chest c: mild progression of B ILD05/28/20 CTA chest -PE, stable diffuse B interstitial fibrosis/calcified pleural plaques Impingement syndrome, shoulder, right R chronic frozen shoulderContingency: injection04/2016 defers formal PT, therefore, started Voltaren QID c home PT-gave HO Migraine without aura and without status migrainosus, not in tractable No recurrence since 12/02/20, will c/b if recurs12/02/20 SMCER for 3D severe frontal throbbing BIRCH s N/V nor focal neuro deficits/sx, improved in ED c APAP 975 po x 1; CT head s: NAD, stable CBCD, BMP, BNP Iron deficiency anemia, unspecified iron deficiency anemia t ype 08/12/20 13.4, 89 s sup12/2018 13.6, 90, CHr 34/1.512 13.8, 87, r34/1.611/2017 hgb stable at 14.8, 89 s supplement11/2015 SPEP s M spike Diastolic CHF on torse 40 qAM2/ moderate concentric LVH, PASP 45 mmHg, mild AR//MR/mod TR/mod [id number]/11/21 17/1.6, 4.6, 4252 on torse 40 qAM08/12/20 23/1.5, 4.8, 4638; ergo, SS torse 20 qAM to 20/40 alt qAM (1 day 20, next day 40...)05/21/20 BNP 51244 c acute decomp B12 deficiency 07/27/20 765 on 5009/2 016 RBC folate 1042 s sup Paroxysmal atrial fibrillation Patient r emains asxmet suc 50 BID for RCapix for AC Constipation Good control on PG 1 7, doc 100 BID Acquired hypothyroidism 08/12/20 2.4, 1.0 on LT4 25 IFG (impaired fasting glucose) Continue ADA diet09/2017 6.311/2017 6. 6. A1C 5.9 DJD (degenerative joint disease), cervical Stable pain using ~ HC 5 2x daily, tiz 2 TID prn103/2014 Flexeril 10 TID prn (using mainly qhs) changed to tizanidine 2 TID by iContinue home PT as per PH prn given patient and are homeboundContigency: TENS, epidural injections Hyperlipidemia 07/2018 91/44/125, 15 8, 1. 88/41/119 on simva 40/ezet normal LFTs12/2018 4.1, 1.012 3.5, 1.09/2017 3.3, 1.09/2016 2.8, FT4 1.07/2015 2. 4.1April 2008 TSH 2.8. Alcohol abuse Encouraged to dc and strongly advised NOT to use EthOH c narcotic05/2017 confesses that patient drinks 25 oz Natty Daddy (8%) QHS CAD (coronary artery disease) Patient re shira asymptomaticBB as per 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 Benign prostatic hypertrophy with lower urinary tract sympto ms (LUTS) Stable symptoms on current cwsnquw17/2018 2. 2. 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 QHS First degree atrioventricular block Carley ent remains asymptomaticcaution on high dose BB 2 CAD Vitamin D deficiency 07/2018 50, 9.4, 45 on D3 2K CKD (chronic kidney disease) stage 3, GFR 30-59 ml/min BUN/cr as per CHFhgb as per Fe Essential 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 Good control on m etoprolol as per CAD and fur as per CHFK/Mg as per CHF01/02/17 NSR 67 c 1 AVB (IA 237 ms), diffuse RA similar to 01/24/2010 x increased IA interval (188 to 237) Next Appt Details Reason: Provider Name:Jason Garcia, 2020-12-28 0 4:30:00 PM, [address] [facility], , [place], [address], Insurance Providers Payer Name Payer Address Payer Phone Insured Name Patient Relati onship to Insured Coverage Start Date Coverage End Date MEDICAID [id number] [address] [facility] [id number] PATRICIA BALLARD self MEDICARE Part A and B [address] [facility] [id number] [phone] PATRICIA BALLARD self
--- OUTSIDE RECORDS SUMMARY | 2021-01-25 00:01 | CCD ---
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 Name Role Phone Jason Garcia Unavailable PROBLEMS Type Condition ICD9-CM Code [id number] Code Onset Dates Condition S tatus W/U Status Risk SNOMED Code Notes Problem Constipation K59.00 Active confirmed 2286396 8 Problem DJD (degenerative joint disease), cervical M50.30 Active confirmed 36956769 Problem Chronic obstructive pulmonary disease, unspecified J44.9 Active confirmed 20708134 Problem Diastolic CHF I50.30 Active confirmed 203505 008 Problem GERD (gastroesophageal reflux disease) K21.9 A ctive confirmed 142229138 Problem CAD (coronary artery disease) I25.10 Active confirm ed 04701411 Problem Hyperlipidemia E78.5 Active confirmed 25959 004 Problem Paroxysmal atrial fibrillation I48.0 Active confir med 598923139 Problem Vitamin D deficiency E55.9 Active confirmed 83762887 Problem B12 deficiency E53.8 Active confirmed 44065 4004 Problem CKD (chronic kidney disease) stage 3, GFR 30-59 ml/min N18.3 Active confirmed 379217254 Problem Impingement syndrome, shoulder, right M75.41 Ac tive confirmed 001672803 Problem Iron deficiency anemia, unspecified iron deficiency an emia type D50.9 Active confirmed 02943718 Problem Essential 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 I10 Active confirmed 01010069 Problem Asbestosis J61 Active confirmed 32530064 Problem Alcohol abuse F10.10 Active confirmed 046419 05 Problem First degree atrioventricular block I44.0 Acti ve confirmed 230264978 Problem Acquired hypothyroidism E03.9 Active confirmed 708691202 Problem Chronic systolic congestive heart failure I50.22 Active confirmed 381178770 Problem Balance problem R26.89 Active confirmed 3876 98476 Problem Obstructive sleep apnea (adult) (pediatric) G47.33 Active confirmed 72701958 Problem Colonic polyp K63.5 Active confirmed 597798 03 Problem Migraine without aura and without status migrain osus, not intractable G43.009 Active confirmed 366947818 Problem Benign prostatic hypertrophy with lower urinary tract symptoms (LUTS) N40.1 Active confirmed 792119541 Problem IFG (impaired fasting glucose) R73.01 Active confir med 454891479 Problem Anemia of chronic disease D63.8 Active confirmed 771907127 Problem Chronic diastolic (congestive) heart failure I50.3 2 Active confirmed 084962977 Problem Iron deficiency anemia, unspecified D50.9 Acti ve confirmed 36258378 Problem Difficulty in walking R26.2 Active confirmed 828752667 ALLERGIES No Known Allergies ENCOUNTERS from 1935 to 2020-12-21 Encounter Location Date Provider Diagnosis [address] [phone] [place] [address] Nov, Jason Garcia IMMUNIZATIONS Vaccine Route Administration Date [...] School Language: Question Answer Notes Languages spoken: Khmer Mandaeism: Question Answer Notes Mandaeism 21 Yarsani Sexual Hx: Question Answer Notes Had sex [...] Information RESULTS No Results REASON FOR VISIT leg MEDICAL (GENERAL) HISTORY Type Description Date Medical [...] supplied by [facility] collateral 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 pylori treated Ju 2010 with Prevpac Medical History 1 AVB Medical History lumbar spondylosis Surgical History repair of incarcerated incisional hernia s-Sidra September 2009 Surgical History AD cateract repair-[facility] 07/2013 Surgical History Left cataract repair-[facility] 01/17/17 Hospitalization History as above Hospitalization History [facility]-admitted by bradley Trent c NPO/NGT, CT c blockage at mid illeal loop 07/22/15-07/26/15 Goals Section No Information Health Concerns No Information MEDICAL EQUIPMENT No Information MENTAL STATUS No Information FUNCTIONAL STATUS No Information ASSESSMENTS No Information PLAN OF TREATMENT Medication Medication Name Sig [...] Torsemide 20 MG 2 tabs Orally Daily Next Appt Details Provider Name:Hedy Brown, 12-22 01:45:00 PM, [address] [place] [address] , [place], [address], Provider Name:Jason Garcia, 2020-12-28 0 4:30:00 PM, [address] [place] [address] , [place], [address], Insurance Providers Payer Name Payer Address Payer Phone Insured Name Patient Relati onship to Insured Coverage Start Date Coverage End Date MEDICAID Revision3 [address] [facility] [id number] [phone] PATRICIA BALLARD MEDICARE Part A and B [address] [facility] [address] [phone] PATRICIA BALLARD self
--- OUTSIDE RECORDS SUMMARY | 2021-01-25 00:01 | CCD ---
Author Author [facility] Organization [facility] Address Unknown Phone Unavailable Care Team Providers Care Slide Maker Name Role Phone Jason Garcia Unavailable PROBLEMS Type Condition ICD9-CM Code [id number] Code Onset Dates Condition S tatus W/U Status Risk SNOMED Code Notes Problem Chronic obstructive pulmonary disease, unspecified J44.9 Active confirmed 57735682 Problem Constipation K59.00 Active confirmed 1977480 8 Problem GERD (gastroesophageal reflux disease) K21.9 A ctive confirmed 684942215 Problem DJD (degenerative joint disease), cervical M50.30 Active confirmed 97391568 Problem Hyperlipidemia E78.5 Active confirmed 03249 004 Problem Diastolic CHF I50.30 Active confirmed 464304 008 Problem Vitamin D deficiency E55.9 Active confirmed 13045189 Problem Alcohol abuse F10.10 Active confirmed 741349 05 Problem CKD (chronic kidney disease) stage 3, GFR 30-59 ml/min N18.3 Active confirmed 737261101 Problem IFG (impaired fasting glucose) R73.01 Active confir med 838157710 Problem Iron deficiency anemia, unspecified iron deficiency an emia type D50.9 Active confirmed 52941732 Problem B12 deficiency E53.8 Active confirmed 97357 4004 Problem Asbestosis J61 Active confirmed 63440650 Problem Impingement syndrome, shoulder, right M75.41 Ac tive confirmed 656381185 Problem First degree atrioventricular block I44.0 Acti ve confirmed 331855763 Problem Essential 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 I10 Active confirmed 34184275 Problem Paroxysmal atrial fibrillation I48.0 Active confir med 652105871 Problem Acquired hypothyroidism E03.9 Active confirmed 850782860 Problem Chronic systolic congestive heart failure I50.22 Active confirmed 898437507 Problem Difficulty in walking R26.2 Active confirmed 374915820 Problem Benign prostatic hypertrophy with lower urinary tract symptoms (LUTS) N40.1 Active confirmed 454746946 Problem Obstructive sleep apnea (adult) (pediatric) G47.33 Active confirmed 52886173 Problem CAD (coronary artery disease) I25.10 Active confirm ed 22109596 Problem Colonic polyp K63.5 Active confirmed 897113 03 Problem Balance problem R26.89 Active confirmed 3876 09493 Problem Anemia of chronic disease D63.8 Active confirmed 350752483 Problem Iron deficiency anemia, unspecified D50.9 Acti ve confirmed 70586220 Problem Chronic diastolic (congestive) heart failure I50.3 2 Active confirmed 041942109 ALLERGIES No Known Allergies ENCOUNTERS from 1934 to 2020-11-25 Encounter Location Date Provider Diagnosis [place] [id number] [facility] [phone] [place] [address] Nov, Jason Jose Constipation K59.00 IMMUNIZATIONS Vaccine Route Administration Date Status Influenza (High Dose 65 & up) IM Intramuscular Jan 02, 2017 A dministered Pneumococcal 0.5mL Prevnar 13 IM Intramuscular May 15, 2016 A dministered Influenza (High Dose 65 & up) IM Intramuscular Dec 20, 2015 A dministered Influenza (High Dose 65 & up) IM Intramuscular Feb 05, 2015 A dministered Influenza 6mo & up Fluzone [...] School Language: Question Answer Notes Languages spoken: Slovenian Temple: Question Answer Notes Temple 21 Christian Sexual Hx: Question Answer Notes Had sex [...] Notes Start Da te End Date Status Polyethylene Glycol - 17 mg orally in 8 oz liquid daily for 30 D ays Aug, Active Ezetimibe 10 MG 1 tablet Orally Once a day for 90 day(s) Active Cyanocobalamin 500 MCG 1 tablet Orally Once a day for 90 day(s) Aug, Active Torsemide 20 MG 2 tabs Orally Daily alternating with 20mg for 90 Active Hospital bed as directed Sep, Active Diclofenac Sodium 3 % 1 application Externally Twice a day Active Ventolin HFA 120 MCG/ACT 2 puffs as needed Inhalation every 4 hrs as needed for shortness of breath Active Apixaban 5 MG 1 tab Orally bid for 90 day(s) Active Breo Ellipta 200-25 MCG/INH 1 puff Inhalation Once a day Active Levothyroxine Sodium 25 MCG 1 tablet in the morning on an empty stomach Orally Once a day Active Nitroglycerin 0.4 MG as directed Sublingual every 5 minutes x 3 prn chest pain for 30 Days Active Acapella Vibratory PEP Device 3 ml 23G x 1 (0.6 mm x 2 5 mm) as directed green DX: J44.9 every 2 hours for 90 day(s) [employer] Aug, Active Metoprolol Succinate ER 50 MG take 1 tablet by mouth every day Orally bid Active Albuterol Sulfate (2.5 MG/3ML) 0.083% 3 ml as needed I nhalation Q4-6 hours (disp # 3 boxes) for 30 days Oct, Active tiZANidine HCl 2 MG 1 tablet as needed Orally ev uriel 8 hrs pnr cervical spasm for 30 day(s) Active Simvastatin 40 MG 1 tablet Orally before bedtime for 90 Active Vitamin D (Cholecalciferol) 2000 UNIT 1 tablet Orally Once a day Active traMADol HCl 50 MG 1 tablet as needed Orally Once a day Active Colace 100 MG 1 capsule as needed Orally bid for 30 Days Active PROCEDURES No Information RESULTS No Results REASON FOR VISIT stool softner MEDICAL (GENERAL) HISTORY Type Description Date Medical [...] supplied by [employer] collateral Medical History 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 pylori treated Ju ly 2010 with Prevpac Medical History 1 AVB Medical History lumbar spondylosis Surgical History repair of incarcerated incisional hernia s-S[facility]ra September 2009 Surgical History AD cateract repair-Jayleen 07/2013 Surgical History Left cataract repair-[facility] 01/17/17 Hospitalization History as above Hospitalization History [facility]-admitted by bradley Trent NPO/NGT, CT c blockage at mid illeal loop 07/22/15-07/26/15 Goals Section No Information Health Concerns No Information MEDICAL EQUIPMENT No Information MENTAL STATUS No Information FUNCTIONAL STATUS No Information ASSESSMENTS Encounter Date Diagnosis Assessment Notes Treatment Notes Treatm ent Clinical Notes Nov, Constipation (ICD-10 - K59.00) PLAN OF TREATMENT Medication Medication Name Sig Start Date Stop Date Albuterol Sulfate (2.5 MG/3ML) 0.083% 3 ml as needed I nhalation Q4-6 hours (disp # 3 boxes) for 30 days Oct, Diclofenac Sodium 3 % 1 application Externally Twice a day Colace 100 MG 1 capsule as needed Orally bid for 30 Days Next Appt Details Provider Name:Jason Berenice Jose, 2020-12-28 0 4:30:00 PM, [address] [facility], , [place], [address], Insurance Providers Payer Name Payer Address Payer Phone Insured Name Patient Relati onship to Insured Coverage Start Date Coverage End Date MEDICARE Part A and B [address] [facility] [phone] PATRICIA BALLARD MEDICAID [employer] [address] [facility] [id number] PATRICIA BALLARD self
--- OUTSIDE RECORDS SUMMARY | 2021-01-25 00:01 | CCD ---
Author Author [facility] Organization [facility] Address Unknown Phone Unavailable Care Team Providers Care Clean Up Worker Name Role Phone Hedy Brown Unavailable PROBLEMS Type Condition ICD9-CM Code [id number] Code Onset Dates Condition S tatus W/U Status Risk SNOMED Code Notes Problem Chronic obstructive pulmonary disease, unspecified J44.9 Active confirmed 16273786 Problem GERD (gastroesophageal reflux disease) K21.9 A ctive confirmed 502530336 Problem DJD (degenerative joint disease), cervical M50.30 Active confirmed 68417051 Problem Hyperlipidemia E78.5 Active confirmed 25187 004 Problem Diastolic CHF I50.30 Active confirmed 317364 008 Problem Benign prostatic hypertrophy with lower urinary tract symptoms (LUTS) N40.1 Active confirmed 544113336 Problem CAD (coronary artery disease) I25.10 Active confirm ed 19321993 Problem Acquired hypothyroidism E03.9 Active confirmed 104647057 Problem Paroxysmal atrial fibrillation I48.0 Active confir med 037720145 Problem Constipation K59.00 Active confirmed 2636725 8 Problem Iron deficiency anemia, unspecified iron deficiency an emia type D50.9 Active confirmed 31465931 Problem B12 deficiency E53.8 Active confirmed 71959 4004 Problem Asbestosis J61 Active confirmed 93743245 Problem Impingement syndrome, shoulder, right M75.41 Ac tive confirmed 872429863 Problem First degree atrioventricular block I44.0 Acti ve confirmed 867871461 Problem Essential 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 I10 Active confirmed 94466841 Problem Vitamin D deficiency E55.9 Active confirmed 34769781 Problem Alcohol abuse F10.10 Active confirmed 703243 05 Problem Chronic systolic congestive heart failure I50.22 Active confirmed 087969263 Problem Balance problem R26.89 Active confirmed 3876 39020 Problem Anemia of chronic disease D63.8 Active confirmed 483423600 Problem Migraine without aura and without status migrain osus, not intractable G43.009 Active confirmed 721422428 Problem IFG (impaired fasting glucose) R73.01 Active confir med 923259558 Problem Osteoarthritis of spine with radiculopathy, lumbar region M47.26 Active confirmed 051690422 Problem Colonic polyp K63.5 Active confirmed 644844 03 Problem CKD (chronic kidney disease) stage 3, GFR 30-59 ml/min N18.3 Active confirmed 233175299 Problem Chronic diastolic (congestive) heart failure I50.3 2 Active confirmed 846883335 Problem Iron deficiency anemia, unspecified D50.9 Acti ve confirmed 30749863 Problem Difficulty in walking R26.2 Active confirmed 821183346 Problem Obstructive sleep apnea (adult) (pediatric) G47.33 Active confirmed 75128556 ALLERGIES No Known Allergies ENCOUNTERS from 1934 to 2020-12-31 Encounter Location Date Provider Diagnosis [facility] [address] [facility] [phone] [place] [address] 29 Nov, 2020 Hedy Brown DJD (degenerative joint dise ase), cervical M50.30 ; Osteoarthritis of spine with radiculopathy, lumbar region M47.26 and B12 deficiency E53.8 IMMUNIZATIONS Vaccine Route Administration Date Status Influenza [...] School Language: Question Answer Notes Languages spoken: Paraguayan Evangelical: Question Answer Notes Evangelical 21 Islam Sexual Hx: Question Answer Notes Had sex [...] FOR REFERRAL No Information VITAL SIGNS Weight 130 lbs Nov, Height 59 in Nov, BMI 26.25 kg/m2 Nov, Heart Rate 82 /min Nov, Respiratory Rate 18 /min Nov, Temperature 98.0 degrees Fahrenheit Nov, Oximetry 96 Nov, Blood pressure systolic 110 mm Hg Nov, Blood pressure diastolic 70 mm Hg Nov, MEDICATIONS Medication SIG (Take, Route, Frequency, Duration) Notes Start Da te End Date Status Levothyroxine Sodium 25 MCG 1 tablet in the morning on an empty stomach Orally Once a day Active Folic Acid 1 MG 1 tablet Orally Once a day for 30 day(s) 2 Nov, Active Torsemide 20 MG 2 tabs Orally Daily Active Diclofenac Sodium 3 % 1 application Externally Twice a day Active predniSONE 20 MG 1 tablet Orally Once a day for 5 day(s) 2 Nov, Active Simvastatin 40 MG 1 tablet Orally Once a day for 90 day(s) Active Simvastatin 40 MG 1 tablet Orally before bedtime for 90 Active Ezetimibe 10 MG 1 tablet Orally Once a day for 90 day(s) Active Nitroglycerin 0.4 MG as directed Sublingual every 5 minutes x 3 prn chest pain for 30 Days Active Metoprolol Succinate ER 50 MG take 1 tablet by mouth every day Orally bid Active Apixaban 5 MG 1 tab Orally bid for 90 day(s) Active Albuterol Sulfate (5 MG/ML) 0.5% 0.5 ml Inhalation tid prn Active Gabapentin 100 MG 1 capsule Orally bid for 30 day(s) 2020 Active Hospital bed as directed Sep, Active Vitamin D (Cholecalciferol) 2000 UNIT 1 tablet Orally Once a day Active Ventolin HFA 120 MCG/ACT 2 puffs as needed Inhalation every 4 hrs as needed for shortness of breath Active tiZANidine HCl 2 MG 1 tablet as needed Orally ev uriel 8 hrs pnr cervical spasm for 30 day(s) Active Acapella Vibratory PEP Device 3 ml 23G x 1 (0.6 mm x 2 5 mm) as directed green every 2 hours for 999 days Activ e Albuterol Sulfate (2.5 MG/3ML) 0.083% 3 ml as needed I nhalation Q4-6 hours (disp # 3 boxes) for 30 days Oct, Active Breo Ellipta 200-25 MCG/INH 1 puff Inhalation Once a day Active Docusate Sodium 100 MG 1 cap Orally bid for 30 day(s) Active Cyanocobalamin 500 MCG 1 tablet Orally Once a day for 90 day(s) Active Polyethylene Glycol - 17 mg orally in 8 oz liquid daily for 30 Days Active PROCEDURES No Information RESULTS No Results REASON FOR VISIT bursning sensation rt hip MEDICAL (GENERAL) HISTORY Type Description Date Medical [...] supplied by [employer] collateral 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 pylori treated Ju yoly 2010 with Prevpac Medical History 1 AVB Medical History lumbar spondylosis Surgical History repair of incarcerated incisional hernia s-Sidra September 2009 Surgical History AD cateract repair-[facility] 07/2013 Surgical History Left cataract repair-[facility] 01/17/17 Hospitalization History as above Hospitalization History [facility]-admitted by bradley Trent c NPO/NGT, CT c blockage at mid illeal loop 07/22/15-07/26/15 Goals Section No Information Health Concerns No Information MEDICAL EQUIPMENT No Information MENTAL STATUS No Information FUNCTIONAL STATUS No Information ASSESSMENTS Encounter Date Diagnosis Assessment Notes Treatment Notes Treatm ent Clinical Notes Nov, DJD (degenerative joint disease), cervical (ICD- 10 - M50.30) Stable pain using ~ HC 5 2x daily, tiz 2 TID prn 01/2015 Flexeril 10 TID prn (using mainly qhs) changed to tizanidine 2 TID by i Continue home PT as per PH prn given patient and are homebound Contigency: TENS, epidural injections Nov, Osteoarthritis of spine with radiculopathy, lumbar region (ICD-10 - M47.26) xrays, add gabap Nov, B12 deficiency (ICD-10 - E53.8) 07/27/20 765 on 500 11/2015 RBC folate 1042 s sup Nov, Other 15" chart revie w, orders, h&p PLAN OF TREATMENT Medication Medication Name Sig Start Date Stop Date tiZANidine HCl 2 MG 1 tablet as needed Orally ev uriel 8 hrs pnr cervical spasm for 30 day(s) Cyanocobalamin 500 MCG 1 tablet Orally Once a day for 90 day(s) Gabapentin 100 MG 1 capsule Orally bid for 30 day(s) Nov, predniSONE 20 MG 1 tablet Orally Once a day for 5 day(s) Nov, Folic Acid 1 MG 1 tablet Orally Once a day for 30 day(s) Nov, Treatment Notes Assessment Notes Clinical Notes DJD (degenerative joint disease), cervical Stable pain using ~ HC 5 2x daily, tiz 2 TID prn103/2014 Flexeril 10 TID prn (using mainly qhs) changed to tizanidine 2 TID by iContinue home PT as per PH prn given patient and are homeboundContigency: TENS, epidural injections Osteoarthritis of spine with radiculopathy, lumbar region xrays, add gabap B12 deficiency 07/27/20 765 on 016 RBC folate 1042 s sup Treatment Notes Test Name Order Date [facility] SPINE LS COMPLETE 2020-12-22 Next Appt Details c RET Reason: Insurance Providers Payer Name Payer Address Payer Phone Insured Name Patient Relati onship to Insured Coverage Start Date Coverage End Date MEDICARE Part A and B [address] [facility] [address] [phone] PATRICIA BALLARD MEDICAID [employer] [address] [facility] [address] PATRICIA BALLARD
--- OUTSIDE RECORDS SUMMARY | 2021-01-25 00:01 | CCD | Continuity of Care Document ---
Author Author Yemi GALVIN PA Organization Unknown Address [address] [place] [address] Phone [phone] Care Team Providers Care Educational Paraprofessional Name Role Phone Leroy Garcia MD AUTM [phone] Problems Description No Information Available Social [...] Information Available Procedures Date Code Description Status 09/29/2020 61839 Office/Outpatient Established Lo w MDM 20-29 Min Completed 09/17/2020 56849 Therapeutic Procedure, Each 15 M inutes Completed 09/16/2020 64992 Office/Outpatient Established Mo d MDM 30-39 Min Completed 09/16/2020 87000 X-Ray Knee Complete W/Obliques & Tunnel And/Or Standing Views Completed 09/15/2020 38605 Therapeutic Procedure, Each 15 M inutes Completed 09/09/2020 16835 Therapeutic Procedure, Each 15 M inutes Completed 09/06/2020 18979 Therapeutic Procedure, Each 15 M inutes Completed 09/01/2020 99722 Therapeutic Procedure, Each 15 M inutes Completed 08/30/2020 51135 Therapeutic Procedure, Each 15 M inutes Completed 08/27/2020 13247 Therapeutic Procedure, Each 15 M inutes Completed 08/18/2020 44000 Therapeutic Procedure, Each 15 M inutes Completed 08/16/2020 24741 Therapeutic Procedure, Each 15 M inutes Completed 08/11/2020 49495 Therapeutic Procedure, Each 15 M inutes Completed 08/09/2020 69266 Physical Therapy Eval - Low Comp lexity Completed 08/02/2020 82782 Office/Outpatient Established Lo w MDM 20-29 Min Completed Medical Devices Description No Information Available Encounters Type Date Location Provider Dx Diagnosis Office Visit 09/29/2020 9:15a [place] KALLI Brooke S43.004D Unspecified dislocation of right shoulder joint, subs encntr Office Visit 09/16/2020 2:00p [place] KALLI Brooke M17.11 Unilateral primary osteoarthritis, right knee M11.261 Other chondrocalcinosis, rig ht knee Office Visit 08/02/2020 8:30a [place] S43.004D Unspecified dislocation of right shoulder joint, subs encntr M25.531 Pain in right wrist Assessments Date Code Description Provider 12/14/2020 S43.004D Unspecified dislocat ion of right shoulder joint, subsequent encounter KALLI Brooke 09/29/2020 S43.004D Unspecified dislocat ion of right shoulder joint, subsequent encounter KALLI Brooke 09/17/2020 S43.004D Unspecified dislocat ion of right shoulder joint, subsequent encounter Goldie Gaming, BINGO MANAGER 09/16/2020 M17.11 Unilateral primary osteoarthriti s, right knee KALLI Brooke 09/16/2020 M11.261 Other chondrocalcinosis, right k nee KALLI Brooke 09/15/2020 S43.004D Unspecified dislocat ion of right shoulder joint, subsequent encounter Carol Desouza, MSPT 09/09/2020 S43.004D Unspecified dislocat ion of right shoulder joint, subsequent encounter Olvin Hernandez, BINGO MANAGER 09/06/2020 S43.004D Unspecified dislocat ion of right shoulder joint, subsequent encounter Olvin Hernandez, BINGO MANAGER 09/01/2020 S43.004D Unspecified dislocat ion of right shoulder joint, subsequent encounter Goldie Gaming, BINGO MANAGER 08/30/2020 S43.004D Unspecified dislocat ion of right shoulder joint, subsequent encounter Olvin Hernandez, BINGO MANAGER 08/27/2020 S43.004D Unspecified dislocat ion of right shoulder joint, subsequent encounter Goldie Gaming, BINGO MANAGER 08/18/2020 S43.004D Unspecified dislocat ion of right shoulder joint, subsequent encounter Carol Desouza, MSPT 08/16/2020 S43.004D Unspecified dislocat ion of right shoulder joint, subsequent encounter Goldie Gaming, BINGO MANAGER 08/11/2020 S43.004D Unspecified dislocat ion of right shoulder joint, subsequent encounter Goldie Gaming, BINGO MANAGER 08/09/2020 S43.004D Unspecified dislocat ion of right [...] Description No Information Available Referrals Refer to Dr Reason for Referral Status Appt Date Mike Galvin Pac 09/21/20 Gel One Rt Knee,per ins no auth req based on medical necessity,passed to nellie to order sw. Created [facility] [facility] [address] [place] [address] [phone]
--- OUTSIDE RECORDS SUMMARY | 2021-01-25 00:02 | CCD ---
Author Author [facility] Organization [facility] Address Unknown Phone Unavailable Care Team Providers Care End Finder Forming Department Name Role Phone Tanvi Chavira Unavailable PROBLEMS Type Condition ICD9-CM Code [id number] Code Onset Dates Condition S tatus W/U Status Risk SNOMED Code Notes Problem Chronic obstructive pulmonary disease, unspecified J44.9 Active confirmed 93663145 Problem Constipation K59.00 Active confirmed 5229680 8 Problem GERD (gastroesophageal reflux disease) K21.9 A ctive confirmed 982092452 Problem DJD (degenerative joint disease), cervical M50.30 Active confirmed 02687585 Problem Hyperlipidemia E78.5 Active confirmed 69104 004 Problem Diastolic CHF I50.30 Active confirmed 207808 008 Problem Vitamin D deficiency E55.9 Active confirmed 80290604 Problem Alcohol abuse F10.10 Active confirmed 010287 05 Problem CKD (chronic kidney disease) stage 3, GFR 30-59 ml/min N18.3 Active confirmed 885308214 Problem IFG (impaired fasting glucose) R73.01 Active confir med 102293603 Problem Iron deficiency anemia, unspecified iron deficiency an emia type D50.9 Active confirmed 00111692 Problem B12 deficiency E53.8 Active confirmed 58844 4004 Problem Asbestosis J61 Active confirmed 30850700 Problem Impingement syndrome, shoulder, right M75.41 Ac tive confirmed 831708766 Problem First degree atrioventricular block I44.0 Acti ve confirmed 274755333 Problem Essential 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 I10 Active confirmed 56083378 Problem Paroxysmal atrial fibrillation I48.0 Active confir med 913644265 Problem Acquired hypothyroidism E03.9 Active confirmed 141214617 Problem Chronic systolic congestive heart failure I50.22 Active confirmed 031087439 Problem Difficulty in walking R26.2 Active confirmed 947174102 Problem Benign prostatic hypertrophy with lower urinary tract symptoms (LUTS) N40.1 Active confirmed 776795203 Problem Obstructive sleep apnea (adult) (pediatric) G47.33 Active confirmed 45758661 Problem CAD (coronary artery disease) I25.10 Active confirm ed 03731469 Problem Colonic polyp K63.5 Active confirmed 457754 03 Problem Balance problem R26.89 Active confirmed 3876 23828 Problem Anemia of chronic disease D63.8 Active confirmed 538375888 Problem Iron deficiency anemia, unspecified D50.9 Acti ve confirmed 87883357 Problem Chronic diastolic (congestive) heart failure I50.3 2 Active confirmed 865435647 ALLERGIES No Known Allergies ENCOUNTERS from 1935 to 2020-10-26 Encounter Location Date Provider Diagnosis [place] [address] [facility] [phone] [place] [address] Oct, Tanvi Chavira Chronic obstructive pulmonar y disease, unspecified J44.9 IMMUNIZATIONS Vaccine Route Administration Date Status Influenza [...] School Language: Question Answer Notes Languages spoken: Arabic Adventist: Question Answer Notes Adventist 21 Religious Sexual Hx: Question Answer Notes Had sex [...] Information RESULTS No Results REASON FOR VISIT albuterol sulfate 0.5% neb charo MEDICAL (GENERAL) HISTORY Type Description Date Medical [...] supplied by [employer] collateral Medical History 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, 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 CHF-moderate concentric LVH, PASP 44 [...] cateract repair-[facility] 07/2013 Surgical History Left cataract repair-[facility] 01/17/17 Hospitalization History as above Hospitalization History [facility]-admitted by bradley Trent olved c NPO/NGT, CT c blockage at mid illeal loop 07/22/15-07/26/15 Goals Section No Information Health Concerns No Information MEDICAL EQUIPMENT No Information MENTAL STATUS No Information FUNCTIONAL STATUS No Information ASSESSMENTS Encounter Date Diagnosis Assessment Notes Treatment Notes Treatm ent Clinical Notes Oct, Chronic obstructive pulmonar y disease, unspecified (ICD-10 - J44.9) PLAN OF TREATMENT Medication Medication Name Sig Start Date Stop Date Albuterol Sulfate (2.5 MG/3ML) 0.083% 3 ml as needed I nhalation Q4-6 hours (disp # 3 boxes) for 30 days Oct, Diclofenac Sodium 3 % 1 application Externally Twice a day Next Appt Details Provider Name:Jason Garcia, 2020-12-28 0 4:30:00 PM, [address] [facility], , [place], [address], Insurance Providers Payer Name Payer Address Payer Phone Insured Name Patient Relati onship to Insured Coverage Start Date Coverage End Date MEDICAID ePantry [address] [facility] [id number] PATRICIA BALLARD MEDICARE Part A and B [address] [facility] [address] [phone] PATRICIA BALLARD self
--- OUTSIDE RECORDS SUMMARY | 2021-01-25 00:02 | CCD ---
Author Author [facility] Organization [facility] Address Unknown Phone Unavailable Care Team Providers Care Engine Tester Name Role Phone Jason Garcia Unavailable PROBLEMS Type Condition ICD9-CM Code JCT42-DU Code Onset Dates Condition S tatus W/U Status Risk SNOMED Code Notes Problem Chronic obstructive pulmonary disease, unspecified J44.9 Active confirmed 12866623 Problem Constipation K59.00 Active confirmed 3888981 8 Problem GERD (gastroesophageal reflux disease) K21.9 A ctive confirmed 835215396 Problem DJD (degenerative joint disease), cervical M50.30 Active confirmed 94315203 Problem Hyperlipidemia E78.5 Active confirmed 74883 004 Problem Diastolic CHF I50.30 Active confirmed 516482 008 Problem Vitamin D deficiency E55.9 Active confirmed 66664355 Problem Alcohol abuse F10.10 Active confirmed 208601 05 Problem CKD (chronic kidney disease) stage 3, GFR 30-59 ml/min N18.3 Active confirmed 085556476 Problem IFG (impaired fasting glucose) R73.01 Active confir med 681343404 Problem Iron deficiency anemia, unspecified iron deficiency an emia type D50.9 Active confirmed 86190837 Problem B12 deficiency E53.8 Active confirmed 69887 4004 Problem Asbestosis J61 Active confirmed 90146460 Problem Impingement syndrome, shoulder, right M75.41 Ac tive confirmed 159943442 Problem First degree atrioventricular block I44.0 Acti ve confirmed 192672749 Problem Essential 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 I10 Active confirmed 65467255 Problem Paroxysmal atrial fibrillation I48.0 Active confir med 676812841 Problem Acquired hypothyroidism E03.9 Active confirmed 035439803 Problem Chronic systolic congestive heart failure I50.22 Active confirmed 739467278 Problem Difficulty in walking R26.2 Active confirmed 093175770 Problem Benign prostatic hypertrophy with lower urinary tract symptoms (LUTS) N40.1 Active confirmed 641015140 Problem Obstructive sleep apnea (adult) (pediatric) G47.33 Active confirmed 95031254 Problem CAD (coronary artery disease) I25.10 Active confirm ed 84661364 Problem Colonic polyp K63.5 Active confirmed 755658 03 Problem Balance problem R26.89 Active confirmed 3876 07626 Problem Anemia of chronic disease D63.8 Active confirmed 485830298 Problem Iron deficiency anemia, unspecified D50.9 Acti ve confirmed 21705307 Problem Chronic diastolic (congestive) heart failure I50.3 2 Active confirmed 183480626 ALLERGIES No Known Allergies ENCOUNTERS from 1935 to 2020-10-26 Encounter Location Date Provider Diagnosis [id number] [facility] [phone] [place] [address] Oct, Jason Garcia IMMUNIZATIONS Vaccine Route Administration Date [...] School Language: Question Answer Notes Languages spoken: South African Faith: Question Answer Notes Faith 21 Jain Sexual Hx: Question Answer Notes Had sex [...] Information RESULTS No Results REASON FOR VISIT fall/ bruise on back MEDICAL (GENERAL) HISTORY Type Description Date Medical [...] supplied by [facility] Medical History 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 pylori treated Ju ly 2010 with Prevpac Medical History 1 AVB Medical History lumbar spondylosis Surgical History repair of incarcerated incisional hernia s-Sidra September 2009 Surgical History AD cateract repair-Jayleen 07/2013 Surgical History Left cataract repair-[facility] 01/17/17 Hospitalization History as above Hospitalization [...] Name:Jason Garcia, 2020-12-28 0 4:30:00 PM, [address] [facility], , [place], [address], Insurance Providers Payer Name Payer Address Payer Phone Insured Name Patient Relati onship to Insured Coverage Start Date Coverage End Date MEDICARE Part A and B [address] [facility] [phone] PATRICIA BALLARD self MEDICAID [employer] [address] [facility] [address] PATRICIA BALLARD self
--- OUTSIDE RECORDS SUMMARY | 2021-01-25 00:02 | CCD ---
Author Author [facility] Organization [facility] Address Unknown Phone Unavailable Care Team Providers Care Field Research Associate Name Role Phone Tanvi Chavira Unavailable PROBLEMS Type Condition ICD9-CM Code UDO10-RK Code Onset Dates Condition S tatus W/U Status Risk SNOMED Code Notes Problem Chronic obstructive pulmonary disease, unspecified J44.9 Active confirmed 00694365 Problem Constipation K59.00 Active confirmed 9135429 8 Problem GERD (gastroesophageal reflux disease) K21.9 A ctive confirmed 845511851 Problem DJD (degenerative joint disease), cervical M50.30 Active confirmed 79016456 Problem Hyperlipidemia E78.5 Active confirmed 55763 004 Problem Diastolic CHF I50.30 Active confirmed 782444 008 Problem Vitamin D deficiency E55.9 Active confirmed 84516600 Problem Alcohol abuse F10.10 Active confirmed 502395 05 Problem CKD (chronic kidney disease) stage 3, GFR 30-59 ml/min N18.3 Active confirmed 558197212 Problem IFG (impaired fasting glucose) R73.01 Active confir med 048278763 Problem Iron deficiency anemia, unspecified iron deficiency an emia type D50.9 Active confirmed 33364927 Problem B12 deficiency E53.8 Active confirmed 73719 4004 Problem Asbestosis J61 Active confirmed 82821093 Problem Impingement syndrome, shoulder, right M75.41 Ac tive confirmed 163729168 Problem First degree atrioventricular block I44.0 Acti ve confirmed 066490515 Problem Essential 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 I10 Active confirmed 39504829 Problem Paroxysmal atrial fibrillation I48.0 Active confir med 447759262 Problem Acquired hypothyroidism E03.9 Active confirmed 217732103 Problem Chronic systolic congestive heart failure I50.22 Active confirmed 021534576 Problem Difficulty in walking R26.2 Active confirmed 693277020 Problem Benign prostatic hypertrophy with lower urinary tract symptoms (LUTS) N40.1 Active confirmed 055838785 Problem Obstructive sleep apnea (adult) (pediatric) G47.33 Active confirmed 88387132 Problem CAD (coronary artery disease) I25.10 Active confirm ed 17808061 Problem Colonic polyp K63.5 Active confirmed 209610 03 Problem Balance problem R26.89 Active confirmed 3876 19724 Problem Anemia of chronic disease D63.8 Active confirmed 404470172 Problem Iron deficiency anemia, unspecified D50.9 Acti ve confirmed 66056889 Problem Chronic diastolic (congestive) heart failure I50.3 2 Active confirmed 677882202 ALLERGIES No Known Allergies ENCOUNTERS from 1935 to 2020-10-25 Encounter Location Date Provider Diagnosis [facility] [address] [facility] [phone] [place] [address] Sep, Tanvi Chavira IMMUNIZATIONS Vaccine Route Administration Date Status Influenza [...] School Language: Question Answer Notes Languages spoken: [place]ican Latter Day: Question Answer Notes Latter Day 21 Jew Sexual Hx: Question Answer Notes Had sex [...] a day for 90 day(s) Aug, Active tiZANidine HCl 2 MG 1 tablet as needed Orally ev uriel 8 hrs pnr cervical spasm for 30 day(s) Active Hospital bed as directed Sep, Active [...] empty stomach Orally Once a day Active Acapella Vibratory PEP Device 3 ml 23G x 1 (0.6 mm x 2 5 mm) as directed green DX: J44.9 every 2 hours for 90 day(s) [facility] Aug, Active Torsemide 20 MG 2 tabs Orally Daily alternating with 20mg for 90 Active Metoprolol Succinate ER 50 MG take 1 tablet by mouth every day Orally bid Active Simvastatin 40 MG 1 tablet Orally before bedtime for 90 Active Albuterol Sulfate (5 MG/ML) 0.5% 0.5 ml Inhalation tid prn Active Nitroglycerin 0.4 MG as directed Sublingual every 5 minutes x 3 prn chest pain for 30 Days Active Vitamin D (Cholecalciferol) 2000 UNIT 1 tablet Orally Once a day Active traMADol HCl 50 MG 1 tablet as needed Orally Once a day Active Colace 100 MG 1 capsule as needed Orally bid for 30 Days Active PROCEDURES No Information RESULTS No Results REASON FOR VISIT hospital bed MEDICAL (GENERAL) HISTORY Type Description Date Medical [...] supplied by [facility] collateral Medical History 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, essential/padder tone diastolic CHF-moderate concentric LVH, PASP 44 [...] adenomatous polyp, diverticu losis, hemorrhoids by 05/2010 colonoscopy-[facility] Medical History cervical DJD, multilevel May CT with 4 mm C4-C5 subluxation and 3 mm on C5/C6 and C6/C7 Medical History history of positive H. pylori treated Ju 2010 with Prevpac Medical History 1 AVB Medical History lumbar spondylosis Surgical History repair of incarcerated incisional hernia s-Sidra September 2009 Surgical History AD cateract repair-Jayleen 07/2013 Surgical History Left cataract repair-[facility] 01/17/17 Hospitalization History as above Hospitalization History [facility]-admitted by bradley Trent NPO/NGT, CT c blockage at mid illeal loop 07/22/15-07/26/15 Goals Section No Information Health Concerns No Information MEDICAL EQUIPMENT No Information MENTAL STATUS No Information FUNCTIONAL STATUS No Information ASSESSMENTS No Information PLAN OF TREATMENT Medication Medication Name Sig Start Date Stop Date Albuterol Sulfate (5 MG/ML) 0.5% 0.5 ml Inhalation tid prn Diclofenac Sodium 3 % 1 application Externally Twice a day Next Appt Details Provider Name:Jason Garcia, 2020-12-28 0 4:30:00 PM, [address] [facility], , [place], [address], Insurance Providers Payer Name Payer Address Payer Phone Insured Name Patient Relati onship to Insured Coverage Start Date Coverage End Date MEDICAID [employer] [address] [facility] [address] PATRICIA BALLARD self MEDICARE Part A and B [address] [facility] [address] PATRICIA BALLARD self
--- OUTSIDE RECORDS SUMMARY | 2021-01-25 00:02 | CCD ---
Author Author [facility] Organization [facility] Address Unknown Phone Unavailable Care Team Providers Care Eligibility Clerk Name Role Phone Tanvi Chavira Unavailable PROBLEMS Type Condition ICD9-CM Code FRC82-GT Code Onset Dates Condition S tatus W/U Status Risk SNOMED Code Notes Problem Chronic obstructive pulmonary disease, unspecified J44.9 Active confirmed 82589016 Problem Constipation K59.00 Active confirmed 9753626 8 Problem GERD (gastroesophageal reflux disease) K21.9 A ctive confirmed 083992376 Problem DJD (degenerative joint disease), cervical M50.30 Active confirmed 14831878 Problem Hyperlipidemia E78.5 Active confirmed 69373 004 Problem Diastolic CHF I50.30 Active confirmed 376533 008 Problem Vitamin D deficiency E55.9 Active confirmed 97983841 Problem Alcohol abuse F10.10 Active confirmed 753317 05 Problem CKD (chronic kidney disease) stage 3, GFR 30-59 ml/min N18.3 Active confirmed 344595927 Problem IFG (impaired fasting glucose) R73.01 Active confir med 503035091 Problem Iron deficiency anemia, unspecified iron deficiency an emia type D50.9 Active confirmed 72452515 Problem B12 deficiency E53.8 Active confirmed 18657 4004 Problem Asbestosis J61 Active confirmed 53777191 Problem Impingement syndrome, shoulder, right M75.41 Ac tive confirmed 040805625 Problem First degree atrioventricular block I44.0 Acti ve confirmed 412758386 Problem Essential 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 I10 Active confirmed 75705197 Problem Paroxysmal atrial fibrillation I48.0 Active confir med 462838860 Problem Acquired hypothyroidism E03.9 Active confirmed 790960068 Problem Chronic systolic congestive heart failure I50.22 Active confirmed 457106664 Problem Difficulty in walking R26.2 Active confirmed 439179051 Problem Benign prostatic hypertrophy with lower urinary tract symptoms (LUTS) N40.1 Active confirmed 340629062 Problem Obstructive sleep apnea (adult) (pediatric) G47.33 Active confirmed 38567896 Problem CAD (coronary artery disease) I25.10 Active confirm ed 52979486 Problem Colonic polyp K63.5 Active confirmed 249642 03 Problem Balance problem R26.89 Active confirmed 3876 31148 Problem Anemia of chronic disease D63.8 Active confirmed 678312488 Problem Iron deficiency anemia, unspecified D50.9 Acti ve confirmed 93880519 Problem Chronic diastolic (congestive) heart failure I50.3 2 Active confirmed 378237439 ALLERGIES No Known Allergies ENCOUNTERS from 1935 to 2020-10-25 Encounter Location Date Provider Diagnosis [place] [address] [facility] [phone] [place] [address] Sep, Tanvi Chavira Chronic obstructive pulmonar y disease, unspecified J44.9 ; CAD (coronary artery disease) I25.10 ; Iron deficiency anemia, unspecified iron deficiency anemia type D50.9 ; Chronic systolic congestive heart failure I50.22 ; Pain of right lower leg M79.661 ; Fall, subsequent encounter W19.XXXD and Difficulty in walking R26.2 IMMUNIZATIONS Vaccine Route Administration Date Status Influenza [...] School Language: Question Answer Notes Languages spoken: Mohawk Yazidism: Question Answer Notes Yazidism 21 Taoist Sexual Hx: Question Answer Notes Had sex [...] FOR REFERRAL No Information VITAL SIGNS Weight 123 lbs Sep, Height 59 in Sep, BMI 24.84 kg/m2 Sep, Heart Rate 67 /min Sep, Respiratory Rate 18 /min Sep, Temperature 98.9 degrees Fahrenheit Sep, Oximetry 93% Sep, Blood pressure systolic 122 mm Hg Sep, Blood pressure diastolic 58 mm Hg Sep, MEDICATIONS Medication SIG (Take, Route, Frequency, Duration) [...] J44.9 every 2 hours for 90 day(s) ayde 10 Aug, 2020 Active Torsemide 20 MG 2 tabs Orally [...] 30 Days Active PROCEDURES No Information RESULTS Component Value Reference Range NT-PRO BNP Reviewed date:10/20/2020 17:09:40 Interpretation: Performing Lab:[facility] [address] [facility] [address] , ,[place] [address] NT-PRO BNP 4932 <450 MAGNESIUM LEVEL Reviewed date:10/20/2020 17:09:46 Interpretation: Performing Lab:[facility] [address] [facility] [address] , ,[place] [address] MAGNESIUM LEVEL 2.3 1.8-2.4 Comprehensive Metabolic Profile (CMP) Reviewed date:10/21/2020 15:52:58 Interpretation: Performing Lab:[facility] [address] [facility] [address] , ,[place] [address] GLUCOSE, FASTING 139 70-100 BLOOD UREA NITROGEN 16 7-18 CREATININE FOR GFR 1.51 0.70-1.30 GLOMERULAR FILTRATION RATE 47.0 >35 SODIUM LEVEL 139 136-145 POTASSIUM SERUM 4.1 3.5-5.1 CHLORIDE LEVEL 103 98-107 CARBON DIOXIDE LEVEL 32 21-32 CALCIUM LEVEL 9.2 8.8-10.2 AST/SGOT 19 7-37 ALT/SGPT 19 12-78 ALKALINE PHOSPHATASE 130 45-117 BILIRUBIN,TOTAL 0.5 0.2-1.0 TOTAL PROTEIN 7.5 6.4-8.2 ALBUMIN 3.4 3.2-5.2 ALBUMIN/GLOBULIN RATIO 0.8 CBC with Auto Differential Reviewed date:10/21/2020 15:51:42 Interpretation: Performing Lab:[facility] [id number] , ,[place] [address] WHITE BLOOD COUNT 10.4 4.0-10.0 RED BLOOD COUNT 4.64 4.30-6.10 HEMOGLOBIN 12.7 13.5-17.5 HEMATOCRIT 41.1 42.0-52.0 MEAN CORPUSCULAR VOLUME 88.6 80.0-96.0 MEAN CORPUSCULAR HEMOGLOBIN 27.4 27.0-33.0 MEAN CORPUSCULAR HGB CONC 30.9 32.0-36.5 RED CELL DISTRIBUTION WIDTH 13.7 11.5-14.5 PLATELET COUNT, AUTOMATED 354 150-450 NEUTROPHILS % 55.5 36.0-66.0 LYMPH % 31.5 24.0-44.0 MONO % 8.0 2.0-8.0 EOS % 3.7 0.0-3.0 BASO % 0.5 0.0-1.0 IMMATURE GRANULOCYTE % 0.8 0-3.0 NUCLEATED RED BLOOD CELL % 0.0 0-0 NEUTROPHILS # 5.8 1.5-8.5 LYMPH # 3.3 1.5-5.0 MONO # 0.8 0.0-0.8 EOS # 0.4 0.0-0.5 BASO # 0.1 0.0-0.2 REASON FOR VISIT 3-4 week f/u MEDICAL (GENERAL) HISTORY Type Description Date Medical History CAD status post CABG times 26 Jul 2004, August 2006 RCA SEA otherwise by catheterization other stents patent/January [address] Tmolin showing inferior lateral ischemia-February 04, 2010 cardiac c atheterization with Dr. Hagan showing no real change compared with 2006-he felt abnormal stress test related to an occluded distal marginal branch supplied by [facility] collateral Medical History 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, essential/bulb grader tone diastolic CHF-moderate concentric LVH, PASP 44 [...] s-Sidra September 2009 Surgical History AD cateract repair[facility] 07/2013 Surgical History Left cataract repair-[facility] 01/17/17 Hospitalization History as above Hospitalization History [facility]-admitted by bradley Trent NPO/NGT, CT c blockage at mid ille[place] loop 07/22/15-07/26/15 Goals Section No Information Health Concerns No Information MEDICAL EQUIPMENT No Information MENTAL STATUS No Information FUNCTIONAL STATUS No Information ASSESSMENTS Encounter Date Diagnosis Assessment Notes Treatment Notes Treatm ent Clinical Notes Sep, Chronic obstructive pulmonar y disease, unspecified (ICD-10 - J44.9) will repeat labs today. Will send rx to [facility] for a hospital bed; The patient requires a hospital bed in the home as he has a medical condition, COPD, that requires elevation of the head of the bed above 30 degrees. The patient requires postitioning of the body to help alleviate pain of his shoulders, neck and legs. Sep, CAD (coronary artery disease) (ICD-10 - I25.10) Sep, Iron deficiency anemia, unsp ecified iron deficiency anemia type (ICD-10 - D50.9) Sep, Chronic systolic congestive heart failure (ICD-1 0 - I50.22) Sep, Pain of right lower leg (ICD-10 - M79.661) Sep, Fall, subsequent encounter (ICD-10 - W19.XXXD) Sep, Difficulty in walking (ICD-10 - R26.2) Sep, Other Will obtain right tib/fib xray Recheck labs Will send rx to [facility] for hospital bed Pt and daughter agree with plan, Total time caring for the patient on the day of the encounter was 20 min PLAN OF TREATMENT Medication Medication Name Sig Start Date Stop Date Albuterol Sulfate (5 MG/ML) 0.5% 0.5 ml Inhalation tid prn Diclofenac Sodium 3 % 1 application Externally Twice a day Treatment Notes Assessment Notes Clinical Notes Chronic obstructive pulmonary disease, unspecified will repeat labs today.Will send rx to [facility] for a hospital bed;The patient requires a hospital bed in the home as he has a medical condition, COPD, that requires elevation of the head of the bed above 30 degrees.The patient requires postitioning of the body to help alleviate pain of his shoulders, neck and legs. Treatment Notes Test Name Order Date PLZ TIBIA/FIBULA AP,LAT 2020-10-20 Next Appt Details Provider Name:Jason Garcia, 2020-12-28 0 4:30:00 PM, [address] [facility], , [place], [address], Insurance Providers Payer Name Payer Address Payer Phone Insured Name Patient Relati onship to Insured Coverage Start Date Coverage End Date MEDICARE Part A and B [address] [facility] [id number] PATRICIA BALLARD [facility] [address] [facility] [address] PATRICIA BALLARD
--- OUTSIDE RECORDS SUMMARY | 2021-01-25 00:03 | CCD ---
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 Role Phone JABARI THEODORE MD Unavailable Unavailable JABARI THEODORE MD Unavailable Unavailable JABARI THEODORE MD Unavailable Unavailable JABARI THEODORE MD Unavailable Unavailable JABARI THEODORE MD Unavailable Unavailable JABARI THEODORE MD Unavailable Unavailable JABARI THEODORE MD Unavailable Unavailable JABARI THEODORE MD Unavailable Unavailable JABARI THEODORE MD Unavailable Unavailable JABARI THEODORE MD Unavailable Unavailable JABARI THEODORE MD Unavailable Unavailable JABARI THEODORE MD Unavailable Unavailable JABARI THEODORE MD Unavailable Unavailable JABARI THEODORE MD Unavailable Unavailable JABARI THEODORE MD Unavailable Unavailable JABARI THEODORE MD Unavailable Unavailable JABARI THEODORE MD Unavailable Unavailable JABARI THEODORE MD Unavailable Unavailable JABARI THEODORE MD Unavailable Unavailable JABARI THEODORE MD Unavailable Unavailable JABARI THEODORE MD Unavailable Unavailable JABARI THEODORE MD Unavailable Unavailable JABARI THEODORE MD Unavailable Unavailable JABARI THEODORE MD Unavailable Unavailable JABARI THEODORE MD Unavailable Unavailable JABARI THEODORE MD Unavailable Unavailable JABARI THEODORE MD Unavailable Unavailable JABARI THEODORE MD Unavailable Unavailable THEODOREJABARI BENSON MD Unavailable Unavailable THEODOREJABARI BENSON MD Unavailable Unavailable THEODOREJABARI BENSON MD Unavailable Unavailable THEODOREJABARI BENSON MD Unavailable Unavailable THEODOREJABARI BENSON MD Unavailable Unavailable THEODOREJABARI BENSON MD Unavailable Unavailable THEODOREJABARI BENSON MD Unavailable Unavailable THEODOREJABARI BENSON MD Unavailable Unavailable THEODOREJABARI BENSON MD Unavailable Unavailable THEODOREJABARI BENSON MD Unavailable Unavailable THEODOREJABARI BENSON MD Unavailable Unavailable THEODOREJABARI BENSON MD Unavailable Unavailable THEODOREJABARI BENSON MD Unavailable Unavailable THEODOREJABARI BENSON MD Unavailable Unavailable THEODOREJABARI BENSON MD Unavailable Unavailable THEODOREJABARI BENSON MD Unavailable Unavailable THEODOREJABARI BENSON MD Unavailable Unavailable THEODOREJABARI BENSON MD Unavailable Unavailable THEODOREJABARI BENSON MD Unavailable Unavailable THEODOREJABARI BENSON MD Unavailable Unavailable THEODOREJABARI BENSON MD Unavailable Unavailable THEODOREJABARI BENSON MD Unavailable Unavailable THEODOREJABARI BENSON MD Unavailable Unavailable THEODOREJABARI BENSON MD Unavailable Unavailable THEODOREJABARI BENSON MD Unavailable Unavailable THEODOREJABARI BENSON MD Unavailable Unavailable THEODOREJABARI BENSON MD Unavailable Unavailable THEODOREJABARI BENSON MD Unavailable Unavailable THEODOREJABARI BENSON MD Unavailable Unavailable JABARI THEODORE MD Unavailable Unavailable THEODOREJABARI BENSON MD Unavailable Unavailable JABARI THEODORE MD Unavailable Unavailable JABARI THEODORE MD Unavailable Unavailable THEODOREJABARI BENSON MD Unavailable Unavailable JABARI THEODORE MD Unavailable Unavailable JABARI THEODORE MD Unavailable Unavailable JABARI THEODORE MD Unavailable Unavailable JABARI THEODORE MD Unavailable Unavailable JABARI THEODORE MD Unavailable Unavailable JABARI THEODORE MD Unavailable Unavailable THEODOREJABARI BENSON MD Unavailable Unavailable THEODOREJABARI BENSON MD Unavailable Unavailable DRAZEK, I ELZBIETA PA Unavailable [...] is protected by Article 27-F of the [facility] Public Health law. If you continue you may have access to information: Regarding HIV / AIDS; Provided by facilities licensed or operated by the [facility] Office of Mental Health; or Provided by the [facility] Office for People With Developmental Disabilities. If such information is present, then the following [facility] mandated warning applies: This information has [...] law may result in a fine or usp sentence or both. A general authorization for the release of medical or other information is NOT sufficient authorization for further disc losure. Family History Family Member Name Family Member Gender Family Member Status Date o f Status Description Data Source(s) Unknown Male Problem MEDENT ([facility] () Unknown Female Problem MEDENT ([facility]) Encounters Encounter Providers Location Date Indications Data Source(s ) [place] [address] [address] 12/22/2020 12:00:00 AM EDT eCW1 ([facility]) [place] [address] [address] 12/21/2020 12:00:00 AM EDT eCW1 ([facility]) OFFICE OUTPATIENT VISIT 15 MINUTES Attender: ELZBIETA MAHAN Phys ical Therapy 12/14/2020 11:00:00 AM EDT MEDENT ([facility]) [place] [address] [address] 12/06/2020 12:00:00 AM EDT eCW1 ([facility]) [place] [address] [address] 11/24/2020 12:00:00 AM EDT eCW1 ([facility]) [place] [address] [address] 10/26/2020 12:00:00 AM EDT eCW1 ([facility]) [place] [address] [address] 10/26/2020 12:00:00 AM EDT eCW1 ([facility]) [place] [address] [address] 10/22/2020 12:00:00 AM EDT eCW1 ([facility]) Unknown [address] [facility] [place] [address] 10/21/2020 12:00:00 AM EDT eCW1 ([facility]) [place] [address] [address] 10/21/2020 12:00:00 AM EDT eCW1 ([facility]) Office Visit, Est Pt., Level 3 PC [address] [place] [address] 10/20/2020 12:00:00 AM EDT eCW1 ([facility]) [place] [address] [address] 10/08/2020 12:00:00 AM EDT eCW1 ([facility]) [place] [address] [address] 10/06/2020 12:00:00 AM EDT eCW1 ([facility]) [place] [address] [address] 10/05/2020 12:00:00 AM EDT eCW1 ([facility]) OFFICE OUTPATIENT VISIT 15 MINUTES Attender: ELZBIETA MAHAN Phys ical Therapy 09/29/2020 09:15:00 AM EDT MEDENT ([facility]) Unknown [address] [facility] [place] [address] 09/22/2020 12:00:00 AM EDT eCW1 ([facility]) [place] [address] [address] 09/20/2020 12:00:00 AM EDT eCW1 ([facility]) Outpatient [address] [facility] [place] [address] 09/20/2020 12:00:00 AM EDT eCW1 ([facility]) Outpatient Attender: ELZBIETA MAHAN Physical Therapy 09/16/2020 0 2:00:00 PM EDT MEDENT ([facility]) Unknown [address] [facility] [place] [address] 09/15/2020 12:00:00 AM EDT eCW1 ([facility]) Unknown [address] [facility] [place] [address] 09/15/2020 12:00:00 AM EDT eCW1 ([facility]) Unknown [address] [facility] [place] [address] 09/13/2020 12:00:00 AM EDT eCW1 ([facility]) Unknown [address] [facility] [place] [address] 09/13/2020 12:00:00 AM EDT eCW1 ([facility]) Unknown [address] [facility] [place] [address] 09/13/2020 12:00:00 AM EDT eCW1 ([facility]) Unknown [address] [facility] [place] [address] 09/10/2020 12:00:00 AM EDT eCW1 ([facility]) Office Visit, Est Pt., Level 3 PC [address] [place] [address] 09/09/2020 12:00:00 AM EDT eCW1 ([facility]) Outpatient [address] [facility] [address] 09/02/2020 12:00:00 AM EDT eCW1 ([facility]) Unknown [address] [facility] [place] [address] 08/20/2020 12:00:00 AM EDT eCW1 ([facility]) Unknown [address] [facility] [address] 08/16/2020 12:00:00 AM EDT eCW1 ([facility]) Office Visit, Est Pt., Level 4 PC [address] [place] [address] 08/12/2020 12:00:00 AM EDT eCW1 ([facility]) Unknown [address] [facility] [address] 08/11/2020 12:00:00 AM EDT eCW1 ([facility]) OFFICE OUTPATIENT VISIT 15 MINUTES Attender: ELZBIETA MAHAN Phys ical Therapy 08/02/2020 08:30:00 AM EDT MEDENT ([facility]) Unknown [address] [facility] [address] 07/30/2020 12:00:00 AM EDT eCW1 ([facility]) [place] [address] [address] 07/27/2020 12:00:00 AM EDT eCW1 ([facility]) Outpatient Attender: JABARI THEODORE MDConsultant: JABARI Mata MD 07/06/2020 07:03:00 AM EDT - 07/06/2020 07:13:00 AM EDT [facility] Unknown [address] [address] 06/29/2020 12:00:00 AM EDT eCW1 ([facility]) Outpatient Attender: JABARI THEODORE MDConsultant: JABARI Mata MD 06/10/2020 06:55:00 AM EDT - 06/10/2020 07:05:00 AM EDT [facility] [place] [address] [address] 06/09/2020 12:00:00 AM EDT eCW1 ([facility]) [place] [address] [address] 05/31/2020 12:00:00 AM EST eCW1 ([facility]) Outpatient Attender: ELZBIETA MAHAN Physical Therapy 05/05/2020 1 0:15:00 AM EST MEDENT ([facility]) [place] [address] [address] 04/29/2020 12:00:00 AM EST eCW1 ([facility]) [place] [address] [address] 03/16/2020 12:00:00 AM EST eCW1 ([facility]) Immunizations Vaccine Date Status Description Data Source(s) COVID-19 VACCINE Moderna 07/14/2020 12:00:00 AM EDT completed [employer] Vaccine Series Complete: YESThis Data wa s Submitted to [facility] Via [employer]. COVID-19 VACCINE Moderna 06/14/2020 12:00:00 AM EDT completed [employer] Vaccine Series Complete: NOThis Data was Submitted to [facility] Via Boxed. Medications Medication Brand Name Start Date Product Form Dose Route Admi nistrative Instructions Pharmacy Instructions Status Indications Reaction Description Data Source(s) gabapentin 100 MG Oral Capsule Gabapentin 100 MG Gabapentin 100 MG 12/22/2020 12:00:00 AM EDT 1.0 {capsule} active G abapentin 100 MG eCW1 ([facility]) Prednisone 20 MG Oral Tablet predniSONE 20 MG predniSONE 20 MG 12/22/2020 12:00:00 AM EDT 1.0 {tablet} active pr edniSONE 20 MG eCW1 ([facility]) Folic Acid 1 MG Oral Tablet Folic Acid 1 MG 12/22/2020 12:00:00 AM EDT 1.0 {tablet} active Folic Acid 1 MG eCW1 ([facility]) Albuterol 0.83 MG/ML Inhalant Solution Albuterol Sulfa te (2.5 MG/3ML) 0.083% Albuterol Sulfate (2.5 MG/3ML) 0.083% 10/26/2020 12:00:00 AM EDT 3.0 {ml_as_needed} active Albuterol Sulfate (2.5 MG/3ML) 0.083% eCW1 ([facility]) Albuterol 0.83 MG/ML Inhalant Solution Albuterol Sulfa te (2.5 MG/3ML) 0.083% Albuterol Sulfate (2.5 MG/3ML) 0.083% 10/26/2020 12:00:00 AM EDT 3.0 {ml_as_needed} active Albuterol Sulfate (2.5 MG/3ML) 0.083% eCW1 ([facility]) Albuterol 0.83 MG/ML Inhalant Solution Albuterol Sulfa te (2.5 MG/3ML) 0.083% Albuterol Sulfate (2.5 MG/3ML) 0.083% 10/26/2020 12:00:00 AM EDT 3.0 {ml_as_needed} active Albuterol Sulfate (2.5 MG/3ML) 0.083% eCW1 ([facility]) Albuterol 0.83 MG/ML Inhalant Solution Albuterol Sulfa te (2.5 MG/3ML) 0.083% Albuterol Sulfate (2.5 MG/3ML) 0.083% 10/26/2020 12:00:00 AM EDT 3.0 {ml_as_needed} active Albuterol Sulfate (2.5 MG/3ML) 0.083% eCW1 ([facility]) Albuterol 0.83 MG/ML Inhalant Solution Albuterol Sulfa te (2.5 MG/3ML) 0.083% Albuterol Sulfate (2.5 MG/3ML) 0.083% 10/26/2020 12:00:00 AM EDT 3.0 {ml_as_needed} active Albuterol Sulfate (2.5 MG/3ML) 0.083% eCW ([facility]) Albuterol 0.83 MG/ML Inhalant Solution Albuterol Sulfa te (2.5 MG/3ML) 0.083% Albuterol Sulfate (2.5 MG/3ML) 0.083% 10/26/2020 12:00:00 AM EDT 3.0 {ml_as_needed} active Albuterol Sulfate (2.5 MG/3ML) 0.083% [facility] ([facility]) Hospital bed [facility] 10/13/2020 12:00:00 AM EDT activ e Hospital bed [facility] ([facility]) Hospital bed [facility] 10/13/2020 12:00:00 AM EDT activ e Hospital bed [facility] ([facility]) Hospital bed [facility] 10/13/2020 12:00:00 AM EDT activ e Hospital bed [facility] ([facility]) Hospital bed [facility] 10/13/2020 12:00:00 AM EDT activ e Hospital bed [facility] ([facility]) Hospital bed [facility] 10/13/2020 12:00:00 AM EDT activ e Hospital bed [facility] ([facility]) Hospital bed UN 10/13/2020 12:00:00 AM EDT activ e Hospital bed [facility] ([facility]) Hospital bed UNK 10/13/2020 12:00:00 AM EDT activ e Hospital bed eCW1 ([facility]) Hospital bed UNK 10/13/2020 12:00:00 AM EDT activ e Hospital bed eCW1 ([facility]) Hospital bed UNK 10/13/2020 12:00:00 AM EDT activ e Hospital bed eCW1 ([facility]) Hospital bed UNK 10/13/2020 12:00:00 AM EDT activ e Hospital bed eCW1 ([facility]) Hospital bed UNK 10/13/2020 12:00:00 AM EDT activ e Hospital bed eCW1 ([facility]) Hospital bed UNK 10/13/2020 12:00:00 AM EDT activ e Hospital bed eCW1 ([facility]) Cyanocobalamin 500 MCG K 09/02/2020 12:00:00 AM EDT 1.0 {t ablet} active Cyanocobalamin 500 MCG eCW1 ([facility]) Levofloxacin 250 MG Oral Tablet levoFLOXacin 250 MG levoFLOX acin 250 MG 09/02/2020 12:00:00 AM EDT 2.0 {tablets} active levoFLOXacin 250 MG eCW1 ([facility]) Docusate Sodium 100 MG Oral Capsule Docusate Sodium 100 MG 0 09/02/2020 12:00:00 AM EDT active Docusate Sodium 1 00 MG eCW1 ([facility]) Cyanocobalamin 500 MCG UNK 09/02/2020 12:00:00 AM EDT 1.0 {t ablet} active Cyanocobalamin 500 MCG eCW1 ([facility]) Polyethylene Glycol - Polyethylene Glycol - 09/02/2020 12:00:00 AM EDT active Polyethylene Glycol - eCW1 ( [facility]) Polyethylene Glycol - Polyethylene Glycol - 09/02/2020 12:00:00 AM EDT active Polyethylene Glycol - eCW1 ( [facility]) Acapella Vibratory PEP Device 3 ml 23G x 1 (0.6 mm x 25 mm) K 09/02/2020 12:00:00 AM EDT active Acapella Vibratory PEP Device 3 ml 23G x 1 (0.6 mm x 25 mm) eCW1 ([facility]) Acapella Vibratory PEP Device 3 ml 23G x 1 (0.6 mm x 25 mm) UNK 09/02/2020 12:00:00 AM EDT active Acapella Vibratory PEP Device 3 ml 23G x 1 (0.6 mm x 25 mm) eCW1 ([facility]) Cyanocobalamin 500 MCG UNK 09/02/2020 12:00:00 AM EDT 1.0 {t ablet} active Cyanocobalamin 500 MCG eCW1 ([facility]) Cyanocobalamin 500 MCG UNK 09/02/2020 12:00:00 AM EDT 1.0 {t ablet} active Cyanocobalamin 500 MCG eCW1 ([facility]) Docusate Sodium 100 MG Oral Capsule Docusate Sodium 100 MG 0 09/02/2020 12:00:00 AM EDT active Docusate Sodium 1 00 MG eCW1 ([facility]) Polyethylene Glycol - Polyethylene Glycol - 09/02/2020 12:00:00 AM EDT active Polyethylene Glycol - eCW1 ( [facility]) Acapella Vibratory PEP Device 3 ml 23G x 1 (0.6 mm x 25 mm) UNK 09/02/2020 12:00:00 AM EDT active Acapella Vibratory PEP Device 3 ml 23G x 1 (0.6 mm x 25 mm) eCW1 ([facility]) Cyanocobalamin 500 MCG UNK 09/02/2020 12:00:00 AM EDT 1.0 {t ablet} active Cyanocobalamin 500 MCG eCW1 ([facility]) Acapella Vibratory PEP Device 3 ml 23G x 1 (0.6 mm x 25 mm) UNK 09/02/2020 12:00:00 AM EDT active Acapella Vibratory PEP Device 3 ml 23G x 1 (0.6 mm x 25 mm) eCW1 ([facility]) Polyethylene Glycol - Polyethylene Glycol - 09/02/2020 12:00:00 AM EDT active Polyethylene Glycol - eCW1 ( [facility]) Polyethylene Glycol - Polyethylene Glycol - 09/02/2020 12:00:00 AM EDT active Polyethylene Glycol - eCW1 ( [facility]) Polyethylene Glycol - Polyethylene Glycol - 09/02/2020 12:00:00 AM EDT active Polyethylene Glycol - eCW1 ( [facility]) Docusate Sodium 100 MG Oral Capsule Docusate Sodium 100 MG 0 09/02/2020 12:00:00 AM EDT active Docusate Sodium 1 00 MG eCW1 ([facility]) Acapella Vibratory PEP Device 3 ml 23G x 1 (0.6 mm x 25 mm) UNK 09/02/2020 12:00:00 AM EDT active Acapella Vibratory PEP Device 3 ml 23G x 1 (0.6 mm x 25 mm) eCW1 ([facility]) Polyethylene Glycol - Polyethylene Glycol - 09/02/2020 12:00:00 AM EDT active Polyethylene Glycol - eCW1 ( [facility]) Polyethylene Glycol - Polyethylene Glycol - 09/02/2020 12:00:00 AM EDT active Polyethylene Glycol - eCW1 ( [facility]) Polyethylene Glycol - Polyethylene Glycol - 09/02/2020 12:00:00 AM EDT active Polyethylene Glycol - eCW1 ( [facility]) Docusate Sodium 100 MG Oral Capsule Docusate Sodium 100 MG 0 09/02/2020 12:00:00 AM EDT active Docusate Sodium 1 00 MG eCW1 ([facility]) Acapella Vibratory PEP Device 3 ml 23G x 1 (0.6 mm x 25 mm) UNK 09/02/2020 12:00:00 AM EDT active Acapella Vibratory PEP Device 3 ml 23G x 1 (0.6 mm x 25 mm) eCW1 ([facility]) Cyanocobalamin 500 MCG UNK 09/02/2020 12:00:00 AM EDT 1.0 {t ablet} active Cyanocobalamin 500 MCG eCW1 ([facility]) Polyethylene Glycol - Polyethylene Glycol - 09/02/2020 12:00:00 AM EDT active Polyethylene Glycol - eCW1 ( [facility]) Docusate Sodium 100 MG Oral Capsule Docusate Sodium 100 MG 0 09/02/2020 12:00:00 AM EDT active Docusate Sodium 1 00 MG eCW1 ([facility]) Cyanocobalamin 500 MCG UNK 09/02/2020 12:00:00 AM EDT 1.0 {t ablet} active Cyanocobalamin 500 MCG eCW1 ([facility]) Acapella Vibratory PEP Device 3 ml 23G x 1 (0.6 mm x 25 mm) UNK 09/02/2020 12:00:00 AM EDT active Acapella Vibratory PEP Device 3 ml 23G x 1 (0.6 mm x 25 mm) eCW1 ([facility]) Docusate Sodium 100 MG Oral Capsule Docusate Sodium 100 MG 0 09/02/2020 12:00:00 AM EDT active Docusate Sodium 1 00 MG eCW1 ([facility]) Levofloxacin 250 MG Oral Tablet levoFLOXacin 250 MG levoFLOX acin 250 MG 09/02/2020 12:00:00 AM EDT 2.0 {tablets} active levoFLOXacin 250 MG eCW1 ([facility]) Cyanocobalamin 500 MCG UNK 09/02/2020 12:00:00 AM EDT 1.0 {t ablet} active Cyanocobalamin 500 MCG eCW1 ([facility]) Docusate Sodium 100 MG Oral Capsule Docusate Sodium 100 MG 0 09/02/2020 12:00:00 AM EDT active Docusate Sodium 1 00 MG eCW1 ([facility]) Docusate Sodium 100 MG Oral Capsule Docusate Sodium 100 MG 0 09/02/2020 12:00:00 AM EDT active Docusate Sodium 1 00 MG eCW1 ([facility]) Polyethylene Glycol - Polyethylene Glycol - 09/02/2020 12:00:00 AM EDT active Polyethylene Glycol - eCW1 ( [facility]) Polyethylene Glycol - Polyethylene Glycol - 09/02/2020 12:00:00 AM EDT active Polyethylene Glycol - eCW1 ( [facility]) Acapella Vibratory PEP Device 3 ml 23G x 1 (0.6 mm x 25 mm) UNK 09/02/2020 12:00:00 AM EDT active Acapella Vibratory PEP Device 3 ml 23G x 1 (0.6 mm x 25 mm) eCW1 ([facility]) Acapella Vibratory PEP Device 3 ml 23G x 1 (0.6 mm x 25 mm) UNK 09/02/2020 12:00:00 AM EDT active Acapella Vibratory PEP Device 3 ml 23G x 1 (0.6 mm x 25 mm) eCW1 ([facility]) Polyethylene Glycol - Polyethylene Glycol - 09/02/2020 12:00:00 AM EDT active Polyethylene Glycol - eCW1 ( [facility]) Acapella Vibratory PEP Device 3 ml 23G x 1 (0.6 mm x 25 mm) UNK 09/02/2020 12:00:00 AM EDT active Acapella Vibratory PEP Device 3 ml 23G x 1 (0.6 mm x 25 mm) eCW1 ([facility]) Acapella Vibratory PEP Device 3 ml 23G x 1 (0.6 mm x 25 mm) UNK 09/02/2020 12:00:00 AM EDT active Acapella Vibratory PEP Device 3 ml 23G x 1 (0.6 mm x 25 mm) eCW1 ([facility]) Levofloxacin 250 MG Oral Tablet levoFLOXacin 250 MG levoFLOX acin 250 MG 09/02/2020 12:00:00 AM EDT 2.0 {tablets} active levoFLOXacin 250 MG eCW1 ([facility]) Cyanocobalamin 500 MCG UNK 09/02/2020 12:00:00 AM EDT 1.0 {t ablet} active Cyanocobalamin 500 MCG eCW1 ([facility]) Docusate Sodium 100 MG Oral Capsule Docusate Sodium 100 MG 0 09/02/2020 12:00:00 AM EDT active Docusate Sodium 1 00 MG eCW1 ([facility]) Polyethylene Glycol - Polyethylene Glycol - 09/02/2020 12:00:00 AM EDT active Polyethylene Glycol - eCW1 ( [facility]) Polyethylene Glycol - Polyethylene Glycol - 09/02/2020 12:00:00 AM EDT active Polyethylene Glycol - eCW1 ( [facility]) Acapella Vibratory PEP Device 3 ml 23G x 1 (0.6 mm x 25 mm) UNK 09/02/2020 12:00:00 AM EDT active Acapella Vibratory PEP Device 3 ml 23G x 1 (0.6 mm x 25 mm) eCW1 ([facility]) Cyanocobalamin 500 MCG UNK 09/02/2020 12:00:00 AM EDT 1.0 {t ablet} active Cyanocobalamin 500 MCG eCW1 ([facility]) Acapella Vibratory PEP Device 3 ml 23G x 1 (0.6 mm x 25 mm) UNK 09/02/2020 12:00:00 AM EDT active Acapella Vibratory PEP Device 3 ml 23G x 1 (0.6 mm x 25 mm) eCW1 ([facility]) Docusate Sodium 100 MG Oral Capsule Docusate Sodium 100 MG 0 09/02/2020 12:00:00 AM EDT active Docusate Sodium 1 00 MG eCW1 ([facility]) Cyanocobalamin 500 MCG UNK 09/02/2020 12:00:00 AM EDT 1.0 {t ablet} active Cyanocobalamin 500 MCG eCW1 ([facility]) Acapella Vibratory PEP Device 3 ml 23G x 1 (0.6 mm x 25 mm) UNK 09/02/2020 12:00:00 AM EDT active Acapella Vibratory PEP Device 3 ml 23G x 1 (0.6 mm x 25 mm) eCW1 ([facility]) Acapella Vibratory PEP Device 3 ml 23G x 1 (0.6 mm x 25 mm) UNK 09/02/2020 12:00:00 AM EDT active Acapella Vibratory PEP Device 3 ml 23G x 1 (0.6 mm x 25 mm) eCW1 ([facility]) Cyanocobalamin 500 MCG UNK 09/02/2020 12:00:00 AM EDT 1.0 {t ablet} active Cyanocobalamin 500 MCG eCW1 ([facility]) Cyanocobalamin 500 MCG UNK 09/02/2020 12:00:00 AM EDT 1.0 {t ablet} active Cyanocobalamin 500 MCG eCW1 ([facility]) Polyethylene Glycol - Polyethylene Glycol - 09/02/2020 12:00:00 AM EDT active Polyethylene Glycol - eCW1 ( [facility]) Docusate Sodium 100 MG Oral Capsule Docusate Sodium 100 MG 0 09/02/2020 12:00:00 AM EDT active Docusate Sodium 1 00 MG eCW1 ([facility]) Cyanocobalamin 500 MCG UNK 09/02/2020 12:00:00 AM EDT 1.0 {t ablet} active Cyanocobalamin 500 MCG eCW1 ([facility]) Cyanocobalamin 500 MCG UNK 09/02/2020 12:00:00 AM EDT 1.0 {t ablet} active Cyanocobalamin 500 MCG eCW1 ([facility]) Docusate Sodium 100 MG Oral Capsule Docusate Sodium 100 MG 0 09/02/2020 12:00:00 AM EDT active Docusate Sodium 1 00 MG eCW1 ([facility]) Acapella Vibratory PEP Device 3 ml 23G x 1 (0.6 mm x 25 mm) UNK 09/02/2020 12:00:00 AM EDT active Acapella Vibratory PEP Device 3 ml 23G x 1 (0.6 mm x 25 mm) eCW1 ([facility]) Cyanocobalamin 500 MCG UNK 09/02/2020 12:00:00 AM EDT 1.0 {t ablet} active Cyanocobalamin 500 MCG eCW1 ([facility]) Cyanocobalamin 500 MCG UNK 09/02/2020 12:00:00 AM EDT 1.0 {t ablet} active Cyanocobalamin 500 MCG eCW1 ([facility]) Docusate Sodium 100 MG Oral Capsule Docusate Sodium 100 MG 0 09/02/2020 12:00:00 AM EDT active Docusate Sodium 1 00 MG eCW1 ([facility]) Acapella Vibratory PEP Device 3 ml 23G x 1 (0.6 mm x 25 mm) UNK 09/02/2020 12:00:00 AM EDT active Acapella Vibratory PEP Device 3 ml 23G x 1 (0.6 mm x 25 mm) eCW1 ([facility]) Levofloxacin 250 MG Oral Tablet levoFLOXacin 250 MG levoFLOX acin 250 MG 09/02/2020 12:00:00 AM EDT 2.0 {tablets} active levoFLOXacin 250 MG eCW1 ([facility]) Polyethylene Glycol - Polyethylene Glycol - 09/02/2020 12:00:00 AM EDT active Polyethylene Glycol - eCW1 ( [facility]) Levofloxacin 250 MG Oral Tablet levoFLOXacin 250 MG levoFLOX acin 250 MG 09/02/2020 12:00:00 AM EDT 2.0 {tablets} active levoFLOXacin 250 MG eCW1 ([facility]) Acapella Vibratory PEP Device 3 ml 23G x 1 (0.6 mm x 25 mm) UNK 09/02/2020 12:00:00 AM EDT active Acapella Vibratory PEP Device 3 ml 23G x 1 (0.6 mm x 25 mm) eCW1 ([facility]) Cyanocobalamin 500 MCG UNK 09/02/2020 12:00:00 AM EDT 1.0 {t ablet} active Cyanocobalamin 500 MCG eCW1 ([facility]) Cyanocobalamin 500 MCG UNK 09/02/2020 12:00:00 AM EDT 1.0 {t ablet} active Cyanocobalamin 500 MCG eCW1 ([facility]) Acapella Vibratory PEP Device 3 ml 23G x 1 (0.6 mm x 25 mm) UNK 09/02/2020 12:00:00 AM EDT active Acapella Vibratory PEP Device 3 ml 23G x 1 (0.6 mm x 25 mm) eCW1 ([facility]) Polyethylene Glycol - Polyethylene Glycol - 09/02/2020 12:00:00 AM EDT active Polyethylene Glycol - eCW1 ( [facility]) Cyanocobalamin 500 MCG UNK 09/02/2020 12:00:00 AM EDT 1.0 {t ablet} active Cyanocobalamin 500 MCG eCW1 ([facility]) Docusate Sodium 100 MG Oral Capsule Docusate Sodium 100 MG 0 09/02/2020 12:00:00 AM EDT active Docusate Sodium 1 00 MG eCW1 ([facility]) Acapella Vibratory PEP Device 3 ml 23G x 1 (0.6 mm x 25 mm) UNK 09/02/2020 12:00:00 AM EDT active Acapella Vibratory PEP Device 3 ml 23G x 1 (0.6 mm x 25 mm) eCW1 ([facility]) Polyethylene Glycol - Polyethylene Glycol - 09/02/2020 12:00:00 AM EDT active Polyethylene Glycol - eCW1 ( [facility]) Acapella Vibratory PEP Device 3 ml 23G x 1 (0.6 mm x 25 mm) UNK 09/02/2020 12:00:00 AM EDT active Acapella Vibratory PEP Device 3 ml 23G x 1 (0.6 mm x 25 mm) eCW1 ([facility]) Cyanocobalamin 500 MCG UNK 09/02/2020 12:00:00 AM EDT 1.0 {t ablet} active Cyanocobalamin 500 MCG eCW1 ([facility]) Cyanocobalamin 500 MCG UNK 09/02/2020 12:00:00 AM EDT 1.0 {t ablet} active Cyanocobalamin 500 MCG eCW1 ([facility]) Levofloxacin 250 MG Oral Tablet levoFLOXacin 250 MG levoFLOX acin 250 MG 09/02/2020 12:00:00 AM EDT 2.0 {tablets} active levoFLOXacin 250 MG eCW1 ([facility]) Polyethylene Glycol - Polyethylene Glycol - 09/02/2020 12:00:00 AM EDT active Polyethylene Glycol - eCW1 ( [facility]) Levofloxacin 250 MG Oral Tablet levoFLOXacin 250 MG levoFLOX acin 250 MG 09/02/2020 12:00:00 AM EDT 2.0 {tablets} active levoFLOXacin 250 MG eCW1 ([facility]) Polyethylene Glycol - Polyethylene Glycol - 09/02/2020 12:00:00 AM EDT active Polyethylene Glycol - eCW1 ( [facility]) Polyethylene Glycol - Polyethylene Glycol - 09/02/2020 12:00:00 AM EDT active Polyethylene Glycol - eCW1 ( [facility]) Acapella Vibratory PEP Device 3 ml 23G x 1 (0.6 mm x 25 mm) UNK 09/02/2020 12:00:00 AM EDT active Acapella Vibratory PEP Device 3 ml 23G x 1 (0.6 mm x 25 mm) eCW1 ([facility]) Amoxicillin 875 MG / Clavulanate 125 MG Oral Tablet Amoxicillin-Pot Clavulanate 875-125 MG Amoxicillin-Pot Clavulanate 875-125 MG 08/12/2020 12:00:00 AM ED T 1.0 {tablet} active Amoxicillin-Pot Cla vulanate 875-125 MG eCW1 ([facility]) Amoxicillin 875 MG / Clavulanate 125 MG Oral Tablet Amoxicillin-Pot Clavulanate 875-125 MG Amoxicillin-Pot Clavulanate 875-125 MG 08/12/2020 12:00:00 AM ED T 1.0 {tablet} active Amoxicillin-Pot Cla vulanate 875-125 MG eCW1 ([facility]) Amoxicillin 875 MG / Clavulanate 125 MG Oral Tablet Amoxicillin-Pot Clavulanate 875-125 MG Amoxicillin-Pot Clavulanate 875-125 MG 08/12/2020 12:00:00 AM ED T 1.0 {tablet} active Amoxicillin-Pot Cla vulanate 875-125 MG eCW1 ([facility]) May Use - UNK 08/11/2020 12:00:00 AM EDT active May Use - eCW1 ([facility]) May Use - UNK 08/11/2020 12:00:00 AM EDT active May Use - eCW1 ([facility]) May Use - UNK 08/11/2020 12:00:00 AM EDT active May Use - eCW1 ([facility]) May Use - UNK 08/11/2020 12:00:00 AM EDT active May Use - eCW1 ([facility]) May Have - UNK 08/02/2020 12:00:00 AM EDT active May Have - eCW1 ([facility]) May Have - UNK 08/02/2020 12:00:00 AM EDT active May Have - eCW1 ([facility]) May Have - UNK 08/02/2020 12:00:00 AM EDT active May Have - eCW1 ([facility]) May Have - UNK 08/02/2020 12:00:00 AM EDT active May Have - eCW1 ([facility]) May Have - UNK 08/02/2020 12:00:00 AM EDT active May Have - eCW1 ([facility]) May Have - UNK 08/02/2020 12:00:00 AM EDT active May Have - eCW1 ([facility]) May Have - UNK 08/02/2020 12:00:00 AM EDT active May Have - eCW1 ([facility]) May Have - UNK 08/02/2020 12:00:00 AM EDT active May Have - eCW1 ([facility]) May Have - UNK 08/02/2020 12:00:00 AM EDT active May Have - eCW1 ([facility]) May Have - UNK 08/02/2020 12:00:00 AM EDT active May Have - eCW1 ([facility]) May Have - UNK 08/02/2020 12:00:00 AM EDT active May Have - eCW1 ([facility]) May Have - UNK 08/02/2020 12:00:00 AM EDT active May Have - eCW1 ([facility]) May Have - UNK 07/27/2020 12:00:00 AM EDT active May Have - eCW1 ([facility]) May Have - UNK 07/27/2020 12:00:00 AM EDT active May Have - eCW1 ([facility]) May Have - UNK 07/27/2020 12:00:00 AM EDT active May Have - eCW1 ([facility]) May Have - UNK 07/27/2020 12:00:00 AM EDT active May Have - eCW1 ([facility]) May Have - UNK 07/27/2020 12:00:00 AM EDT active May Have - eCW1 ([facility]) May Have - UNK 07/27/2020 12:00:00 AM EDT active May Have - eCW1 ([facility]) May Have - UNK 07/27/2020 12:00:00 AM EDT active May Have - eCW1 ([facility]) May Have - UNK 07/27/2020 12:00:00 AM EDT active May Have - eCW1 ([facility]) May Have - UNK 07/27/2020 12:00:00 AM EDT active May Have - eCW1 ([facility]) tramadol hydrochloride 50 MG Oral Tablet Tramadol HCL 05/05/2020 12:00:00 AM EST active [facility] ([facility] ) Acetaminophen 325 MG / Hydrocodone Devendra trate 5 MG Oral Tablet Hydrocodone- Acetaminophen 5-325 MG Hydrocodone-Acetaminophen 5-325 MG 03/16/2020 12:00:00 AM EST 1.0 {tablet} active Hydrocodone -Acetaminophen 5-325 MG eCW1 ([facility]) Acetaminophen 325 MG / Hydrocodone Devendra trate 5 MG Oral Tablet Hydrocodone- Acetaminophen 5-325 MG Hydrocodone-Acetaminophen 5-325 MG 03/16/2020 12:00:00 AM EST 1.0 {tablet} active Hydrocodone -Acetaminophen 5-325 MG eCW1 ([facility]) Acetaminophen 325 MG / Hydrocodone Devendra trate 5 MG Oral Tablet Hydrocodone- Acetaminophen 5-325 MG Hydrocodone-Acetaminophen 5-325 MG 03/16/2020 12:00:00 AM EST 1.0 {tablet} active Hydrocodone -Acetaminophen 5-325 MG eCW1 ([facility]) Acetaminophen 325 MG / Hydrocodone Devendra trate 5 MG Oral Tablet Hydrocodone- Acetaminophen 5-325 MG Hydrocodone-Acetaminophen 5-325 MG 03/16/2020 12:00:00 AM EST 1.0 {tablet} active Hydrocodone -Acetaminophen 5-325 MG eCW1 ([facility]) Acetaminophen 325 MG / Hydrocodone Devendra trate 5 MG Oral Tablet Hydrocodone- Acetaminophen 5-325 MG Hydrocodone-Acetaminophen 5-325 MG 03/16/2020 12:00:00 AM EST 1.0 {tablet} active Hydrocodone -Acetaminophen 5-325 MG eCW1 ([facility]) Insurance Providers Payer name Policy type / Coverage type Policy ID Covered green party ID Covered green party's relationship to sahu Policy Sahu Plan Information [employer] [place] Medigap Part B [id number] Self [employer] [place] Commercial [id number] Self [id number] [place] Medigap Part B [id number] Self Secure [employer] Commercial [id number] Self TOD[employer] OPTIONS [id number] SP [id number] [facility] O [id number] S [id number] ANSI-Medicare Part B [id number] ANSI-Health Maintenance Organization (HM O) [id number] ANSI-Medicare Part B [id number] ANSI-Medicare Part B [id number] TOD[employer]YS OPTIONS [id number] SP [id number] ANSI-Medicare Part B [id number] ANSI-Medicare Part B [id number] ANSI-Medicare Part B [id number] ANSI-Medicare Part B [id number] ANSI-Medicare Part B [id number] [employer] Options [facility] [id number] Self [id number] [employer] OPTIONS/[place] O [id number] S [id number] MEDICARE [id number] SP [id number] A [employer] [place] [id number] [place] [id number] [employer] Medigap Part B [id number] Self Blue Shield MCR Advantage Medigap Part B [id number] Self [employer] Medigap Part B [id number] Self [employer] OPTIONS/[place] O [id number] S [id number] MEDICAID M [id number] S [id number] A MEDICARE [id number] SP [id number] TOD[employer]YS OPT[place] [id number] [place] [id number] MEDICARE BLUE PPO 306 [id number] SP [id number] EXCELLUS BCBS P [id number] S [id number] SECURE HORIZONS P [id number] S [id number] MEDICARE [id number] SP [id number] MEDICARE BLUE PPO 306 [id number] SP [id number] [facility] MEDICAID [id number] SP [id number] MEDICARE [id number] SP [id number] WELLCARE [id number] SP [id number] WELLCARE -O/P [id number] 18 [id number] Problems, Conditions, and Diagnoses Code Display Name Description Problem Type Effective Dates Data Source(s) E039 Hypothyroidism, unspecified Hypothyroidism, unspecifie d Diagnosis 07/06/2020 07:03:00 AM EDT [facility] I4891 Unspecified atrial fibrillation Unspecified atrial fib rillation Diagnosis 06/10/2020 06:55:00 AM EDT [facility] J449 Chronic obstructive pulmonary disease, u nspecified Chronic obstructive pulmonary disease, unspecified Diagnosis 06/10/2020 06:55:00 AM EDT [facility] I2510 Atherosclerotic heart diseas e of [place] coronary artery without angina pectoris Atherosclerotic heart disease of [place] coronary artery without angina pectoris Diagnosis 06/10/2020 06:55:00 AM EDT [facility] 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, lumbar region Problem 12/22/2020 12:00:00 AM EDT eCW1 ([facility]) G43.009 [id number] Migraine without aur a and without status migrainosus, not intractable Problem 12/06/2020 12:00:00 AM EDT eCW1 ([facility]) R26.2 [id number] Difficulty in walking Problem 10/21/2020 12: 00:00 AM EDT eCW1 ([facility]) G47.33 Obstructive sleep apnea syndrome Obstruc tive sleep apnea (adult) (pediatric) Problem 10/13/2020 12:00:00 AM EDT eCW1 ([facility]) D63.8 [id number] Anemia of chronic disease Problem 09/20/2020 12:00:00 AM EDT eCW1 ([facility]) D50.9 Iron deficiency anemia Iron deficiency anemia, unspeci fied Problem 09/15/2020 12:00:00 AM EDT eCW1 ([facility]) I50.32 Chronic diastolic heart failure Chronic diastolic (congestive) heart failure Problem 09/15/2020 12:00:00 AM EDT eCW1 ([facility]) R26.89 [id number] Balance problem Problem 09/10/2020 12:00:00 AM EDT eCW1 ([facility]) I48.0 [id number] Paroxysmal atrial fibrillation Problem 09/02/2020 12:00:00 AM EDT eCW1 ([facility]) I50.22 [id number] Chronic systolic congestive heart failure Problem 07/27/2020 12:00:00 AM EDT eCW1 ([facility]) E03.9 Acquired hypothyroidism Acquired hypothyroidism Proble m 07/27/2020 12:00:00 AM EDT eCW1 ([facility]) I48.91 [id number] Atrial fibrillation, unspecified type Pro blem 07/27/2020 12:00:00 AM EDT eCW1 ([facility]) R26.89 [id number] Imbalance Problem 07/27/2020 12:00:00 AM ED T eCW1 ([facility]) N18.9 [id number] Chronic kidney disease, unspecified Probl em 07/27/2020 12:00:00 AM EDT eCW1 ([facility]) Surgeries/Procedures Procedure Description Date Indications Data Source(s) OFFICE OUTPATIENT VISIT 15 MINUTES 12/14/2020 12:00:00 AM EDT MED[facility] ([facility] ) OFFICE OUTPATIENT VISIT 15 MINUTES 09/29/2020 12:00:00 AM EDT MED[facility] ([facility] ) THERAPEUTIC PX 1/> AREAS EACH 15 MIN EXERCISES 12:00:00 AM EDT [facility] ([facility] ) RADIOLOGIC EXAM KNEE COMPLETE 4/MORE VIEWS 09/16/2020 12:00:00 AM EDT MEDENT ([facility]) OFFICE OUTPATIENT VISIT 25 MINUTES 09/16/2020 12:00:00 AM EDT MEDENT ([facility]) THERAPEUTIC PX 1/> AREAS EACH 15 MIN EXERCISES 021 12:00:00 AM EDT [facility] ([facility]) THERAPEUTIC PX 1/> AREAS EACH 15 MIN EXERCISES 12:00:00 AM EDT MED[facility] ([facility]) THERAPEUTIC PX 1/> AREAS EACH 15 MIN EXERCISES 021 12:00:00 AM EDT [facility] ([facility]) THERAPEUTIC PX 1/> AREAS EACH 15 MIN EXERCISES 021 12:00:00 AM EDT [facility] ([facility]) THERAPEUTIC PX 1/> AREAS EACH 15 MIN EXERCISES 021 12:00:00 AM EDT [facility] ([facility]) THERAPEUTIC PX 1/> AREAS EACH 15 MIN EXERCISES 12:00:00 AM EDT [facility] ([facility]) THERAPEUTIC PX 1/> AREAS EACH 15 MIN EXERCISES 021 12:00:00 AM EDT [facility] ([facility]) THERAPEUTIC PX 1/> AREAS EACH 15 MIN EXERCISES 021 12:00:00 AM EDT [facility] ([facility]) THERAPEUTIC PX 1/> AREAS EACH 15 MIN EXERCISES 021 12:00:00 AM EDT [facility] ([facility]) Physical Therapy Eval - Low Complexity 08/09/2020 12:0 0:00 AM EDT [facility] ([facility]) OFFICE OUTPATIENT VISIT 15 MINUTES 08/02/2020 12:00:00 AM EDT [facility] ([facility]) OFFICE OUTPATIENT NEW 45 MINUTES 05/05/2020 12:00:00 A M EST [facility] ([facility]) Results ID Date Data Source [id number] 12/02/2020 03:53:00 PM EDT [facility] Name Value Range Interpretation Code Description Data Tonya rce(s) Supporting Document(s) SARS coronavirus 2 RNA [Presence] in Res piratory specimen by [facility] with probe detection NEGATIVE [facility] This lab was ordered by [facility] a nd reported by [facility]. ID Date Data Source CBC with Auto Differential 10/20/2020 12:00:00 AM EDT eCW1 ( [facility]) Name Value Range Interpretation Code Description Data Tonya rce(s) Supporting Document(s) 10.4 4.0-10.0 WHITE BLOOD COUNT eCW1 ([facility]) 4.64 4.30-6.10 RED BLOOD COUNT eCW1 ([facility]) 41.1 42.0-52.0 HEMATOCRIT eCW1 ([facility]) 88.6 80.0-96.0 MEAN CORPUSCULAR VOLUME e CW1 ([facility]) 12.7 13.5-17.5 HEMOGLOBIN eCW1 ([facility]) 13.7 11.5-14.5 RED CELL DISTRIBUTION WID TH eCW1 ([facility]) 27.4 27.0-33.0 MEAN CORPUSCULAR HEMOGLOB IN eCW1 ([facility]) 30.9 32.0-36.5 MEAN CORPUSCULAR HGB CONC eCW1 ([facility]) 8.0 2.0-8.0 MONO % eCW1 ([facility]) 354 150-450 PLATELET COUNT, AUTOMATED eCW1 ([facility]) 55.5 36.0-66.0 NEUTROPHILS % eCW1 ([facility]) 31.5 24.0-44.0 LYMPH % eCW1 ([facility]) 0.8 0-3.0 IMMATURE GRANULOCYTE % eCW1 ([facility]) 0.5 0.0-1.0 BASO % eCW1 ([facility]) 3.7 0.0-3.0 EOS % eCW1 ([facility]) 3.3 1.5-5.0 LYMPH # eCW1 ([facility]) 0.0 0-0 NUCLEATED RED BLOOD CELL % eCW 1 ([facility]) 5.8 1.5-8.5 NEUTROPHILS # eCW1 ([facility]) 0.4 0.0-0.5 EOS # eCW1 ([facility]) 0.8 0.0-0.8 MONO # eCW1 ([facility]) 0.1 0.0-0.2 BASO # eCW1 ([facility]) ID Date Data Source Comprehensive Metabolic Profile (CMP) 10/20/2020 12:00:00 AM EDT eCW1 ([facility]) Name Value Range Interpretation Code Description Data Tonya rce(s) Supporting Document(s) 139 70-100 GLUCOSE, FASTING eCW1 ([facility]) 16 7-18 BLOOD UREA NITROGEN eCW1 ([facility]) 139 136-145 SODIUM LEVEL eCW1 ([facility]) 1.51 0.70-1.30 CREATININE FOR GFR eCW1 ([facility]) 47.0 >35 GLOMERULAR FILTRATION RATE eCW 1 ([facility]) 103 98-107 CHLORIDE LEVEL eCW1 ([facility]) 4.1 3.5-5.1 POTASSIUM SERUM eCW1 ([facility]) 32 21-32 CARBON DIOXIDE LEVEL eCW1 ([facility]) 19 7-37 AST/SGOT eCW1 ([facility]) 19 12-78 ALT/SGPT eCW1 ([facility]) 9.2 8.8-10.2 CALCIUM LEVEL eCW1 ([facility]) 130 45-117 ALKALINE PHOSPHATASE eCW1 ([facility]) 0.5 0.2-1.0 BILIRUBIN,TOTAL eCW1 ([facility]) 7.5 6.4-8.2 TOTAL PROTEIN eCW1 ([facility]) 3.4 3.2-5.2 ALBUMIN eCW1 ([facility]) 0.8 ALBUMIN/GLOBULIN RATIO eCW1 ([facility]) ID Date Data Source MAGNESIUM LEVEL 10/20/2020 12:00:00 AM EDT eCW1 ([facility]) Name Value Range Interpretation Code Description Data Tonya rce(s) Supporting Document(s) 2.3 1.8-2.4 MAGNESIUM LEVEL eCW1 ([facility]) ID Date Data Source NT-PRO BNP 10/20/2020 12:00:00 AM EDT eCW1 ([facility]) Name Value Range Interpretation Code Description Data Tonya rce(s) Supporting Document(s) 4932 <450 NT-PRO BNP eCW1 ([facility]) ID Date Data Source PLZ CHEST 2 VIEW 09/09/2020 12:00:00 AM EDT eCW1 ([facility]) Name Value Range Interpretation Code Description Data Tonya rce(s) Supporting Document(s) PLZ CHEST 2 VIEW eCW1 ([facility]) ID Date Data Source FREE T4 & TSH PANEL 08/12/2020 12:00:00 AM EDT eCW1 ([facility]) Name Value Range Interpretation Code Description Data Tonya rce(s) Supporting Document(s) 2.390 0.358-3.740 THYROID STIMULATING HORM ONE eCW1 ([facility]) 0.96 0.76-1.46 FREE T4 eCW1 ([facility]) ID Date Data Source C REACTIVE PROTEIN QUANTITATIV (At [facility]) 08/12/2020 12:00 :00 AM EDT eCW1 ([facility]) Name Value Range Interpretation Code Description Data Tonya rce(s) Supporting Document(s) 1.99 0.00-0.30 C REACTIVE PROTEIN QUANTI TATIV eCW1 ([facility]) ID Date Data Source CBC with Differential 08/12/2020 12:00:00 AM EDT eCW1 ([facility]) Name Value Range Interpretation Code Description Data Tonya rce(s) Supporting Document(s) 9.3 4.0-10.0 WHITE BLOOD COUNT eCW1 ([facility]) 13.4 13.5-17.5 HEMOGLOBIN eCW1 ([facility]) 43.0 42.0-52.0 HEMATOCRIT eCW1 ([facility]) 4.81 4.30-6.10 RED BLOOD COUNT eCW1 ([facility]) 31.2 32.0-36.5 MEAN CORPUSCULAR HGB CONC eCW1 ([facility]) 27.9 27.0-33.0 MEAN CORPUSCULAR HEMOGLOB IN eCW1 ([facility]) 89.4 80.0-96.0 MEAN CORPUSCULAR VOLUME e CW1 ([facility]) 341 150-450 PLATELET COUNT, AUTOMATED eCW1 ([facility]) 49.0 36.0-66.0 NEUTROPHILS % eCW1 ([facility]) 13.0 11.5-14.5 RED CELL DISTRIBUTION WID TH eCW1 ([facility]) 3.3 0.0-3.0 EOS % eCW1 ([facility]) 37.5 24.0-44.0 LYMPH % eCW1 ([facility]) 0.5 0.0-1.0 BASO % eCW1 ([facility]) 9.5 2.0-8.0 MONO % eCW1 ([facility]) 0.9 0.0-0.8 MONO # eCW1 ([facility]) 4.6 1.5-8.5 NEUTROPHILS # eCW1 ([facility]) 3.5 1.5-5.0 LYMPH # eCW1 ([facility]) 0.3 0.0-0.5 EOS # eCW1 ([facility]) 0.1 0.0-0.2 BASO # eCW1 ([facility]) ID Date Data Source VITAMIN B12 LEVEL 07/27/2020 12:00:00 AM EDT eCW1 ([facility]) Name Value Range Interpretation Code Description Data Tonya rce(s) Supporting Document(s) 509 155-152 VITAMIN B12 LEVEL eCW1 ([facility]) ID Date Data Source VITAMIN D 25-HYDROXY 07/27/2020 12:00:00 AM EDT eCW1 ([facility]) Name Value Range Interpretation Code Description Data Tonya rce(s) Supporting Document(s) 41.0 30.0-100.0 TOTAL 25(OH) VITAMIN D eC W1 ([facility]) ID Date Data Source [id number] 07/08/2020 12:00:00 AM EDT [facility] Name Value Range Interpretation Code Description Data Tonya rce(s) Supporting Document(s) SARS coronavirus 2 Ag Negative [facility] This lab was ordered by Linda and rep orted by Linda. ID Date Data Source [id number] 07/06/2020 10:02:00 AM EDT [facility] Name Value Range Interpretation Code Description Data Tonya rce(s) Supporting Document(s) Thyrotropin [Units/volume] in Serum or Plasma by Detec tion limit <= 0.05 mIU/L 4.30 uIU/mL 0.47 - 5.01 [facility] ID Date Data Source [id number] 07/01/2020 12:00:00 AM EDT [facility] Name Value Range Interpretation Code Description Data Tonya rce(s) Supporting Document(s) SARS coronavirus 2 Ag Negative [facility] This lab was ordered by Linda and rep orted by Linda. ID Date Data Source [id number] 06/25/2020 12:00:00 AM EDT [facility] Name Value Range Interpretation Code Description Data Tonya rce(s) Supporting Document(s) SARS coronavirus 2 Ag Negative [facility] This lab was ordered by [place] and rep orted by Linda. ID Date Data Source [id number] 06/11/2020 08:23:00 AM EDT [facility] Name Value Range Interpretation Code Description Data Tonya rce(s) Supporting Document(s) Triiodothyronine (T3) Free [Mass/volume] in Serum or Plasma 2.4 pg/ mL 2.0-4.4 [facility] ID Date Data Source [id number] 06/10/2020 12:17:00 PM EDT [facility] Name Value Range Interpretation Code Description Data Tonya rce(s) Supporting Document(s) COMPREHENSIVE METABOLIC PANEL [facility] COMPREHENSIVE METABOLIC PANEL Sodium [Moles/volume] in Serum or Plasma 141 mEq/L 134 - 153 [facility] Potassium [Moles/volume] in Serum or Plasma 4.2 mEq/L 3.6 - 5.0 [facility] Chloride [Moles/volume] in Serum or Plasma 103 mEq/L 98 - 107 [facility] Carbon dioxide, total [Moles/volume] in Serum or Plasma 27 MEQ/L 22 - 30 [facility] Glucose [Mass/volume] in Serum or Plasma 118 MG/DL 70 - 99 H [facility] BUN 27 MG/DL 7 - 21 H [facility] Creatinine [Mass/volume] in Serum or Plasma 1.1 MG/DL 0.7 - 1.5 [facility] BUN/CREAT 25 8 - 27 [facility] Protein [Mass/volume] in Serum or Plasma 5.8 G/DL 6.3 - 8.2 L [facility] Albumin [Mass/volume] in Serum or Plasma 3.4 G/DL 3.9 - 5.0 L [facility] Globulin [Mass/volume] in Serum by calculation 2.4 GM/DL 2.4 - 3.2 [facility] A/G RATIO 1.4 0.8 - 2.0 [facility] Calcium [Mass/volume] in Serum or Plasma 8.6 MG/DL 8.4 - 10.2 [facility] Bilirubin.total [Mass/volume] in Serum or Plasma <0.7 MG/DL 0.2 - 1.3 [facility] Alkaline phosphatase [Enzymatic activity/volume] in Serum or Plasma 111 U/L 38 - 126 [facility] Aspartate aminotransferase [Enzymatic activity/volume] in Serum or Plasma 31 U/L 5 - 40 [facility] Alanine aminotransferase [Enzymatic activity/volume] in Seru m or Plasma 48 U/L 7 - 56 [facility] Anion gap 3 in Serum or Plasma 11.0 mmol/L 8.0 - 16.0 [facility] AGE 84 yrs [facility] NON-AA GFR >60 mL/min [facility] [facility] AFR AMER GFR >60 mL/min [facility] Male GFR In terprentation 20-49 yrs >60 mL/min Normal 50-59 yrs >56 mL/min Normal 60-69 yrs >49 mL/min Normal 70-79yrs >42 mL/min Normal 80 and above >35 mL/min Normal Female GFR Interpretation 20-39 yrs >60 mL/min Normal 40-49 yrs >58 mL/min Normal 50-59 yrs >51 mL/min Normal 60-69 yrs >45 mL/min Normal 70-79 yrs >39 mL/min Normal 80 and above >32 mL/min Normal ID Date Data Source [id number] 06/10/2020 12:16:00 PM EDT [facility] Name Value Range Interpretation Code Description Data Tonya rce(s) Supporting Document(s) [facility] Cholesterol [Mass/volume] in Serum or Plasma 198 MG/DL 131 - 200 [facility] Deprecated Triglyceride [Mass/volume] in Serum or Plasma 99 MG/DL 3 5 - 160 [facility] HDL 43 MG/DL 29 - 86 [facility] al Cholesterol in LDL [Mass/volume] in Serum or Plasma by Direc t assay 152 mg/dL 65 - 175 [facility] Cholesterol.total/Cholesterol in HDL [Mass Ratio] in Serum o r Plasma 4.6 3.4 - 4.9 [facility] LDL/HDL 3.53 1.00 - 3.55 [facility] ital CVE RISK CHOL/HDL LDL/HDLMEN: 1/2 AVERAGE 3.43 1.00 AVERAGE 4.97 3.55 2X AVERAGE 9.55 6.25 3X AVERAGE 23.99 7.99WOMEN: 1/2 AVERAGE 3.27 1.47 AVERAGE 4.44 3.22 2X AVERAGE 7.05 5.03 3X AVERAGE 11.04 6.14 ID Date Data Source [id number] 06/10/2020 12:15:00 PM EDT [facility] Name Value Range Interpretation Code Description Data Tonya rce(s) Supporting Document(s) Hemoglobin A1c/Hemoglobin.total in Blood 6.3 % 4.4 - 6.1 H [facility] {A1]{HB] ID Date Data Source [id number] 06/10/2020 09:59:00 AM EDT [facility] Name Value Range Interpretation Code Description Data Tonya rce(s) Supporting Document(s) Thyroxine (T4) free index in Serum or Plasma by calculation 0.84 NG/DL 0.93 - 1.70 L [facility] ID Date Data Source [id number] 06/10/2020 09:58:00 AM EDT [facility] Name Value Range Interpretation Code Description Data Tonya rce(s) Supporting Document(s) Thyrotropin [Units/volume] in Serum or Plasma by Detec tion limit <= 0.05 mIU/L 6.17 uIU/mL 0.47 - 5.01 H [facility] ID Date Data Source [id number] 06/10/2020 09:15:00 AM EDT [facility] Name Value Range Interpretation Code Description Data Tonya rce(s) Supporting Document(s) CBC NO DIFF [facility] ital COMPLETE BLOOD COUNT Leukocytes [#/volume] in Blood by Automated count 7.6 10^3/uL 4.2 - 1 1.0 [facility] Erythrocytes [#/volume] in Blood by Automated count 3.78 10^6/uL 4. 50 - 6.30 L [facility] Hemoglobin [Mass/volume] in Blood 11.0 g/dL 14.0 - 16.0 L [facility] Hematocrit [Volume Fraction] of Blood by Automated count 33.7 % 4 1.0 - 51.0 L [facility] Erythrocyte mean corpuscular volume [Entitic volume] by Auto mated count 89.2 fL 80.0 - 94.0 [facility] Erythrocyte mean corpuscular hemoglobin [Entitic mass] by Automated count 29.1 pg 27.0 - 34.0 [facility] Erythrocyte mean corpuscular hemoglobin concentration [Mass/volume] by Automated count 32.6 g/dL 31.0 - 36.0 [facility] Erythrocyte distribution width [Ratio] by Automated count 13.5 % 11.5 - 14.8 [facility] Platelets [#/volume] in Blood by Automated count 311 10^3/uL 150 - 45 0 [facility] Platelet mean volume [Entitic volume] in Blood by Automated count 8.9 fL 7.4 - 10.4 [facility] ID Date Data Source [id number] 06/08/2020 09:54:00 AM EDT [facility] Name Value Range Interpretation Code Description Data Tonya rce(s) Supporting Document(s) SARS coronavirus 2 RNA [Presence] in Res piratory specimen by SENIA with probe detection NEGATIVE [facility] This lab was ordered by [facility] a nd reported by [facility]. ID Date Data Source [id number] 06/02/2020 04:00:00 PM EST [facility] Name Value Range Interpretation Code Description Data Tonya rce(s) Supporting Document(s) SARS coronavirus 2 RNA [Presence] in Res piratory specimen by SENIA with probe detection NEGATIVE [facility] This lab was ordered by [facility] a nd reported by [facility]. ID Date Data Source [id number] 05/18/2020 12:16:00 PM EST [facility] Name Value Range Interpretation Code Description Data Tonya rce(s) Supporting Document(s) SARS coronavirus 2 RNA [Presence] in Res piratory specimen by SENIA with probe detection NEGATIVE [facility] This lab was ordered by [facility] a nd reported by [facility]. Procedure Social History Code Duration Value Status Description Data Source(s ) Smoking 12/22/2020 12:00:00 AM EDT Never Smoker completed Never S moker eCW1 ([facility]) Smoking 12/06/2020 12:00:00 AM EDT Never Smoker completed Never S moker eCW1 ([facility]) Smoking 12/06/2020 12:00:00 AM EDT Never Smoker completed Never S moker eCW1 ([facility]) Smoking 10/20/2020 12:00:00 AM EDT Never Smoker completed Never S moker eCW1 ([facility]) Smoking 10/20/2020 12:00:00 AM EDT Never Smoker completed Never S moker eCW1 ([facility]) Smoking 10/20/2020 12:00:00 AM EDT Never Smoker completed Never S moker eCW1 ([facility]) Smoking 10/20/2020 12:00:00 AM EDT Never Smoker completed Never S moker eCW1 ([facility]) Smoking 10/20/2020 12:00:00 AM EDT Never Smoker completed Never S moker eCW1 ([facility]) Smoking 10/20/2020 12:00:00 AM EDT Never Smoker completed Never S moker eCW1 ([facility]) Smoking 10/20/2020 12:00:00 AM EDT Never Smoker completed Never S moker eCW1 ([facility]) Smoking 10/20/2020 12:00:00 AM EDT Never Smoker completed Never S moker eCW1 ([facility]) Smoking 09/20/2020 12:00:00 AM EDT Never Smoker completed Never S moker eCW1 ([facility]) Smoking 09/20/2020 12:00:00 AM EDT Never Smoker completed Never S moker eCW1 ([facility]) Smoking 09/20/2020 12:00:00 AM EDT Never Smoker completed Never S moker eCW1 ([facility]) Smoking 09/20/2020 12:00:00 AM EDT Never Smoker completed Never S moker eCW1 ([facility]) Smoking 09/20/2020 12:00:00 AM EDT Never Smoker completed Never S moker eCW1 ([facility]) Smoking 09/20/2020 12:00:00 AM EDT Never Smoker completed Never S moker eCW1 ([facility]) Smoking 09/20/2020 12:00:00 AM EDT Never Smoker completed Never S moker eCW1 ([facility]) Smoking 09/09/2020 12:00:00 AM EDT Never Smoker completed Never S moker eCW1 ([facility]) Smoking 09/09/2020 12:00:00 AM EDT Never Smoker completed Never S moker eCW1 ([facility]) Smoking 09/09/2020 12:00:00 AM EDT Never Smoker completed Never S moker eCW1 ([facility]) Smoking 09/09/2020 12:00:00 AM EDT Never Smoker completed Never S moker eCW1 ([facility]) Smoking 09/09/2020 12:00:00 AM EDT Never Smoker completed Never S moker eCW1 ([facility]) Smoking 09/09/2020 12:00:00 AM EDT Never Smoker completed Never S moker eCW1 ([facility]) Smoking 09/02/2020 12:00:00 AM EDT Never Smoker completed Never S moker eCW1 ([facility]) Smoking 08/12/2020 12:00:00 AM EDT Never Smoker completed Never S moker eCW1 ([facility]) Smoking 08/12/2020 12:00:00 AM EDT Never Smoker completed Never S moker eCW1 ([facility]) Smoking 08/12/2020 12:00:00 AM EDT Never Smoker completed Never S moker eCW1 ([facility]) Smoking 07/27/2020 12:00:00 AM EDT Never Smoker completed Never S moker eCW1 ([facility]) Smoking 07/27/2020 12:00:00 AM EDT Never Smoker completed Never S moker eCW1 ([facility]) Smoking 07/27/2020 12:00:00 AM EDT Never Smoker completed Never S moker eCW1 ([facility]) Smoking 06/02/2020 12:00:00 AM EST Never Smoker completed Never S moker eCW1 ([facility]) Smoking 06/02/2020 12:00:00 AM EST Never Smoker completed Never S moker eCW1 ([facility]) Smoking 06/02/2020 12:00:00 AM EST Never Smoker completed Never S moker eCW1 ([facility]) Vital Signs ID Date Data Source UNK Name Value Range Interpretation Code Description Data Source(s) Body weight 130 [lb_av] 130 [lb_av] eCW1 ([facility]) Body height 59 [in_i] 59 [in_i] eCW1 ([facility]) Body mass index (BMI) [Ratio] 26.25 kg/m2 26.25 kg/m2 eCW1 ([facility]) Heart rate 82 /min 82 /min eCW1 ([facility]) Respiratory rate 18 /min 18 /min eCW1 ([facility]) Body temperature 98.0 [degF] 98.0 [degF] eCW1 ( [facility]) Systolic blood pressure 110 mm[Hg] 110 mm[Hg] e CW1 ([facility]) Diastolic blood pressure 70 mm[Hg] 70 mm[Hg] eCW1 ([facility]) Body weight 126.6 [lb_av] 126.6 [lb_av] eCW1 ([facility]) Body weight 57.43 kg 57.43 kg eCW1 ([facility]) Body height 59 [in_i] 59 [in_i] eCW1 ([facility]) Body mass index (BMI) [Ratio] 25.57 kg/m2 25.57 kg/m2 eCW1 ([facility]) Heart rate 82 /min 82 /min eCW1 ([facility]) Respiratory rate 18 /min 18 /min eCW1 ([facility]) Body temperature 98.9 [degF] 98.9 [degF] eCW1 ( [facility]) Systolic blood pressure 112 mm[Hg] 112 mm[Hg] e CW1 ([facility]) Diastolic blood pressure 62 mm[Hg] 62 mm[Hg] eCW1 ([facility]) Body height 59 [in_i] 59 [in_i] eCW1 ([facility]) Body weight 123 [lb_av] 123 [lb_av] eCW1 ([facility]) Heart rate 67 /min 67 /min eCW1 ([facility]) Body mass index (BMI) [Ratio] 24.84 kg/m2 24.84 kg/m2 eCW1 ([facility]) Respiratory rate 18 /min 18 /min eCW1 ([facility]) Body temperature 98.9 [degF] 98.9 [degF] eCW1 ( [facility]) Systolic blood pressure 122 mm[Hg] 122 mm[Hg] e CW1 ([facility]) Diastolic blood pressure 58 mm[Hg] 58 mm[Hg] eCW1 ([facility]) Body weight 123 [lb_av] 123 [lb_av] eCW1 ([facility]) Body height 59 [in_i] 59 [in_i] eCW1 ([facility]) Body mass index (BMI) [Ratio] 24.84 kg/m2 24.84 kg/m2 eCW1 ([facility]) Heart rate 67 /min 67 /min eCW1 ([facility]) Respiratory rate 18 /min 18 /min eCW1 ([facility]) Body temperature 98.9 [degF] 98.9 [degF] eCW1 ( [facility]) Systolic blood pressure 122 mm[Hg] 122 mm[Hg] e CW1 ([facility]) Diastolic blood pressure 58 mm[Hg] 58 mm[Hg] eCW1 ([facility]) Body weight 116 [lb_av] 116 [lb_av] eCW1 ([facility]) Body height 59 [in_i] 59 [in_i] eCW1 ([facility]) Body mass index (BMI) [Ratio] 23.43 kg/m2 23.43 kg/m2 eCW1 ([facility]) Heart rate 84 /min 84 /min eCW1 ([facility]) Respiratory rate 18 /min 18 /min eCW1 ([facility]) Body temperature 97.9 [degF] 97.9 [degF] eCW1 ( [facility]) Systolic blood pressure 118 mm[Hg] 118 mm[Hg] e CW1 ([facility]) Diastolic blood pressure 66 mm[Hg] 66 mm[Hg] eCW1 ([facility]) Body temperature 96.9 [degF] 96.9 [degF] MEDENT ([facility]) Body height 56 [in_i] 56 [in_i] MEDENT ([facility]) 4'8" Body weight 124.00 [lb_av] 124.00 [lb_av] MEDEN T ([facility]) Body mass index (BMI) [Ratio] 27.8 kg/m2 27.8 k g/m2 [facility] ([facility] Body weight 120 [lb_av] 120 [lb_av] eCW1 ([facility]) Body height 59 [in_i] 59 [in_i] eCW1 ([facility]) Body mass index (BMI) [Ratio] 24.23 kg/m2 24.23 kg/m2 eCW1 ([facility]) Heart rate 86 /min 86 /min eCW1 ([facility]) Respiratory rate 18 /min 18 /min eCW1 ([facility]) Body temperature 97.2 [degF] 97.2 [degF] eCW1 ( [facility]) Systolic blood pressure 122 mm[Hg] 122 mm[Hg] e CW1 ([facility]) Diastolic blood pressure 64 mm[Hg] 64 mm[Hg] eCW1 ([facility]) Body mass index (BMI) [Ratio] 25.04 kg/m2 25.04 kg/m2 eCW1 ([facility]) Heart rate 110 /min 110 /min eCW1 ([facility]) Respiratory rate 18 /min 18 /min eCW1 ([facility]) Body temperature 98.1 [degF] 98.1 [degF] eCW1 ( [facility]) Systolic blood pressure 142 mm[Hg] 142 mm[Hg] e CW1 ([facility]) Body weight 124 [lb_av] 124 [lb_av] eCW1 ([facility]) Body height 59 [in_i] 59 [in_i] eCW1 ([facility]) Diastolic blood pressure 62 mm[Hg] 62 mm[Hg] eCW1 ([facility]) Body weight 124 [lb_av] 124 [lb_av] eCW1 ([facility]) Body height 59 [in_i] 59 [in_i] eCW1 ([facility]) Body mass index (BMI) [Ratio] 25.04 kg/m2 25.04 kg/m2 eCW1 ([facility]) Heart rate 81 /min 81 /min eCW1 ([facility]) Respiratory rate 18 /min 18 /min eCW1 ([facility]) Body temperature 99.2 [degF] 99.2 [degF] eCW1 ( [facility]) Systolic blood pressure 104 mm[Hg] 104 mm[Hg] e CW1 ([facility]) Diastolic blood pressure 64 mm[Hg] 64 mm[Hg] eCW1 ([facility]) Body mass index (BMI) [Ratio] 25.24 kg/m2 25.24 kg/m2 eCW1 ([facility]) Body height 59 [in_i] 59 [in_i] eCW1 ([facility]) Body weight 125 [lb_av] 125 [lb_av] eCW1 ([facility]) Heart rate 67 /min 67 /min eCW1 ([facility]) Respiratory rate 18 /min 18 /min eCW1 ([facility]) Body temperature 97.2 [degF] 97.2 [degF] eCW1 ( [facility]) Systolic blood pressure 120 mm[Hg] 120 mm[Hg] e CW1 ([facility]) Diastolic blood pressure 68 mm[Hg] 68 mm[Hg] eCW1 ([facility]) Body temperature 97.8 [degF] 97.8 [degF] [facility] ([facility]) Body height 57 [in_i] 57 [in_i] [facility] ([facility]) 4'9" Body weight 131.12 [lb_av] 131.12 [lb_av] MEDEN T ([facility]) Body mass index (BMI) [Ratio] 28.4 kg/m2 28.4 k g/m2 [facility] ([facility]) Patient Treatment Plan of Care Planned Activity Planned Date Details Description Data Source (s) gabapentin 100 MG Oral Capsule 12/22/2020 12:00:00 AM EDT eCW1 ([facility]) Prednisone 20 MG Oral Tablet 12/22/2020 12:00:00 AM EDT eCW1 ([facility]) Folic Acid 1 MG Oral Tablet 12/22/2020 12:00:00 AM EDT eCW1 ([facility]) Albuterol 0.83 MG/ML Inhalant Solution 10/26/2020 12:00:00 AM EDT eCW1 ([facility]) Albuterol 0.83 MG/ML Inhalant Solution 10/26/2020 12:00:00 AM EDT eCW1 ([facility]) Albuterol 0.83 MG/ML Inhalant Solution 10/26/2020 12:00:00 AM EDT eCW1 ([facility]) Hospital bed 10/13/2020 12:00:00 AM EDT e CW1 ([facility]) Acapella Vibratory PEP Device 3 ml 23G x 1 (0.6 mm x 2 5 mm) 09/02/2020 12:00:00 AM EDT eCW1 ([facility]) Acapella Vibratory PEP Device 3 ml 23G x 1 (0.6 mm x 2 5 mm) 09/02/2020 12:00:00 AM EDT eCW1 ([facility]) Acapella Vibratory PEP Device 3 ml 23G x 1 (0.6 mm x 2 5 mm) 09/02/2020 12:00:00 AM EDT eCW1 ([facility]) Acapella Vibratory PEP Device 3 ml 23G x 1 (0.6 mm x 2 5 mm) 09/02/2020 12:00:00 AM EDT eCW1 ([facility]) Acapella Vibratory PEP Device 3 ml 23G x 1 (0.6 mm x 2 5 mm) 09/02/2020 12:00:00 AM EDT eCW1 ([facility]) Acapella Vibratory PEP Device 3 ml 23G x 1 (0.6 mm x 2 5 mm) 09/02/2020 12:00:00 AM EDT eCW1 ([facility]) Acapella Vibratory PEP Device 3 ml 23G x 1 (0.6 mm x 2 5 mm) 09/02/2020 12:00:00 AM EDT eCW1 ([facility]) Acapella Vibratory PEP Device 3 ml 23G x 1 (0.6 mm x 2 5 mm) 09/02/2020 12:00:00 AM EDT eCW1 ([facility]) Acapella Vibratory PEP Device 3 ml 23G x 1 (0.6 mm x 2 5 mm) 09/02/2020 12:00:00 AM EDT eCW1 ([facility]) Acapella Vibratory PEP Device 3 ml 23G x 1 (0.6 mm x 2 5 mm) 09/02/2020 12:00:00 AM EDT eCW1 ([facility]) Acapella Vibratory PEP Device 3 ml 23G x 1 (0.6 mm x 2 5 mm) 09/02/2020 12:00:00 AM EDT eCW1 ([facility]) Docusate Sodium 100 MG Oral Capsule 09/02/2020 12:00:00 AM EDT eCW1 ([facility]) Polyethylene Glycol - 09/02/2020 12:00:00 AM EDT eCW1 ([facility]) Cyanocobalamin 500 MCG 09/02/2020 12:00:00 AM EDT eCW1 ([facility]) Levofloxacin 250 MG Oral Tablet 09/02/2020 12:00:00 AM EDT eCW1 ([facility]) Amoxicillin 875 MG / Clavulanate 125 MG Oral Tablet 08/13/19 21 12:00:00 AM EDT eCW1 ([facility]) Amoxicillin 875 MG / Clavulanate 125 MG Oral Tablet 08/13/19 21 12:00:00 AM EDT eCW1 ([facility]) Amoxicillin 875 MG / Clavulanate 125 MG Oral Tablet 08/13/19 21 12:00:00 AM EDT eCW1 ([facility]) May Use - 08/11/2020 12:00:00 AM EDT e CW1 ([facility]) May Have - 08/02/2020 12:00:00 AM EDT e CW1 ([facility]) May Have - 08/02/2020 12:00:00 AM EDT e CW1 ([facility]) May Have - 08/02/2020 12:00:00 AM EDT e CW1 ([facility]) May Have - 08/02/2020 12:00:00 AM EDT e CW1 ([facility]) May Have - 08/02/2020 12:00:00 AM EDT e CW1 ([facility]) May Have - 08/02/2020 12:00:00 AM EDT e CW1 ([facility]) May Have - 07/27/2020 12:00:00 AM EDT e CW1 ([facility]) May Have - 07/27/2020 12:00:00 AM EDT e CW1 ([facility]) May Have - 07/27/2020 12:00:00 AM EDT e CW1 ([facility]) May Have - 07/27/2020 12:00:00 AM EDT e CW1 ([facility]) May Have - 07/27/2020 12:00:00 AM EDT e CW1 ([facility]) May Have - 07/27/2020 12:00:00 AM EDT e CW1 ([facility]) May Have - 07/27/2020 12:00:00 AM EDT e CW1 ([facility]) May Have - 07/27/2020 12:00:00 AM EDT e CW1 ([facility]) May Have - 07/27/2020 12:00:00 AM EDT e CW1 ([facility]) Acetaminophen 325 MG / Hydrocodone Bitartrate 5 MG Ora l Tablet 03/16/2020 12:00:00 AM EST eCW1 ([facility])
--- OUTSIDE RECORDS SUMMARY | 2021-01-25 01:32 | CCD ---
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 Name Role Phone JABARI THEODORE MD Unavailable [...] Unavailable Unavailable THEODOREJABARI BENSON MD Unavailable Unavailable THEODOREJABAIR BENSON MD Unavailable Unavailable THEODOREJABARI BENSON MD [...] THEODOREJABARI BENSON MD Unavailable Unavailable DRAZEK, I ELBZIETA PA Unavailable Unavailable DRAZEK, I ELZBIETA PA [...] [place] Unknown Female Problem MEDENT ([facility]) Encounters Encounter Providers Location Date Indications Data Source(s ) [place] [address] [facility] [address] 12/22/2020 12:00:00 AM EDT eCW1 ([facility]) Unknown [address] [facility] [address] 12/21/2020 12:00:00 AM EDT eCW1 ([facility]) OFFICE OUTPATIENT VISIT 15 MINUTES Attender: ELZBIETA MAHAN Phys ical Therapy 12/14/2020 11:00:00 AM EDT MEDENT ([facility]) Out[place] [address] [facility] [address] 12/06/2020 12:00:00 AM EDT eCW1 ([facility]) Unknown [address] [facility] [address] 11/24/2020 12:00:00 AM EDT eCW1 ([facility]) [place] [address] [facility] [address] 10/26/2020 12:00:00 AM EDT eCW1 ([facility]) Unknown [address] [facility] [address] 10/26/2020 12:00:00 AM EDT eCW1 ([facility]) Unknown [address] [facility] [address] 10/22/2020 12:00:00 AM EDT eCW1 ([facility]) [place] [address] [facility] [place] [address] 10/21/2020 12:00:00 AM EDT eCW1 ([facility]) Unknown [address] [facility] [address] 10/21/2020 12:00:00 AM EDT eCW1 ([facility]) Office Visit, Est Pt., Level 3 PC [address] [place] [address] 10/20/2020 12:00:00 AM EDT eCW1 ([facility]) Unknown [address] [facility] [address] 10/08/2020 12:00:00 AM EDT eCW1 ([facility]) Unknown [address] [facility] [address] 10/06/2020 12:00:00 AM EDT eCW1 ([facility]) [place] [address] [facility] [address] 10/05/2020 12:00:00 AM EDT eCW1 ([facility]) OFFICE OUTPATIENT VISIT 15 MINUTES Attender: ELZBIETA MAHAN Phys ical Therapy 09/29/2020 09:15:00 AM EDT MEDENT ([facility]) Unknown [address] [facility] [place] [address] 09/22/2020 12:00:00 AM EDT eCW1 ([facility]) Unknown [address] [facility] [address] 09/20/2020 12:00:00 AM EDT eCW1 ([facility]) Outpatient [address] [facility] [place] [address] 09/20/2020 12:00:00 AM EDT eCW1 ([facility]) Outpatient Attender: ELZBIETA MAHAN Physical Therapy 09/16/2020 0 2:00:00 PM EDT MEDENT ([facility]) [place] [address] [facility] [place] [address] 09/15/2020 12:00:00 AM EDT eCW1 ([facility]) [place] [address] [facility] [place] [address] 09/15/2020 12:00:00 AM EDT eCW1 ([facility]) Unknown [address] [facility] [place] [address] 09/13/2020 12:00:00 AM EDT eCW1 ([facility]) Unknown [address] [facility] [place] [address] 09/13/2020 12:00:00 AM EDT eCW1 ([facility]) Unknown [address] [facility] [place] [address] 09/13/2020 12:00:00 AM EDT eCW1 ([facility]) Unknown [address] [facility] [place] [address] 09/10/2020 12:00:00 AM EDT eCW1 ([facility]) Office Visit, Est Pt., Level 3 PC [address] [place] [address] 09/09/2020 12:00:00 AM EDT eCW1 ([facility]) Outpatient [address] [facility] [address] 09/02/2020 12:00:00 AM EDT eCW1 ([facility]) Unknown [address] [facility] [place] [address] 08/20/2020 12:00:00 AM EDT eCW1 ([facility]) Unknown [address] [facility] [address] 08/16/2020 12:00:00 AM EDT eCW1 ([facility]) Office Visit, Est Pt., Level 4 PC [address] [place] [address] 08/12/2020 12:00:00 AM EDT eCW1 ([facility]) Unknown [address] [facility] [address] 08/11/2020 12:00:00 AM EDT eCW1 ([facility]) OFFICE OUTPATIENT VISIT 15 MINUTES Attender: ELZBIETA MAHAN Phys ical Therapy 08/02/2020 08:30:00 AM EDT MEDENT ([facility]) Unknown [address] [facility] [address] 07/30/2020 12:00:00 AM EDT eCW1 ([facility]) Outpatient [address] [facility] [address] 07/27/2020 12:00:00 AM EDT eCW1 ([facility]) Outpatient Attender: JABARI THEODORE MDConsultant: JABARI Mata MD 07/06/2020 07:03:00 AM EDT - 07/06/2020 07:13:00 AM EDT [facility] Unknown [address] [facility] [address] 06/29/2020 12:00:00 AM EDT eCW1 ([facility]) Outpatient Attender: JABARI THEODORE MDConsultant: JABARI Mata MD 06/10/2020 06:55:00 AM EDT - 06/10/2020 07:05:00 AM EDT [facility] Unknown [address] [facility] [address] 06/09/2020 12:00:00 AM EDT eCW1 ([facility]) Unknown [address] [facility] [address] 05/31/2020 12:00:00 AM EST eCW1 ([facility]) Outpatient Attender: ELZBIETA MAHAN Physical Therapy 05/05/2020 1 0:15:00 AM EST MEDENT ([facility]) Unknown [address] [facility] [address] 04/29/2020 12:00:00 AM EST eCW1 ([facility]) Unknown [address] [facility] [address] 03/16/2020 12:00:00 AM EST eCW1 ([facility]) Immunizations Vaccine Date Status Description Data Source(s) COVID-19 VACCINE Moderna 07/14/2020 12:00:00 AM EDT completed [employer] Vaccine Series Complete: YESThis Data wa s Submitted to [facility] Via [employer]. COVID-19 VACCINE Moderna 06/14/2020 12:00:00 AM EDT completed [employer] Vaccine Series Complete: NOThis Data was Submitted to [facility] Via [employer]. Medications Medication Brand Name Start Date Product Form Dose Route Admi nistrative Instructions Pharmacy Instructions Status Indications Reaction Description Data Source(s) gabapentin 100 MG Oral Capsule Gabapentin 100 MG Gabapentin 100 MG 12/22/2020 12:00:00 AM EDT 1.0 {capsule} active G abapentin 100 MG eCW1 ([facility]) Prednisone 20 MG Oral Tablet predniSONE 20 MG predniSONE 20 MG 12/22/2020 12:00:00 AM EDT 1.0 {tablet} active pr edniSONE 20 MG eCW1 ([facility]) Folic Acid 1 MG Oral Tablet Folic Acid 1 MG 12/22/2020 12:00:00 AM EDT 1.0 {tablet} active Folic Acid 1 MG eCW1 ([facility]) Albuterol 0.83 MG/ML Inhalant Solution Albuterol Sulfa te (2.5 MG/3ML) 0.083% Albuterol Sulfate (2.5 MG/3ML) 0.083% 10/26/2020 12:00:00 AM EDT 3.0 {ml_as_needed} active Albuterol Sulfate (2.5 MG/3ML) 0.083% eCW1 ([facility]) Albuterol 0.83 MG/ML Inhalant Solution Albuterol Sulfa te (2.5 MG/3ML) 0.083% Albuterol Sulfate (2.5 MG/3ML) 0.083% 10/26/2020 12:00:00 AM EDT 3.0 {ml_as_needed} active Albuterol Sulfate (2.5 MG/3ML) 0.083% eCW1 ([facility]) Albuterol 0.83 MG/ML Inhalant Solution Albuterol Sulfa te (2.5 MG/3ML) 0.083% Albuterol Sulfate (2.5 MG/3ML) 0.083% 10/26/2020 12:00:00 AM EDT 3.0 {ml_as_needed} active Albuterol Sulfate (2.5 MG/3ML) 0.083% eCW1 ([facility]) Albuterol 0.83 MG/ML Inhalant Solution Albuterol Sulfa te (2.5 MG/3ML) 0.083% Albuterol Sulfate (2.5 MG/3ML) 0.083% 10/26/2020 12:00:00 AM EDT 3.0 {ml_as_needed} active Albuterol Sulfate (2.5 MG/3ML) 0.083% eCW1 ([facility]) Albuterol 0.83 MG/ML Inhalant Solution Albuterol Sulfa te (2.5 MG/3ML) 0.083% Albuterol Sulfate (2.5 MG/3ML) 0.083% 10/26/2020 12:00:00 AM EDT 3.0 {ml_as_needed} active Albuterol Sulfate (2.5 MG/3ML) 0.083% eCW ([facility]) Albuterol 0.83 MG/ML Inhalant Solution Albuterol Sulfa te (2.5 MG/3ML) 0.083% Albuterol Sulfate (2.5 MG/3ML) 0.083% 10/26/2020 12:00:00 AM EDT 3.0 {ml_as_needed} active Albuterol Sulfate (2.5 MG/3ML) 0.083% [facility] ([facility]) Hospital bed [facility] 10/13/2020 12:00:00 AM EDT activ e Hospital bed [facility] ([facility]) Hospital bed [facility] 10/13/2020 12:00:00 AM EDT activ e Hospital bed [facility] ([facility]) Hospital bed [facility] 10/13/2020 12:00:00 AM EDT activ e Hospital bed [facility] ([facility]) Hospital bed [facility] 10/13/2020 12:00:00 AM EDT activ e Hospital bed [facility] ([facility]) Hospital bed [facility] 10/13/2020 12:00:00 AM EDT activ e Hospital bed [facility] ([facility]) Hospital bed UN 10/13/2020 12:00:00 AM EDT activ e Hospital bed [facility] ([facility]) Hospital bed UNK 10/13/2020 12:00:00 AM EDT activ e Hospital bed eCW1 ([facility]) Hospital bed UNK 10/13/2020 12:00:00 AM EDT activ e Hospital bed eCW1 ([facility]) Hospital bed UNK 10/13/2020 12:00:00 AM EDT activ e Hospital bed eCW1 ([facility]) Hospital bed UNK 10/13/2020 12:00:00 AM EDT activ e Hospital bed eCW1 ([facility]) Hospital bed UNK 10/13/2020 12:00:00 AM EDT activ e Hospital bed eCW1 ([facility]) Hospital bed UNK 10/13/2020 12:00:00 AM EDT activ e Hospital bed eCW1 ([facility]) Cyanocobalamin 500 MCG K 09/02/2020 12:00:00 AM EDT 1.0 {t ablet} active Cyanocobalamin 500 MCG eCW1 ([facility]) Levofloxacin 250 MG Oral Tablet levoFLOXacin 250 MG levoFLOX acin 250 MG 09/02/2020 12:00:00 AM EDT 2.0 {tablets} active levoFLOXacin 250 MG eCW1 ([facility]) Docusate Sodium 100 MG Oral Capsule Docusate Sodium 100 MG 0 09/02/2020 12:00:00 AM EDT active Docusate Sodium 1 00 MG eCW1 ([facility]) Cyanocobalamin 500 MCG UNK 09/02/2020 12:00:00 AM EDT 1.0 {t ablet} active Cyanocobalamin 500 MCG eCW1 ([facility]) Polyethylene Glycol - Polyethylene Glycol - 09/02/2020 12:00:00 AM EDT active Polyethylene Glycol - eCW1 ( [facility]) Polyethylene Glycol - Polyethylene Glycol - 09/02/2020 12:00:00 AM EDT active Polyethylene Glycol - eCW1 ( [facility]) Acapella Vibratory PEP Device 3 ml 23G x 1 (0.6 mm x 25 mm) K 09/02/2020 12:00:00 AM EDT active Acapella Vibratory PEP Device 3 ml 23G x 1 (0.6 mm x 25 mm) eCW1 ([facility]) Acapella Vibratory PEP Device 3 ml 23G x 1 (0.6 mm x 25 mm) UNK 09/02/2020 12:00:00 AM EDT active Acapella Vibratory PEP Device 3 ml 23G x 1 (0.6 mm x 25 mm) eCW1 ([facility]) Cyanocobalamin 500 MCG UNK 09/02/2020 12:00:00 AM EDT 1.0 {t ablet} active Cyanocobalamin 500 MCG eCW1 ([facility]) Cyanocobalamin 500 MCG UNK 09/02/2020 12:00:00 AM EDT 1.0 {t ablet} active Cyanocobalamin 500 MCG eCW1 ([facility]) Docusate Sodium 100 MG Oral Capsule Docusate Sodium 100 MG 0 09/02/2020 12:00:00 AM EDT active Docusate Sodium 1 00 MG eCW1 ([facility]) Polyethylene Glycol - Polyethylene Glycol - 09/02/2020 12:00:00 AM EDT active Polyethylene Glycol - eCW1 ( [facility]) Acapella Vibratory PEP Device 3 ml 23G x 1 (0.6 mm x 25 mm) UNK 09/02/2020 12:00:00 AM EDT active Acapella Vibratory PEP Device 3 ml 23G x 1 (0.6 mm x 25 mm) eCW1 ([facility]) Cyanocobalamin 500 MCG UNK 09/02/2020 12:00:00 AM EDT 1.0 {t ablet} active Cyanocobalamin 500 MCG eCW1 ([facility]) Acapella Vibratory PEP Device 3 ml 23G x 1 (0.6 mm x 25 mm) UNK 09/02/2020 12:00:00 AM EDT active Acapella Vibratory PEP Device 3 ml 23G x 1 (0.6 mm x 25 mm) eCW1 ([facility]) Polyethylene Glycol - Polyethylene Glycol - 09/02/2020 12:00:00 AM EDT active Polyethylene Glycol - eCW1 ( [facility]) Polyethylene Glycol - Polyethylene Glycol - 09/02/2020 12:00:00 AM EDT active Polyethylene Glycol - eCW1 ( [facility]) Polyethylene Glycol - Polyethylene Glycol - 09/02/2020 12:00:00 AM EDT active Polyethylene Glycol - eCW1 ( [facility]) Docusate Sodium 100 MG Oral Capsule Docusate Sodium 100 MG 0 09/02/2020 12:00:00 AM EDT active Docusate Sodium 1 00 MG eCW1 ([facility]) Acapella Vibratory PEP Device 3 ml 23G x 1 (0.6 mm x 25 mm) UNK 09/02/2020 12:00:00 AM EDT active Acapella Vibratory PEP Device 3 ml 23G x 1 (0.6 mm x 25 mm) eCW1 ([facility]) Polyethylene Glycol - Polyethylene Glycol - 09/02/2020 12:00:00 AM EDT active Polyethylene Glycol - eCW1 ( [facility]) Polyethylene Glycol - Polyethylene Glycol - 09/02/2020 12:00:00 AM EDT active Polyethylene Glycol - eCW1 ( [facility]) Polyethylene Glycol - Polyethylene Glycol - 09/02/2020 12:00:00 AM EDT active Polyethylene Glycol - eCW1 ( [facility]) Docusate Sodium 100 MG Oral Capsule Docusate Sodium 100 MG 0 09/02/2020 12:00:00 AM EDT active Docusate Sodium 1 00 MG eCW1 ([facility]) Acapella Vibratory PEP Device 3 ml 23G x 1 (0.6 mm x 25 mm) UNK 09/02/2020 12:00:00 AM EDT active Acapella Vibratory PEP Device 3 ml 23G x 1 (0.6 mm x 25 mm) eCW1 ([facility]) Cyanocobalamin 500 MCG UNK 09/02/2020 12:00:00 AM EDT 1.0 {t ablet} active Cyanocobalamin 500 MCG eCW1 ([facility]) Polyethylene Glycol - Polyethylene Glycol - 09/02/2020 12:00:00 AM EDT active Polyethylene Glycol - eCW1 ( [facility]) Docusate Sodium 100 MG Oral Capsule Docusate Sodium 100 MG 0 09/02/2020 12:00:00 AM EDT active Docusate Sodium 1 00 MG eCW1 ([facility]) Cyanocobalamin 500 MCG UNK 09/02/2020 12:00:00 AM EDT 1.0 {t ablet} active Cyanocobalamin 500 MCG eCW1 ([facility]) Acapella Vibratory PEP Device 3 ml 23G x 1 (0.6 mm x 25 mm) UNK 09/02/2020 12:00:00 AM EDT active Acapella Vibratory PEP Device 3 ml 23G x 1 (0.6 mm x 25 mm) eCW1 ([facility]) Docusate Sodium 100 MG Oral Capsule Docusate Sodium 100 MG 0 09/02/2020 12:00:00 AM EDT active Docusate Sodium 1 00 MG eCW1 ([facility]) Levofloxacin 250 MG Oral Tablet levoFLOXacin 250 MG levoFLOX acin 250 MG 09/02/2020 12:00:00 AM EDT 2.0 {tablets} active levoFLOXacin 250 MG eCW1 ([facility]) Cyanocobalamin 500 MCG UNK 09/02/2020 12:00:00 AM EDT 1.0 {t ablet} active Cyanocobalamin 500 MCG eCW1 ([facility]) Docusate Sodium 100 MG Oral Capsule Docusate Sodium 100 MG 0 09/02/2020 12:00:00 AM EDT active Docusate Sodium 1 00 MG eCW1 ([facility]) Docusate Sodium 100 MG Oral Capsule Docusate Sodium 100 MG 0 09/02/2020 12:00:00 AM EDT active Docusate Sodium 1 00 MG eCW1 ([facility]) Polyethylene Glycol - Polyethylene Glycol - 09/02/2020 12:00:00 AM EDT active Polyethylene Glycol - eCW1 ( [facility]) Polyethylene Glycol - Polyethylene Glycol - 09/02/2020 12:00:00 AM EDT active Polyethylene Glycol - eCW1 ( [facility]) Acapella Vibratory PEP Device 3 ml 23G x 1 (0.6 mm x 25 mm) UNK 09/02/2020 12:00:00 AM EDT active Acapella Vibratory PEP Device 3 ml 23G x 1 (0.6 mm x 25 mm) eCW1 ([facility]) Acapella Vibratory PEP Device 3 ml 23G x 1 (0.6 mm x 25 mm) UNK 09/02/2020 12:00:00 AM EDT active Acapella Vibratory PEP Device 3 ml 23G x 1 (0.6 mm x 25 mm) eCW1 ([facility]) Polyethylene Glycol - Polyethylene Glycol - 09/02/2020 12:00:00 AM EDT active Polyethylene Glycol - eCW1 ( [facility]) Acapella Vibratory PEP Device 3 ml 23G x 1 (0.6 mm x 25 mm) UNK 09/02/2020 12:00:00 AM EDT active Acapella Vibratory PEP Device 3 ml 23G x 1 (0.6 mm x 25 mm) eCW1 ([facility]) Acapella Vibratory PEP Device 3 ml 23G x 1 (0.6 mm x 25 mm) UNK 09/02/2020 12:00:00 AM EDT active Acapella Vibratory PEP Device 3 ml 23G x 1 (0.6 mm x 25 mm) eCW1 ([facility]) Levofloxacin 250 MG Oral Tablet levoFLOXacin 250 MG levoFLOX acin 250 MG 09/02/2020 12:00:00 AM EDT 2.0 {tablets} active levoFLOXacin 250 MG eCW1 ([facility]) Cyanocobalamin 500 MCG UNK 09/02/2020 12:00:00 AM EDT 1.0 {t ablet} active Cyanocobalamin 500 MCG eCW1 ([facility]) Docusate Sodium 100 MG Oral Capsule Docusate Sodium 100 MG 0 09/02/2020 12:00:00 AM EDT active Docusate Sodium 1 00 MG eCW1 ([facility]) Polyethylene Glycol - Polyethylene Glycol - 09/02/2020 12:00:00 AM EDT active Polyethylene Glycol - eCW1 ( [facility]) Polyethylene Glycol - Polyethylene Glycol - 09/02/2020 12:00:00 AM EDT active Polyethylene Glycol - eCW1 ( [facility]) Acapella Vibratory PEP Device 3 ml 23G x 1 (0.6 mm x 25 mm) UNK 09/02/2020 12:00:00 AM EDT active Acapella Vibratory PEP Device 3 ml 23G x 1 (0.6 mm x 25 mm) eCW1 ([facility]) Cyanocobalamin 500 MCG UNK 09/02/2020 12:00:00 AM EDT 1.0 {t ablet} active Cyanocobalamin 500 MCG eCW1 ([facility]) Acapella Vibratory PEP Device 3 ml 23G x 1 (0.6 mm x 25 mm) UNK 09/02/2020 12:00:00 AM EDT active Acapella Vibratory PEP Device 3 ml 23G x 1 (0.6 mm x 25 mm) eCW1 ([facility]) Docusate Sodium 100 MG Oral Capsule Docusate Sodium 100 MG 0 09/02/2020 12:00:00 AM EDT active Docusate Sodium 1 00 MG eCW1 ([facility]) Cyanocobalamin 500 MCG UNK 09/02/2020 12:00:00 AM EDT 1.0 {t ablet} active Cyanocobalamin 500 MCG eCW1 ([facility]) Acapella Vibratory PEP Device 3 ml 23G x 1 (0.6 mm x 25 mm) UNK 09/02/2020 12:00:00 AM EDT active Acapella Vibratory PEP Device 3 ml 23G x 1 (0.6 mm x 25 mm) eCW1 ([facility]) Acapella Vibratory PEP Device 3 ml 23G x 1 (0.6 mm x 25 mm) UNK 09/02/2020 12:00:00 AM EDT active Acapella Vibratory PEP Device 3 ml 23G x 1 (0.6 mm x 25 mm) eCW1 ([facility]) Cyanocobalamin 500 MCG UNK 09/02/2020 12:00:00 AM EDT 1.0 {t ablet} active Cyanocobalamin 500 MCG eCW1 ([facility]) Cyanocobalamin 500 MCG UNK 09/02/2020 12:00:00 AM EDT 1.0 {t ablet} active Cyanocobalamin 500 MCG eCW1 ([facility]) Polyethylene Glycol - Polyethylene Glycol - 09/02/2020 12:00:00 AM EDT active Polyethylene Glycol - eCW1 ( [facility]) Docusate Sodium 100 MG Oral Capsule Docusate Sodium 100 MG 0 09/02/2020 12:00:00 AM EDT active Docusate Sodium 1 00 MG eCW1 ([facility]) Cyanocobalamin 500 MCG UNK 09/02/2020 12:00:00 AM EDT 1.0 {t ablet} active Cyanocobalamin 500 MCG eCW1 ([facility]) Cyanocobalamin 500 MCG UNK 09/02/2020 12:00:00 AM EDT 1.0 {t ablet} active Cyanocobalamin 500 MCG eCW1 ([facility]) Docusate Sodium 100 MG Oral Capsule Docusate Sodium 100 MG 0 09/02/2020 12:00:00 AM EDT active Docusate Sodium 1 00 MG eCW1 ([facility]) Acapella Vibratory PEP Device 3 ml 23G x 1 (0.6 mm x 25 mm) UNK 09/02/2020 12:00:00 AM EDT active Acapella Vibratory PEP Device 3 ml 23G x 1 (0.6 mm x 25 mm) eCW1 ([facility]) Cyanocobalamin 500 MCG UNK 09/02/2020 12:00:00 AM EDT 1.0 {t ablet} active Cyanocobalamin 500 MCG eCW1 ([facility]) Cyanocobalamin 500 MCG UNK 09/02/2020 12:00:00 AM EDT 1.0 {t ablet} active Cyanocobalamin 500 MCG eCW1 ([facility]) Docusate Sodium 100 MG Oral Capsule Docusate Sodium 100 MG 0 09/02/2020 12:00:00 AM EDT active Docusate Sodium 1 00 MG eCW1 ([facility]) Acapella Vibratory PEP Device 3 ml 23G x 1 (0.6 mm x 25 mm) UNK 09/02/2020 12:00:00 AM EDT active Acapella Vibratory PEP Device 3 ml 23G x 1 (0.6 mm x 25 mm) eCW1 ([facility]) Levofloxacin 250 MG Oral Tablet levoFLOXacin 250 MG levoFLOX acin 250 MG 09/02/2020 12:00:00 AM EDT 2.0 {tablets} active levoFLOXacin 250 MG eCW1 ([facility]) Polyethylene Glycol - Polyethylene Glycol - 09/02/2020 12:00:00 AM EDT active Polyethylene Glycol - eCW1 ( [facility]) Levofloxacin 250 MG Oral Tablet levoFLOXacin 250 MG levoFLOX acin 250 MG 09/02/2020 12:00:00 AM EDT 2.0 {tablets} active levoFLOXacin 250 MG eCW1 ([facility]) Acapella Vibratory PEP Device 3 ml 23G x 1 (0.6 mm x 25 mm) UNK 09/02/2020 12:00:00 AM EDT active Acapella Vibratory PEP Device 3 ml 23G x 1 (0.6 mm x 25 mm) eCW1 ([facility]) Cyanocobalamin 500 MCG UNK 09/02/2020 12:00:00 AM EDT 1.0 {t ablet} active Cyanocobalamin 500 MCG eCW1 ([facility]) Cyanocobalamin 500 MCG UNK 09/02/2020 12:00:00 AM EDT 1.0 {t ablet} active Cyanocobalamin 500 MCG eCW1 ([facility]) Acapella Vibratory PEP Device 3 ml 23G x 1 (0.6 mm x 25 mm) UNK 09/02/2020 12:00:00 AM EDT active Acapella Vibratory PEP Device 3 ml 23G x 1 (0.6 mm x 25 mm) eCW1 ([facility]) Polyethylene Glycol - Polyethylene Glycol - 09/02/2020 12:00:00 AM EDT active Polyethylene Glycol - eCW1 ( [facility]) Cyanocobalamin 500 MCG UNK 09/02/2020 12:00:00 AM EDT 1.0 {t ablet} active Cyanocobalamin 500 MCG eCW1 ([facility]) Docusate Sodium 100 MG Oral Capsule Docusate Sodium 100 MG 0 09/02/2020 12:00:00 AM EDT active Docusate Sodium 1 00 MG eCW1 ([facility]) Acapella Vibratory PEP Device 3 ml 23G x 1 (0.6 mm x 25 mm) UNK 09/02/2020 12:00:00 AM EDT active Acapella Vibratory PEP Device 3 ml 23G x 1 (0.6 mm x 25 mm) eCW1 ([facility]) Polyethylene Glycol - Polyethylene Glycol - 09/02/2020 12:00:00 AM EDT active Polyethylene Glycol - eCW1 ( [facility]) Acapella Vibratory PEP Device 3 ml 23G x 1 (0.6 mm x 25 mm) UNK 09/02/2020 12:00:00 AM EDT active Acapella Vibratory PEP Device 3 ml 23G x 1 (0.6 mm x 25 mm) eCW1 ([facility]) Cyanocobalamin 500 MCG UNK 09/02/2020 12:00:00 AM EDT 1.0 {t ablet} active Cyanocobalamin 500 MCG eCW1 ([facility]) Cyanocobalamin 500 MCG UNK 09/02/2020 12:00:00 AM EDT 1.0 {t ablet} active Cyanocobalamin 500 MCG eCW1 ([facility]) Levofloxacin 250 MG Oral Tablet levoFLOXacin 250 MG levoFLOX acin 250 MG 09/02/2020 12:00:00 AM EDT 2.0 {tablets} active levoFLOXacin 250 MG eCW1 ([facility]) Polyethylene Glycol - Polyethylene Glycol - 09/02/2020 12:00:00 AM EDT active Polyethylene Glycol - eCW1 ( [facility]) Levofloxacin 250 MG Oral Tablet levoFLOXacin 250 MG levoFLOX acin 250 MG 09/02/2020 12:00:00 AM EDT 2.0 {tablets} active levoFLOXacin 250 MG eCW1 ([facility]) Polyethylene Glycol - Polyethylene Glycol - 09/02/2020 12:00:00 AM EDT active Polyethylene Glycol - eCW1 ( [facility]) Polyethylene Glycol - Polyethylene Glycol - 09/02/2020 12:00:00 AM EDT active Polyethylene Glycol - eCW1 ( [facility]) Acapella Vibratory PEP Device 3 ml 23G x 1 (0.6 mm x 25 mm) UNK 09/02/2020 12:00:00 AM EDT active Acapella Vibratory PEP Device 3 ml 23G x 1 (0.6 mm x 25 mm) eCW1 ([facility]) Amoxicillin 875 MG / Clavulanate 125 MG Oral Tablet Amoxicillin-Pot Clavulanate 875-125 MG Amoxicillin-Pot Clavulanate 875-125 MG 08/12/2020 12:00:00 AM ED T 1.0 {tablet} active Amoxicillin-Pot Cla vulanate 875-125 MG eCW1 ([facility]) Amoxicillin 875 MG / Clavulanate 125 MG Oral Tablet Amoxicillin-Pot Clavulanate 875-125 MG Amoxicillin-Pot Clavulanate 875-125 MG 08/12/2020 12:00:00 AM ED T 1.0 {tablet} active Amoxicillin-Pot Cla vulanate 875-125 MG eCW1 ([facility]) Amoxicillin 875 MG / Clavulanate 125 MG Oral Tablet Amoxicillin-Pot Clavulanate 875-125 MG Amoxicillin-Pot Clavulanate 875-125 MG 08/12/2020 12:00:00 AM ED T 1.0 {tablet} active Amoxicillin-Pot Cla vulanate 875-125 MG eCW1 ([facility]) May Use - UNK 08/11/2020 12:00:00 AM EDT active May Use - eCW1 ([facility]) May Use - UNK 08/11/2020 12:00:00 AM EDT active May Use - eCW1 ([facility]) May Use - UNK 08/11/2020 12:00:00 AM EDT active May Use - eCW1 ([facility]) May Use - UNK 08/11/2020 12:00:00 AM EDT active May Use - eCW1 ([facility]) May Have - UNK 08/02/2020 12:00:00 AM EDT active May Have - eCW1 ([facility]) May Have - UNK 08/02/2020 12:00:00 AM EDT active May Have - eCW1 ([facility]) May Have - UNK 08/02/2020 12:00:00 AM EDT active May Have - eCW1 ([facility]) May Have - UNK 08/02/2020 12:00:00 AM EDT active May Have - eCW1 ([facility]) May Have - UNK 08/02/2020 12:00:00 AM EDT active May Have - eCW1 ([facility]) May Have - UNK 08/02/2020 12:00:00 AM EDT active May Have - eCW1 ([facility]) May Have - UNK 08/02/2020 12:00:00 AM EDT active May Have - eCW1 ([facility]) May Have - UNK 08/02/2020 12:00:00 AM EDT active May Have - eCW1 ([facility]) May Have - UNK 08/02/2020 12:00:00 AM EDT active May Have - eCW1 ([facility]) May Have - UNK 08/02/2020 12:00:00 AM EDT active May Have - eCW1 ([facility]) May Have - UNK 08/02/2020 12:00:00 AM EDT active May Have - eCW1 ([facility]) May Have - UNK 08/02/2020 12:00:00 AM EDT active May Have - eCW1 ([facility]) May Have - UNK 07/27/2020 12:00:00 AM EDT active May Have - eCW1 ([facility]) May Have - UNK 07/27/2020 12:00:00 AM EDT active May Have - eCW1 ([facility]) May Have - UNK 07/27/2020 12:00:00 AM EDT active May Have - eCW1 ([facility]) May Have - UNK 07/27/2020 12:00:00 AM EDT active May Have - eCW1 ([facility]) May Have - UNK 07/27/2020 12:00:00 AM EDT active May Have - eCW1 ([facility]) May Have - UNK 07/27/2020 12:00:00 AM EDT active May Have - eCW1 ([facility]) May Have - UNK 07/27/2020 12:00:00 AM EDT active May Have - eCW1 ([facility]) May Have - UNK 07/27/2020 12:00:00 AM EDT active May Have - eCW1 ([facility]) May Have - UNK 07/27/2020 12:00:00 AM EDT active May Have - eCW1 ([facility]) tramadol hydrochloride 50 MG Oral Tablet Tramadol [...] to sahu Policy Sahu Plan Information [employer] [place] Medigap Part B [id number] Self [employer] [place] Commercial [id number] Self [id number] [place] Medigap Part B [id number] Self Secure [id number] Commercial [id number] Self [employer] OPTIONS [id number] [place] [id number] [facility] O [id number] S [id number] ANSI-Medicare Part B [id number] ANSI-Health Maintenance Organization (HM O) [id number] ANSI-Medicare Part B [id number] ANSI-Medicare Part B [id number] TOD[employer] OPTIONS [id number] SP [id number] ANSI-Medicare Part B [id number] ANSI-Medicare Part B [id number] ANSI-Medicare Part B [id number] ANSI-Medicare Part B [id number] ANSI-Medicare Part B [id number] [employer] [facility] [id number] Self [id number] [employer] O [id number] S [id number] MEDICARE [id number] SP [id number] A [employer] [id number] [place] [id number] [employer] Medigap Part B [id number] Self Blue Shield MCR Advantage Medigap Part B [id number] Self [employer] Medigap Part B [id number] Self [employer]/[place] O [id number] S [id number] MEDICAID M [id number] S [id number] A MEDICARE [id number] SP [id number] [employer] OPTIONS [id number] SP [id number] MEDICARE BLUE PPO 306 [id number] SP [id number] EXCELLUS BCBS P [id number] S [id number] SECURE HORIZONS P [id number] S [id number] MEDICARE [id number] SP [id number] MEDICARE BLUE PPO 306 [id number] SP [id number] [facility] MEDICAID [id number] SP [id number] MEDICARE [id number] SP [id number] WELLCARE [id number] SP [id number] WELLCARE -O/P [id number] 18 [id number] Problems, Conditions, and Diagnoses Code Display Name Description Problem Type Effective Dates Data Source(s) E039 Hypothyroidism, unspecified Hypothyroidism, unspecifie d Diagnosis 07/06/2020 07:03:00 AM EDT [facility] I4891 Unspecified atrial fibrillation Unspecified atrial fib rillation Diagnosis 06/10/2020 06:55:00 AM EDT [facility] J449 Chronic obstructive pulmonary disease, u nspecified Chronic obstructive pulmonary disease, unspecified Diagnosis 06/10/2020 06:55:00 AM EDT [facility] I2510 Atherosclerotic heart diseas e of [place] coronary artery without angina pectoris Atherosclerotic heart disease of [place] coronary artery without angina pectoris Diagnosis 06/10/2020 06:55:00 AM EDT [facility] 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, lumbar region Problem 12/22/2020 12:00:00 AM EDT eCW1 ([facility]) G43.009 [id number] Migraine without aur a and without status migrainosus, not intractable Problem 12/06/2020 12:00:00 AM EDT eCW1 ([facility]) R26.2 [id number] Difficulty in walking Problem 10/21/2020 12: 00:00 AM EDT eCW1 ([facility]) G47.33 Obstructive sleep apnea syndrome Obstruc tive sleep apnea (adult) (pediatric) Problem 10/13/2020 12:00:00 AM EDT eCW1 ([facility]) D63.8 [id number] Anemia of chronic disease Problem 09/20/2020 12:00:00 AM EDT eCW1 ([facility]) D50.9 Iron deficiency anemia Iron deficiency anemia, unspeci fied Problem 09/15/2020 12:00:00 AM EDT eCW1 ([facility]) I50.32 Chronic diastolic heart failure Chronic diastolic (congestive) heart failure Problem 09/15/2020 12:00:00 AM EDT eCW1 ([facility]) R26.89 [id number] Balance problem Problem 09/10/2020 12:00:00 AM EDT eCW1 ([facility]) I48.0 [id number] Paroxysmal atrial fibrillation Problem 09/02/2020 12:00:00 AM EDT eCW1 ([facility]) I50.22 [id number] Chronic systolic congestive heart failure Problem 07/27/2020 12:00:00 AM EDT eCW1 ([facility]) E03.9 Acquired hypothyroidism Acquired hypothyroidism Proble m 07/27/2020 12:00:00 AM EDT eCW1 ([facility]) I48.91 [id number] Atrial fibrillation, unspecified type Pro blem 07/27/2020 12:00:00 AM EDT eCW1 ([facility]) R26.89 [id number] Imbalance Problem 07/27/2020 12:00:00 AM ED T eCW1 ([facility]) N18.9 [id number] Chronic kidney disease, unspecified Probl em 07/27/2020 12:00:00 AM EDT eCW1 ([facility]) Surgeries/Procedures Procedure Description Date Indications Data Source(s) OFFICE OUTPATIENT VISIT 15 MINUTES 12/14/2020 12:00:00 AM EDT [facility] ([facility] ) OFFICE OUTPATIENT VISIT 15 MINUTES 09/29/2020 12:00:00 AM EDT [facility] ([facility] ) THERAPEUTIC PX 1/> AREAS EACH 15 MIN EXERCISES 12:00:00 AM EDT [facility] ([facility] ) RADIOLOGIC EXAM KNEE COMPLETE 4/MORE VIEWS 09/16/2020 12:00:00 AM EDT [facility] ([facility]) OFFICE OUTPATIENT VISIT 25 MINUTES 09/16/2020 12:00:00 AM EDT [facility] ([facility]) THERAPEUTIC PX 1/> AREAS EACH 15 MIN EXERCISES 021 12:00:00 AM EDT [facility] ([facility]) THERAPEUTIC PX 1/> AREAS EACH 15 MIN EXERCISES 12:00:00 AM EDT [facility] ([facility]) THERAPEUTIC PX 1/> AREAS EACH 15 MIN EXERCISES 021 12:00:00 AM EDT [facility] ([facility]) THERAPEUTIC PX 1/> AREAS EACH 15 MIN EXERCISES 021 12:00:00 AM EDT [facility] ([facility]) THERAPEUTIC PX 1/> AREAS EACH 15 MIN EXERCISES 021 12:00:00 AM EDT [facility] ([facility]) THERAPEUTIC PX 1/> AREAS EACH 15 MIN EXERCISES 12:00:00 AM EDT [facility] ([facility]) THERAPEUTIC PX 1/> AREAS EACH 15 MIN EXERCISES 021 12:00:00 AM EDT [facility] ([facility]) THERAPEUTIC PX 1/> AREAS EACH 15 MIN EXERCISES 021 12:00:00 AM EDT [facility] ([facility]) THERAPEUTIC PX 1/> AREAS EACH 15 MIN EXERCISES 021 12:00:00 AM EDT [facility] ([facility]) Physical Therapy Eval - Low Complexity 08/09/2020 12:0 0:00 AM EDT [facility] ([facility]) OFFICE OUTPATIENT VISIT 15 MINUTES 08/02/2020 12:00:00 AM EDT [facility] ([facility]) OFFICE OUTPATIENT NEW 45 MINUTES 05/05/2020 12:00:00 A M EST [facility] ([facility]) Results ID Date Data Source [id number] 12/02/2020 03:53:00 PM EDT [facility] Name Value Range Interpretation Code Description Data Tonya rce(s) Supporting Document(s) SARS coronavirus 2 RNA [Presence] in Res piratory specimen by SENIA with probe detection NEGATIVE [facility] This lab was ordered by [facility] a nd reported by [facility]. ID Date Data Source CBC with Auto Differential 10/20/2020 12:00:00 AM EDT eCW1 ( [facility]) Name Value Range Interpretation Code Description Data Tonya rce(s) Supporting Document(s) 10.4 4.0-10.0 WHITE BLOOD COUNT eCW1 ([facility]) 4.64 4.30-6.10 RED BLOOD COUNT eCW1 ([facility]) 41.1 42.0-52.0 HEMATOCRIT eCW1 ([facility]) 88.6 80.0-96.0 MEAN CORPUSCULAR VOLUME e CW1 ([facility]) 12.7 13.5-17.5 HEMOGLOBIN eCW1 ([facility]) 13.7 11.5-14.5 RED CELL DISTRIBUTION WID TH eCW1 ([facility]) 27.4 27.0-33.0 MEAN CORPUSCULAR HEMOGLOB IN eCW1 ([facility]) 30.9 32.0-36.5 MEAN CORPUSCULAR HGB CONC eCW1 ([facility]) 8.0 2.0-8.0 MONO % eCW1 ([facility]) 354 150-450 PLATELET COUNT, AUTOMATED eCW1 ([facility]) 55.5 36.0-66.0 NEUTROPHILS % eCW1 ([facility]) 31.5 24.0-44.0 LYMPH % eCW1 ([facility]) 0.8 0-3.0 IMMATURE GRANULOCYTE % eCW1 ([facility]) 0.5 0.0-1.0 BASO % eCW1 ([facility]) 3.7 0.0-3.0 EOS % eCW1 ([facility]) 3.3 1.5-5.0 LYMPH # eCW1 ([facility]) 0.0 0-0 NUCLEATED RED BLOOD CELL % eCW 1 ([facility]) 5.8 1.5-8.5 NEUTROPHILS # eCW1 ([facility]) 0.4 0.0-0.5 EOS # eCW1 ([facility]) 0.8 0.0-0.8 MONO # eCW1 ([facility]) 0.1 0.0-0.2 BASO # eCW1 ([facility]) ID Date Data Source Comprehensive Metabolic Profile (CMP) 10/20/2020 12:00:00 AM EDT eCW1 ([facility]) Name Value Range Interpretation Code Description Data Tonya rce(s) Supporting Document(s) 139 70-100 GLUCOSE, FASTING eCW1 ([facility]) 16 7-18 BLOOD UREA NITROGEN eCW1 ([facility]) 139 136-145 SODIUM LEVEL eCW1 ([facility]) 1.51 0.70-1.30 CREATININE FOR GFR eCW1 ([facility]) 47.0 >35 GLOMERULAR FILTRATION RATE eCW 1 ([facility]) 103 98-107 CHLORIDE LEVEL eCW1 ([facility]) 4.1 3.5-5.1 POTASSIUM SERUM eCW1 ([facility]) 32 21-32 CARBON DIOXIDE LEVEL eCW1 ([facility]) 19 7-37 AST/SGOT eCW1 ([facility]) 19 12-78 ALT/SGPT eCW1 ([facility]) 9.2 8.8-10.2 CALCIUM LEVEL eCW1 ([facility]) 130 45-117 ALKALINE PHOSPHATASE eCW1 ([facility]) 0.5 0.2-1.0 BILIRUBIN,TOTAL eCW1 ([facility]) 7.5 6.4-8.2 TOTAL PROTEIN eCW1 ([facility]) 3.4 3.2-5.2 ALBUMIN eCW1 ([facility]) 0.8 ALBUMIN/GLOBULIN RATIO eCW1 ([facility]) ID Date Data Source MAGNESIUM LEVEL 10/20/2020 12:00:00 AM EDT eCW1 ([facility]) Name Value Range Interpretation Code Description Data Tonya rce(s) Supporting Document(s) 2.3 1.8-2.4 MAGNESIUM LEVEL eCW1 ([facility]) ID Date Data Source NT-PRO BNP 10/20/2020 12:00:00 AM EDT eCW1 ([facility]) Name Value Range Interpretation Code Description Data Tonya rce(s) Supporting Document(s) 4932 <450 NT-PRO BNP eCW1 ([facility]) ID Date Data Source PLZ CHEST 2 VIEW 09/09/2020 12:00:00 AM EDT eCW1 ([facility]) Name Value Range Interpretation Code Description Data Tonya rce(s) Supporting Document(s) PLZ CHEST 2 VIEW eCW1 ([facility]) ID Date Data Source FREE T4 & TSH PANEL 08/12/2020 12:00:00 AM EDT eCW1 ([facility]) Name Value Range Interpretation Code Description Data Tonya rce(s) Supporting Document(s) 2.390 0.358-3.740 THYROID STIMULATING HORM ONE eCW1 ([facility]) 0.96 0.76-1.46 FREE T4 eCW1 ([facility]) ID Date Data Source C REACTIVE PROTEIN QUANTITATIV (At [facility]) 08/12/2020 12:00 :00 AM EDT eCW1 ([facility]) Name Value Range Interpretation Code Description Data Tonya rce(s) Supporting Document(s) 1.99 0.00-0.30 C REACTIVE PROTEIN QUANTI TATIV eCW1 ([facility]) ID Date Data Source CBC with Differential 08/12/2020 12:00:00 AM EDT eCW1 ([facility]) Name Value Range Interpretation Code Description Data Tonya rce(s) Supporting Document(s) 9.3 4.0-10.0 WHITE BLOOD COUNT eCW1 ([facility]) 13.4 13.5-17.5 HEMOGLOBIN eCW1 ([facility]) 43.0 42.0-52.0 HEMATOCRIT eCW1 ([facility]) 4.81 4.30-6.10 RED BLOOD COUNT eCW1 ([facility]) 31.2 32.0-36.5 MEAN CORPUSCULAR HGB CONC eCW1 ([facility]) 27.9 27.0-33.0 MEAN CORPUSCULAR HEMOGLOB IN eCW1 ([facility]) 89.4 80.0-96.0 MEAN CORPUSCULAR VOLUME e CW1 ([facility]) 341 150-450 PLATELET COUNT, AUTOMATED eCW1 ([facility]) 49.0 36.0-66.0 NEUTROPHILS % eCW1 ([facility]) 13.0 11.5-14.5 RED CELL DISTRIBUTION WID TH eCW1 ([facility]) 3.3 0.0-3.0 EOS % eCW1 ([facility]) 37.5 24.0-44.0 LYMPH % eCW1 ([facility]) 0.5 0.0-1.0 BASO % eCW1 ([facility]) 9.5 2.0-8.0 MONO % eCW1 ([facility]) 0.9 0.0-0.8 MONO # eCW1 ([facility]) 4.6 1.5-8.5 NEUTROPHILS # eCW1 ([facility]) 3.5 1.5-5.0 LYMPH # eCW1 ([facility]) 0.3 0.0-0.5 EOS # eCW1 ([facility]) 0.1 0.0-0.2 BASO # eCW1 ([facility]) ID Date Data Source VITAMIN B12 LEVEL 07/27/2020 12:00:00 AM EDT eCW1 ([facility]) Name Value Range Interpretation Code Description Data Tonya rce(s) Supporting Document(s) 577 285-741 VITAMIN B12 LEVEL eCW1 ([facility]) ID Date Data Source VITAMIN D 25-HYDROXY 07/27/2020 12:00:00 AM EDT eCW1 ([facility]) Name Value Range Interpretation Code Description Data Tonya rce(s) Supporting Document(s) 41.0 30.0-100.0 TOTAL 25(OH) VITAMIN D eC W1 ([facility]) ID Date Data Source [id number] 07/08/2020 12:00:00 AM EDT [facility] Name Value Range Interpretation Code Description Data Tonya rce(s) Supporting Document(s) SARS coronavirus 2 Ag Negative [facility] This lab was ordered by Linda and rep orted by Linda. ID Date Data Source [id number] 07/06/2020 10:02:00 AM EDT [facility] Name Value Range Interpretation Code Description Data Tonya rce(s) Supporting Document(s) Thyrotropin [Units/volume] in Serum or Plasma by Detec tion limit <= 0.05 mIU/L 4.30 uIU/mL 0.47 - 5.01 [facility] ID Date Data Source [id number] 07/01/2020 12:00:00 AM EDT [facility] Name Value Range Interpretation Code Description Data Tonya rce(s) Supporting Document(s) SARS coronavirus 2 Ag Negative [facility] This lab was ordered by Linda and rep orted by Linda. ID Date Data Source [id number] 06/25/2020 12:00:00 AM EDT [facility] Name Value Range Interpretation Code Description Data Tonya rce(s) Supporting Document(s) SARS coronavirus 2 Ag Negative [facility] This lab was ordered by [place] and rep orted by Linda. ID Date Data Source [id number] 06/11/2020 08:23:00 AM EDT [facility] Name Value Range Interpretation Code Description Data Tonya rce(s) Supporting Document(s) Triiodothyronine (T3) Free [Mass/volume] in Serum or Plasma 2.4 pg/ mL 2.0-4.4 [facility] ID Date Data Source [id number] 06/10/2020 12:17:00 PM EDT [facility] Name Value Range Interpretation Code Description Data Tonya rce(s) Supporting Document(s) COMPREHENSIVE METABOLIC PANEL [facility] COMPREHENSIVE METABOLIC PANEL Sodium [Moles/volume] in Serum or Plasma 141 mEq/L 134 - 153 [facility] Potassium [Moles/volume] in Serum or Plasma 4.2 mEq/L 3.6 - 5.0 [facility] Chloride [Moles/volume] in Serum or Plasma 103 mEq/L 98 - 107 [facility] Carbon dioxide, total [Moles/volume] in Serum or Plasma 27 MEQ/L 22 - 30 [facility] Glucose [Mass/volume] in Serum or Plasma 118 MG/DL 70 - 99 H [facility] BUN 27 MG/DL 7 - 21 H [facility] Creatinine [Mass/volume] in Serum or Plasma 1.1 MG/DL 0.7 - 1.5 [facility] BUN/CREAT 25 8 - 27 [facility] Protein [Mass/volume] in Serum or Plasma 5.8 G/DL 6.3 - 8.2 L [facility] Albumin [Mass/volume] in Serum or Plasma 3.4 G/DL 3.9 - 5.0 L [facility] Globulin [Mass/volume] in Serum by calculation 2.4 GM/DL 2.4 - 3.2 [facility] A/G RATIO 1.4 0.8 - 2.0 [facility] Calcium [Mass/volume] in Serum or Plasma 8.6 MG/DL 8.4 - 10.2 [facility] Bilirubin.total [Mass/volume] in Serum or Plasma <0.7 MG/DL 0.2 - 1.3 [facility] Alkaline phosphatase [Enzymatic activity/volume] in Serum or Plasma 111 U/L 38 - 126 [facility] Aspartate aminotransferase [Enzymatic activity/volume] in Serum or Plasma 31 U/L 5 - 40 [facility] Alanine aminotransferase [Enzymatic activity/volume] in Seru m or Plasma 48 U/L 7 - 56 [facility] Anion gap 3 in Serum or Plasma 11.0 mmol/L 8.0 - 16.0 [facility] AGE 84 yrs [facility] NON-AA GFR >60 mL/min [facility] ital AFR AMER GFR >60 mL/min [facility] Ho spital Male GFR In terprentation [...] >32 mL/min Normal ID Date Data Source [id number] 06/10/2020 12:16:00 PM EDT [facility] Name Value Range Interpretation Code Description Data Tonya rce(s) Supporting Document(s) [facility] Cholesterol [Mass/volume] in Serum or Plasma 198 MG/DL 131 - 200 [facility] Deprecated Triglyceride [Mass/volume] in Serum or Plasma 99 MG/DL 3 5 - 160 [facility] HDL 43 MG/DL 29 - 86 [facility] al Cholesterol in LDL [Mass/volume] in Serum or Plasma by Direc t assay 152 mg/dL 65 - 175 [facility] Cholesterol.total/Cholesterol in HDL [Mass Ratio] in Serum o r Plasma 4.6 3.4 - 4.9 [facility] LDL/HDL 3.53 1.00 - 3.55 [facility] ital CVE RISK CHOL/HDL LDL/HDLMEN: 1/2 AVERAGE 3.43 1.00 AVERAGE 4.97 3.55 2X AVERAGE 9.55 6.25 3X AVERAGE 23.99 7.99WOMEN: 1/2 AVERAGE 3.27 1.47 AVERAGE 4.44 3.22 2X AVERAGE 7.05 5.03 3X AVERAGE 11.04 6.14 ID Date Data Source [id number] 06/10/2020 12:15:00 PM EDT [facility] Name Value Range Interpretation Code Description Data Tonya rce(s) Supporting Document(s) Hemoglobin A1c/Hemoglobin.total in Blood 6.3 % 4.4 - 6.1 H [facility] {A1]{HB] ID Date Data Source [id number] 06/10/2020 09:59:00 AM EDT [facility] Name Value Range Interpretation Code Description Data Tonya rce(s) Supporting Document(s) Thyroxine (T4) free index in Serum or Plasma by calculation 0.84 NG/DL 0.93 - 1.70 L [facility] ID Date Data Source [id number] 06/10/2020 09:58:00 AM EDT [facility] Name Value Range Interpretation Code Description Data Tonya rce(s) Supporting Document(s) Thyrotropin [Units/volume] in Serum or Plasma by Detec tion limit <= 0.05 mIU/L 6.17 uIU/mL 0.47 - 5.01 H [facility] ID Date Data Source [id number] 06/10/2020 09:15:00 AM EDT [facility] Name Value Range Interpretation Code Description Data Tonya rce(s) Supporting Document(s) CBC NO DIFF [facility] ital COMPLETE BLOOD COUNT Leukocytes [#/volume] in Blood by Automated count 7.6 10^3/uL 4.2 - 1 1.0 [facility] Erythrocytes [#/volume] in Blood by Automated count 3.78 10^6/uL 4. 50 - 6.30 L [facility] Hemoglobin [Mass/volume] in Blood 11.0 g/dL 14.0 - 16.0 L [facility] Hematocrit [Volume Fraction] of Blood by Automated count 33.7 % 4 1.0 - 51.0 L [facility] Erythrocyte mean corpuscular volume [Entitic volume] by Auto mated count 89.2 fL 80.0 - 94.0 [facility] Erythrocyte mean corpuscular hemoglobin [Entitic mass] by Automated count 29.1 pg 27.0 - 34.0 [facility] Erythrocyte mean corpuscular hemoglobin concentration [Mass/volume] by Automated count 32.6 g/dL 31.0 - 36.0 [facility] Erythrocyte distribution width [Ratio] by Automated count 13.5 % 11.5 - 14.8 [facility] Platelets [#/volume] in Blood by Automated count 311 10^3/uL 150 - 45 0 [facility] Platelet mean volume [Entitic volume] in Blood by Automated count 8.9 fL 7.4 - 10.4 [facility] ID Date Data Source [id number] 06/08/2020 09:54:00 AM EDT [facility] Name Value Range Interpretation Code Description Data Tonya rce(s) Supporting Document(s) SARS coronavirus 2 RNA [Presence] in Res piratory specimen by SENIA with probe detection NEGATIVE [facility] This lab was ordered by [facility] a nd reported by [facility]. ID Date Data Source [id number] 06/02/2020 04:00:00 PM EST [facility] Name Value Range Interpretation Code Description Data Tonya rce(s) Supporting Document(s) SARS coronavirus 2 RNA [Presence] in Res piratory specimen by SENIA with probe detection NEGATIVE [facility] This lab was ordered by [facility] a nd reported by [facility]. ID Date Data Source [id number] 05/18/2020 12:16:00 PM EST [facility] Name Value Range Interpretation Code Description Data Tonya rce(s) Supporting Document(s) SARS coronavirus 2 RNA [Presence] in Res piratory specimen by SENIA with probe detection NEGATIVE [facility] This lab was ordered by [facility] a nd reported by [facility]. Procedure Social History Code Duration Value Status Description Data Source(s ) Smoking 12/22/2020 12:00:00 AM EDT Never Smoker completed Never S moker eCW1 ([facility]) Smoking 12/06/2020 12:00:00 AM EDT Never Smoker completed Never S moker eCW1 ([facility]) Smoking 12/06/2020 12:00:00 AM EDT Never Smoker completed Never S moker eCW1 ([facility]) Smoking 10/20/2020 12:00:00 AM EDT Never Smoker completed Never S moker eCW1 ([facility]) Smoking 10/20/2020 12:00:00 AM EDT Never Smoker completed Never S moker eCW1 ([facility]) Smoking 10/20/2020 12:00:00 AM EDT Never Smoker completed Never S moker eCW1 ([facility]) Smoking 10/20/2020 12:00:00 AM EDT Never Smoker completed Never S moker eCW1 ([facility]) Smoking 10/20/2020 12:00:00 AM EDT Never Smoker completed Never S moker eCW1 ([facility]) Smoking 10/20/2020 12:00:00 AM EDT Never Smoker completed Never S moker eCW1 ([facility]) Smoking 10/20/2020 12:00:00 AM EDT Never Smoker completed Never S moker eCW1 ([facility]) Smoking 10/20/2020 12:00:00 AM EDT Never Smoker completed Never S moker eCW1 ([facility]) Smoking 09/20/2020 12:00:00 AM EDT Never Smoker completed Never S moker eCW1 ([facility]) Smoking 09/20/2020 12:00:00 AM EDT Never Smoker completed Never S moker eCW1 ([facility]) Smoking 09/20/2020 12:00:00 AM EDT Never Smoker completed Never S moker eCW1 ([facility]) Smoking 09/20/2020 12:00:00 AM EDT Never Smoker completed Never S moker eCW1 ([facility]) Smoking 09/20/2020 12:00:00 AM EDT Never Smoker completed Never S moker eCW1 ([facility]) Smoking 09/20/2020 12:00:00 AM EDT Never Smoker completed Never S moker eCW1 ([facility]) Smoking 09/20/2020 12:00:00 AM EDT Never Smoker completed Never S moker eCW1 ([facility]) Smoking 09/09/2020 12:00:00 AM EDT Never Smoker completed Never S moker eCW1 ([facility]) Smoking 09/09/2020 12:00:00 AM EDT Never Smoker completed Never S moker eCW1 ([facility]) Smoking 09/09/2020 12:00:00 AM EDT Never Smoker completed Never S moker eCW1 ([facility]) Smoking 09/09/2020 12:00:00 AM EDT Never Smoker completed Never S moker eCW1 ([facility]) Smoking 09/09/2020 12:00:00 AM EDT Never Smoker completed Never S moker eCW1 ([facility]) Smoking 09/09/2020 12:00:00 AM EDT Never Smoker completed Never S moker eCW1 ([facility]) Smoking 09/02/2020 12:00:00 AM EDT Never Smoker completed Never S moker eCW1 ([facility]) Smoking 08/12/2020 12:00:00 AM EDT Never Smoker completed Never S moker eCW1 ([facility]) Smoking 08/12/2020 12:00:00 AM EDT Never Smoker completed Never S moker eCW1 ([facility]) Smoking 08/12/2020 12:00:00 AM EDT Never Smoker completed Never S moker eCW1 ([facility]) Smoking 07/27/2020 12:00:00 AM EDT Never Smoker completed Never S moker eCW1 ([facility]) Smoking 07/27/2020 12:00:00 AM EDT Never Smoker completed Never S moker eCW1 ([facility]) Smoking 07/27/2020 12:00:00 AM EDT Never Smoker completed Never S moker eCW1 ([facility]) Smoking 06/02/2020 12:00:00 AM EST Never Smoker completed Never S moker eCW1 ([facility]) Smoking 06/02/2020 12:00:00 AM EST Never Smoker completed Never S moker eCW1 ([facility]) Smoking 06/02/2020 12:00:00 AM EST Never Smoker completed Never S moker eCW1 ([facility]) Vital Signs ID Date Data Source UNK Name Value Range Interpretation Code Description Data Source(s) Body weight 130 [lb_av] 130 [lb_av] eCW1 ([facility]) Body height 59 [in_i] 59 [in_i] eCW1 ([facility]) Body mass index (BMI) [Ratio] 26.25 kg/m2 26.25 kg/m2 eCW1 ([facility]) Heart rate 82 /min 82 /min eCW1 ([facility]) Respiratory rate 18 /min 18 /min eCW1 ([facility]) Body temperature 98.0 [degF] 98.0 [degF] eCW1 ( [facility]) Systolic blood pressure 110 mm[Hg] 110 mm[Hg] e CW1 ([facility]) Diastolic blood pressure 70 mm[Hg] 70 mm[Hg] eCW1 ([facility]) Body weight 126.6 [lb_av] 126.6 [lb_av] eCW1 ([facility]) Body weight 57.43 kg 57.43 kg eCW1 ([facility]) Body height 59 [in_i] 59 [in_i] eCW1 ([facility]) Body mass index (BMI) [Ratio] 25.57 kg/m2 25.57 kg/m2 eCW1 ([facility]) Heart rate 82 /min 82 /min eCW1 ([facility]) Respiratory rate 18 /min 18 /min eCW1 ([facility]) Body temperature 98.9 [degF] 98.9 [degF] eCW1 ( [facility]) Systolic blood pressure 112 mm[Hg] 112 mm[Hg] e CW1 ([facility]) Diastolic blood pressure 62 mm[Hg] 62 mm[Hg] eCW1 ([facility]) Body weight 123 [lb_av] 123 [lb_av] eCW1 ([facility]) Body height 59 [in_i] 59 [in_i] eCW1 ([facility]) Body mass index (BMI) [Ratio] 24.84 kg/m2 24.84 kg/m2 eCW1 ([facility]) Heart rate 67 /min 67 /min eCW1 ([facility]) Respiratory rate 18 /min 18 /min eCW1 ([facility]) Body temperature 98.9 [degF] 98.9 [degF] eCW1 ( [facility]) Systolic blood pressure 122 mm[Hg] 122 mm[Hg] e CW1 ([facility]) Diastolic blood pressure 58 mm[Hg] 58 mm[Hg] eCW1 ([facility]) Body weight 123 [lb_av] 123 [lb_av] eCW1 ([facility]) Body height 59 [in_i] 59 [in_i] eCW1 ([facility]) Body mass index (BMI) [Ratio] 24.84 kg/m2 24.84 kg/m2 eCW1 ([facility]) Heart rate 67 /min 67 /min eCW1 ([facility]) Respiratory rate 18 /min 18 /min eCW1 ([facility]) Body temperature 98.9 [degF] 98.9 [degF] eCW1 ( [facility]) Systolic blood pressure 122 mm[Hg] 122 mm[Hg] e CW1 ([facility]) Diastolic blood pressure 58 mm[Hg] 58 mm[Hg] eCW1 ([facility]) Body weight 116 [lb_av] 116 [lb_av] eCW1 ([facility]) Body height 59 [in_i] 59 [in_i] eCW1 ([facility]) Body mass index (BMI) [Ratio] 23.43 kg/m2 23.43 kg/m2 eCW1 ([facility]) Heart rate 84 /min 84 /min eCW1 ([facility]) Respiratory rate 18 /min 18 /min eCW1 ([facility]) Body temperature 97.9 [degF] 97.9 [degF] eCW1 ( [facility]) Systolic blood pressure 118 mm[Hg] 118 mm[Hg] e CW1 ([facility]) Diastolic blood pressure 66 mm[Hg] 66 mm[Hg] eCW1 ([facility]) Body mass index (BMI) [Ratio] 27.8 kg/m2 27.8 k g/m2 MEDENT ([facility]) Body temperature 96.9 [degF] 96.9 [degF] MEDENT ([facility]) Body height 56 [in_i] 56 [in_i] [facility] ([facility]) 4'8" Body weight 124.00 [lb_av] 124.00 [lb_av] MEDEN T ([facility]) Body weight 120 [lb_av] 120 [lb_av] eCW1 ([facility]) Body height 59 [in_i] 59 [in_i] eCW1 ([facility]) Body mass index (BMI) [Ratio] 24.23 kg/m2 24.23 kg/m2 eCW1 ([facility]) Heart rate 86 /min 86 /min eCW1 ([facility]) Respiratory rate 18 /min 18 /min eCW1 ([facility]) Body temperature 97.2 [degF] 97.2 [degF] eCW1 ( [facility]) Systolic blood pressure 122 mm[Hg] 122 mm[Hg] e CW1 ([facility]) Diastolic blood pressure 64 mm[Hg] 64 mm[Hg] eCW1 ([facility]) Body weight 124 [lb_av] 124 [lb_av] eCW1 ([facility]) Body mass index (BMI) [Ratio] 25.04 kg/m2 25.04 kg/m2 eCW1 ([facility]) Body height 59 [in_i] 59 [in_i] eCW1 ([facility]) Heart rate 110 /min 110 /min eCW1 ([facility]) Respiratory rate 18 /min 18 /min eCW1 ([facility]) Body temperature 98.1 [degF] 98.1 [degF] eCW1 ( [facility]) Systolic blood pressure 142 mm[Hg] 142 mm[Hg] e CW1 ([facility]) Diastolic blood pressure 62 mm[Hg] 62 mm[Hg] eCW1 ([facility]) Body weight 124 [lb_av] 124 [lb_av] eCW1 ([facility]) Body height 59 [in_i] 59 [in_i] eCW1 ([facility]) Body mass index (BMI) [Ratio] 25.04 kg/m2 25.04 kg/m2 eCW1 ([facility]) Heart rate 81 /min 81 /min eCW1 ([facility]) Respiratory rate 18 /min 18 /min eCW1 ([facility]) Body temperature 99.2 [degF] 99.2 [degF] eCW1 ( [facility]) Systolic blood pressure 104 mm[Hg] 104 mm[Hg] e CW1 ([facility]) Diastolic blood pressure 64 mm[Hg] 64 mm[Hg] eCW1 ([facility]) Body height 59 [in_i] 59 [in_i] eCW1 ([facility]) Body weight 125 [lb_av] 125 [lb_av] eCW1 ([facility]) Body mass index (BMI) [Ratio] 25.24 kg/m2 25.24 kg/m2 eCW1 ([facility]) Heart rate 67 /min 67 /min eCW1 ([facility]) Body temperature 97.2 [degF] 97.2 [degF] eCW1 ( [facility]) Respiratory rate 18 /min 18 /min eCW1 ([facility]) Systolic blood pressure 120 mm[Hg] 120 mm[Hg] e CW1 ([facility]) Diastolic blood pressure 68 mm[Hg] 68 mm[Hg] eCW1 ([facility]) Body temperature 97.8 [degF] 97.8 [degF] [facility] ([facility]) Body height 57 [in_i] 57 [in_i] [facility] ([facility]) 4'9" Body weight 131.12 [lb_av] 131.12 [lb_av] MEDEN T ([facility]) Body mass index (BMI) [Ratio] 28.4 kg/m2 28.4 k g/m2 [facility] ([facility]) Patient Treatment Plan of Care Planned Activity Planned Date Details Description Data Source (s) gabapentin 100 MG Oral Capsule 12/22/2020 12:00:00 AM EDT eCW1 ([facility]) Prednisone 20 MG Oral Tablet 12/22/2020 12:00:00 AM EDT eCW1 ([facility]) Folic Acid 1 MG Oral Tablet 12/22/2020 12:00:00 AM EDT eCW1 ([facility]) Albuterol 0.83 MG/ML Inhalant Solution 10/26/2020 12:00:00 AM EDT eCW1 ([facility]) Albuterol 0.83 MG/ML Inhalant Solution 10/26/2020 12:00:00 AM EDT eCW1 ([facility]) Albuterol 0.83 MG/ML Inhalant Solution 10/26/2020 12:00:00 AM EDT eCW1 ([facility]) Hospital bed 10/13/2020 12:00:00 AM EDT e CW1 ([facility]) Acapella Vibratory PEP Device 3 ml 23G x 1 (0.6 mm x 2 5 mm) 09/02/2020 12:00:00 AM EDT eCW1 ([facility]) Acapella Vibratory PEP Device 3 ml 23G x 1 (0.6 mm x 2 5 mm) 09/02/2020 12:00:00 AM EDT eCW1 ([facility]) Acapella Vibratory PEP Device 3 ml 23G x 1 (0.6 mm x 2 5 mm) 09/02/2020 12:00:00 AM EDT eCW1 ([facility]) Acapella Vibratory PEP Device 3 ml 23G x 1 (0.6 mm x 2 5 mm) 09/02/2020 12:00:00 AM EDT eCW1 ([facility]) Acapella Vibratory PEP Device 3 ml 23G x 1 (0.6 mm x 2 5 mm) 09/02/2020 12:00:00 AM EDT eCW1 ([facility]) Acapella Vibratory PEP Device 3 ml 23G x 1 (0.6 mm x 2 5 mm) 09/02/2020 12:00:00 AM EDT eCW1 ([facility]) Acapella Vibratory PEP Device 3 ml 23G x 1 (0.6 mm x 2 5 mm) 09/02/2020 12:00:00 AM EDT eCW1 ([facility]) Acapella Vibratory PEP Device 3 ml 23G x 1 (0.6 mm x 2 5 mm) 09/02/2020 12:00:00 AM EDT eCW1 ([facility]) Acapella Vibratory PEP Device 3 ml 23G x 1 (0.6 mm x 2 5 mm) 09/02/2020 12:00:00 AM EDT eCW1 ([facility]) Acapella Vibratory PEP Device 3 ml 23G x 1 (0.6 mm x 2 5 mm) 09/02/2020 12:00:00 AM EDT eCW1 ([facility]) Acapella Vibratory PEP Device 3 ml 23G x 1 (0.6 mm x 2 5 mm) 09/02/2020 12:00:00 AM EDT eCW1 ([facility]) Docusate Sodium 100 MG Oral Capsule 09/02/2020 12:00:00 AM EDT eCW1 ([facility]) Polyethylene Glycol - 09/02/2020 12:00:00 AM EDT eCW1 ([facility]) Cyanocobalamin 500 MCG 09/02/2020 12:00:00 AM EDT eCW1 ([facility]) Levofloxacin 250 MG Oral Tablet 09/02/2020 12:00:00 AM EDT eCW1 ([facility]) Amoxicillin 875 MG / Clavulanate 125 MG Oral Tablet 08/13/19 21 12:00:00 AM EDT eCW1 ([facility]) Amoxicillin 875 MG / Clavulanate 125 MG Oral Tablet 08/13/19 21 12:00:00 AM EDT eCW1 ([facility]) Amoxicillin 875 MG / Clavulanate 125 MG Oral Tablet 08/13/19 21 12:00:00 AM EDT eCW1 ([facility]) May Use - 08/11/2020 12:00:00 AM EDT e CW1 ([facility]) May Have - 08/02/2020 12:00:00 AM EDT e CW1 ([facility]) May Have - 08/02/2020 12:00:00 AM EDT e CW1 ([facility]) May Have - 08/02/2020 12:00:00 AM EDT e CW1 ([facility]) May Have - 08/02/2020 12:00:00 AM EDT e CW1 ([facility]) May Have - 08/02/2020 12:00:00 AM EDT e CW1 ([facility]) May Have - 08/02/2020 12:00:00 AM EDT e CW1 ([facility]) May Have - 07/27/2020 12:00:00 AM EDT e CW1 ([facility]) May Have - 07/27/2020 12:00:00 AM EDT e CW1 ([facility]) May Have - 07/27/2020 12:00:00 AM EDT e CW1 ([facility]) May Have - 07/27/2020 12:00:00 AM EDT e CW1 ([facility]) May Have - 07/27/2020 12:00:00 AM EDT e CW1 ([facility]) May Have - 07/27/2020 12:00:00 AM EDT e CW1 ([facility]) May Have - 07/27/2020 12:00:00 AM EDT e CW1 ([facility]) May Have - 07/27/2020 12:00:00 AM EDT e CW1 ([facility]) May Have - 07/27/2020 12:00:00 AM EDT e CW1 ([facility]) Acetaminophen 325 MG / Hydrocodone Bitartrate 5 MG Ora l Tablet 03/16/2020 12:00:00 AM EST eCW1 ([facility])
[2021-01-25 01:47] LABS: BASO % 0.4 % (0.0-1.0); EOS # 0.4 10^3/uL (0.0-0.5); EOS % 4.5 % (0.0-3.0); HEMATOCRIT 36.4 % (42.0-52.0); HEMOGLOBIN 11.5 g/dl (13.5-17.5); LYMPH % 32.3 % (24.0-44.0); MEAN CORPUSCULAR HEMOGLOBIN 28.3 pg (27.0-33.0); MEAN CORPUSCULAR HGB CONC 31.6 g/dl (32.0-36.5); MEAN CORPUSCULAR VOLUME 89.7 fl (80.0-96.0); MONO # 0.7 10^3/uL (0.0-0.8); NEUTROPHILS # 5.1 10^3/uL (1.5-8.5); NEUTROPHILS % 54.4 % (36.0-66.0); PLATELET COUNT, AUTOMATED 316 10^3/uL (150-450); RED BLOOD COUNT 4.06 10^6/uL (4.30-6.10); WHITE BLOOD COUNT 9.3 10^3/uL (4.0-10.0)
[2021-01-25 01:57] LABS: INR 1.24
[2021-01-25 01:58] LABS: PARTIAL THROMBOPLASTIN TIME 33.4 SECONDS (25.9-37.0)
[2021-01-25 02:15] LABS: ALBUMIN 3.2 GM/DL (3.2-5.2); BILIRUBIN,TOTAL 0.4 MG/DL (0.2-1.0); CALCIUM LEVEL 9.1 MG/DL (8.8-10.2); CREATININE FOR GFR 1.57 MG/DL (0.70-1.30); GLOMERULAR FILTRATION RATE 44.8 (>35); POTASSIUM SERUM 4.3 MEQ/L (3.5-5.1); TOTAL PROTEIN 7.4 GM/DL (6.4-8.2)
[2021-01-25] MEDS ORDERED: OMEP40CA4 PO (05:57)
[2021-01-25] MEDS ORDERED: ASPI81TA26 PO (05:57)
[2021-01-25] MEDS ORDERED: GABA-1171 PO (05:57)
[2021-01-25] MEDS ORDERED: LEVO25TA5 PO (05:57)
[2021-01-25] MEDS ORDERED: TIZA2CAP PO (05:57)
[2021-01-25] MEDS ORDERED: OMEG12003 PO (05:57)
[2021-01-25] MEDS ORDERED: BREO1INH3 PO (05:57)
[2021-01-25] MEDS ORDERED: SIMV40TA20 PO (05:57)
[2021-01-25] MEDS ORDERED: B-122500 PO (05:57)
--- NOTE | 2021-01-25 07:12 | REPVR ---
PROCEDURE INFORMATION: Exam: XR Chest Exam date and time: 01/25/2021 5:36 AM Age: 85 years old Clinical indication: Cough and shortness of breath; Additional info: SOB and cough TECHNIQUE: Imaging protocol: XR of the chest. Views: 1 view. COMPARISON: CR PORTABLE CHEST X-RAY 12/02/2020 11:40 AM FINDINGS: Lungs: Right suprahilar clips. Pleural spaces: Pleural base calcifications as before without pneumothorax or effusion. Osteopenia and degenerative changes without acute fracture. Early atelectasis or infiltrate marginated by the fissure in the right upper lobe slightly more pronounced than on the previous. Heart/Mediastinum: Stable cardiomediastinal silhouette. Bones/joints: Sternotomy wires. IMPRESSION: Chronic appearing changes with added density in the right upper lobe more pronounced than on the previous. Follow-up to resolution recommended. Electronically signed by: Bhavik Franklin On 01/25/2021 07:12:06 AM
--- NOTE | 2021-01-25 07:14 | REPVR ---
PROCEDURE INFORMATION: Exam: XR Right Shoulder Exam date and time: 01/25/2021 5:36 AM Age: 85 years old Clinical indication: Shoulder; Right; Patient HX: Pain from fall 9 months ago; Additional info: ? Adhesive capsulitis TECHNIQUE: Imaging protocol: XR Right shoulder. Views: 2 or more views. COMPARISON: CR Shoulder, complete 06/02/2020 4:54 PM FINDINGS: Bones/joints: No acute fracture or dislocation. Stable degenerative changes in loss of the subacromial space suggestive of chronic rotator cuff tear. Osteopenia and degenerative changes. Lungs: Focal added density in the right upper lobe of the lung. This is better evaluated on today's chest film. Soft tissues: No definite calcific tendinitis. Other findings: Postoperative changes at the right suprahilar level. IMPRESSION: Osteopenia and degenerative changes with findings suggestive of chronic rotator cuff tear. Consider MRI if there is continued concern for adhesive capsulitis. Electronically signed by: Bhavik Franklin On 01/25/2021 07:13:52 AM
--- NOTE | 2021-01-25 07:15 | REPVR ---
PROCEDURE INFORMATION: Exam: XR Right Hip Exam date and time: 01/25/2021 5:36 AM Age: 85 years old Clinical indication: Hip pain; Right hip; Patient HX: Pain from fall 9 months ago; Additional info: ? Adhesive capsulitis TECHNIQUE: Imaging protocol: XR Right hip. Views: 2 or 3 views hip with pelvis when performed. COMPARISON: CR Hip,AP,LAT to include Pelvis RIGHT 06/02/2020 4:54 PM FINDINGS: Bones/joints: Osteopenia and degenerative changes both relatively limited for patient age. No acute fracture or dislocation. Soft tissues: Unremarkable. Other findings: Artifact over the pelvis. IMPRESSION: No acute bony abnormality. Electronically signed by: Bhavik Fraknlin On 01/25/2021 07:14:46 AM
[2021-01-25] MEDS ORDERED: ACETAMINOPHEN 325 MG TAB PO ONE (07:35)
[2021-01-25] MEDS ORDERED: IPRATROPIUM 0.5MG/ALBUTEROL 2.5MG INH SOL UD 3ML (DUONEB) NEB ONE (07:55)
[2021-01-25] MEDS ORDERED: predniSONE 20 MG TAB PO ONE (08:05)
--- NOTE | 2021-01-25 08:33 | ECGEPIP ---
[facility] - ED Test Date: 2021-01-25 Pat Name: PATRICIA BALLARD Department: Room: - Gender: Male Rn Perioperative: : 1935 Requested By: TIMOTEO Rodriguez Order Number: [id number] Reading MD: Amador Gifford Measurements Intervals [place] Rate: 69 P: MD: QRS: 20 QRSD: 80 T: 36 QT: 448 QTc: 480 Interpretive Statements Atrial fibrillation Septal infarct , age undetermined SIMILAR TO 12/02/20 Electronically Signed on 01-25-2021 8:33:39 EDT by Amador Gifford
[2021-01-25] MEDS ORDERED: ALBUTEROL 90 MCG/ACT 8GM HFA INHALER INH ONE (08:45)
[2021-01-25 09:15] VITALS: O2SAT 97
[2021-01-25] MEDS ORDERED: PRED20TA PO (09:36)
[2021-01-25] MEDS ORDERED: CEFD300C PO (09:38)
[2021-01-25 10:06] VITALS: BP 156/78
--- NOTE | 2021-01-25 16:47 | ED PDOC ---
Post-Departure Follow-Up raiology report faxed to Esha Aguila MD Jan 25, 2021 16:47
== END 2021-01-25 10:10 | disposition home or self-care (01) ==
LOC: M ED 23:55
DX: J18.9 Pneumonia, unspecified organism (principal); M75.01 Adhesive capsulitis of right shoulder; M16.11 Unilateral primary osteoarthritis, right hip; I48.91 Unspecified atrial fibrillation; I10 Essential (primary) hypertension; K21.9 Gastro-esophageal reflux disease without esophagitis; J45.909 Unspecified asthma, uncomplicated; E78.5 Hyperlipidemia, unspecified; E03.9 Hypothyroidism, unspecified; Z95.1 Presence of aortocoronary bypass graft; Z79.01 Long term (current) use of anticoagulants; Z79.899 Other long term (current) drug therapy
CPT/HCPCS: 71045; 73030; 73502; 80053; 85025; 85610; 85730; 87798; 93005; 94640; 99285; J7512

== ENCOUNTER → 2021-02-04 | Outpatient (CLI) | payer MEDICARE, MEDICAID ==
[~2021-02-04] MED LIST changes: +B-122500 PO; +BREO1INH3 PO; +CEFD300C PO; +GABA-1171 PO; +LEVO25TA5 PO; +OMEG12003 PO; +OMEP40CA4 PO; +TIZA2CAP PO
--- NOTE | 2021-02-04 13:21 | REP ---
INDICATION: PNEUMONIA, UNSPECIFIED ORGANISM. COMPARISON: 01/25/2021 AP supine TECHNIQUE: Two views FINDINGS: Cardiomediastinal silhouette is unchanged. There is cardiomegaly. The lung hol[place] are unchanged. Interstitial fibrotic changes with calcific pleural plaquing again noted status quo. No new abnormal opacities have developed. The pleural angles are again seen to be sharp. There is no change in the osseous structures. IMPRESSION: No significant change <Electronically signed by Nehemias Gonsalez > 02/04/21 [id number]
[2021-02-04 13:27] LABS: BASO % 0.1 % (0.0-1.0); EOS # 0.3 10^3/uL (0.0-0.5); EOS % 1.7 % (0.0-3.0); HEMATOCRIT 40.6 % (42.0-52.0); HEMOGLOBIN 12.6 g/dl (13.5-17.5); LYMPH # 2.9 10^3/uL (1.5-5.0); MEAN CORPUSCULAR HEMOGLOBIN 27.6 pg (27.0-33.0); MEAN CORPUSCULAR VOLUME 88.8 fl (80.0-96.0); MONO # 1.4 10^3/uL (0.0-0.8); NEUTROPHILS # 13.3 10^3/uL (1.5-8.5); NEUTROPHILS % 73.5 % (36.0-66.0); PLATELET COUNT, AUTOMATED 345 10^3/uL (150-450); RED BLOOD COUNT 4.57 10^6/uL (4.30-6.10); WHITE BLOOD COUNT 18.1 10^3/uL (4.0-10.0)
[2021-02-04 14:00] LABS: ALBUMIN 3.3 GM/DL (3.2-5.2); BILIRUBIN,TOTAL 0.6 MG/DL (0.2-1.0); C REACTIVE PROTEIN QUANTITATIV 4.81 MG/DL (0.00-0.30); CALCIUM LEVEL 9.4 MG/DL (8.8-10.2); CREATININE FOR GFR 1.39 MG/DL (0.70-1.30); GLOMERULAR FILTRATION RATE 51.6 (>35); POTASSIUM SERUM 4.3 MEQ/L (3.5-5.1); TOTAL PROTEIN 7.3 GM/DL (6.4-8.2)
[2021-02-04 14:15] LABS: ERYTHROCYTE SEDIMENTATION RATE 34 mm/hr (0-20)
== END ==
LOC: M PLAIMG 11:44
PROVIDERS: ATTEND Physician Assistant Medical
DX: I51.7 Cardiomegaly (principal); J18.9 Pneumonia, unspecified organism

== ENCOUNTER → 2021-02-05 | Outpatient (REF) | payer MEDICARE, MEDICAID | LOC: M LAB REF 09:26 | PROVIDERS: ATTEND Physician Assistant Medical | DX: J18.9 Pneumonia, unspecified organism (principal) ==

== ENCOUNTER → 2021-02-16 | Outpatient (CLI) | payer MEDICARE, MEDICAID ==
[2021-02-16 14:19] LABS: ALBUMIN 3.1 GM/DL (3.2-5.2); BILIRUBIN,TOTAL 0.5 MG/DL (0.2-1.0); CALCIUM LEVEL 9.1 MG/DL (8.8-10.2); CREATININE FOR GFR 1.55 MG/DL (0.70-1.30); GLOMERULAR FILTRATION RATE 45.5 (>35); POTASSIUM SERUM 4.5 MEQ/L (3.5-5.1); TOTAL PROTEIN 7.1 GM/DL (6.4-8.2)
== END ==
LOC: M PLALAB 09:38
PROVIDERS: ATTEND Physician Assistant Medical
DX: N18.30 Chronic kidney disease, stage 3 unspecified (principal)
CPT/HCPCS: 36415; 80053; G0463

== ENCOUNTER → 2021-03-17 | Outpatient (CLI) | payer MEDICARE, MEDICAID ==
[~2021-03-17] MED LIST changes: +BREO1INH3 INH; -BREO1INH3 PO; +D31000TA2 PO; +FISH1000 PO; +METO1TAB7 PO; +NITR0.4S14 SL; +TIZA1TAB12 PO
== END ==
LOC: M RAD 15:49
PROVIDERS: ATTEND Physician Assistant
DX: R05.9 Cough, unspecified (principal); R06.02 Shortness of breath; I51.7 Cardiomegaly; J92.9 Pleural plaque without asbestos

== ENCOUNTER 2021-03-22 08:44 | Outpatient (RCR) | payer MEDICARE, MEDICAID ==
[~2021-03-22 08:44] MED LIST changes: -D31000TA2 PO; -FISH1000 PO; -METO1TAB7 PO; -NITR0.4S14 SL; -TIZA1TAB12 PO
[2021-03-24] MEDS ORDERED: D31000TA2 PO (20:52)
[2021-03-24] MEDS ORDERED: TIZA1TAB12 PO (20:52)
[2021-03-24] MEDS ORDERED: FOLI1TAB11 PO (20:52)
[2021-03-24] MEDS ORDERED: METO1TAB7 PO (20:52)
[2021-03-24] MEDS ORDERED: VITMTA PO (20:52)
[2021-03-24] MEDS ORDERED: FISH1000 PO (20:52)
== END 2021-03-25 ==
LOC: M PT 08:44
PROVIDERS: ATTEND Physician Assistant Medical
DX: M47.26 Other spondylosis with radiculopathy, lumbar region (principal)

== ENCOUNTER 2021-03-24 17:49 | Emergency (ER) | payer MEDICARE, MEDICAID ==
[~2021-03-24] VITALS: Ht 149.9 cm; Wt 55.9 kg
[2021-03-24] MEDS ORDERED: MORPHINE 2 MG/ML 1ML VIAL (J2270) IV ONE (18:15)
--- NOTE | 2021-03-24 18:29 | REP ---
INDICATION: CHEST PAIN COMPARISON: 03/17/2021 TECHNIQUE: Portable AP view of the chest FINDINGS: The mediastinum and cardiac silhouette are stable and again demonstrate sternotomy and CABG. The lung hol[place] demonstrate stable chronic changes including scattered calcified pleural plaques. No acute consolidation, effusion, or pneumothorax. Skeletal structures are intact. IMPRESSION: No acute cardiopulmonary process appreciated. <Electronically signed by Jaciel Weldon > 03/24/21 [id number]
[2021-03-24 19:15] LABS: VENOUS BASE EXCESS 5.6 (-2.0-2.0); VENOUS HCO3 32.4 MEQ/L (23.0-27.0); VENOUS O2 SATURATION 69.2 % (60.0-80.0); VENOUS PARTIAL PRESSURE CO2 55.7 mmHg (38.0-50.0); VENOUS PARTIAL PRESSURE O2 36.7 mmHg (30.0-50.0); VENOUS PH 7.383 UNITS (7.330-7.430); VENOUS STANDARD HCO3 28.8 MEQ/L; VENOUS TOTAL CO2 34.1 MEQ/L (24.0-28.0)
[2021-03-24 19:24] LABS: HEMATOCRIT 43.8 % (42.0-52.0); HEMOGLOBIN 13.9 g/dl (13.5-17.5); MEAN CORPUSCULAR HEMOGLOBIN 27.6 pg (27.0-33.0); MEAN CORPUSCULAR HGB CONC 31.7 g/dl (32.0-36.5); MEAN CORPUSCULAR VOLUME 87.1 fl (80.0-96.0); PLATELET COUNT, AUTOMATED 464 10^3/uL (150-450); RED BLOOD COUNT 5.03 10^6/uL (4.30-6.10); WHITE BLOOD COUNT 16.8 10^3/uL (4.0-10.0)
--- NOTE | 2021-03-24 19:31 | ECGEPIP ---
[facility] - ED Test Date: 2021-03-24 Pat Name: PATRICIA BALLARD Department: Room: - Gender: Male Controlled Area Checker: MIKALA : 1935 Requested By: KARMA AMBROSIO Order Number: [id number] Reading MD: Frank Lakhani Measurements Intervals [place] Rate: 84 P: [place]: QRS: 63 QRSD: 78 T: 36 QT: 378 QTc: 446 Interpretive Statements Atrial fibrillation septal infarct age undetermined Nonspecific ST abnormality 01/25/[address] T wave changes Electronically Signed on 03-24-2021 19:31:07 EST by Frank Lakhani
[2021-03-24 19:47] LABS: EOSINOPHILS 4 % (0-3); LYMPHOCYTES 36 % (16-44); MONOCYTES 9 % (0-5); NEUTROPHILS 51 % (28-66); PLATELET ESTIMATE NORMAL (NORMAL)
[2021-03-24 19:52] LABS: ALBUMIN 3.4 GM/DL (3.2-5.2); BILIRUBIN,DIRECT 0.1 MG/DL (0.0-0.2); BILIRUBIN,TOTAL 0.2 MG/DL (0.2-1.0); CALCIUM LEVEL 9.7 MG/DL (8.8-10.2); CREATININE FOR GFR 1.76 MG/DL (0.70-1.30); GLOMERULAR FILTRATION RATE 39.3 (>35); POTASSIUM SERUM 3.7 MEQ/L (3.5-5.1); TOTAL PROTEIN 7.9 GM/DL (6.4-8.2)
[2021-03-24] MEDS ORDERED: METO1TAB7 PO (20:52)
[2021-03-24] MEDS ORDERED: VITMTA PO (20:52)
[2021-03-24] MEDS ORDERED: D31000TA2 PO (20:52)
[2021-03-24] MEDS ORDERED: FOLI1TAB11 PO (20:52)
[2021-03-24] MEDS ORDERED: TIZA1TAB12 PO (20:52)
[2021-03-24] MEDS ORDERED: FISH1000 PO (20:52)
[2021-03-24] MEDS ORDERED: HOME MED LIST COMPLETE! XX SCH (20:55)
[2021-03-24 22:16] VITALS: BP 123/78
== END 2021-03-24 22:55 | disposition home or self-care (01) ==
LOC: M ED 17:49
DX: J44.9 Chronic obstructive pulmonary disease, unspecified (principal); R07.9 Chest pain, unspecified; I48.91 Unspecified atrial fibrillation; I50.9 Heart failure, unspecified; I10 Essential (primary) hypertension; E78.5 Hyperlipidemia, unspecified; K57.92 Diverticulitis of intestine, part unspecified, without perforation or abscess without bleeding; F10.11 Alcohol abuse, in remission; Z95.1 Presence of aortocoronary bypass graft; Z98.61 Coronary angioplasty status; Z90.49 Acquired absence of other specified parts of digestive tract; Z79.82 Long term (current) use of aspirin; Z79.01 Long term (current) use of anticoagulants; Z79.899 Other long term (current) drug therapy
CPT/HCPCS: 71045; 80048; 80076; 82803; 83690; 83880; 84484; 85025; 85379; 87040; 87077; 87798; 93005; 93041; 96374; 99285; J2270

== ENCOUNTER → 2021-04-01 | Outpatient (CLI) | payer MEDICARE, MEDICAID ==
[~2021-04-01] MED LIST changes: +D31000TA2 PO; +FISH1000 PO; +METO1TAB7 PO; +TIZA1TAB12 PO
== END ==
LOC: M RAD 12:35
PROVIDERS: ATTEND Physician Assistant
DX: M54.6 Pain in thoracic spine (principal)

== ENCOUNTER 2021-04-05 12:00 | Outpatient (RCR) | payer MEDICARE, MEDICAID ==
[2021-04-21] MEDS ORDERED: NITR0.4S14 SL (23:45)
== END 2021-04-25 ==
LOC: M PT 12:00
PROVIDERS: ATTEND Physician Assistant Medical
DX: M47.26 Other spondylosis with radiculopathy, lumbar region (principal)

== ENCOUNTER → 2021-04-11 | Outpatient (CLI) | payer MEDICARE, MEDICAID ==
[2021-04-11 17:30] LABS: BASO # 0.1 10^3/uL (0.0-0.2); BASO % 0.6 % (0.0-1.0); EOS # 0.6 10^3/uL (0.0-0.5); EOS % 7.1 % (0.0-3.0); HEMATOCRIT 42.5 % (42.0-52.0); HEMOGLOBIN 12.9 g/dl (13.5-17.5); LYMPH # 2.7 10^3/uL (1.5-5.0); LYMPH % 32.7 % (24.0-44.0); MEAN CORPUSCULAR HEMOGLOBIN 27.6 pg (27.0-33.0); MEAN CORPUSCULAR HGB CONC 30.4 g/dl (32.0-36.5); MEAN CORPUSCULAR VOLUME 90.8 fl (80.0-96.0); MONO # 0.8 10^3/uL (0.0-0.8); MONO % 9.2 % (2.0-8.0); NEUTROPHILS # 4.2 10^3/uL (1.5-8.5); PLATELET COUNT, AUTOMATED 340 10^3/uL (150-450); RED BLOOD COUNT 4.68 10^6/uL (4.30-6.10); WHITE BLOOD COUNT 8.3 10^3/uL (4.0-10.0)
[2021-04-11 17:59] LABS: ERYTHROCYTE SEDIMENTATION RATE 51 mm/hr (0-20)
[2021-04-11 18:05] LABS: ALBUMIN 3.2 GM/DL (3.2-5.2); BILIRUBIN,TOTAL 0.4 MG/DL (0.2-1.0); C REACTIVE PROTEIN QUANTITATIV 1.64 MG/DL (0.00-0.30); CALCIUM LEVEL 9.5 MG/DL (8.8-10.2); CHOLESTEROL RISK RATIO 3.285 (<5); CREATININE FOR GFR 1.53 MG/DL (0.70-1.30); GLOMERULAR FILTRATION RATE 46.2 (>35); PERCENT SATURATION 14.2 % (19.7-50.0); POTASSIUM SERUM 5.1 MEQ/L (3.5-5.1); THYROID STIMULATING HORMONE 2.71 uIU/ML (0.358-3.740); TOTAL PROTEIN 7.8 GM/DL (6.4-8.2)
== END ==
LOC: M PLALAB 15:29
PROVIDERS: ATTEND Family Medicine
DX: M54.14 Radiculopathy, thoracic region (principal); D50.9 Iron deficiency anemia, unspecified; I11.0 Hypertensive heart disease with heart failure; I50.30 Unspecified diastolic (congestive) heart failure

== ENCOUNTER 2021-04-21 22:02 | Emergency (ER) | payer MEDICARE, MEDICAID ==
[~2021-04-21] VITALS: Ht 175.3 cm; Wt 58.0 kg
[2021-04-21] MEDS ORDERED: NITR0.4S14 SL (23:45)
[2021-04-22 02:36] VITALS: BP 120/60
== END 2021-04-22 03:27 | disposition home or self-care (01) ==
LOC: M ED 22:02 → EDBD 22:02 → M ED 04-22 03:27
DX: S40.011A Contusion of right shoulder, initial encounter (principal); X58.XXXA Exposure to other specified factors, initial encounter; Y92.009 Unspecified place in unspecified non-institutional (private) residence as the place of occurrence of the external cause; Y93.9 Activity, unspecified; Y99.9 Unspecified external cause status; Z79.01 Long term (current) use of anticoagulants; Z79.82 Long term (current) use of aspirin; Z79.899 Other long term (current) drug therapy

== ENCOUNTER 2021-05-10 11:28 | Outpatient (RCR) | payer MEDICARE, MEDICAID ==
[~2021-05-10 11:28] MED LIST changes: -D31000TA2 PO; +NITR0.4S14 SL; +VITA100093 PO
== END 2021-05-21 ==
LOC: M PT 11:28
PROVIDERS: ATTEND Family Medicine
DX: M54.14 Radiculopathy, thoracic region (principal)

== ENCOUNTER 2021-05-21 17:51 | Emergency (ER) | payer MEDICARE, MEDICAID ==
[~2021-05-21 17:51] MED LIST changes: +D31000TA2 PO; -VITA100093 PO
[2021-05-21] MEDS ORDERED: AMIODARONE 150MG/3ML INJ (J0282) ONE (17:52)
[2021-05-21] MEDS ORDERED: EPINEPHrine 1MG/10ML SYRINGE 1.5IN ONE (17:52)
[2021-05-21 18:21] LABS: HEMATOCRIT 32.3 % (42.0-52.0); HEMOGLOBIN 9.7 g/dl (13.5-17.5); MEAN CORPUSCULAR VOLUME 93.1 fl (80.0-96.0); PLATELET COUNT, AUTOMATED 207 10^3/uL (150-450); RED BLOOD COUNT 3.47 10^6/uL (4.30-6.10); WHITE BLOOD COUNT 8.2 10^3/uL (4.0-10.0)
[2021-05-21 18:49] LABS: ATYPICAL LYMPH 3 % (0-5); LYMPHOCYTES 27 % (16-44); METAMYELOCYTES 1 % (0-0); MONOCYTES 2 % (0-5); MYELOCYTES 1 % (0-0); NEUTROPHILS 65 % (28-66); PLATELET ESTIMATE NORMAL (NORMAL); PROMYELOCYTES 1 % (0-0)
[2021-05-21 18:50] LABS: HYPOCHROMASIA 1+
[2021-05-21 18:51] LABS: CK-MB VALUE MASS 3.9 NG/ML (<3.6); MB/CK RELATIVE INDEX 2.52 (< OR =4)
[2021-05-21 18:52] LABS: ALBUMIN 2.2 GM/DL (3.2-5.2); ALT/SGPT 46 U/L (12-78); AMYLASE 28 U/L (25-115); BILIRUBIN,DIRECT < 0.1 MG/DL (0.0-0.2); BILIRUBIN,TOTAL 0.3 MG/DL (0.2-1.0); BLOOD UREA NITROGEN 25 MG/DL (7-18); CALCIUM LEVEL 7.3 MG/DL (8.8-10.2); CARBON DIOXIDE LEVEL 17 MEQ/L (21-32); CHLORIDE LEVEL 107 MEQ/L (98-107); CREATININE FOR GFR 2.16 MG/DL (0.70-1.30); ETHYL ALCOHOL (ETHANOL) < 0.003 % (0.000-0.010); GLUCOSE, FASTING 202 MG/DL (70-100); LIPASE 30 U/L (73-393); POTASSIUM SERUM 4.3 MEQ/L (3.5-5.1); SODIUM LEVEL 140 MEQ/L (136-145); TOTAL PROTEIN 5.1 GM/DL (6.4-8.2)
[2021-05-21 19:42] LABS: RSV AMPLIFICATION NEGATIVE (NEGATIVE)
== END 2021-05-21 19:45 | disposition expired ==
LOC: EDBD 17:51 → M ED 17:51
DX: I21.3 ST elevation (STEMI) myocardial infarction of unspecified site (principal); I46.9 Cardiac arrest, cause unspecified; I24.9 Acute ischemic heart disease, unspecified; I48.91 Unspecified atrial fibrillation; I45.10 Unspecified right bundle-branch block; R91.8 Other nonspecific abnormal finding of lung field; I25.10 Atherosclerotic heart disease of native coronary artery without angina pectoris; I10 Essential (primary) hypertension; E78.5 Hyperlipidemia, unspecified; K21.9 Gastro-esophageal reflux disease without esophagitis; N40.0 Benign prostatic hyperplasia without lower urinary tract symptoms; Z95.1 Presence of aortocoronary bypass graft; Z79.01 Long term (current) use of anticoagulants; Z79.82 Long term (current) use of aspirin; Z79.899 Other long term (current) drug therapy
CPT/HCPCS: 36600; 71045; 80047; 80048; 80076; 82077; 82150; 82550; 82553; 82803; 83605; 83690; 84484; 85025; 87631; 92950; 93005; 99291; J0282